=== PATIENT | female | born 1945 | race Caucasian/White ===

== ENCOUNTER → 2017-12-10 09:35 | Outpatient (CLI) | payer MEDICARE, SELFPAY ==
--- NOTE | 2017-12-10 09:39 | RAD_ITS ---
PROCEDURE: Fluoroscopic guided Hip Injection DATE: December 10, 2017. INDICATION: Female, 72 years old. Osteoarthritis of the left hip. PHYSICIAN: Vivek Rivera M.D. MEDICATIONS: 6 mg of betamethasone and 3 cc of lidocaine 1%. 2% Lidocaine administered subcutaneously for local anesthesia. ACCESS SITE: Left hip hip. NEEDLE: 22-gauge spinal needle. FLUOROSCOPY TIME (if supplied): (0:34) minutes/seconds FINDINGS: The risks, benefits, and alternatives to the procedure were explained to the patient. The specific risks of bleeding, infection, and neurovascular injury were detailed and accepted. Witnessed informed consent was obtained. A 22-gauge spinal needle was positioned under radiographic fluoroscopic localization. Approximately 2 cc of Isovue-300 instilled for localization purposes. Medication was then injected. The patient tolerated the procedure well without any immediate complications. The patient was placed supine with head elevated and returned to the floor in stable condition. RAD/Inj/Asp Caleb Jt Should/Hip/Knee IMPRESSION: 1. Successful fluoroscopic guided hip injection. Electronically Signed: Vivek Rivera MD at 11:03 EST Tel [phone], Service support ,
== END ==
PROVIDERS: Family Provider Internal Medicine; PCP Internal Medicine; Visit Provider Specialist
DX: M16.12 Unilateral primary osteoarthritis, left hip (principal)
CPT/HCPCS: 20610; 77002; Q9967; J0702

== ENCOUNTER → 2018-01-01 09:17 | Outpatient (CLI) | payer MEDICARE, SELFPAY ==
--- NOTE | 2018-01-01 09:38 | RAD_ITS ---
PROCEDURE: Fluoroscopic guided Hip Injection DATE: January 01, 2018. INDICATION: Female, 72 years old. Left hip pain. PHYSICIAN: Vivek Rivera M.D. MEDICATIONS: 6 mg of betamethasone and 3 cc of 1% lidocaine. 2% Lidocaine administered subcutaneously for local anesthesia. ACCESS SITE: Left hip. NEEDLE: 22-gauge spinal needle. FLUOROSCOPY TIME (if supplied): (32 seconds) minutes/seconds FINDINGS: The risks, benefits, and alternatives to the procedure were explained to the patient. The specific risks of bleeding, infection, and neurovascular injury were detailed and accepted. Witnessed informed consent was obtained. A 22-gauge spinal needle was positioned under radiographic fluoroscopic localization. Approximately 2 cc of Isovue-300 instilled for localization purposes. Medication was then injected. The patient tolerated the procedure well without any immediate complications. The patient was placed supine with head elevated and returned to the floor in stable condition. RAD/Inj/Asp Caleb Jt Should/Hip/Knee IMPRESSION: 1. Successful fluoroscopic guided hip injection. Electronically Signed: Vivek Rivera MD at 10:23 EST Tel [phone], Service support ,
== END ==
PROVIDERS: Family Provider Internal Medicine; PCP Internal Medicine; Visit Provider Specialist
DX: M16.12 Unilateral primary osteoarthritis, left hip (principal)
CPT/HCPCS: 20610; 77002; Q9967; J0702

== ENCOUNTER 2018-02-03 17:31 | Inpatient (IN) | payer MEDICARE, SELFPAY ==
[2018-02-03] VITALS (10 sets, daily range): BP systolic 111–142; BP diastolic 65–92; PULSE 79–119; RESP 20–29; TEMP 37.3–37.4; O2SAT 93–99; BMI 42.0; BMI 40.6
--- NOTE | 2018-02-03 17:56 | EKG12_ITS ---
Test Reason : SOB Blood Pressure : / mmHG Vent. Rate : 095 BPM Atrial Rate : 105 BPM P-R Int : 000 ms QRS Dur : 128 ms QT Int : 412 ms P-R-T Axes : 000 004 045 degrees QTc Int : 517 ms Atrial fibrillation Right bundle branch block Abnormal ECG Confirmed by OMID COELHO MD ([id number]), acquisitions editor JOCELYN HUYNH ([id number] on 02/06/2018 1:54:12 PM Referred By: LENNY Confirmed By:OMID COELHO MD
--- NOTE | 2018-02-03 17:58 | RAD_ITS ---
STUDY: X-RAY CHEST REASON FOR EXAM: Female, 72 years old. Shortness of breath TECHNIQUE: A single frontal view of the chest was obtained. COMPARISON: June 28, 2017 FINDINGS: The lungs are underaerated. There are coarse markings throughout both lungs, most pronounced in the lung bases. There is no demonstrated pleural abnormality. There is mild enlargement of the cardiac silhouette. The mediastinum and hilar regions are unremarkable. The central vessels are indistinct. There is atherosclerotic calcification of the thoracic aorta. There are diffuse degenerative changes of the visualized spine. There are degenerative changes in both shoulders. There is no demonstrated abnormality of the visualized upper abdomen. RAD/Chest 1 View (Portable) IMPRESSION: There is mild enlargement of the cardiac silhouette with vascular congestion. There is no obvious effusion. There are stable chronic changes in the lungs, most pronounced in the lung bases. Electronically Signed: Gill Boss MD at 18:25 EDT Tel Direct: [phone], Service support ,
[2018-02-03] MEDS: Ipratropium/Albuterol Sulfate 3 ML AMPUL.NEB INHALATION (18:02)
[2018-02-03] MEDS: 0.9% Normal Saline 1,000 ML 15 ML IV (18:23)
[2018-02-03 18:29] LABS: Anion Gap 7 (5-15); BUN 10 mg/dL (7-18); BUN/Creat Ratio 18.2 RATIO (10-20); Calcium,Total 8.5 mg/dL (8.5-10.1); Chloride 102 mmol/L (98-107); Creatinine, Serum 0.55 mg/dL (0.55-1.02); EST Glomerular Filtration Rate 115 mL/min (>60); Est Glom Filt Rate - Afr Amer 139 mL/min (>60); Estimated Creatinine Clearance 43.91 ml/min; Glucose 127 mg/dL (74-106); Potassium 3.8 mmol/L (3.5-5.1); Sodium Level 140 mmol/L (136-145)
[2018-02-03 18:43] LABS: Absolute Neutrophil Count 13.4 X10^3/uL (2.0-7.7); Basophil# 0.03 X10^3/uL; Basophil% 0.2 % (0-1); Eosinophil# 0.01 X10^3/uL; Eosinophils% 0.1 % (0-5); Hematocrit 31.6 % (37-47); Hemoglobin 9.1 g/dl (12.0-15.0); Lymphocyte % 6.4 % (19-41); Mean Corp Hgb Conc 28.8 g/gl (32-36); Mean Corpuscular Hgb 23.6 pg (27.0-32.0); Mean Corpuscular Volume 81.9 fL (81-99); Mean Platelet Vol. 8.9 fl (6.2-12.0); Monocyte# 1.22 X10^3/uL; Monocyte% 7.8 % (0-10); Neutrophil # 13.35 X10^3/uL (2.7-7.7); Neutrophil % 85.3 % (47-70); Platelet Count 351 K/mm3 (150-450); RBC Distribution Width CV 17.9 % (11.6-14.6); Red Blood Count 3.86 M/mm3 (4.2-5.4); White Blood Count 15.6 K/mm3 (4.4-11.0)
[2018-02-03 18:46] LABS: POSITIVE COUNT NO; POSITIVE DIFFERENTIAL NO; POSITIVE MORPHOLOGY NO
[2018-02-03 19:18] LABS: BNP,B-Type NATRIURETIC PEPTIDE 153.4 pg/mL (0-100)
--- NOTE | 2018-02-03 19:59 | US_ITS ---
STUDY: VENOUS DOPPLER ULTRASOUND - LEFT LOWER EXTREMITY REASON FOR EXAM: Female, 72 years old. Left leg pain and swelling TECHNIQUE: Ultrasound evaluation of the deep vein system to include caballero-scale imaging and compression was performed. Caballero-scale imaging and Doppler sonographic evaluation, including duplex spectral analysis and qualitative color flow sonography, was performed. COMPARISON: None. FINDINGS: Common Femoral Vein: Normal compression, spontaneity and augmentation. Normal color Doppler. Common Femoral Vein/Greater Saphenous Junction: Normal compression, spontaneity and augmentation. Normal color Doppler. Deep Femoral Vein: Normal compression, spontaneity and augmentation. Normal color Doppler. Femoral Proximal: Normal compression, spontaneity and augmentation. Normal color Doppler. Femoral Middle: Normal compression, spontaneity and augmentation. Normal color Doppler. Femoral Distal: Normal compression, spontaneity and augmentation. Normal color Doppler. Popliteal Vein: Normal compression, spontaneity and augmentation. Normal color Doppler. Posterior Tibial Vein: Normal compression, spontaneity and augmentation. Normal color Doppler. Peroneal Vein: Normal compression, spontaneity and augmentation. Normal color Doppler. US/Venous Duplex Imag/Limited/Uni IMPRESSION: Normal venous Doppler ultrasound of the lower extremity. Electronically Signed: Ron Mota MD at 20:43 EDT , Service support ,
[2018-02-03] MEDS: MethylPREDNISolone 125 MG/2 ML Vial IV (20:09)
[2018-02-03 20:26] LABS: International Normalized Ratio 2.9; Prothrombin Time (Protime)PT. 30.2 SECONDS (11.7-14.9)
--- NOTE | 2018-02-03 22:10 | ED.DCSUM_ITS ---
- ER Visit Summary Date of Service: 02/03/18 Chief Complaint: Shortness of breath History of Present Illness: The patient is a 72 F with COPD, A. fib, high blood pressure, and high cholesterol. Presents with shortness of breath increasing throughout the day today. She normally uses oxygen at 4-5 L at home. She believes her symptoms are similar prior COPD exacerbation. No chest pain. No cough or sputum. No fevers. She reports some swelling to her left leg. She does take Coumadin for A. fib. Physical Examination: Vital signs unremarkable. Afebrile. 98% on 6 L nasal cannula. No distress. Speaking in full sentences. Heart irregularly irregular. Lungs show poor air movement and rales at the bases. Abdomen soft and nontender. Left calf tender to palpation. 1+ symmetric edema. Pulses strong and equal. Test Results: EKG showed A. fib at a rate of 95. White count 15.6 and hemoglobin 9.1. Glucose 127. INR 2.9. BNP 153 and troponin normal. Chest x- ray showed an enlarged cardiac silhouette but otherwise stable changes. Ultrasound of the left leg was negative. Emergency Department Course and Treatment: Patient has a history of COPD and shortness of breath. Denies chest pain. Denies history of heart failure. Workup was all fairly unremarkable. She does have a white count of 15.6. This is a nonspecific finding. Her chest x-ray does not show an obvious infection. Given her history of COPD, I did give her a dose of Solu-Medrol, DuoNeb, and ceftriaxone. She had no significant change. I have low suspicion for PE. Troponin and EKG were unremarkable. Given her age and comorbidities and symptoms, I called the hospitalist for evaluation. Treatment Plan: As above Disposition: Admit Impression: 1. Dyspnea 2. COPD This note was generated with Bizimplyation software. It may contain incorrect words, spelling, and punctuation that were not noted in review of the chart prior to signing ED Disposition - Plan for ED Patient: Chief Complaint: Shortness of Breath Referrals: Aurora Madera MD [Primary Care Provider] -
--- NOTE | 2018-02-03 22:11 | PCM.HP.STD ---
Problem List (1) half-way current use of anticoagulant Status: Chronic (2) Pulmonary hypertension Status: Acute (3) Hyperlipidemia Status: Chronic (4) Paroxysmal atrial fibrillation Status: Chronic (5) Atrial septal defect Status: Chronic (6) Edema Status: Chronic (7) Dyspnea Status: Chronic (8) BMI 38.0-38.9,adult Status: Chronic (9) Stage 3 severe COPD by GOLD classification Status: Chronic (10) Dyspnea on exertion Status: Acute (11) COPD (chronic obstructive pulmonary disease) Status: Acute (12) HTN (hypertension) Status: Chronic History of Present Illness Date of Admission: 02/03/18 Chief Complaint: shortness of breath The patient is a 72 year old female patient with a known history of COPD presents to the ER in respiratory distress. Onset began upon awakening this morning. She has had breathing treatments every four hours and is on home oxygen at 5 liters via nasal cannula. Despite her home oxygenation her SPO2 was 66%. Her oxygenation has improved but she continues to breath greater than twenty times per minute and appears tired. She states she has been unable to sleep more than 3 hrs at a time. Recently she started sleeping with CPAP. No chest pain presently. WBC count is elevated at 15,000, chest x-ray reveals pulmonary congestion, no effusion and cardiac enlargement. She has received a dose of Rocephin ,Solumedrol and breathing treatments. She will be admitted for COPD exacerbation. 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) Hyperlipidemia (Chronic) Paroxysmal atrial fibrillation (Chronic) Atrial septal defect (Chronic) Edema (Chronic) Dyspnea (Chronic) BMI 38.0-38.9,adult (Chronic) Stage 3 severe COPD by GOLD classification (Chronic) Chest pain, atypical (Chronic) HTN (hypertension) (Chronic) Allergies meloxicam [From Mobic] Adverse Reaction (Verified 02/03/18 17:37) BP WENT UP, STOMACH PAINS tetracycline [Tetracycline] Adverse Reaction (Verified 02/03/18 17:37) GETS BLADDER INFECTION Home Medications: Ambulatory Orders Medication Instructions Recorded [place]-3 Fatty Acids/Fish Oil [Fish 1 ea PO BID 09/13/14 Oil 1,000 mg Softgel] Oxygen, Home [Home Oxygen] 2 - 4 lpm NASAL DAILY 09/13/14 Aspirin E.C. [Ecotrin] 81 mg PO DAILY@0800 11/21/15 budesonide-formoterol HFA 160 2 puff INHALATION BID #1 device 10/24/17 mcg-4.5 mcg/actuation aerosol inhaler geriatric multivit with iron and 1 tab PO QDAY 10/30/17 minerals tablet albuterol sulfate HFA 90 2 puff INHALATION Q6H 11/12/17 mcg/actuation aerosol inhaler albuterol sulfate HFA 90 2 puff INHALATION Q6H 11/12/17 mcg/actuation aerosol inhaler cholecalciferol (vitamin D3) 1,000 1,000 unit PO QDAY cap 11/12/17 unit capsule potassium 99 mg tablet 297 mg PO QDAY 11/25/17 diltiazem CD 120 mg 120 mg PO DAILY #90 cap 01/02/18 capsule,extended release 24 hr furosemide 20 mg tablet 20 mg PO .qod #45 tab 01/02/18 warfarin 5 mg tablet 5 mg PO QDAY #90 tab 01/02/18 dofetilide 125 mcg capsule 125 mcg PO BID #180 cap 01/08/18 Surgical History: - - Knee replacement Psychiatric History: 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 hx Smoking Status: Never smoker - *Family History Maternal History Items: Asthma Sibling History Items: Diabetes, - - Colon Cancer Review of Systems Constitutional: Denies: Chills, Fever, Weight Change HEENT: Denies: Head Aches, Sinus Congestion, Sinus Drainage Cardiovascular: Denies: Chest Pain, Palpitations Respiratory: Reports: Cough, Shortness of breath at rest, Shortness of breath upon exertion. Denies: Sputum production Gastrointestinal: Denies: Abdominal Pain, Nausea, Vomiting Genitourinary: Denies: Dysuria Musculoskeletal: Denies: Joint Pain, Joint Tenderness Skin: Denies: Rash, Wounds Neurological: Denies: Numbness, Tingling, Focal weakness Psychiatric: Reports: Anxiety. Denies: Depression, Homicidal Ideations, Suicidal Ideations Hematologic/ Lymphatic: Denies: Easy Bruising, Easy Bleeding VTE Information - Inpt Only VTE Present on Admission: No VTE Mechan Device Prophylaxis: None VTE Pharm Prophylaxis ordered?: No - Physical Exam General: Alert, Oriented x3, Cooperative HEENT: Atraumatic, Normocephalic Neck: Supple, No JVD, Negative Carotid Bruits Lungs: No rhonchi, No wheeze, No rales, Diminished, Tachypneic Cardiovascular: No murmurs, Irregular Rate Abdomen: Bowel Sounds Present, Soft, Non Tender, Obese Extremities: Capillary Refill Less than 3 Seconds, Edema - 1+ lower ext edema Skin: No rashes Musculoskeletal: No Tenderness to Palpation of Joints or Extremities Neurological: Neuro grossly intact Psych/Mental Status: Normal Affect, Appropriate Vital Signs Temp Pulse Resp BP Pulse Ox 99.2 F H 90 25 H 111/83 H 95 02/03/18 17:32 02/03/18 20:10 02/03/18 20:10 02/03/18 20:10 02/03/18 20:10 Oxygen Flow Rate (L/min) 5 Oxygen Delivery Method Nasal Cannula Weight: 244 lb 11.41 oz Body Mass Index (BMI) 42.0 Laboratory Tests Past 24 Hrs 02/03/18 02/03/18 02/03/18 17:37 17:37 17:37 WBC 15.6 H RBC 3.86 L Hgb 9.1 L Hct 31.6 L MCV 81.9 MCH 23.6 L MCHC 28.8 L RDW 17.9 H RDW Differential 54.0 H Plt Count 351 MPV 8.9 Immature Gran % (Auto) 0.200 Neut % (Auto) 85.3 H Lymph % (Auto) 6.4 L [place] % (Auto) 7.8 Eos % (Auto) 0.1 Baso % (Auto) 0.2 Absolute Neuts (auto) 13.4 H Absolute Lymphs (auto) 1.00 Total Counted Not Reportable PT INR Sodium 140 Potassium 3.8 Chloride 102 Carbon Dioxide 31.0 Anion Gap 7 BUN 10 Creatinine 0.55 Estim Creat Clear Calc 43.91 Est GFR (MDRD) Af Amer 139 Est GFR (MDRD) Non-Af 115 BUN/Creatinine Ratio 18.2 Glucose 127 H Calcium 8.5 Troponin I < 0.02 B-Natriuretic Peptide 153.4 H 02/03/18 17:37 WBC RBC Hgb Hct MCV MCH MCHC RDW RDW Differential Plt Count MPV Immature Gran % (Auto) Neut % (Auto) Lymph % (Auto) [place] % (Auto) Eos % (Auto) Baso % (Auto) Absolute Neuts (auto) Absolute Lymphs (auto) Total Counted PT 30.2 H INR 2.9 Sodium Potassium Chloride Carbon Dioxide Anion Gap BUN Creatinine Estim Creat Clear Calc Est GFR (MDRD) Af Amer Est GFR (MDRD) Non-Af BUN/Creatinine Ratio Glucose Calcium Troponin I B-Natriuretic Peptide Assessment/Plan Chronic Problems (Last Updated 11/25/17 @ 18:09 by Louise Sepulveda) half-way current use of anticoagulant (Chronic) Hyperlipidemia (Chronic) Paroxysmal atrial fibrillation (Chronic) Atrial septal defect (Chronic) Edema (Chronic) Dyspnea (Chronic) BMI 38.0-38.9,adult (Chronic) Stage 3 severe COPD by GOLD classification (Chronic) Dyspnea on exertion (Chronic) Chest pain, atypical (Chronic) COPD (chronic obstructive pulmonary disease) (Chronic) HTN (hypertension) (Chronic) Acute Problems - COPD exacerbation Plan - admit to PCU - solumedrol 40mg IV q 6 - oxygen per protocol, CPAP or BIPAP at HS - duoneb inh q 4hrs prn - continue Rocephin 1 gram iv q 24hrs - cbc,bmp in am - Lasix 20mg IV x 1 - continue routine home medications - she is a full code and does want intubation if necessary Code Visit Inpatient E&M: [id number] Init Hosp L3
[2018-02-04] VITALS (24 sets, daily range): BP systolic 122–156; BP diastolic 73–91; PULSE 60–118; RESP 12–24; TEMP 36.6–37.1; O2SAT 86–99
[2018-02-04] MEDS: 0.9% Normal Saline 1,000 ML 15 ML IV (00:04)
[2018-02-04] MEDS: 0.9% NaCl Peripheral Flush Adult/Peds IV ×5 (00:04→21:31)
[2018-02-04] MEDS: Ipratropium/Albuterol Sulfate 3 ML AMPUL.NEB INHALATION ×6 (02:08→22:33)
[2018-02-04] MEDS: Furosemide 20 MG/2 ML VIAL IV (03:58)
[2018-02-04 05:44] LABS: Absolute Lymphocyte Count 0.76 X10^3/ul (0.83-4.51); Absolute Neutrophil Count 22.4 X10^3/uL (2.0-7.7); Basophil# 0.01 X10^3/uL; Hematocrit 31.8 % (37-47); Hemoglobin 9.2 g/dl (12.0-15.0); Lymphocyte # 0.76 X10^3/ul (4.0); Lymphocyte % 3.2 % (19-41); Mean Corp Hgb Conc 28.9 g/gl (32-36); Mean Corpuscular Hgb 23.7 pg (27.0-32.0); Mean Corpuscular Volume 81.7 fL (81-99); Mean Platelet Vol. 8.6 fl (6.2-12.0); Monocyte# 0.33 X10^3/uL; Monocyte% 1.4 % (0-10); Neutrophil # 22.38 X10^3/uL (2.7-7.7); Neutrophil % 95.2 % (47-70); Platelet Count 324 K/mm3 (150-450); RBC Distribution Width CV 17.6 % (11.6-14.6); RBC Distribution Width SD 52.7 fl (35.1-43.9); Red Blood Count 3.89 M/mm3 (4.2-5.4); White Blood Count 23.5 K/mm3 (4.4-11.0)
[2018-02-04 05:45] LABS: Differential Indicated SCAN CRITERIA MET; POSITIVE COUNT NO; POSITIVE DIFFERENTIAL YES; POSITIVE MORPHOLOGY NO
[2018-02-04 06:03] LABS: ALB/GLOB Ratio 0.8 RATIO (0.9-2.4); AST(SGOT) 17 U/L (15-37); Alanine Aminotransfer ALT/SGPT 23 U/L (13-56); Albumin, Serum 3.1 g/dL (3.2-5.0); Alkaline Phosphatase 81 U/L (45-117); Anion Gap 7 (5-15); BUN 8 mg/dL (7-18); BUN/Creat Ratio 13.7 RATIO (10-20); Calcium,Total 8.5 mg/dL (8.5-10.1); Chloride 98 mmol/L (98-107); Creatinine, Serum 0.58 mg/dL (0.55-1.02); EST Glomerular Filtration Rate 108 mL/min (>60); Est Glom Filt Rate - Afr Amer 130 mL/min (>60); Estimated Creatinine Clearance 43.91 ml/min; Globulin 3.9 g/dL (2.2-4.2); Glucose 200 mg/dL (74-106); Sodium Level 139 mmol/L (136-145)
[2018-02-04 06:47] LABS: Differential Comment SCANNED
[2018-02-04] MEDS: Dofetilide 125 MCG Capsule PO ×2 (09:03→21:30)
[2018-02-04] MEDS: Omega-3 Acid Ethyl Esters 1 GM Capsule PO (09:03)
[2018-02-04] MEDS: dilTIAZem CD 120 MG Capsule PO (09:04)
[2018-02-04] MEDS: Aspirin E.C. 81 MG Tablet PO (09:04)
[2018-02-04] MEDS: Ceftriaxone 1 GM/50 ML BAG IV (09:20)
--- NOTE | 2018-02-04 10:26 | CT_ITS ---
STUDY: CT CHEST WITHOUT CONTRAST REASON FOR EXAM: Female, 72 years old. Wheezing. History of pneumothorax. RADIATION DOSAGE (If Supplied By Facility): CTDIvol = ( 19.61 ) mGy, DLP = ( 671.27 ) mGycm TECHNIQUE: Transaxial imaging was performed without the administration of intravenous contrast material. Multiplanar coronal and sagittal images were reformatted. Individualized dose optimization techniques were used for this CT. COMPARISON: Comparison is made with prior examination dated April 10, 2017. FINDINGS: Stable increased markings at the lung apices suggestive of scarring. Stable focal nodular thickening along the superior aspect of the right major fissure. Increased linear markings with areas of bronchiectasis in the right middle lobe. This is unchanged. There is a new irregular infiltrate measuring 2.1 cm x 1.6 cm in the posterior aspect of the right lower lobe. Follow-up is recommended. Stable mild degree of increased markings at the left base. There is no demonstrated pleural abnormality. There is moderate cardiac enlargement. There are multiple small lymph nodes within the mediastinum, which are normal in size and morphology most compatible with reactive lymph hyperplasia. Normal hilar regions. Normal unenhanced pulmonary arteries. There is atherosclerotic calcification of the aortic arch and descending thoracic aorta. Stable kyphosis. There is no demonstrated abnormality of the visualized upper abdomen. CT/Chest without Contrast IMPRESSION: Stable scarring in both lungs with fibrocalcific density in the right middle lobe. New focal infiltrate in the posterior segment of the right lower lobe. Follow-up is recommended. Electronically Signed: Vivek Rivera MD at 13:04 EDT Tel [phone], Service support ,
--- NOTE | 2018-02-04 10:50 | CON.PCM_ITS ---
Reason for Consult Date of Consultation: 02/04/18 Reason for Consultation: Acute on chronic hypoxic respiratory failure History of Present Illness: The patient is a 72-year-old female, with a history as outlined below, who presented to the emergency department on February 03 with complaints of progressive shortness of breath. She states that her shortness of breath worsened on the day prior to her arrival to the hospital. She denies the presence of a cough, chest tightness or wheezing. She states that she has a lifelong non-smoker without significant secondhand smoke exposure previously. The patient follows with Dr. Chavis on an outpatient basis due to underlying obstructive sleep apnea , severe COPD, baseline bronchiectasis and chronic hypoxic respiratory failure. The patient also has a history of paroxysmal atrial fibrillation, for which she is chronically anticoagulated along with a patent foramen ovale. Pulmonary function testing last completed in October 2017 revealed evidence of an irreversible severe mixed ventilatory defect with significant worsening compared to previous studies. A 6 minute walk test also completed at that time revealed the need for 2 L/min of supplemental oxygen with exertion. The patient did not have a resting supplemental oxygen requirement at that time. Surface echocardiogram from March 2017 revealed normal LV size and function with an ejection fraction of 60%. The patient's polysomnogram completed in 2015 revealed the need for nasal CPAP therapy at a pressure setting of 9 cm of water with humidification. Although the patient initially stated that she was compliant with the use of nocturnal noninvasive positive pressure ventilation, a review of her compliance report indicates the contrary. On presentation to the emergency department, the patient was noted to have a low -grade fever of 99.2?F. She was maintaining appropriate oxygen saturations on 6 L/min via nasal cannula. Initial laboratory evaluation revealed elevated white blood cell count to 15,000. INR was noted to be 2.9. Chemistry profile was largely unrevealing. Troponin was negative. BNP was mildly elevated to 153. Plain film chest x-ray revealed a mild degree of pulmonary vascular congestion. Due to the patient's complaints of left leg pain and swelling, a lower extremity Doppler was obtained. That study was negative for the presence of a DVT. The patient was initially treated with aerosols, antibiotics, Lasix and IV steroids. She was subsequently admitted to the progressive care unit for ongoing management. Past Medical History Past Medical History (Chronic Problems): Chronic Problems (Last Updated 11/25/17 @ 18:09 by Louise Sepulveda) skilled nursing current use of anticoagulant (Chronic) Hyperlipidemia (Chronic) Paroxysmal atrial fibrillation (Chronic) Atrial septal defect (Chronic) Edema (Chronic) Dyspnea (Chronic) BMI 38.0-38.9,adult (Chronic) Stage 3 severe COPD by GOLD classification (Chronic) Chest pain, atypical (Chronic) HTN (hypertension) (Chronic) Allergies meloxicam [From Mobic] Adverse Reaction (Verified 02/03/18 17:37) BP WENT UP, STOMACH PAINS tetracycline [Tetracycline] Adverse Reaction (Verified 02/03/18 17:37) GETS BLADDER INFECTION Home Medications: Ambulatory Orders Medication Instructions Recorded [place]-3 Fatty Acids/Fish Oil [Fish 1 ea PO DAILY 09/13/14 Oil 1,000 mg Softgel] Oxygen, Home [Home Oxygen] 4 - 5 lpm NASAL DAILY 09/13/14 Aspirin E.C. [Ecotrin] 81 mg PO DAILY@0800 11/21/15 budesonide-formoterol HFA 160 2 puff INHALATION BID #1 device 10/24/17 mcg-4.5 mcg/actuation aerosol inhaler albuterol sulfate HFA 90 2 puff INHALATION Q6H PRN 11/12/17 mcg/actuation aerosol inhaler cholecalciferol (vitamin D3) 1,000 1,000 unit PO QDAY cap 11/12/17 unit capsule potassium 99 mg tablet 297 mg PO QODAY 11/25/17 diltiazem CD 120 mg 120 mg PO DAILY #90 cap 01/02/18 capsule,extended release 24 hr furosemide 20 mg tablet 20 mg PO .qod #45 tab 01/02/18 warfarin 5 mg tablet 5 mg PO QDAY #90 tab 01/02/18 dofetilide 125 mcg capsule 125 mcg PO BID #180 cap 01/08/18 Methyl Salicylate/Menthol 2 each TRANSDERM. 02/03/18 [Salonpas Patch] Surgical History: - - Knee replacement Psychiatric History: 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 hx Smoking Status: Never smoker - *Family History Maternal History Items: Asthma Sibling History Items: Diabetes, - - Colon Cancer Review of Systems Constitutional: Denies: Chills, Fever, Weight Change Eyes: Denies: Blurred vision, Double vision HEENT: Denies: Head Aches, Sinus Congestion, Sinus Drainage Cardiovascular: Denies: Chest Pain, Palpitations Respiratory: Reports: Shortness of Breath. Denies: Sputum production, Wheezing Gastrointestinal: Denies: Abdominal Pain, Nausea, Vomiting Genitourinary: Denies: Dysuria Musculoskeletal: Denies: Joint Pain, Joint Tenderness Skin: Denies: Rash, Wounds Neurological: Denies: Numbness, Tingling, Focal weakness Psychiatric: Denies: Anxiety, Depression, Homicidal Ideations, Suicidal Ideations Hematologic/ Lymphatic: Denies: Easy Bruising, Easy Bleeding Objective: The patient's most recent lab work, culture data and imaging studies have all been personally reviewed. Strep and urine Legionella antigens are pending. Sputum culture and respiratory viral panel are also pending. - Physical Exam General: Alert, Cooperative, No apparent distress, - - Currently being maintained on BiPAP therapy. HEENT: Atraumatic, PERRLA, Normocephalic Oral: Dry Mucosa Neck: Supple, No Nodes, Trachea Midline Lungs: No rhonchi, Diminished, Rales, Wheezes Cardiovascular: Normal S1, Normal S2, No murmurs, Irregular Rate, No rub noted, No Gallop Abdomen: Bowel Sounds Present, Soft, Non Tender, Obese Extremities: No clubbing, No cyanosis, Edema - L>R Skin: No breakdown Musculoskeletal: No Muscle Wasting Lymphatic: No Cervical, Supraclavicular, or Inguinal Adenopathy Neurological: Neuro grossly intact Psych/Mental Status: Normal Affect, Appropriate Vital Signs Temp Pulse Resp BP Pulse Ox 97.9 F 100 15 145/76 H 94 02/04/18 09:13 02/04/18 09:13 02/04/18 09:13 02/04/18 09:13 02/04/18 09:13 Oxygen Flow Rate (L/min) 6 Oxygen Delivery Method Nasal Cannula Weight: 236 lb 8.896 oz Body Mass Index (BMI) 40.6 Intake and Output for Last 24 Hours 02/02/18 02/03/18 02/04/18 23:59 23:59 23:59 Intake Total 292 / 292 Output Total 1500 / 1500 Balance -1208 / -1208 Laboratory Tests Past 24 Hrs 02/04/18 02/04/18 05:30 05:30 WBC 23.5 H RBC 3.89 L Hgb 9.2 L Hct 31.8 L MCV 81.7 MCH 23.7 L MCHC 28.9 L RDW 17.6 H RDW Differential 52.7 H Plt Count 324 MPV 8.6 Immature Gran % (Auto) 0.200 Neut % (Auto) 95.2 H Lymph % (Auto) 3.2 L [place] % (Auto) 1.4 Eos % (Auto) 0.0 Baso % (Auto) 0.0 Absolute Neuts (auto) 22.4 H Absolute Lymphs (auto) 0.76 L Total Counted Not Reportable Differential Comment SCANNED Sodium 139 Potassium 4.0 Chloride 98 Carbon Dioxide 34.0 H Anion Gap 7 BUN 8 Creatinine 0.58 Estim Creat Clear Calc 43.91 Est GFR (MDRD) Af Amer 130 Est GFR (MDRD) Non-Af 108 BUN/Creatinine Ratio 13.7 Glucose 200 H Calcium 8.5 Total Bilirubin 0.30 AST 17 ALT 23 Alkaline Phosphatase 81 Total Protein 7.0 Albumin 3.1 L Globulin 3.9 Albumin/Globulin Ratio 0.8 L Clinical Impression(s) from Imaging Studies Chest X-Ray 02/03/18 17:58 IMPRESSION: There is mild enlargement of the cardiac silhouette with vascular congestion. There is no obvious effusion. There are stable chronic changes in the lungs, most pronounced in the lung bases. Electronically Signed: Gill Boss MD at 18:25 EDT Tel Direct: [phone], Service support , Venous Duplex 02/03/18 19:59 IMPRESSION: Normal venous Doppler ultrasound of the lower extremity. Electronically Signed: Ron Mota MD at 20:43 EDT , Service support , Assessment/Plan RECOMMENDATIONS: 1. Although the patient's steroid use is likely the culprit for her rising white blood cell count, would recommend empirically broadening the patient's antibiotics given her reliance on BiPAP at the current time. 2. Continue scheduled aerosol treatments and IV steroids 3. Obtain and send sputum for culture 4. Check full respiratory viral panel 5. Continue BiPAP therapy as tolerated. Wean supplemental oxygen to maintain saturations 88-92% 6. Obtain repeat surface echocardiogram 7. CT chest is pending. IMPRESSIONS: 1. Acute on chronic hypoxemic and hypercarbic respiratory failure Concern for underlying COPD with exacerbation due to presumptive viral versus bacterial infection. Per the patient's last walking oximetry study, she is only supposed to utilize 2 L/min with exertion. However, she is currently utilizing higher levels of supplemental oxygen. A CT chest has been ordered and is currently pending. Recommend continuing antibiotics along with scheduled aerosols and IV steroids. Send sputum for culture and obtain a full respiratory viral panel. Wean the patient from BiPAP as tolerated. Goal to maintain an oxygen saturation of 88-92%. Please obtain repeat surface echocardiogram. 2. Personal history of obstructive sleep apnea, noncompliant with outpatient PAP therapy While the patient does report compliance with her home nocturnal Pap therapy, her outpatient compliance report clearly contradicts this assertion. The patient does appear to have a baseline degree of CO2 retention. She would certainly benefit from ongoing use of bilevel therapy. The importance of noninvasive positive pressure ventilation will need to be emphasized to the patient in hopes that she will begin to utilize her Pap therapy on an outpatient basis. 3. Paroxysmal atrial fibrillation/patent foramen ovale The patient is currently anticoagulated on Coumadin. Would recommend holding at this time. Okay to continue Kinzazem and Tiglennsyn from my perspective. This note was generated with [employer] dictation software. It may contain incorrect words, spelling, and punctuation that were not noted in checking the note before signing. Code Visit Inpatient E&M: 31607 Init Hosp L3
[2018-02-04 11:31] LABS: Lactic Acid 1.5 mmol/L (0.4-2.0)
[2018-02-04 11:36] LABS: Allen Test POS; Base Excess 8 mmol/L (-2 to +2); Bicarbonate 34.2 mmol/L (22-26); Blood Gas Specimen Type ART; O2 Delivery Device Nasal Can; PO2 81 mmHG (75-100); SITE L Radial; SO2 95 % (95-99); Time Given 1115; Total Carbon Dioxide 36 mmol/L; pH 7.34 (7.35-7.45)
[2018-02-04] MEDS: Doxycycline 100 MG CAPSULE PO (11:37)
--- NOTE | 2018-02-04 11:53 | CASEMGMT ---
This RN CM to room at this time to complete CM assessment and pt is sleeping on her bipap at this time. Will attempt again later. SStaten MACK CM
--- NOTE | 2018-02-04 11:59 | ECHOCS_ITS ---
Reason For Study: PULMONARY HYPERTENSION Procedure This was a 2D Doppler, Color Flow transthoracic echocardiogram. Exam performed portable in patient room. Left Ventricle Mild concentric left ventricular hypertrophy. The estimated ejection fraction is 65 %. Stage 2 diastolic dysfunction. No regional wall motion abnormalities noted. Right Ventricle Normal size and thickness. Normal systolic function. Atria Normal left atrium. Normal right atrium. Normal atrial septum. Mitral Valve Mild diffuse mitral valve thickening. Mild (1+) mitral valve insufficiency. Tricuspid Valve Normal tricuspid valve. Mild (1+) tricuspid valve insufficiency. Right ventricular systolic pressure estimated to be 46 mmHg. Mild pulmonary hypertension. Aortic Valve Trisinus/trileaflet aortic valve. Mild diffuse aortic valve thickening. Mild (1+) aortic valve insufficiency. Pulmonic Valve Normal pulmonic valve. Great Vessels Normal aortic root. Normal arch. The inferior vena cava is dilated. Inferior vena cava collapse with sniff. Pericardium/Pleural No pericardial effusion. Medication Diluted definity 2ml given slow IV push to enhance endocardial definition. MMode/2D Measurements & Calculations LVIDd: 4.7 cm IVSd: 1.3 cm Ao root diam: 3.8 cm LVIDs: 3.5 cm LVPWd: 1.5 cm RVDd: 3.3 cm FS: 24.9 % LAV(MOD-bp): 48.2 ml EDV(MOD-sp4): 122.8 ml SV(MOD-sp4): 70.0 ml LAV(MOD-bp) Indexed: 23.0 ml/m2 ESV(MOD-sp4): 52.7 ml LAV(MOD-sp2): 57.6 ml EF(MOD-sp4): 57.1 % LAV(MOD-sp4): 32.6 ml LA A4 area: 12.8 cm2 RA A4 area: 14.9 cm2 Time Measurements MV dec time: 0.26 sec Doppler Measurements & Calculations MV E max manolo: 116.7 cm/sec Lat Peak E' Manolo: 7.7 cm/sec Med Peak E' Manolo: 4.7 cm/sec MV A max manolo: 75.8 cm/sec E/E' lat: 15.2 E/E' med: 24.7 MV E/A: 1.5 Ao V2 max: 179.0 cm/sec AI max manolo: 410.9 cm/sec LV V1 max: 136.7 cm/sec Ao max P.9 mmHg AI max P.5 mmHg LV V1 max P.6 mmHg AI dec slope: 172.8 cm/sec2 AI P1/2t: 696.6 msec PA V2 max: 114.7 cm/sec TR max manolo: 320.3 cm/sec TR max P.0 mmHg Interpretation Summary Mild concentric left ventricular hypertrophy. The estimated ejection fraction is 65 %. Stage 2 diastolic dysfunction. Normal size and thickness. Mild (1+) mitral valve insufficiency. Mild (1+) tricuspid valve insufficiency. Right ventricular systolic pressure estimated to be 46 mmHg. Mild pulmonary hypertension. Mild (1+) aortic valve insufficiency. Compared to echo report dated 04/12/2017, no appreciable changes noted. The study was technically difficult. Contrast injection was performed. Ordering Physician: Percy rWight Referring Physician: TANGELA PEGUERO Performed By: Alexandra Johnson RDCS
--- NOTE | 2018-02-04 12:19 | PN_ITS ---
Subjective: Pt is resting in chair at bedside. She is on bipap but is tiring from it. Without it she has significant conversational dyspnea. She has no fevers or chills. She denies cough at all. She chronically is on 5 lpm o2 for COPD with chronic hypoxic respiratory failure. She states she has been around people who have had colds lately. She denies cough, congestion, and rhinorrhea. She has no CP or palp. She states she uses CPAP at home, however per pulm (follows Partha) she has poor compliance. She has not had any improvement in SOB overnight. She denies leg swelling, she reports CHF and AF history. - Physical Exam General: Alert, Oriented x3, Cooperative HEENT: Atraumatic, PERRLA, EOMI, Normocephalic Neck: Supple, No JVD, Negative Carotid Bruits Lungs: Normal air movement, Diminished - severely, Rales, Wheezes Cardiovascular: Irregular Rate Abdomen: Bowel Sounds Present, Soft, Non Tender Extremities: No edema, Capillary Refill Less than 3 Seconds Skin: No rashes, No breakdown Musculoskeletal: No Tenderness to Palpation of Joints or Extremities Neurological: Cranial nerves II-XII grossly intact Psych/Mental Status: Normal Affect, Appropriate, Alert and oriented to time, place, person, mood and affect Vital Signs Temp Pulse Resp BP Pulse Ox 97.9 F 100 15 145/76 H 94 02/04/18 09:13 02/04/18 09:13 02/04/18 09:13 02/04/18 09:13 02/04/18 09:13 Oxygen Flow Rate (L/min) 6 Oxygen Delivery Method Nasal Cannula Weight: 107.3 kg Body Mass Index (BMI) 40.6 Intake and Output for Last 24 Hours 02/02/18 02/03/18 02/04/18 23:59 23:59 23:59 Intake Total 292 / 292 Output Total 1500 / 1500 Balance -1208 / -1208 Microbiology Past 72 Hours 02/04/18 10:35 Streptococcus pneumoniae Antigen (M - Final Urine, Clean Catch 02/04/18 10:35 Legionella Antigen - Final Urine, Clean Catch Laboratory Tests Past 24 Hrs 02/04/18 02/04/18 02/04/18 05:30 05:30 10:50 WBC 23.5 H RBC 3.89 L Hgb 9.2 L Hct 31.8 L MCV 81.7 MCH 23.7 L MCHC 28.9 L RDW 17.6 H RDW Differential 52.7 H Plt Count 324 MPV 8.6 Immature Gran % (Auto) 0.200 Neut % (Auto) 95.2 H Lymph % (Auto) 3.[address] [place] % (Auto) 1.4 Eos % (Auto) 0.0 Baso % (Auto) 0.0 Absolute Neuts (auto) 22.4 H Absolute Lymphs (auto) 0.76 L Total Counted Not Reportable Differential Comment SCANNED Specimen Type Sample Site pH Bicarbonate Actual POC Total CO2 Base Excess O2 Saturation ABG pCO2 ABG pO2 Ceasar Test O2 Delivery Device Liter Flow Blood Gas Notified Whom Blood Gas Notified Time Sodium 139 Potassium 4.0 Chloride 98 Carbon Dioxide 34.0 H Anion Gap 7 BUN 8 Creatinine 0.58 Estim Creat Clear Calc 43.91 Est GFR (MDRD) Af Amer 130 Est GFR (MDRD) Non-Af 108 BUN/Creatinine Ratio 13.7 Glucose 200 H Lactic Acid 1.5 Calcium 8.5 Total Bilirubin 0.30 AST 17 ALT 23 Alkaline Phosphatase 81 Total Protein 7.0 Albumin 3.1 L Globulin 3.9 Albumin/Globulin Ratio 0.8 L 02/04/18 11:29 WBC RBC Hgb Hct MCV MCH MCHC RDW RDW Differential Plt Count MPV Immature Gran % (Auto) Neut % (Auto) Lymph % (Auto) [place] % (Auto) Eos % (Auto) Baso % (Auto) Absolute Neuts (auto) Absolute Lymphs (auto) Total Counted Differential Comment Specimen Type ART Sample Site L Radial pH 7.34 L Bicarbonate Actual 34.2 H POC Total CO2 36 Base Excess 8 H O2 Saturation 95 ABG pCO2 64.0 H ABG pO2 81 Ceasar Test POS O2 Delivery Device Nasal Can Liter Flow 6.0 Blood Gas Notified Whom [facility] Blood Gas Notified Time 1115 Sodium Potassium Chloride Carbon Dioxide Anion Gap BUN Creatinine Estim Creat Clear Calc Est GFR (MDRD) Af Amer Est GFR (MDRD) Non-Af BUN/Creatinine Ratio Glucose Lactic Acid Calcium Total Bilirubin AST ALT Alkaline Phosphatase Total Protein Albumin Globulin Albumin/Globulin Ratio Medical Necessity - Tobacco Use Smoking Status: Never smoker Assessment/Plan 1. Acute on chronic hypoxic respiratory failure 2/2 multiple underlying pulmonary issues as below - normally on 5 lpm at home. Currently appears SOB sitting upright with significant conversational dyspnea appearing very SOB and with little air movement on exam. ABG reveals mild acidosis. Pulmonary medicine consulted. *There is an area on CT suspicious for a spiculated lesion, wait for final read. Pulm aware. 2. Acute sepsis 2/2 Suspected RLL pna/ acute on chronic bronchitis - CT chest done today shows possible right sided lesion with possible pna on right side, change abx to cover for possible post obstructive, Admitted on rocephin, munira added this AM, changed after discussion with pulmonary medicine to zosyn. Significant leukocytosis, CXR suspicious for RML/RLL pna, afebrile, tachycardic and tachypneic at admission. lactate negative. Blood cultures ordered. Check urine antigens. Check respiratory panel. Continue mucinex. Cant have azithromycin 2/2 tikosyn. 3. Mild acute exacerbation of diastolic CHF - prior echo last year with EF60%. Low dose IV lasix. Vascular congestion and elevated BNP with rales on exam. Monitor I/Os. Troponin negative. ? hx of pulmonary htn, ? hx atrial septal defect. Repeat echo ordered. 4. Acute on chronic COPD exacerbation - increased steroids this AM, continue duonebs, incentive spirometer. 5. PAF - warfarin, tikosyn, diltiazem. INR therapeutic. 6. NEVAEH - has CPAP has home with poor compliance records per pulm 7. HTN - stable 8. Morbid obesity - dietary consult. 9. HLD - lovaza 10. Normocytic anemia - trend. check iron. ? hx iron deficiency anemia, not on oral. DVT ppx: warfarin, follow inr DC planning: pt already has home o2 This patient was seen by Percy Wright PA-C under the supervision of Doctor Coyle.
[2018-02-04 13:16] LABS: Ferritin 13 ng/mL (8-252); Iron 13 ug/dL (50-170); Iron Binding Capacity,Total 426 ug/dL (250-450); PERCENT IRON SATURATION 3.1 % (15.0-55.0)
--- NOTE | 2018-02-04 14:35 | CASEMGMT ---
Face to Face with patient for initial transition planning/care coordination assessment. RN LINDA introduced self and role at [facility], pt voices understanding and consents to assessment at this time. Pt is sitting up in chair in no distress at this time. Pt A/O x4 at this time and answers all questions appropriately at this time. Care providers, pharmacy, and demographics verified. See attached link. Pt voices no further concerns/needs at this time. Advised pt to ask for CM if any further questions/concerns/needs arise, voices understanding. CM to follow for any further discharge planning/needs. PLAN: Home SStaten MACK [facility]
[2018-02-04] MEDS: Piperacil/Tazobactam 3.375 GM/50 ML ML IV ×2 (14:53→21:30)
[2018-02-04] MEDS: MethylPREDNISolone 125 MG/2 ML Vial 60 MG IV ×2 (14:54→21:29)
[2018-02-04] MEDS: guaiFENesin 1,200 MG Tablet 1200 MG PO (21:29)
[2018-02-05] VITALS (19 sets, daily range): BP systolic 145–150; BP diastolic 67–81; PULSE 58–107; RESP 12–26; TEMP 36.7–37; O2SAT 93–99
[2018-02-05] MEDS: Ipratropium/Albuterol Sulfate 3 ML AMPUL.NEB INHALATION ×6 (02:47→23:02)
[2018-02-05 05:13] LABS: Bacteria 0 SEEN /hpf (None Seen); Mucous, Urine 0 SEEN /hpf (<or=2+); Red Blood Cells-Urine 0 SEEN /hpf (0-5)
[2018-02-05 05:25] LABS: Color, Urine Yellow (Yellow); Glucose, Dipstick Normal (Normal); Ketone-Dipstick Negative (Negative); Leukocyte Esterase-Dipstick 100 /ul (Negative); Nitrite-Dipstick Negative (Negative); Occult Blood-Urine 10 /ul (Negative); Protein-Dipstick 15 mg/dl (Negative); Specific Gravity, Urine 1.015 (1.002-1.030); Urine Bilirubin Dipstick Negative (Negative); Urine Clarity Clear (Clear); Urine Urobilinogen Normal (Normal)
[2018-02-05 05:48] LABS: Squamous Epithelial Cells - UA 5-10 SEEN /hpf (5-10); White Blood Cells 0-5 SEEN /hpf (0-5)
[2018-02-05] MEDS: MethylPREDNISolone 125 MG/2 ML Vial 60 MG IV ×3 (05:48→21:13)
[2018-02-05] MEDS: 0.9% NaCl Peripheral Flush Adult/Peds IV ×2 (05:48→14:56)
[2018-02-05] MEDS: Piperacil/Tazobactam 3.375 GM/50 ML ML IV (05:48)
[2018-02-05 05:53] LABS: Prothrombin Time (Protime)PT. 48.8 SECONDS (11.7-14.9)
[2018-02-05 05:55] LABS: Absolute Lymphocyte Count 0.96 X10^3/ul (0.83-4.51); Absolute Neutrophil Count 18.6 X10^3/uL (2.0-7.7); Basophil# 0.01 X10^3/uL; Hematocrit 32.6 % (37-47); Hemoglobin 9.3 g/dl (12.0-15.0); Lymphocyte # 0.96 X10^3/ul (4.0); Lymphocyte % 4.8 % (19-41); Mean Corp Hgb Conc 28.5 g/gl (32-36); Mean Corpuscular Hgb 23.8 pg (27.0-32.0); Mean Corpuscular Volume 83.4 fL (81-99); Mean Platelet Vol. 9.1 fl (6.2-12.0); Monocyte# 0.44 X10^3/uL; Monocyte% 2.2 % (0-10); Neutrophil # 18.58 X10^3/uL (2.7-7.7); Neutrophil % 92.8 % (47-70); Platelet Count 379 K/mm3 (150-450); RBC Distribution Width CV 17.3 % (11.6-14.6); Red Blood Count 3.91 M/mm3 (4.2-5.4)
[2018-02-05 06:02] LABS: International Normalized Ratio 5.3
[2018-02-05 06:04] LABS: POSITIVE COUNT NO; POSITIVE DIFFERENTIAL NO; POSITIVE MORPHOLOGY NO
[2018-02-05 06:14] LABS: Anion Gap 6 (5-15); BUN 14 mg/dL (7-18); Calcium,Total 8.4 mg/dL (8.5-10.1); Chloride 100 mmol/L (98-107); Creatinine, Serum 0.67 mg/dL (0.55-1.02); EST Glomerular Filtration Rate 92 mL/min (>60); Est Glom Filt Rate - Afr Amer 112 mL/min (>60); Estimated Creatinine Clearance 43.91 ml/min; Glucose 156 mg/dL (74-106); Potassium 4.1 mmol/L (3.5-5.1); Sodium Level 143 mmol/L (136-145)
[2018-02-05] MEDS: Aspirin E.C. 81 MG Tablet PO (09:49)
[2018-02-05] MEDS: Furosemide 20 MG Tablet PO (09:49)
[2018-02-05] MEDS: dilTIAZem CD 120 MG Capsule PO (09:49)
[2018-02-05] MEDS: Omega-3 Acid Ethyl Esters 1 GM Capsule PO (09:49)
[2018-02-05] MEDS: Dofetilide 125 MCG Capsule PO ×2 (09:49→21:12)
--- NOTE | 2018-02-05 10:23 | PCM.PROGNOTE ---
Subjective: The patient was seen and examined at the bedside this morning. Events from the last 24 hours have been reviewed. The patient is currently afebrile, hemodynamically stable and maintaining appropriate oxygen saturations on 5 L/min via nasal cannula. The patient is overall net -668 mL's for the admission. She reports to feeling short of breath this morning with ongoing nonproductive cough. Objective: The patient's most recent lab work, culture data and imaging studies have all been personally reviewed. Strep and urine Legionella antigens were both negative. Blood and urine cultures are pending. Respiratory viral panel was positive for rhinovirus. CT chest completed February 04 revealed evidence of a right lower lobe irregular airspace density with focal bronchiectasis in the right middle lobe. Surface echocardiogram revealed evidence of stage II diastolic dysfunction with an ejection fraction of 65%. Right ventricular systolic pressure was estimated to be 46 mmHg. - Physical Exam General: Alert, Cooperative, No apparent distress, - - Resting comfortably in bed currently HEENT: Atraumatic, PERRLA, Normocephalic Oral: No Gingival or Mucosal Lesions/ Ulcerations Neck: Supple, No Nodes, Trachea Midline Lungs: No wheeze, Diminished, Rhonchi, Short of Breath Cardiovascular: Normal S1, Normal S2, No murmurs, Irregular Rate, No rub noted, No Gallop Abdomen: Bowel Sounds Present, Soft, Non Tender, Obese Extremities: No clubbing, No cyanosis, Edema Skin: No breakdown Musculoskeletal: No Muscle Wasting Lymphatic: No Cervical, Supraclavicular, or Inguinal Adenopathy Neurological: Neuro grossly intact Psych/Mental Status: Alert and oriented to time, place, person, mood and affect Vital Signs Temp Pulse Resp BP Pulse Ox 98.2 F 88 17 148/72 H 97 02/05/18 09:10 02/05/18 09:10 02/05/18 09:10 02/05/18 09:10 02/05/18 09:10 Oxygen Flow Rate (L/min) 5 Oxygen Delivery Method Nasal Cannula Weight: 236 lb 8.896 oz Body Mass Index (BMI) 40.6 Intake and Output for Last 24 Hours 02/03/18 02/04/18 02/05/18 23:59 23:59 23:59 Intake Total 1158.1 / 1158.1 73.3 / 73.3 Output Total 1600 / 1600 300 / 300 Balance -441.9 / -441.9 -226.7 / -226.7 Microbiology Past 72 Hours 02/04/18 10:45 Respiratory Panel (PCR) - Final Mucosa - Nasopharyngeal Rhinovirus 02/04/18 10:35 Streptococcus pneumoniae Antigen (M - Final Urine, Clean Catch 02/04/18 10:35 Legionella Antigen - Final Urine, Clean Catch Laboratory Tests Past 24 Hrs 02/04/18 02/04/18 02/04/18 05:30 10:35 10:50 WBC RBC Hgb Hct MCV MCH MCHC RDW RDW Differential Plt Count MPV Immature Gran % (Auto) Neut % (Auto) Lymph % (Auto) [place] % (Auto) Eos % (Auto) Baso % (Auto) Absolute Neuts (auto) Absolute Lymphs (auto) Total Counted PT INR Specimen Type Sample Site pH Bicarbonate Actual POC Total CO2 Base Excess O2 Saturation ABG pCO2 ABG pO2 [place] Test O2 Delivery Device Liter Flow Blood Gas Notified Whom Blood Gas Notified Time Sodium Potassium Chloride Carbon Dioxide Anion Gap BUN Creatinine Estim Creat Clear Calc Est GFR (MDRD) Af Amer Est GFR (MDRD) Non-Af BUN/Creatinine Ratio Glucose Lactic Acid 1.5 Calcium Iron 13 L TIBC 426 Iron Saturation 3.1 L Ferritin 13 Urine Color Yellow Urine Clarity Clear Urine pH 6.0 Ur Specific [place] 1.015 Urine Protein 15 H Urine Glucose (UA) Normal Urine Ketones Negative Urine Occult Blood 10 H Urine Nitrite Negative Urine Bilirubin Negative Urine Urobilinogen Normal Ur Leukocyte Esterase 100 H Urine RBC 0 SEEN Urine WBC 0-5 SEEN Ur Squamous Epith Cells 5-10 SEEN Urine Bacteria 0 SEEN Urine Mucus 0 SEEN 02/04/18 02/05/18 02/05/18 11:29 05:30 05:30 WBC 20.0 H RBC 3.91 L Hgb 9.3 L Hct 32.6 L MCV 83.4 MCH 23.8 L MCHC 28.5 L RDW 17.3 H RDW Differential 52.0 H Plt Count 379 MPV 9.1 Immature Gran % (Auto) 0.200 Neut % (Auto) 92.8 H Lymph % (Auto) 4.8 L [place] % (Auto) 2.2 Eos % (Auto) 0.0 Baso % (Auto) 0.0 Absolute Neuts (auto) 18.6 H Absolute Lymphs (auto) 0.96 Total Counted Not Reportable PT 48.8 H INR 5.3 H* Specimen Type ART Sample Site L Radial pH 7.34 L Bicarbonate Actual 34.2 H POC Total CO2 36 Base Excess 8 H O2 Saturation 95 ABG pCO2 64.0 H ABG pO2 81 Ceasar Test POS O2 Delivery Device Nasal Can Liter Flow 6.0 Blood Gas Notified Whom [facility] Blood Gas Notified Time 1115 Sodium Potassium Chloride Carbon Dioxide Anion Gap BUN Creatinine Estim Creat Clear Calc Est GFR (MDRD) Af Amer Est GFR (MDRD) Non-Af BUN/Creatinine Ratio Glucose Lactic Acid Calcium Iron TIBC Iron Saturation Ferritin Urine Color Urine Clarity Urine pH Ur Specific [place] Urine Protein Urine Glucose (UA) Urine Ketones Urine Occult Blood Urine Nitrite Urine Bilirubin Urine Urobilinogen Ur Leukocyte Esterase Urine RBC Urine WBC Ur Squamous Epith Cells Urine Bacteria Urine Mucus 02/05/18 05:30 WBC RBC Hgb Hct MCV MCH MCHC RDW RDW Differential Plt Count MPV Immature Gran % (Auto) Neut % (Auto) Lymph % (Auto) [place] % (Auto) Eos % (Auto) Baso % (Auto) Absolute Neuts (auto) Absolute Lymphs (auto) Total Counted PT INR Specimen Type Sample Site pH Bicarbonate Actual POC Total CO2 Base Excess O2 Saturation ABG pCO2 ABG pO2 [place] Test O2 Delivery Device Liter Flow Blood Gas Notified Whom Blood Gas Notified Time Sodium 143 Potassium 4.1 Chloride 100 Carbon Dioxide 37.0 H Anion Gap 6 BUN 14 Creatinine 0.67 Estim Creat Clear Calc 43.91 Est GFR (MDRD) Af Amer 112 Est GFR (MDRD) Non-Af 92 BUN/Creatinine Ratio 21.0 H Glucose 156 H Lactic Acid Calcium 8.4 L Iron TIBC Iron Saturation Ferritin Urine Color Urine Clarity Urine pH Ur Specific [place] Urine Protein Urine Glucose (UA) Urine Ketones Urine Occult Blood Urine Nitrite Urine Bilirubin Urine Urobilinogen Ur Leukocyte Esterase Urine RBC Urine WBC Ur Squamous Epith Cells Urine Bacteria Urine Mucus Clinical Impression(s) from Imaging Studies Chest X-Ray 02/03/18 17:58 IMPRESSION: There is mild enlargement of the cardiac silhouette with vascular congestion. There is no obvious effusion. There are stable chronic changes in the lungs, most pronounced in the lung bases. Electronically Signed: Gill Boss MD at 18:25 EDT Tel Direct: [phone], Service support , Venous Duplex 02/03/18 19:59 IMPRESSION: Normal venous Doppler ultrasound of the lower extremity. Electronically Signed: Ron Mota MD at 20:43 EDT , Service support , Chest CT 02/04/18 10:26 IMPRESSION: Stable scarring in both lungs with fibrocalcific density in the right middle lobe. New focal infiltrate in the posterior segment of the right lower lobe. Follow-up is recommended. Electronically Signed: Vivek Rivera MD at 13:04 EDT Tel [phone], Service support , Medical Necessity - Tobacco Use Smoking Status: Never smoker Assessment/Plan RECOMMENDATIONS: 1. Continue antibiotics with plans to complete a 7 day treatment course for community-acquired pneumonia. 2. Continue scheduled aerosol treatments and IV steroids 3. If the patient's cough does become productive, please send for culture. 4. Continue BiPAP therapy as tolerated. Wean supplemental oxygen to maintain saturations 88-92% 5. Recommend holding patient's Coumadin, given supratherapeutic INR 6. Continue attempts at diuresis. 7. The patient will need to have a repeat CT chest in 6-8 weeks to document resolution of the right lower lobe airspace density. 8. Perform walking oximetry study prior to consideration for discharge from the hospital. 9. Encourage incentive spirometer use and mobilize patient as tolerated. IMPRESSIONS: 1. Acute on chronic hypoxemic and hypercarbic respiratory failure Concern for underlying COPD with exacerbation due to rhinovirus infection/community acquired pneumonia. Per the patient's last walking oximetry study, she is only supposed to utilize 2 L/min with exertion. However, she is currently utilizing higher levels of supplemental oxygen in her home environment. CT chest revealed evidence of a right lower lobe airspace density, which may represent community-acquired pneumonia. Therefore, agree with continuing antibiotics for empiric treatment of CAP ?7 days. The patient will require a follow-up chest CT in 6-8 weeks to document resolution of the aforementioned airspace density. Continue scheduled aerosol treatments and IV steroids for now. Wean supplemental oxygen to maintain saturations 88-92%, to prevent paradoxical CO2 retention. Echocardiogram did reveal a mild degree of pulmonary hypertension and diastolic dysfunction. Agree with ongoing attempts at volume optimization with diuretics. Continue BiPAP therapy with naps and nightly. 2. Personal history of obstructive sleep apnea, noncompliant with outpatient PAP therapy While the patient does report compliance with her home nocturnal Pap therapy, her outpatient compliance report clearly contradicts this assertion. The patient does appear to have a baseline degree of CO2 retention. She would certainly benefit from ongoing use of bilevel therapy. The importance of noninvasive positive pressure ventilation will need to be emphasized to the patient in hopes that she will begin to utilize her Pap therapy on an outpatient basis. 3. Paroxysmal atrial fibrillation/patent foramen ovale The patient is currently anticoagulated on Coumadin. Would recommend holding at this time, given supratherapeutic INR. Okay to continue Cardizem and Tikosyn from my perspective. This note was generated with [employer] dictation software. It may contain incorrect words, spelling, and punctuation that were not noted in checking the note before signing. Code Visit Inpatient E&M: 70625 Subs Hosp L3
--- NOTE | 2018-02-05 10:26 | PN_ITS ---
Subjective: The patient was seen and examined at the bedside this morning. Events from the last 24 hours have been reviewed. The patient is currently afebrile, hemodynamically stable and maintaining appropriate oxygen saturations on 5 L/ min via nasal cannula. The patient is overall net -668 mL's for the admission. She reports to feeling short of breath this morning with ongoing nonproductive cough. Objective: The patient's most recent lab work, culture data and imaging studies have all been personally reviewed. Strep and urine Legionella antigens were both negative. Blood and urine cultures are pending. Respiratory viral panel was positive for rhinovirus. CT chest completed February 04 revealed evidence of a right lower lobe irregular airspace density with focal bronchiectasis in the right middle lobe. Surface echocardiogram revealed evidence of stage II diastolic dysfunction with an ejection fraction of 65%. Right ventricular systolic pressure was estimated to be 46 mmHg. - Physical Exam General: Alert, Cooperative, No apparent distress, - - Resting comfortably in bed currently HEENT: Atraumatic, PERRLA, Normocephalic Oral: No Gingival or Mucosal Lesions/ Ulcerations Neck: Supple, No Nodes, Trachea Midline Lungs: No wheeze, Diminished, Rhonchi, Short of Breath Cardiovascular: Normal S1, Normal S2, No murmurs, Irregular Rate, No rub noted, No Gallop Abdomen: Bowel Sounds Present, Soft, Non Tender, Obese Extremities: No clubbing, No cyanosis, Edema Skin: No breakdown Musculoskeletal: No Muscle Wasting Lymphatic: No Cervical, Supraclavicular, or Inguinal Adenopathy Neurological: Neuro grossly intact Psych/Mental Status: Alert and oriented to time, place, person, mood and affect Vital Signs Temp Pulse Resp BP Pulse Ox 98.2 F 88 17 148/72 H 97 02/05/18 09:10 02/05/18 09:10 02/05/18 09:10 02/05/18 09:10 02/05/18 09:10 Oxygen Flow Rate (L/min) 5 Oxygen Delivery Method Nasal Cannula Weight: 236 lb 8.896 oz Body Mass Index (BMI) 40.6 Intake and Output for Last 24 Hours 02/03/18 02/04/18 02/05/18 23:59 23:59 23:59 Intake Total 1158.1 / 1158.1 73.3 / 73.3 Output Total 1600 / 1600 300 / 300 Balance -441.9 / -441.9 -226.7 / -226.7 Microbiology Past 72 Hours 02/04/18 10:45 Respiratory Panel (PCR) - Final Mucosa - Nasopharyngeal Rhinovirus 02/04/18 10:35 Streptococcus pneumoniae Antigen (M - Final Urine, Clean Catch 02/04/18 10:35 Legionella Antigen - Final Urine, Clean Catch Laboratory Tests Past 24 Hrs 02/04/18 02/04/18 02/04/18 05:30 10:35 10:50 WBC RBC Hgb Hct MCV MCH MCHC RDW RDW Differential Plt Count MPV Immature Gran % (Auto) Neut % (Auto) Lymph % (Auto) [place] % (Auto) Eos % (Auto) Baso % (Auto) Absolute Neuts (auto) Absolute Lymphs (auto) Total Counted PT INR Specimen Type Sample Site pH Bicarbonate Actual POC Total CO2 Base Excess O2 Saturation ABG pCO2 ABG pO2 [place] Test O2 Delivery Device Liter Flow Blood Gas Notified Whom Blood Gas Notified Time Sodium Potassium Chloride Carbon Dioxide Anion Gap BUN Creatinine Estim Creat Clear Calc Est GFR (MDRD) Af Amer Est GFR (MDRD) Non-Af BUN/Creatinine Ratio Glucose Lactic Acid 1.5 Calcium Iron 13 L TIBC 426 Iron Saturation 3.1 L Ferritin 13 Urine Color Yellow Urine Clarity Clear Urine pH 6.0 Ur Specific [place] 1.015 Urine Protein 15 H Urine Glucose (UA) Normal Urine Ketones Negative Urine Occult Blood 10 H Urine Nitrite Negative Urine Bilirubin Negative Urine Urobilinogen Normal Ur Leukocyte Esterase 100 H Urine RBC 0 SEEN Urine WBC 0-5 SEEN Ur Squamous Epith Cells 5-10 SEEN Urine Bacteria 0 SEEN Urine Mucus 0 SEEN 02/04/18 02/05/18 02/05/18 11:29 05:30 05:30 WBC 20.0 H RBC 3.91 L Hgb 9.3 L Hct 32.6 L MCV 83.4 MCH 23.8 L MCHC 28.5 L RDW 17.3 H RDW Differential 52.0 H Plt Count 379 MPV 9.1 Immature Gran % (Auto) 0.200 Neut % (Auto) 92.8 H Lymph % (Auto) 4.8 L [place] % (Auto) 2.2 Eos % (Auto) 0.0 Baso % (Auto) 0.0 Absolute Neuts (auto) 18.6 H Absolute Lymphs (auto) 0.96 Total Counted Not Reportable PT 48.8 H INR 5.3 H* Specimen Type ART Sample Site L Radial pH 7.34 L Bicarbonate Actual 34.2 H POC Total CO2 36 Base Excess 8 H O2 Saturation 95 ABG pCO2 64.0 H ABG pO2 81 Ceasar Test POS O2 Delivery Device Nasal Can Liter Flow 6.0 Blood Gas Notified Whom [facility] Blood Gas Notified Time 1115 Sodium Potassium Chloride Carbon Dioxide Anion Gap BUN Creatinine Estim Creat Clear Calc Est GFR (MDRD) Af Amer Est GFR (MDRD) Non-Af BUN/Creatinine Ratio Glucose Lactic Acid Calcium Iron TIBC Iron Saturation Ferritin Urine Color Urine Clarity Urine pH Ur Specific [place] Urine Protein Urine Glucose (UA) Urine Ketones Urine Occult Blood Urine Nitrite Urine Bilirubin Urine Urobilinogen Ur Leukocyte Esterase Urine RBC Urine WBC Ur Squamous Epith Cells Urine Bacteria Urine Mucus 02/05/18 05:30 WBC RBC Hgb Hct MCV MCH MCHC RDW RDW Differential Plt Count MPV Immature Gran % (Auto) Neut % (Auto) Lymph % (Auto) [place] % (Auto) Eos % (Auto) Baso % (Auto) Absolute Neuts (auto) Absolute Lymphs (auto) Total Counted PT INR Specimen Type Sample Site pH Bicarbonate Actual POC Total CO2 Base Excess O2 Saturation ABG pCO2 ABG pO2 [place] Test O2 Delivery Device Liter Flow Blood Gas Notified Whom Blood Gas Notified Time Sodium 143 Potassium 4.1 Chloride 100 Carbon Dioxide 37.0 H Anion Gap 6 BUN 14 Creatinine 0.67 Estim Creat Clear Calc 43.91 Est GFR (MDRD) Af Amer 112 Est GFR (MDRD) Non-Af 92 BUN/Creatinine Ratio 21.0 H Glucose 156 H Lactic Acid Calcium 8.4 L Iron TIBC Iron Saturation Ferritin Urine Color Urine Clarity Urine pH Ur Specific [place] Urine Protein Urine Glucose (UA) Urine Ketones Urine Occult Blood Urine Nitrite Urine Bilirubin Urine Urobilinogen Ur Leukocyte Esterase Urine RBC Urine WBC Ur Squamous Epith Cells Urine Bacteria Urine Mucus Clinical Impression(s) from Imaging Studies Chest X-Ray 02/03/18 17:58 IMPRESSION: There is mild enlargement of the cardiac silhouette with vascular congestion. There is no obvious effusion. There are stable chronic changes in the lungs, most pronounced in the lung bases. Electronically Signed: Gill Boss MD at 18:25 EDT Tel Direct: [phone], Service support , Venous Duplex 02/03/18 19:59 IMPRESSION: Normal venous Doppler ultrasound of the lower extremity. Electronically Signed: Ron Mota MD at 20:43 EDT , Service support , Chest CT 02/04/18 10:26 IMPRESSION: Stable scarring in both lungs with fibrocalcific density in the right middle lobe. New focal infiltrate in the posterior segment of the right lower lobe. Follow-up is recommended. Electronically Signed: Vivek Rivera MD at 13:04 EDT Tel [phone], Service support , Medical Necessity - Tobacco Use Smoking Status: Never smoker Assessment/Plan RECOMMENDATIONS: 1. Continue antibiotics with plans to complete a 7 day treatment course for community-acquired pneumonia. 2. Continue scheduled aerosol treatments and IV steroids 3. If the patient's cough does become productive, please send for culture. 4. Continue BiPAP therapy as tolerated. Wean supplemental oxygen to maintain saturations 88-92% 5. Recommend holding patient's Coumadin, given supratherapeutic INR 6. Continue attempts at diuresis. 7. The patient will need to have a repeat CT chest in 6-8 weeks to document resolution of the right lower lobe airspace density. 8. Perform walking oximetry study prior to consideration for discharge from the hospital. 9. Encourage incentive spirometer use and mobilize patient as tolerated. IMPRESSIONS: 1. Acute on chronic hypoxemic and hypercarbic respiratory failure Concern for underlying COPD with exacerbation due to rhinovirus infection/ community acquired pneumonia. Per the patient's last walking oximetry study, she is only supposed to utilize 2 L/min with exertion. However, she is currently utilizing higher levels of supplemental oxygen in her home environment. CT chest revealed evidence of a right lower lobe airspace density , which may represent community-acquired pneumonia. Therefore, agree with continuing antibiotics for empiric treatment of CAP ?7 days. The patient will require a follow-up chest CT in 6-8 weeks to document resolution of the aforementioned airspace density. Continue scheduled aerosol treatments and IV steroids for now. Wean supplemental oxygen to maintain saturations 88-92%, to prevent paradoxical CO2 retention. Echocardiogram did reveal a mild degree of pulmonary hypertension and diastolic dysfunction. Agree with ongoing attempts at volume optimization with diuretics. Continue BiPAP therapy with naps and nightly. 2. Personal history of obstructive sleep apnea, noncompliant with outpatient PAP therapy While the patient does report compliance with her home nocturnal Pap therapy, her outpatient compliance report clearly contradicts this assertion. The patient does appear to have a baseline degree of CO2 retention. She would certainly benefit from ongoing use of bilevel therapy. The importance of noninvasive positive pressure ventilation will need to be emphasized to the patient in hopes that she will begin to utilize her Pap therapy on an outpatient basis. 3. Paroxysmal atrial fibrillation/patent foramen ovale The patient is currently anticoagulated on Coumadin. Would recommend holding at this time, given supratherapeutic INR. Okay to continue Cardizem and Tikosyn from my perspective. This note was generated with [employer] dictation software. It may contain incorrect words, spelling, and punctuation that were not noted in checking the note before signing. Code Visit Inpatient E&M: 88395 Subs Hosp L3
--- NOTE | 2018-02-05 13:15 | PN_ITS ---
Subjective: Patient sitting upright side of bed was resting on the tray table in a tripod position, appearing short of breath. She is off of the nonrebreather Ventimask , she is currently on nasal cannula and satting well on her home oxygen level of 5 L/min. Despite this she still feels very short of breath and wheezy. She continues to have a nonproductive cough. No fevers or chills. She has significant conversational dyspnea. She denies swelling of her lower extremities at this time. No dizziness or lightheadedness. She does intermittently have right-sided chest pain, this is over the site where she has formerly had a chest tube for pneumothorax several years in the past. - Physical Exam General: Alert, Oriented x3, Cooperative HEENT: Atraumatic, PERRLA, EOMI, Normocephalic Neck: Supple, No JVD, Negative Carotid Bruits Lungs: Diminished - Severely diminished, Rales, Wheezes Cardiovascular: Regular rate, No murmurs Abdomen: Bowel Sounds Present, Soft, Non Tender Extremities: No edema, Capillary Refill Less than 3 Seconds Skin: No rashes, No breakdown Musculoskeletal: No Tenderness to Palpation of Joints or Extremities Neurological: Cranial nerves II-XII grossly intact Psych/Mental Status: Normal Affect, Appropriate, Alert and oriented to time, place, person, mood and affect Vital Signs Temp Pulse Resp BP Pulse Ox 98.2 F 94 17 148/72 H 97 02/05/18 09:10 02/05/18 11:44 02/05/18 09:10 02/05/18 09:10 02/05/18 09:10 Oxygen Flow Rate (L/min) 5 Oxygen Delivery Method Nasal Cannula Weight: 107.3 kg Body Mass Index (BMI) 40.6 Intake and Output for Last 24 Hours 02/03/18 02/04/18 02/05/18 23:59 23:59 23:59 Intake Total 1158.1 / 1158.1 390.4 / 390.4 Output Total 1600 / 1600 600 / 600 Balance -441.9 / -441.9 -209.6 / -209.6 Microbiology Past 72 Hours 02/04/18 10:45 Respiratory Panel (PCR) - Final Mucosa - Nasopharyngeal Rhinovirus 02/04/18 10:35 Streptococcus pneumoniae Antigen (M - Final Urine, Clean Catch 04/10/18 10:35 Legionella Antigen - Final Urine, Clean Catch Laboratory Tests Past 24 Hrs 02/04/18 02/04/18 02/05/18 05:30 10:35 05:30 WBC 20.0 H RBC 3.91 L Hgb 9.3 L Hct 32.6 L MCV 83.4 MCH 23.8 L MCHC 28.5 L RDW 17.3 H RDW Differential 52.0 H Plt Count 379 MPV 9.1 Immature Gran % (Auto) 0.200 Neut % (Auto) 92.8 H Lymph % (Auto) 4.8 L [place] % (Auto) 2.2 Eos % (Auto) 0.0 Baso % (Auto) 0.0 Absolute Neuts (auto) 18.6 H Absolute Lymphs (auto) 0.96 Total Counted Not Reportable PT INR Sodium Potassium Chloride Carbon Dioxide Anion Gap BUN Creatinine Estim Creat Clear Calc Est GFR (MDRD) Af Amer Est GFR (MDRD) Non-Af BUN/Creatinine Ratio Glucose Calcium Iron 13 L TIBC 426 Iron Saturation 3.1 L Ferritin 13 Urine Color Yellow Urine Clarity Clear Urine pH 6.0 Ur Specific [place] 1.015 Urine Protein 15 H Urine Glucose (UA) Normal Urine Ketones Negative Urine Occult Blood 10 H Urine Nitrite Negative Urine Bilirubin Negative Urine Urobilinogen Normal Ur Leukocyte Esterase 100 H Urine RBC 0 SEEN Urine WBC 0-5 SEEN Ur Squamous Epith Cells 5-10 SEEN Urine Bacteria 0 SEEN Urine Mucus 0 SEEN 02/05/18 02/05/18 05:30 05:30 WBC RBC Hgb Hct MCV MCH MCHC RDW RDW Differential Plt Count MPV Immature Gran % (Auto) Neut % (Auto) Lymph % (Auto) [place] % (Auto) Eos % (Auto) Baso % (Auto) Absolute Neuts (auto) Absolute Lymphs (auto) Total Counted PT 48.8 H INR 5.3 H* Sodium 143 Potassium 4.1 Chloride 100 Carbon Dioxide 37.0 H Anion Gap 6 BUN 14 Creatinine 0.67 Estim Creat Clear Calc 43.91 Est GFR (MDRD) Af Amer 112 Est GFR (MDRD) Non-Af 92 BUN/Creatinine Ratio 21.0 H Glucose 156 H Calcium 8.4 L Iron TIBC Iron Saturation Ferritin Urine Color Urine Clarity Urine pH Ur Specific [place] Urine Protein Urine Glucose (UA) Urine Ketones Urine Occult Blood Urine Nitrite Urine Bilirubin Urine Urobilinogen Ur Leukocyte Esterase Urine RBC Urine WBC Ur Squamous Epith Cells Urine Bacteria Urine Mucus Medical Necessity - Tobacco Use Smoking Status: Never smoker Assessment/Plan 1. Acute on chronic hypoxic respiratory failure 2/2 multiple underlying pulmonary issues as below - back on home o2 levels but severely dyspneic. CT showing RLL airspace density, will need follow up CT. -venous duplex LE neg. 2. Acute sepsis 2/2 Suspected RLL pna suspect gram positive with acute on rhinovirus bronchitis - CT & CXR with right sided pna. Continues to have rales and wheezing on exam. Significant leukocytosis, CXR suspicious for RML/RLL pna, afebrile, tachycardic and tachypneic at admission. lactate negative. Blood cultures pending. Urine Ag neg. Continue mucinex. Cant have azithromycin 2/2 tikosyn. -Resp cx with + rhinovirus -Will continue to have high WBC with high dose steroids. -continue abx for total 7 days of therapy, change back to rocephin and doxy now that post obstructive is not a concern. No azithro with tikosyn. 3. Mild acute exacerbation of diastolic CHF - Echo done with EF 65% in stage II diastolic dysfunction, 1+ MVI and TVI, and LOUIS, mild pulmonary hypertension with RVSP of 46 mmHg. Avoid excessive fluids. Continue home lasix dose. 4. Acute on chronic COPD exacerbation - increased steroids this AM, continue duonebs, incentive spirometer. 5. PAF - warfarin, tikosyn, diltiazem. INR is now supratherapeutic likely from the antibiotics. Will hold warfarin and follow INR. 6. NEVAEH - has CPAP has home with poor compliance records per pulm. continue bipap at night. 7. HTN - stable 8. Morbid obesity - dietary consult. 9. HLD - lovaza 10. Normocytic anemia -iron studies are done and revealed iron deficiency, will start p.o. iron. DVT ppx: Warfarin held for supratherapeutic INR. DC planning: pt already has home o2 This patient was seen by Percy Wright PA-C under the supervision of Doctor Leonides.
[2018-02-05] MEDS: Doxycycline 100 MG CAPSULE PO ×2 (14:54→21:12)
[2018-02-05] MEDS: Ceftriaxone 1 GM/50 ML BAG IV (14:55)
[2018-02-05] MEDS: Ferrous Sulfate 325 MG Tablet PO (16:51)
[2018-02-05] MEDS: MELATONIN 10 MG TABLET PO (21:12)
[2018-02-06] VITALS (19 sets, daily range): BP systolic 133–153; BP diastolic 61–89; PULSE 59–111; RESP 12–20; TEMP 36.7–37.1; O2SAT 93–98
[2018-02-06] MEDS: Ipratropium/Albuterol Sulfate 3 ML AMPUL.NEB INHALATION ×5 (02:13→19:41)
[2018-02-06] MEDS: MethylPREDNISolone 125 MG/2 ML Vial 60 MG IV ×2 (06:09→14:26)
[2018-02-06 06:24] LABS: Anion Gap 4 (5-15); BUN 21 mg/dL (7-18); BUN/Creat Ratio 42.4 RATIO (10-20); Calcium,Total 8.5 mg/dL (8.5-10.1); Chloride 98 mmol/L (98-107); EST Glomerular Filtration Rate 130 mL/min (>60); Est Glom Filt Rate - Afr Amer 158 mL/min (>60); Estimated Creatinine Clearance 43.91 ml/min; Glucose 185 mg/dL (74-106); Magnesium 2.3 mg/dL (1.6-2.6); Prothrombin Time (Protime)PT. 48.1 SECONDS (11.7-14.9); Sodium Level 141 mmol/L (136-145)
[2018-02-06 06:28] LABS: Absolute Lymphocyte Count 0.68 X10^3/ul (0.83-4.51); Absolute Neutrophil Count 15.4 X10^3/uL (2.0-7.7); Basophil# 0.01 X10^3/uL; Basophil% 0.1 % (0-1); Hematocrit 31.4 % (37-47); Lymphocyte # 0.68 X10^3/ul (4.0); Lymphocyte % 4.1 % (19-41); Mean Corp Hgb Conc 28.7 g/gl (32-36); Mean Corpuscular Hgb 23.7 pg (27.0-32.0); Mean Corpuscular Volume 82.6 fL (81-99); Mean Platelet Vol. 8.8 fl (6.2-12.0); Monocyte# 0.44 X10^3/uL; Monocyte% 2.7 % (0-10); Neutrophil # 15.39 X10^3/uL (2.7-7.7); Neutrophil % 92.9 % (47-70); Platelet Count 357 K/mm3 (150-450); RBC Distribution Width CV 17.4 % (11.6-14.6); RBC Distribution Width SD 53.2 fl (35.1-43.9); White Blood Count 16.6 K/mm3 (4.4-11.0)
[2018-02-06 06:29] LABS: POSITIVE COUNT NO; POSITIVE DIFFERENTIAL NO; POSITIVE MORPHOLOGY NO
[2018-02-06 06:30] LABS: International Normalized Ratio 5.2
[2018-02-06] MEDS: Famotidine 20 MG Tablet PO (08:51)
[2018-02-06] MEDS: dilTIAZem CD 120 MG Capsule PO (08:51)
[2018-02-06] MEDS: Aspirin E.C. 81 MG Tablet PO (08:52)
[2018-02-06] MEDS: Doxycycline 100 MG CAPSULE PO ×2 (08:52→21:23)
[2018-02-06] MEDS: Omega-3 Acid Ethyl Esters 1 GM Capsule PO (08:52)
[2018-02-06] MEDS: Dofetilide 125 MCG Capsule PO ×2 (08:52→21:23)
--- NOTE | 2018-02-06 09:35 | PCM.PROGNOTE ---
Patient Problems: Active and Suspected Problems (Last Updated 11/25/17 @ 18:09 by Louise Sepulveda) Rhinovirus (Acute) Subjective: The patient was seen and examined. She is sitting up at the bedside in no acute distress. She is maintaining appropriate saturations on 3-4 L of oxygen. She states she feels very weak and is discouraged. She also complains of chest congestion and is able to expectorate some sputum, however feels she is not getting it all out. She is unable to use her Acapella secondary to weakness. States she has a vest she typically uses at home. Objective: Recent lab and culture data reviewed. Respiratory viral panel + for rhinovirus. Strep/legionella urine antigens negative. Blood, sputum, and urine cultures pending. - Physical Exam General: Alert, Oriented x3, Cooperative, No apparent distress, - - tearful HEENT: Atraumatic, Normocephalic Oral: Moist Mucosa Neck: Supple, No Nodes, Trachea Midline Lungs: No wheeze, No rales, Diminished, Rhonchi Cardiovascular: Normal S1, Normal S2, No murmurs, Irregular Rate, No rub noted, No Gallop Abdomen: Bowel Sounds Present, Soft, Non Tender, Non-Distended, Obese Extremities: No clubbing, No cyanosis, Edema - trace LLE Skin: No rashes Lymphatic: - - no adenopathy Neurological: Neuro grossly intact Psych/Mental Status: Depressed, - - cooperative. conversing and making eye contact. Vital Signs Temp Pulse Resp BP Pulse Ox 98.1 F 65 16 147/88 H 93 02/06/18 08:08 02/06/18 08:08 02/06/18 08:08 02/06/18 08:08 02/06/18 08:08 Oxygen Flow Rate (L/min) 4 Oxygen Delivery Method Nasal Cannula Weight: 236 lb 8.896 oz Body Mass Index (BMI) 40.6 Intake and Output for Last 24 Hours 02/04/18 02/05/18 02/06/18 23:59 23:59 23:59 Intake Total 1158.1 / 1158.1 846.7 / 846.7 Output Total 1600 / 1600 900 / 900 200 / 200 Balance -441.9 / -441.9 -53.3 / -53.3 -200 / -200 Microbiology Past 72 Hours 02/05/18 12:20 Gram Stain - Final Sputum, Expectorated/Coughed 02/04/18 10:45 Respiratory Panel (PCR) - Final Mucosa - Nasopharyngeal Rhinovirus 02/04/18 10:35 Streptococcus pneumoniae Antigen (M - Final Urine, Clean Catch 02/04/18 10:35 Legionella Antigen - Final Urine, Clean Catch Laboratory Tests Past 24 Hrs 02/06/18 02/06/18 02/06/18 05:55 05:55 05:55 WBC 16.6 H RBC 3.80 L Hgb 9.0 L Hct 31.4 L MCV 82.6 MCH 23.7 L MCHC 28.7 L RDW 17.4 H RDW Differential 53.2 H Plt Count 357 MPV 8.8 Immature Gran % (Auto) 0.200 Neut % (Auto) 92.9 H Lymph % (Auto) 4.1 L [place] % (Auto) 2.7 Eos % (Auto) 0.0 Baso % (Auto) 0.1 Absolute Neuts (auto) 15.4 H Absolute Lymphs (auto) 0.68 L Total Counted Not Reportable PT 48.1 H INR 5.2 H* Sodium 141 Potassium 4.0 Chloride 98 Carbon Dioxide 39.0 H Anion Gap 4 L BUN 21 H Creatinine 0.50 L Estim Creat Clear Calc 43.91 Est GFR (MDRD) Af Amer 158 Est GFR (MDRD) Non-Af 130 BUN/Creatinine Ratio 42.4 H Glucose 185 H Calcium 8.5 Magnesium 2.3 Medical Necessity - Tobacco Use Smoking Status: Never smoker Assessment/Plan Active and Suspected Problems (Last Updated 11/25/17 @ 18:09 by Louise Sepulveda) Rhinovirus (Acute) RECOMMENDATIONS: 1. Continue antibiotics to complete a 7 day treatment course for community-acquired pneumonia. 2. Continue scheduled aerosol treatments and IV steroids 3. Wean supplemental oxygen to maintain saturations 88-92% 4. Continue BiPAP therapy as tolerated 5. Continue holding Coumadin, given supratherapeutic INR 6. Continue attempts at diuresis 7. The patient will need to have a repeat CT chest in 6-8 weeks to document resolution of the right lower lobe airspace density. 8. Perform walking oximetry study prior to consideration for discharge from the hospital. 9. Encourage incentive spirometer use and mobilize patient as tolerated. 10. Start vest therapy today, patient unable to use Acapella IMPRESSIONS: 1. Acute on chronic hypoxemic and hypercarbic respiratory failure Concern for underlying COPD with exacerbation due to rhinovirus infection/community acquired pneumonia. Per the patient's last walking oximetry study, she is only supposed to utilize 2 L/min with exertion. However, she is currently utilizing higher levels of supplemental oxygen in her home environment. CT chest revealed evidence of a right lower lobe airspace density, which may represent community-acquired pneumonia. Therefore, agree with continuing antibiotics for empiric treatment of CAP ?7 days. The patient will require a follow-up chest CT in 6-8 weeks to document resolution of the aforementioned airspace density. Continue scheduled aerosol treatments and IV steroids for now. Patient still has significant wheezing and congestion. Wean supplemental oxygen to maintain saturations 88-92%, to prevent paradoxical CO2 retention. Echocardiogram did reveal a mild degree of pulmonary hypertension and diastolic dysfunction. Agree with ongoing attempts at volume optimization with diuretics. Continue BiPAP therapy with naps and nightly. 2. Personal history of obstructive sleep apnea, noncompliant with outpatient PAP therapy While the patient does report compliance with her home nocturnal Pap therapy, her outpatient compliance report clearly contradicts this assertion. The patient does appear to have a baseline degree of CO2 retention. She would certainly benefit from ongoing use of bilevel therapy. The importance of noninvasive positive pressure ventilation will need to be emphasized to the patient in hopes that she will begin to utilize her Pap therapy on an outpatient basis. 3. Paroxysmal atrial fibrillation/patent foramen ovale The patient is currently anticoagulated on Coumadin. Would recommend continuing to hold at this time, given supratherapeutic INR. Okay to continue Cardizem and Tikosyn. Daily INR. This note was generated with [email or web address] dictation software. It may contain incorrect words, spelling, and punctuation that were not noted in checking the note before signing.
[2018-02-06] MEDS: Ceftriaxone 1 GM/50 ML BAG IV (09:43)
[2018-02-06] MEDS: 0.9% NaCl Peripheral Flush Adult/Peds IV (14:27)
--- NOTE | 2018-02-06 14:34 | CASEMGMT ---
Addendum entered by Leslie Tirado 02/06/18 15:05: SW spoke with patient and told her, her SNF benefits. She agrees to go somewhere. [facility] would be 1st choice and [facility] would be second choice. AMANUEL told her SW will work on this. Called [facility] and left a voice mail with referral as well as faxed over referral information. Await response. AMANUEL also will fax PT/OT once in the computer. Leslie ADLER Original Note: RN LINDA told SW that therapy was ordered for patient as she is pretty weak. However, she is concerned about money. SW called [employer] and obtained patient's retirement facility benefits. Days 1-20 are covered at 100% and days 21-100 have a $167.50 per day co-pay. SW also looked up in network facilities for patient. SW went to talk with patient, but therapy was working with her. SW will check back with patient. Leslie HERRERA MSW
--- NOTE | 2018-02-06 20:19 | PCM.PROGNOTE ---
Subjective: She is afebrile and vital signs are stable. Systolic blood pressures are elevated but this is likely in part due to high-dose intravenous steroids. Currently 96% saturated on the 3-1/2 L nasal cannula. Respiratory rate is 16. Fluid balance is -995 since admission. Hemoglobin is stable at 9. Platelets are within normal limits. INR is 5.2 today despite holding Coumadin yesterday. BUN is 21 with a creatinine of 0.50 and this is likely secondary to high-dose steroids. Continues to complain of extreme weakness and fatigue. She feels she may need to go to senior care at discharge to get stronger prior to returning home. She does live by herself. States her shortness of breath is improved somewhat. Objective: - Physical Exam General: Alert, Oriented x3, Cooperative HEENT: Atraumatic, PERRLA, EOMI, Normocephalic Neck: Supple, No JVD, Negative Carotid Bruits Lungs: Diminished - Severely diminished, no rales or wheezes today. She is not tachypneic sitting in a chair. Cardiovascular: Regular rate, No murmurs, no gallop Abdomen: Bowel Sounds Present, Soft, Non Tender, obese Extremities: No edema, Capillary Refill Less than 3 Seconds Skin: No rashes, No breakdown Musculoskeletal: No Tenderness to Palpation of Joints or Extremities Neurological: Cranial nerves II-XII grossly intact Psych/Mental Status: Normal Affect, Appropriate, Alert and oriented to time, place, person, mood and affect - Physical Exam Vital Signs Temp Pulse Resp BP Pulse Ox 98.1 F 85 18 153/88 H 96 02/06/18 19:28 02/06/18 19:41 02/06/18 19:41 02/06/18 19:28 02/06/18 19:28 Oxygen Flow Rate (L/min) 3.5 Oxygen Delivery Method Nasal Cannula Weight: 236 lb 8.896 oz Body Mass Index (BMI) 40.6 Intake and Output for Last 24 Hours 02/04/18 02/05/18 02/06/18 23:59 23:59 23:59 Intake Total 1158.1 / 1158.1 846.7 / 846.7 800 / 800 Output Total 1600 / 1600 900 / 900 1300 / 1300 Balance -441.9 / -441.9 -53.3 / -53.3 -500 / -500 Microbiology Past 72 Hours 02/05/18 12:20 Gram Stain - Final Sputum, Expectorated/Coughed Respiratory Culture - Preliminary 02/04/18 10:35 Urine Culture - Preliminary Urine, Catheterized Culture exhibits no growth. 02/04/18 10:50 Blood Culture - Preliminary Blood Culture (Wb) - Anticubital Right No growth in 48 hours. 02/04/18 10:40 Blood Culture - Preliminary Blood Culture (Wb) - Anticubital Left No growth in 48 hours. 02/04/18 10:45 Respiratory Panel (PCR) - Final Mucosa - Nasopharyngeal Rhinovirus 02/04/18 10:35 Streptococcus pneumoniae Antigen (M - Final Urine, Clean Catch 02/04/18 10:35 Legionella Antigen - Final Urine, Clean Catch Laboratory Tests Past 24 Hrs 02/06/18 02/06/18 02/06/18 05:55 05:55 05:55 WBC 16.6 H RBC 3.80 L Hgb 9.0 L Hct 31.4 L MCV 82.6 MCH 23.7 L MCHC 28.7 L RDW 17.4 H RDW Differential 53.2 H Plt Count 357 MPV 8.8 Immature Gran % (Auto) 0.200 Neut % (Auto) 92.9 H Lymph % (Auto) 4.1 L [place] % (Auto) 2.7 Eos % (Auto) 0.0 Baso % (Auto) 0.1 Absolute Neuts (auto) 15.4 H Absolute Lymphs (auto) 0.68 L Total Counted Not Reportable PT 48.1 H INR 5.2 H* Sodium 141 Potassium 4.0 Chloride 98 Carbon Dioxide 39.0 H Anion Gap 4 L BUN 21 H Creatinine 0.50 L Estim Creat Clear Calc 43.91 Est GFR (MDRD) Af Amer 158 Est GFR (MDRD) Non-Af 130 BUN/Creatinine Ratio 42.4 H Glucose 185 H Calcium 8.5 Magnesium 2.3 Medical Necessity - Tobacco Use Smoking Status: Never smoker Assessment/Plan Impressions 1. acute on chronic respiratory failure with hypoxia and hypercarbia 2. NEVAEH - not compliant with noninvasive positive pressure ventilation. May be a candidate for bilevel in the future if she demonstrates that she can be compliant. 3. Moderate pulmonary hypertension-suspect her PA pressure may actually be higher on her right heart cath 4. Rhinovirus infection 5. RLL pneumonia - possibly viral and possibly superimposed bacterial infection and may not be a PNA at all - it may be a tumor. 6. Morbid obesity 7. PFO and PAF on chronic anticoagulation. Follows with Dr. Mccurdy 8. anemia in a pt who is chronically anticoagulated and hypoxic - MCV is low and the RDW is high. The anemia likely affects her SOB. She is iron deficient with a ferritin of only 13. Will need to supplement iron and will check a hemoccult stool. will discuss with her whether or not she has had a colonoscopy or an EGD recently. will start Pepcid 9. insomnia - now that she is on BIPAP at night will try Melatonin....denies anxiety but, she is chronically SOB 10. Supratherapeutic INR - hold Coumadin... may want to discuss Xarelto or Ernestinequis with Dr. Mccurdy and will check with her insurance to see if this would be covered. Continue to hold Coumadin until the INR is less than 3.0. Discontinue Solu-Medrol and transitioned to prednisone in the a.m. Wean oxygen as tolerated to maintain pulse ox greater than 89% associate merchandise planner is proceeding with referral for senior care facility at discharge She did sleep better with melatonin so will continue this Blood sugars are high but the steroids are being tapered and this should improve. Code Visit Inpatient E&M: 08487 Subs Hosp L2
[2018-02-06] MEDS: MELATONIN 10 MG TABLET PO (21:23)
[2018-02-06] MEDS: Albuterol 2.5 MG/3 ML VIAL.NEB. INHALATION (21:43)
[2018-02-07] VITALS (11 sets, daily range): BP systolic 139–149; BP diastolic 81–95; PULSE 68–120; RESP 16–20; TEMP 36.3–36.6; O2SAT 94–97
[2018-02-07] MEDS: Ipratropium/Albuterol Sulfate 3 ML AMPUL.NEB INHALATION ×4 (02:53→15:25)
[2018-02-07] MEDS: Aspirin E.C. 81 MG Tablet PO (08:29)
[2018-02-07] MEDS: predniSONE 20 MG Tablet 40 MG PO (08:29)
--- NOTE | 2018-02-07 09:25 | CASEMGMT ---
SW reviewed PT/OT and they are recommending home with home health. AMANUEL spoke with patient and asked if she felt she would be okay with home health. She asked about cost. SW told her home health is usually covered by insurance at 100%. SW also told her that they would not be there all of the time. Explained a nurse would come out maybe once a week and therapy would be out a couple times a week. She said she is fine with this. AMANUEL told her SW will work on setting this up. AMANUEL called [facility] and left a message with the intake person. AMANUEL also faxed over a referral. Await response. Plan: home with home health as this is what therapy recommends and patient is comfortable with this. Leslie HERRERA COMPUTER PATTERNMAKER
[2018-02-07] MEDS: Omega-3 Acid Ethyl Esters 1 GM Capsule PO (10:14)
[2018-02-07] MEDS: Doxycycline 100 MG CAPSULE PO (10:14)
[2018-02-07] MEDS: dilTIAZem CD 120 MG Capsule PO (10:14)
[2018-02-07] MEDS: Famotidine 20 MG Tablet PO (10:14)
[2018-02-07] MEDS: Dofetilide 125 MCG Capsule PO (10:15)
[2018-02-07] MEDS: Ceftriaxone 1 GM/50 ML BAG IV (10:15)
--- NOTE | 2018-02-07 10:54 | PCM.PROGNOTE ---
Subjective: The patient was seen and examined. She is lying in bed in no acute distress. States she reports awful. When asked us if she has improved at all, she replies a little bit. States she is just so weak and fatigued. Wondering if she should opt to go to a [facility] for rehab rather than go home with home health. Had some nausea earlier this morning that resolved on its own. Objective: No labs today. Culture data reviewed. Respiratory viral panel + for rhinovirus. Strep/legionella urine antigens negative. Blood, sputum, and urine cultures all negative. Cumulative fluid balance -995. - Physical Exam General: Alert, Oriented x3, Cooperative, No apparent distress, Well developed, Well nourished, - - Obese HEENT: Atraumatic, Normocephalic Oral: Moist Mucosa Neck: Supple, No Nodes, Trachea Midline Lungs: - - Diminished with global wheezing, somewhat improved from yesterday Cardiovascular: Normal S1, Normal S2, No murmurs, Irregular Rate Abdomen: Bowel Sounds Present, Soft, Non Tender, Non-Distended, Obese Extremities: No clubbing, No cyanosis, No edema Skin: No rashes, No breakdown Neurological: Neuro grossly intact Psych/Mental Status: Flat Affect, - - Alert and oriented, cooperative Vital Signs Temp Pulse Resp BP Pulse Ox 97.7 F L 108 H 16 139/88 H 96 02/07/18 10:11 02/07/18 10:11 02/07/18 10:11 02/07/18 10:11 02/07/18 10:11 Oxygen Flow Rate (L/min) 3.5 Oxygen Delivery Method Nasal Cannula Weight: 236 lb 8.896 oz Body Mass Index (BMI) 40.6 Intake and Output for Last 24 Hours 02/05/18 02/06/18 02/07/18 23:59 23:59 23:59 Intake Total 846.7 / 846.7 800 / 800 581 / 581 Output Total 900 / 900 1300 / 1300 Balance -53.3 / -53.3 -500 / -500 581 / 581 Microbiology Past 72 Hours 02/05/18 12:20 Gram Stain - Final Sputum, Expectorated/Coughed Respiratory Culture - Final 02/04/18 10:35 Urine Culture - Final Urine, Catheterized Culture exhibits no growth. 02/04/18 10:50 Blood Culture - Preliminary Blood Culture (Wb) - Anticubital Right No growth in 48 hours. 02/04/18 10:40 Blood Culture - Preliminary Blood Culture (Wb) - Anticubital Left No growth in 48 hours. 02/04/18 10:45 Respiratory Panel (PCR) - Final Mucosa - Nasopharyngeal Rhinovirus 02/04/18 10:35 Streptococcus pneumoniae Antigen (M - Final Urine, Clean Catch 02/04/18 10:35 Legionella Antigen - Final Urine, Clean Catch Medical Necessity - Tobacco Use Smoking Status: Never smoker Assessment/Plan RECOMMENDATIONS: 1. Continue antibiotics to complete a 7 day treatment course for community-acquired pneumonia. 2. Continue scheduled aerosol treatments and IV steroids 3. Wean supplemental oxygen to maintain saturations 88-92% 4. Continue BiPAP therapy as tolerated. Continue vest therapy 5. Continue holding Coumadin, given supratherapeutic INR 6. Continue attempts at diuresis 7. The patient will need to have a repeat CT chest in 6-8 weeks to document resolution of the right lower lobe airspace density. 8. Perform walking oximetry study prior to consideration for discharge from the hospital. 9. Encourage incentive spirometer use and mobilize patient as tolerated. IMPRESSIONS: 1. Acute on chronic hypoxemic and hypercarbic respiratory failure Concern for underlying COPD with exacerbation due to rhinovirus infection/community acquired pneumonia. Per the patient's last walking oximetry study, she is only supposed to utilize 2 L/min with exertion. However, she is currently utilizing higher levels of supplemental oxygen in her home environment. CT chest revealed evidence of a right lower lobe airspace density, which may represent community-acquired pneumonia. Therefore, agree with continuing antibiotics for empiric treatment of CAP ?7 days. The patient will require a follow-up chest CT in 6-8 weeks to document resolution of the aforementioned airspace density. Continue scheduled aerosol treatments and IV steroids for now. Patient still has significant wheezing and congestion. Wean supplemental oxygen to maintain saturations 88-92%, to prevent paradoxical CO2 retention. Echocardiogram did reveal a mild degree of pulmonary hypertension and diastolic dysfunction. Agree with ongoing attempts at volume optimization with diuretics. Continue BiPAP therapy with naps and nightly. 2. Personal history of obstructive sleep apnea, noncompliant with outpatient PAP therapy While the patient does report compliance with her home nocturnal Pap therapy, her outpatient compliance report clearly contradicts this assertion. The patient does appear to have a baseline degree of CO2 retention. She would certainly benefit from ongoing use of bilevel therapy. The importance of noninvasive positive pressure ventilation will need to be emphasized to the patient in hopes that she will begin to utilize her Pap therapy on an outpatient basis. 3. Paroxysmal atrial fibrillation/patent foramen ovale The patient is currently anticoagulated on Coumadin. Would recommend continuing to hold at this time, given supratherapeutic INR. Okay to continue Cardizem and Tikosyn. Daily INR. This note was generated with [employer] dictation software. It may contain incorrect words, spelling, and punctuation that were not noted in checking the note before signing.
--- NOTE | 2018-02-07 10:57 | PN_ITS ---
Subjective: The patient was seen and examined. She is lying in bed in no acute distress. States she reports awful. When asked us if she has improved at all, she replies a little bit. States she is just so weak and fatigued. Wondering if she should opt to go to a fpc for rehab rather than go home with home health. Had some nausea earlier this morning that resolved on its own. Objective: No labs today. Culture data reviewed. Respiratory viral panel + for rhinovirus. Strep/legionella urine antigens negative. Blood, sputum, and urine cultures all negative. Cumulative fluid balance -995. - Physical Exam General: Alert, Oriented x3, Cooperative, No apparent distress, Well developed, Well nourished, - - Obese HEENT: Atraumatic, Normocephalic Oral: Moist Mucosa Neck: Supple, No Nodes, Trachea Midline Lungs: - - Diminished with global wheezing, somewhat improved from yesterday Cardiovascular: Normal S1, Normal S2, No murmurs, Irregular Rate Abdomen: Bowel Sounds Present, Soft, Non Tender, Non-Distended, Obese Extremities: No clubbing, No cyanosis, No edema Skin: No rashes, No breakdown Neurological: Neuro grossly intact Psych/Mental Status: Flat Affect, - - Alert and oriented, cooperative Vital Signs Temp Pulse Resp BP Pulse Ox 97.7 F L 108 H 16 139/88 H 96 02/07/18 10:11 02/07/18 10:11 02/07/18 10:11 02/07/18 10:11 02/07/18 10:11 Oxygen Flow Rate (L/min) 3.5 Oxygen Delivery Method Nasal Cannula Weight: 236 lb 8.896 oz Body Mass Index (BMI) 40.6 Intake and Output for Last 24 Hours 02/05/18 02/06/18 02/07/18 23:59 23:59 23:59 Intake Total 846.7 / 846.7 800 / 800 581 / 581 Output Total 900 / 900 1300 / 1300 Balance -53.3 / -53.3 -500 / -500 581 / 581 Microbiology Past 72 Hours 02/05/18 12:20 Gram Stain - Final Sputum, Expectorated/Coughed Respiratory Culture - Final 02/04/18 10:35 Urine Culture - Final Urine, Catheterized Culture exhibits no growth. 02/04/18 10:50 Blood Culture - Preliminary Blood Culture (Wb) - Anticubital Right No growth in 48 hours. 02/04/18 10:40 Blood Culture - Preliminary Blood Culture (Wb) - Anticubital Left No growth in 48 hours. 02/04/18 10:45 Respiratory Panel (PCR) - Final Mucosa - Nasopharyngeal Rhinovirus 02/04/18 10:35 Streptococcus pneumoniae Antigen (M - Final Urine, Clean Catch 02/04/18 10:35 Legionella Antigen - Final Urine, Clean Catch Medical Necessity - Tobacco Use Smoking Status: Never smoker Assessment/Plan RECOMMENDATIONS: 1. Continue antibiotics to complete a 7 day treatment course for community- acquired pneumonia. 2. Continue scheduled aerosol treatments and IV steroids 3. Wean supplemental oxygen to maintain saturations 88-92% 4. Continue BiPAP therapy as tolerated. Continue vest therapy 5. Continue holding Coumadin, given supratherapeutic INR 6. Continue attempts at diuresis 7. The patient will need to have a repeat CT chest in 6-8 weeks to document resolution of the right lower lobe airspace density. 8. Perform walking oximetry study prior to consideration for discharge from the hospital. 9. Encourage incentive spirometer use and mobilize patient as tolerated. IMPRESSIONS: 1. Acute on chronic hypoxemic and hypercarbic respiratory failure Concern for underlying COPD with exacerbation due to rhinovirus infection/ community acquired pneumonia. Per the patient's last walking oximetry study, she is only supposed to utilize 2 L/min with exertion. However, she is currently utilizing higher levels of supplemental oxygen in her home environment. CT chest revealed evidence of a right lower lobe airspace density , which may represent community-acquired pneumonia. Therefore, agree with continuing antibiotics for empiric treatment of CAP ?7 days. The patient will require a follow-up chest CT in 6-8 weeks to document resolution of the aforementioned airspace density. Continue scheduled aerosol treatments and IV steroids for now. Patient still has significant wheezing and congestion. Wean supplemental oxygen to maintain saturations 88-92%, to prevent paradoxical CO2 retention. Echocardiogram did reveal a mild degree of pulmonary hypertension and diastolic dysfunction. Agree with ongoing attempts at volume optimization with diuretics. Continue BiPAP therapy with naps and nightly. 2. Personal history of obstructive sleep apnea, noncompliant with outpatient PAP therapy While the patient does report compliance with her home nocturnal Pap therapy, her outpatient compliance report clearly contradicts this assertion. The patient does appear to have a baseline degree of CO2 retention. She would certainly benefit from ongoing use of bilevel therapy. The importance of noninvasive positive pressure ventilation will need to be emphasized to the patient in hopes that she will begin to utilize her Pap therapy on an outpatient basis. 3. Paroxysmal atrial fibrillation/patent foramen ovale The patient is currently anticoagulated on Coumadin. Would recommend continuing to hold at this time, given supratherapeutic INR. Okay to continue Cardizem and Tikosyn. Daily INR. This note was generated with [employer] dictation software. It may contain incorrect words, spelling, and punctuation that were not noted in checking the note before signing.
--- NOTE | 2018-02-07 11:11 | CASEMGMT ---
AMANUEL received call from Madeleine at [facility] and they would be able to take patient. AMANUEL then spoke with Nurse Practitioner and she said patient is concerned about going home. AMANUEL spoke with patient again and she has agreed she needs to go to [facility]. Spoke with PT/OT and they feel it would be beneficial for patient to go to SNF if she has to do everything on her own at home. AMANUEL called [facility] and let them know. AMANUEL then faxed PT/OT evaluations and she will start the process to obtain insurance approval. AMANUEL called [facility] and let Madeleine know that patient is now [facility] a jail. AMANUEL also notified Steph at [facility]. Plan: [facility] pending insurance approval. Leslie HERRERA MSW
--- NOTE | 2018-02-07 15:27 | CASEMGMT ---
Addendum entered by Leslie Tirado 02/07/18 15:43: SW spoke with patient and let her know ambulette is not covered by insurance. She said she will have her daughter take her. She has her oxygen here with her. Original Note: Received insurance approval for patient to go to [facility]. SW completed convalescent on HENS. Green sheet placed on chart with instructions. Plan: [facility] under skilled level of care on a convalescent stay. Staff to arrange transport. Leslie HERRERA MSW
--- NOTE | 2018-02-07 17:01 | PCM.TXEXTCAR ---
- Diet 02/03/18 22:21 Diet: 1800 calorie low fat diet Food consistency:: Regular Liquid Consistency:: Regular/Thin - Routine Orders/Code Status Enema Type: Fleetz Enema Frequency: Daily PRN Suppository Type: Dulcolax 10mg Suppository Frequency: Daily PRN O2 Liters per Minute: 2-3 LPM O2 Frequency: Continuous Keep PO Greater than or Equal to (%): 88 - keep O2 sat between 89-92 and no higher than 92%. She is a CO2 retainer Routine Lab Work: - - PT/INR daily until the INR is less than 3.0 and then restart the the Warfarin and recheck PT/INR in 48H. - Therapies Weight Bearing: Full weight bearing Physical Therapy: Eval and Treat Occupational Therapy: Eval and Treat - Problem/Diagnosis (1) Acute on chronic respiratory failure with hypoxia and hypercapnia Status: Acute Current Visit: Yes (2) NEVAEH (obstructive sleep apnea) Status: Chronic Current Visit: Yes (3) Noncompliance with CPAP treatment Status: Chronic Current Visit: Yes (4) Rhinovirus infection Status: Acute Current Visit: Yes (5) Community acquired pneumonia Status: Acute Current Visit: Yes (6) Morbid obesity Status: Chronic Current Visit: Yes (7) Iron deficiency anemia Status: Chronic Current Visit: Yes (8) Insomnia Status: Chronic Current Visit: Yes (9) Supratherapeutic INR Status: Acute Current Visit: Yes (10) Paroxysmal atrial fibrillation Status: Chronic Current Visit: No (11) Patent foramen ovale Status: Chronic Current Visit: Yes (12) Left ventricular hypertrophy Status: Chronic Current Visit: Yes (13) Diastolic dysfunction Status: Chronic Comment: Stage II Current Visit: Yes (14) Pulmonary hypertension Status: Chronic Current Visit: No - Allergies/Procedures Done in Hospital Allergies/Adverse Reactions: Allergies meloxicam [From Mobic] Adverse Reaction (Verified 02/03/18 17:37) BP WENT UP, STOMACH PAINS tetracycline [Tetracycline] Adverse Reaction (Verified 02/03/18 17:37) GETS BLADDER INFECTION Procedures: 2-D Echocardiogram - 65% ejection fraction with mild concentric left ventricular hypertrophy, stage II diastolic dysfunction, moderate pulmonary hypertension with a right ventricular systolic pressure estimated at 46. - Type of Care/Length of Stay Estimated LOS: Convalescent Care Less Than 30 days Type of Care Needed: Skilled Rehab Potential: Fair Prognosis: Fair - Additional Orders/Day of Discharge H&P will serve as current which was dated: 02/03/18 Day of Discharge: 02/07/18 - Dietary and Speech Recommendations Dietitian Recommendations/Changes: Suggest liberalize diet to Low Sodium r/t poor po intake at meals. Will provide Ensure Enlive TID with meals for additional nutrition if consumed. - Follow Up Care Primary Care Physician: Aurora Madera MD [Primary Care Provider] - Please follow up with your Primary Care Physician in: following DC from TCU Please Follow Up With: Jt Alcantara DO When: 6 weeks Please Follow Up With: Arpit Mccurdy MD When: as previously scheduled
--- NOTE | 2018-02-07 17:15 | PCM.DC.SUM ---
Discharge Date and Diagnosis Date of Admission: 02/03/18 Date of Discharge: 02/07/18 - Primary Discharge Diagnosis Active and Suspected Problems (Last Updated 02/06/18 @ 11:16 by Jenny Jane NP-C) Acute on chronic respiratory failure with hypoxia and hypercapnia (Acute) Rhinovirus infection (Acute) Community acquired pneumonia (Acute) Supratherapeutic INR (Acute) - Secondary Discharge Diagnosis Chronic Problems (Last Updated 02/06/18 @ 11:16 by ANGE McdanielC) NEVAEH (obstructive sleep apnea) (Chronic) Noncompliance with CPAP treatment (Chronic) Iron deficiency anemia (Chronic) Insomnia (Chronic) Left ventricular hypertrophy (Chronic) Diastolic dysfunction (Chronic) 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 There is no obvious effusion. There are stable chronic changes in the lungs, most pronounced in the lung bases. Electronically Signed: Gill Boss MD at 18:25 EDT Tel Direct: [phone], Service support , Venous Duplex 02/03/18 19:59 IMPRESSION: Normal venous Doppler ultrasound of the lower extremity. Electronically Signed: Ron Mota MD at 20:43 EDT , Service support , Chest CT 02/04/18 10:26 IMPRESSION: Stable scarring in both lungs with fibrocalcific density in the right middle lobe. New focal infiltrate in the posterior segment of the right lower lobe. Follow-up is recommended. Electronically Signed: Vivek Rivera MD at 13:04 EDT Tel [phone], Service support , Laboratory Tests 02/03/18 02/03/18 02/03/18 17:37 17:37 17:37 WBC 15.6 H RBC 3.86 L Hgb 9.1 L Hct 31.6 L MCV 81.9 MCH 23.6 L MCHC 28.8 L RDW 17.9 H RDW Differential 54.0 H Plt Count 351 MPV 8.9 Immature Gran % (Auto) 0.200 Neut % (Auto) 85.3 H Lymph % (Auto) 6.4 L Blaine % (Auto) 7.8 Eos % (Auto) 0.1 Baso % (Auto) 0.2 Absolute Neuts (auto) 13.4 H Absolute Lymphs (auto) 1.00 Total Counted Not Reportable Differential Comment PT INR Specimen Type Sample Site pH Bicarbonate Actual POC Total CO2 Base Excess O2 Saturation ABG pCO2 ABG pO2 Ceasar Test O2 Delivery Device Liter Flow Blood Gas Notified Whom Blood Gas Notified Time Sodium 140 Potassium 3.8 Chloride 102 Carbon Dioxide 31.0 Anion Gap 7 BUN 10 Creatinine 0.55 Estim Creat Clear Calc 43.91 Est GFR (MDRD) Af Amer 139 Est GFR (MDRD) Non-Af 115 BUN/Creatinine Ratio 18.2 Glucose 127 H Lactic Acid Calcium 8.5 Magnesium Iron TIBC Iron Saturation Ferritin Total Bilirubin AST ALT Alkaline Phosphatase Troponin I < 0.02 B-Natriuretic Peptide 153.4 H Total Protein Albumin Globulin Albumin/Globulin Ratio Urine Color Urine Clarity Urine pH Ur Specific [place] Urine Protein Urine Glucose (UA) Urine Ketones Urine Occult Blood Urine Nitrite Urine Bilirubin Urine Urobilinogen Ur Leukocyte Esterase Urine RBC Urine WBC Ur Squamous Epith Cells Urine Bacteria Urine Mucus 02/03/18 02/04/18 02/04/18 17:37 05:30 05:30 WBC 23.5 H RBC 3.89 L Hgb 9.2 L Hct 31.8 L MCV 81.7 MCH 23.7 L MCHC 28.9 L RDW 17.6 H RDW Differential 52.7 H Plt Count 324 MPV 8.6 Immature Gran % (Auto) 0.200 Neut % (Auto) 95.2 H Lymph % (Auto) 3.2 L Blaine % (Auto) 1.4 Eos % (Auto) 0.0 Baso % (Auto) 0.0 Absolute Neuts (auto) 22.4 H Absolute Lymphs (auto) 0.76 L Total Counted Not Reportable Differential Comment SCANNED PT 30.2 H INR 2.9 Specimen Type Sample Site pH Bicarbonate Actual POC Total CO2 Base Excess O2 Saturation ABG pCO2 ABG pO2 Ceasar Test O2 Delivery Device Liter Flow Blood Gas Notified Whom Blood Gas Notified Time Sodium 139 Potassium 4.0 Chloride 98 Carbon Dioxide 34.0 H Anion Gap 7 BUN 8 Creatinine 0.58 Estim Creat Clear Calc 43.91 Est GFR (MDRD) Af Amer 130 Est GFR (MDRD) Non-Af 108 BUN/Creatinine Ratio 13.7 Glucose 200 H Lactic Acid Calcium 8.5 Magnesium Iron TIBC Iron Saturation Ferritin Total Bilirubin 0.30 AST 17 ALT 23 Alkaline Phosphatase 81 Troponin I B-Natriuretic Peptide Total Protein 7.0 Albumin 3.1 L Globulin 3.9 Albumin/Globulin Ratio 0.8 L Urine Color Urine Clarity Urine pH Ur Specific [place] Urine Protein Urine Glucose (UA) Urine Ketones Urine Occult Blood Urine Nitrite Urine Bilirubin Urine Urobilinogen Ur Leukocyte Esterase Urine RBC Urine WBC Ur Squamous Epith Cells Urine Bacteria Urine Mucus 02/04/18 02/04/18 02/04/18 05:30 10:35 10:50 WBC RBC Hgb Hct MCV MCH MCHC RDW RDW Differential Plt Count MPV Immature Gran % (Auto) Neut % (Auto) Lymph % (Auto) Blaine % (Auto) Eos % (Auto) Baso % (Auto) Absolute Neuts (auto) Absolute Lymphs (auto) Total Counted Differential Comment PT INR Specimen Type Sample Site pH Bicarbonate Actual POC Total CO2 Base Excess O2 Saturation ABG pCO2 ABG pO2 Ceasar Test O2 Delivery Device Liter Flow Blood Gas Notified Whom Blood Gas Notified Time Sodium Potassium Chloride Carbon Dioxide Anion Gap BUN Creatinine Estim Creat Clear Calc Est GFR (MDRD) Af Amer Est GFR (MDRD) Non-Af BUN/Creatinine Ratio Glucose Lactic Acid 1.5 Calcium Magnesium Iron 13 L TIBC 426 Iron Saturation 3.1 L Ferritin 13 Total Bilirubin AST ALT Alkaline Phosphatase Troponin I B-Natriuretic Peptide Total Protein Albumin Globulin Albumin/Globulin Ratio Urine Color Yellow Urine Clarity Clear Urine pH 6.0 Ur Specific [place] 1.015 Urine Protein 15 H Urine Glucose (UA) Normal Urine Ketones Negative Urine Occult Blood 10 H Urine Nitrite Negative Urine Bilirubin Negative Urine Urobilinogen Normal Ur Leukocyte Esterase 100 H Urine RBC 0 SEEN Urine WBC 0-5 SEEN Ur Squamous Epith Cells 5-10 SEEN Urine Bacteria 0 SEEN Urine Mucus 0 SEEN 02/04/18 02/05/18 02/05/18 11:29 05:30 05:30 WBC 20.0 H RBC 3.91 L Hgb 9.3 L Hct 32.6 L MCV 83.4 MCH 23.8 L MCHC 28.5 L RDW 17.3 H RDW Differential 52.0 H Plt Count 379 MPV 9.1 Immature Gran % (Auto) 0.200 Neut % (Auto) 92.8 H Lymph % (Auto) 4.8 L Blaine % (Auto) 2.2 Eos % (Auto) 0.0 Baso % (Auto) 0.0 Absolute Neuts (auto) 18.6 H Absolute Lymphs (auto) 0.96 Total Counted Not Reportable Differential Comment PT 48.8 H INR 5.3 H* Specimen Type ART Sample Site L Radial pH 7.34 L Bicarbonate Actual 34.2 H POC Total CO2 36 Base Excess 8 H O2 Saturation 95 ABG pCO2 64.0 H ABG pO2 81 Ceasar Test POS O2 Delivery Device Nasal Can Liter Flow 6.0 Blood Gas Notified Whom [facility] Blood Gas Notified Time 1115 Sodium Potassium Chloride Carbon Dioxide Anion Gap BUN Creatinine Estim Creat Clear Calc Est GFR (MDRD) Af Amer Est GFR (MDRD) Non-Af BUN/Creatinine Ratio Glucose Lactic Acid Calcium Magnesium Iron TIBC Iron Saturation Ferritin Total Bilirubin AST ALT Alkaline Phosphatase Troponin I B-Natriuretic Peptide Total Protein Albumin Globulin Albumin/Globulin Ratio Urine Color Urine Clarity Urine pH Ur Specific [place] Urine Protein Urine Glucose (UA) Urine Ketones Urine Occult Blood Urine Nitrite Urine Bilirubin Urine Urobilinogen Ur Leukocyte Esterase Urine RBC Urine WBC Ur Squamous Epith Cells Urine Bacteria Urine Mucus 02/05/18 02/06/18 02/06/18 05:30 05:55 05:55 WBC 16.6 H RBC 3.80 L Hgb 9.0 L Hct 31.4 L MCV 82.6 MCH 23.7 L MCHC 28.7 L RDW 17.4 H RDW Differential 53.2 H Plt Count 357 MPV 8.8 Immature Gran % (Auto) 0.200 Neut % (Auto) 92.9 H Lymph % (Auto) 4.1 L Blaine % (Auto) 2.7 Eos % (Auto) 0.0 Baso % (Auto) 0.1 Absolute Neuts (auto) 15.4 H Absolute Lymphs (auto) 0.68 L Total Counted Not Reportable Differential Comment PT 48.1 H INR 5.2 H* Specimen Type Sample Site pH Bicarbonate Actual POC Total CO2 Base Excess O2 Saturation ABG pCO2 ABG pO2 Ceasar Test O2 Delivery Device Liter Flow Blood Gas Notified Whom Blood Gas Notified Time Sodium 143 Potassium 4.1 Chloride 100 Carbon Dioxide 37.0 H Anion Gap 6 BUN 14 Creatinine 0.67 Estim Creat Clear Calc 43.91 Est GFR (MDRD) Af Amer 112 Est GFR (MDRD) Non-Af 92 BUN/Creatinine Ratio 21.0 H Glucose 156 H Lactic Acid Calcium 8.4 L Magnesium Iron TIBC Iron Saturation Ferritin Total Bilirubin AST ALT Alkaline Phosphatase Troponin I B-Natriuretic Peptide Total Protein Albumin Globulin Albumin/Globulin Ratio Urine Color Urine Clarity Urine pH Ur Specific [place] Urine Protein Urine Glucose (UA) Urine Ketones Urine Occult Blood Urine Nitrite Urine Bilirubin Urine Urobilinogen Ur Leukocyte Esterase Urine RBC Urine WBC Ur Squamous Epith Cells Urine Bacteria Urine Mucus 02/06/18 05:55 WBC RBC Hgb Hct MCV MCH MCHC RDW RDW Differential Plt Count MPV Immature Gran % (Auto) Neut % (Auto) Lymph % (Auto) Blaine % (Auto) Eos % (Auto) Baso % (Auto) Absolute Neuts (auto) Absolute Lymphs (auto) Total Counted Differential Comment PT INR Specimen Type Sample Site pH Bicarbonate Actual POC Total CO2 Base Excess O2 Saturation ABG pCO2 ABG pO2 Ceasar Test O2 Delivery Device Liter Flow Blood Gas Notified Whom Blood Gas Notified Time Sodium 141 Potassium 4.0 Chloride 98 Carbon Dioxide 39.0 H Anion Gap 4 L BUN 21 H Creatinine 0.50 L Estim Creat Clear Calc 43.91 Est GFR (MDRD) Af Amer 158 Est GFR (MDRD) Non-Af 130 BUN/Creatinine Ratio 42.4 H Glucose 185 H Lactic Acid Calcium 8.5 Magnesium 2.3 Iron TIBC Iron Saturation Ferritin Total Bilirubin AST ALT Alkaline Phosphatase Troponin I B-Natriuretic Peptide Total Protein Albumin Globulin Albumin/Globulin Ratio Urine Color Urine Clarity Urine pH Ur Specific [place] Urine Protein Urine Glucose (UA) Urine Ketones Urine Occult Blood Urine Nitrite Urine Bilirubin Urine Urobilinogen Ur Leukocyte Esterase Urine RBC Urine WBC Ur Squamous Epith Cells Urine Bacteria Urine Mucus Microbiology 02/05/18 12:20 Sputum, Expectorated/Coughed Gram Stain - Final 02/05/18 12:20 Sputum, Expectorated/Coughed Respiratory Culture - Final 02/04/18 10:35 Urine, Catheterized Urine Culture - Final Culture exhibits no growth. 02/04/18 10:50 Blood Culture (Wb) - Anticubital Right Blood Culture - Preliminary No growth in 48 hours. 02/04/18 10:40 Blood Culture (Wb) - Anticubital Left Blood Culture - Preliminary No growth in 48 hours. 02/04/18 10:45 Mucosa - Nasopharyngeal Respiratory Panel (PCR) - Final Rhinovirus 02/04/18 10:35 Urine, Clean Catch Streptococcus pneumoniae Antigen (M - Final 02/04/18 10:35 Urine, Clean Catch Legionella Antigen - Final Dr. Jt Alcantara-consulting services manager/pulmonary medicine Operations: None Procedures: 2-D Echocardiogram Summary of Care Provided: The patient is a 72 year old F with a past medical history of pulmonary hypertension, hyperlipidemia, paroxysmal atrial fibrillation, atrial septal defect, morbid obesity, respiratory failure with hypoxemia, COPD, NEVAEH, noncompliance with CPAP and hypertension who presented to the emergency room at [facility] on 02/03/2018 with complaints of shortness of breath and a decreased pulse ox at 66% at home. Chest x-ray in the emergency room showed an enlarged heart with increased pulmonary vascular congestion and no infiltrates or pleural effusions. She was afebrile with a temp of 99.2. Pulse ox was 95% on 5 L nasal cannula and this is what she usually wears at home. Cell count was 15.6 with 85% neutrophils. She was admitted to a monitored bed on PCU with a diagnosis of acute on chronic hypoxemic and hypercarbic respiratory failure and started on Solu-Medrol 40 mg IV every 6 hours, Rocephin [id number] aerosols. Was given 1 dose of Lasix 20 mg. Consultation was obtained with Dr. Jt Alcantara from pulmonary medicine. A CT scan of the chest was ordered and showed stable scarring in both lungs with fibrocalcific density in the right middle lobe. There was a new focal infiltrate in the posterior segment of the right lower lobe. A respiratory panel was positive for rhinovirus. Sputum culture had normal respiratory danita. Dr. Alcantara recommended CPAP for all naps and at night. He felt the right lower lobe infiltrate was suspicious in that it was very well circumscribed. She is a lifelong non-smoker. He agreed with continued antibiotics and a CT scan of the chest will be repeated in 6-8 weeks and she will follow-up in the pulmonary office. She improved gradually but still felt very weak and since she lives by herself she agreed to a stay in a SNF prior to returning home. At the time of discharge her pulse ox was 94-95% on a 2-1/2 L nasal cannula. She Routinely wears her oxygen at 5 L at home however, results of an ambulatory pulse oximetry done as an outpatient showed she should be on 2 L. The pulse ox should be maintained between 88-92% and no higher since she is a known CO2 retainer. She was discharged to a senior living facility on a 10 day taper of prednisone, cefdinir 300 mg twice daily for 2 additional days and doxycycline 100 mg twice daily for 2 additional days. She will follow-up with Dr. Aurora Madera following discharge from SNF. She will follow-up with Dr. Mccurdy as previously scheduled. She was counselled about the importance of compliance with CPAP to prevent the pulmonary pressures from increasing. She is going to follow up with Dr. Jt Alcantara in the office in 6 weeks and will have her CT scan repeated to ensure that the infiltrate in the RLL has resolved. This note was generated with [employer]ated[employer] dictation software. It may contain incorrect words, spelling, and punctuation that were not noted in checking the note before signing. Home Medications: Medications to take at Discharge [place]-3 Fatty Acids/Fish Oil [Fish Oil 1,000 mg Softgel] 1 ea PO DAILY 09/13/14 Aspirin E.C. [Ecotrin] 81 mg PO DAILY@0800 11/21/15 budesonide-formoterol HFA 160 mcg-4.5 mcg/actuation aerosol inhaler 2 puff INHALATION BID #1 device 10/24/17 albuterol sulfate HFA 90 mcg/actuation aerosol inhaler 2 puff INHALATION Q6H PRN 11/12/17 cholecalciferol (vitamin D3) 1,000 unit capsule 1,000 unit PO QDAY cap 11/12/17 potassium 99 mg tablet 297 mg PO QODAY 11/25/17 diltiazem CD 120 mg capsule,extended release 24 hr 120 mg PO DAILY #90 cap 01/02/18 dofetilide 125 mcg capsule 125 mcg PO BID #180 cap 01/08/18 Methyl Salicylate/Menthol [Salonpas Patch] 2 each TRANSDERM. 02/03/18 Albuterol Aerosols [Ventolin Aerosols] 2.5 mg INHALATION Q2H PRN PRN vial.neb. 02/07/18 Cefdinir 300 mg PO BID #4 cap 02/07/18 Doxycycline 100 mg PO BID #4 cap 02/07/18 Ferrous Sulfate 325 mg PO BIDCM tablet 02/07/18 Furosemide [Lasix] 20 mg PO DAILY #45 tab 02/07/18 Guaifenesin [Mucinex] 1,200 mg PO BID tablet 02/07/18 Ipratropium/Albuterol Sulfate [Duoneb] 3 ml INHALATION 4X/DAY ampul.neb 02/07/18 Magnesium Hydroxide [Milk Of Magnesia] 30 ml PO DAILY PRN udc 02/07/18 Melatonin 10 mg PO QHS tablet 02/07/18 Prednisone 10 mg PO UD #30 tab 02/07/18 Following Prescrptions Were Given to Patient: Prednisone 10 mg PO UD #30 tab Cefdinir 300 mg PO BID #4 cap Doxycycline 100 mg PO BID #4 cap Primary Care Physician: Aurora Madera MD [Primary Care Provider] - Please follow up with your Primary Care Physician in: following DC from TCU Please Follow Up With: Jt Alcantara DO When: 6 weeks Please Follow Up With: Arpit Mccurdy MD When: as previously scheduled Disposition: [facility] facility Minutes spent on discharge:: 40 Patient Condition:: Stable Medical Necessity - Tobacco Use Smoking Status: Never smoker Meaningful Use Info Meaningful Use Diagnoses (Choose all that apply): None applicable Code Visit Inpatient E&M: 19738 Disch Hosp
--- NOTE | 2018-02-07 17:20 | DS.PCM_ITS ---
Discharge Date and Diagnosis Date of Admission: 02/03/18 Date of Discharge: 02/07/18 - Primary Discharge Diagnosis Active and Suspected Problems (Last Updated 02/06/18 @ 11:16 by Jenny Jane NP-C) Acute on chronic respiratory failure with hypoxia and hypercapnia (Acute) Rhinovirus infection (Acute) Community acquired pneumonia (Acute) Supratherapeutic INR (Acute) - Secondary Discharge Diagnosis Chronic Problems (Last Updated 02/06/18 @ 11:16 by ANGE McdanielC) NEVAEH (obstructive sleep apnea) (Chronic) Noncompliance with CPAP treatment (Chronic) Iron deficiency anemia (Chronic) Insomnia (Chronic) Left ventricular hypertrophy (Chronic) Diastolic dysfunction (Chronic) 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 There is no obvious effusion. There are stable chronic changes in the lungs, most pronounced in the lung bases. Electronically Signed: Gill Boss MD at 18:25 EDT Tel Direct: [phone], Service support , Venous Duplex 02/03/18 19:59 IMPRESSION: Normal venous Doppler ultrasound of the lower extremity. Electronically Signed: Ron Mota MD at 20:43 EDT , Service support , Chest CT 02/04/18 10:26 IMPRESSION: Stable scarring in both lungs with fibrocalcific density in the right middle lobe. New focal infiltrate in the posterior segment of the right lower lobe. Follow-up is recommended. Electronically Signed: Vivek Rivera MD at 13:04 EDT Tel [phone], Service support , Laboratory Tests 02/03/18 02/03/18 02/03/18 17:37 17:37 17:37 WBC 15.6 H RBC 3.86 L Hgb 9.1 L Hct 31.6 L MCV 81.9 MCH 23.6 L MCHC 28.8 L RDW 17.9 H RDW Differential 54.0 H Plt Count 351 MPV 8.9 Immature Gran % (Auto) 0.200 Neut % (Auto) 85.3 H Lymph % (Auto) 6.4 L Martin % (Auto) 7.8 Eos % (Auto) 0.1 Baso % (Auto) 0.2 Absolute Neuts (auto) 13.4 H Absolute Lymphs (auto) 1.00 Total Counted Not Reportable Differential Comment PT INR Specimen Type Sample Site pH Bicarbonate Actual POC Total CO2 Base Excess O2 Saturation ABG pCO2 ABG pO2 Ceasar Test O2 Delivery Device Liter Flow Blood Gas Notified Whom Blood Gas Notified Time Sodium 140 Potassium 3.8 Chloride 102 Carbon Dioxide 31.0 Anion Gap 7 BUN 10 Creatinine 0.55 Estim Creat Clear Calc 43.91 Est GFR (MDRD) Af Amer 139 Est GFR (MDRD) Non-Af 115 BUN/Creatinine Ratio 18.2 Glucose 127 H Lactic Acid Calcium 8.5 Magnesium Iron TIBC Iron Saturation Ferritin Total Bilirubin AST ALT Alkaline Phosphatase Troponin I < 0.02 B-Natriuretic Peptide 153.4 H Total Protein Albumin Globulin Albumin/Globulin Ratio Urine Color Urine Clarity Urine pH Ur Specific Linton Urine Protein Urine Glucose (UA) Urine Ketones Urine Occult Blood Urine Nitrite Urine Bilirubin Urine Urobilinogen Ur Leukocyte Esterase Urine RBC Urine WBC Ur Squamous Epith Cells Urine Bacteria Urine Mucus 02/03/18 02/04/18 02/04/18 17:37 05:30 05:30 WBC 23.5 H RBC 3.89 L Hgb 9.2 L Hct 31.8 L MCV 81.7 MCH 23.7 L MCHC 28.9 L RDW 17.6 H RDW Differential 52.7 H Plt Count 324 MPV 8.6 Immature Gran % (Auto) 0.200 Neut % (Auto) 95.2 H Lymph % (Auto) 3.2 L Martin % (Auto) 1.4 Eos % (Auto) 0.0 Baso % (Auto) 0.0 Absolute Neuts (auto) 22.4 H Absolute Lymphs (auto) 0.76 L Total Counted Not Reportable Differential Comment SCANNED PT 30.2 H INR 2.9 Specimen Type Sample Site pH Bicarbonate Actual POC Total CO2 Base Excess O2 Saturation ABG pCO2 ABG pO2 Ceasar Test O2 Delivery Device Liter Flow Blood Gas Notified Whom Blood Gas Notified Time Sodium 139 Potassium 4.0 Chloride 98 Carbon Dioxide 34.0 H Anion Gap 7 BUN 8 Creatinine 0.58 Estim Creat Clear Calc 43.91 Est GFR (MDRD) Af Amer 130 Est GFR (MDRD) Non-Af 108 BUN/Creatinine Ratio 13.7 Glucose 200 H Lactic Acid Calcium 8.5 Magnesium Iron TIBC Iron Saturation Ferritin Total Bilirubin 0.30 AST 17 ALT 23 Alkaline Phosphatase 81 Troponin I B-Natriuretic Peptide Total Protein 7.0 Albumin 3.1 L Globulin 3.9 Albumin/Globulin Ratio 0.8 L Urine Color Urine Clarity Urine pH Ur Specific [place] Urine Protein Urine Glucose (UA) Urine Ketones Urine Occult Blood Urine Nitrite Urine Bilirubin Urine Urobilinogen Ur Leukocyte Esterase Urine RBC Urine WBC Ur Squamous Epith Cells Urine Bacteria Urine Mucus 02/04/18 02/04/18 02/04/18 05:30 10:35 10:50 WBC RBC Hgb Hct MCV MCH MCHC RDW RDW Differential Plt Count MPV Immature Gran % (Auto) Neut % (Auto) Lymph % (Auto) Martin % (Auto) Eos % (Auto) Baso % (Auto) Absolute Neuts (auto) Absolute Lymphs (auto) Total Counted Differential Comment PT INR Specimen Type Sample Site pH Bicarbonate Actual POC Total CO2 Base Excess O2 Saturation ABG pCO2 ABG pO2 Ceasar Test O2 Delivery Device Liter Flow Blood Gas Notified Whom Blood Gas Notified Time Sodium Potassium Chloride Carbon Dioxide Anion Gap BUN Creatinine Estim Creat Clear Calc Est GFR (MDRD) Af Amer Est GFR (MDRD) Non-Af BUN/Creatinine Ratio Glucose Lactic Acid 1.5 Calcium Magnesium Iron 13 L TIBC 426 Iron Saturation 3.1 L Ferritin 13 Total Bilirubin AST ALT Alkaline Phosphatase Troponin I B-Natriuretic Peptide Total Protein Albumin Globulin Albumin/Globulin Ratio Urine Color Yellow Urine Clarity Clear Urine pH 6.0 Ur Specific L[place] 1.015 Urine Protein 15 H Urine Glucose (UA) Normal Urine Ketones Negative Urine Occult Blood 10 H Urine Nitrite Negative Urine Bilirubin Negative Urine Urobilinogen Normal Ur Leukocyte Esterase 100 H Urine RBC 0 SEEN Urine WBC 0-5 SEEN Ur Squamous Epith Cells 5-10 SEEN Urine Bacteria 0 SEEN Urine Mucus 0 SEEN 02/04/18 02/05/18 02/05/18 11:29 05:30 05:30 WBC 20.0 H RBC 3.91 L Hgb 9.3 L Hct 32.6 L MCV 83.4 MCH 23.8 L MCHC 28.5 L RDW 17.3 H RDW Differential 52.0 H Plt Count 379 MPV 9.1 Immature Gran % (Auto) 0.200 Neut % (Auto) 92.8 H Lymph % (Auto) 4.8 L Martin % (Auto) 2.2 Eos % (Auto) 0.0 Baso % (Auto) 0.0 Absolute Neuts (auto) 18.6 H Absolute Lymphs (auto) 0.96 Total Counted Not Reportable Differential Comment PT 48.8 H INR 5.3 H* Specimen Type ART Sample Site L Radial pH 7.34 L Bicarbonate Actual 34.2 H POC Total CO2 36 Base Excess 8 H O2 Saturation 95 ABG pCO2 64.0 H ABG pO2 81 Ceasar Test POS O2 Delivery Device Nasal Can Liter Flow 6.0 Blood Gas Notified Whom [facility] Blood Gas Notified Time 1115 Sodium Potassium Chloride Carbon Dioxide Anion Gap BUN Creatinine Estim Creat Clear Calc Est GFR (MDRD) Af Amer Est GFR (MDRD) Non-Af BUN/Creatinine Ratio Glucose Lactic Acid Calcium Magnesium Iron TIBC Iron Saturation Ferritin Total Bilirubin AST ALT Alkaline Phosphatase Troponin I B-Natriuretic Peptide Total Protein Albumin Globulin Albumin/Globulin Ratio Urine Color Urine Clarity Urine pH Ur Specific [place] Urine Protein Urine Glucose (UA) Urine Ketones Urine Occult Blood Urine Nitrite Urine Bilirubin Urine Urobilinogen Ur Leukocyte Esterase Urine RBC Urine WBC Ur Squamous Epith Cells Urine Bacteria Urine Mucus 02/05/18 02/06/18 02/06/18 05:30 05:55 05:55 WBC 16.6 H RBC 3.80 L Hgb 9.0 L Hct 31.4 L MCV 82.6 MCH 23.7 L MCHC 28.7 L RDW 17.4 H RDW Differential 53.2 H Plt Count 357 MPV 8.8 Immature Gran % (Auto) 0.200 Neut % (Auto) 92.9 H Lymph % (Auto) 4.1 L Martin % (Auto) 2.7 Eos % (Auto) 0.0 Baso % (Auto) 0.1 Absolute Neuts (auto) 15.4 H Absolute Lymphs (auto) 0.68 L Total Counted Not Reportable Differential Comment PT 48.1 H INR 5.2 H* Specimen Type Sample Site pH Bicarbonate Actual POC Total CO2 Base Excess O2 Saturation ABG pCO2 ABG pO2 Ceasar Test O2 Delivery Device Liter Flow Blood Gas Notified Whom Blood Gas Notified Time Sodium 143 Potassium 4.1 Chloride 100 Carbon Dioxide 37.0 H Anion Gap 6 BUN 14 Creatinine 0.67 Estim Creat Clear Calc 43.91 Est GFR (MDRD) Af Amer 112 Est GFR (MDRD) Non-Af 92 BUN/Creatinine Ratio 21.0 H Glucose 156 H Lactic Acid Calcium 8.4 L Magnesium Iron TIBC Iron Saturation Ferritin Total Bilirubin AST ALT Alkaline Phosphatase Troponin I B-Natriuretic Peptide Total Protein Albumin Globulin Albumin/Globulin Ratio Urine Color Urine Clarity Urine pH Ur Specific [place] Urine Protein Urine Glucose (UA) Urine Ketones Urine Occult Blood Urine Nitrite Urine Bilirubin Urine Urobilinogen Ur Leukocyte Esterase Urine RBC Urine WBC Ur Squamous Epith Cells Urine Bacteria Urine Mucus 02/06/18 05:55 WBC RBC Hgb Hct MCV MCH MCHC RDW RDW Differential Plt Count MPV Immature Gran % (Auto) Neut % (Auto) Lymph % (Auto) Martin % (Auto) Eos % (Auto) Baso % (Auto) Absolute Neuts (auto) Absolute Lymphs (auto) Total Counted Differential Comment PT INR Specimen Type Sample Site pH Bicarbonate Actual POC Total CO2 Base Excess O2 Saturation ABG pCO2 ABG pO2 Ceasar Test O2 Delivery Device Liter Flow Blood Gas Notified Whom Blood Gas Notified Time Sodium 141 Potassium 4.0 Chloride 98 Carbon Dioxide 39.0 H Anion Gap 4 L BUN 21 H Creatinine 0.50 L Estim Creat Clear Calc 43.91 Est GFR (MDRD) Af Amer 158 Est GFR (MDRD) Non-Af 130 BUN/Creatinine Ratio 42.4 H Glucose 185 H Lactic Acid Calcium 8.5 Magnesium 2.3 Iron TIBC Iron Saturation Ferritin Total Bilirubin AST ALT Alkaline Phosphatase Troponin I B-Natriuretic Peptide Total Protein Albumin Globulin Albumin/Globulin Ratio Urine Color Urine Clarity Urine pH Ur Specific [place] Urine Protein Urine Glucose (UA) Urine Ketones Urine Occult Blood Urine Nitrite Urine Bilirubin Urine Urobilinogen Ur Leukocyte Esterase Urine RBC Urine WBC Ur Squamous Epith Cells Urine Bacteria Urine Mucus Microbiology 02/05/18 12:20 Sputum, Expectorated/Coughed Gram Stain - Final 02/05/18 12:20 Sputum, Expectorated/Coughed Respiratory Culture - Final 02/04/18 10:35 Urine, Catheterized Urine Culture - Final Culture exhibits no growth. 02/04/18 10:50 Blood Culture (Wb) - Anticubital Right Blood Culture - Preliminary No growth in 48 hours. 02/04/18 10:40 Blood Culture (Wb) - Anticubital Left Blood Culture - Preliminary No growth in 48 hours. 02/04/18 10:45 Mucosa - Nasopharyngeal Respiratory Panel (PCR) - Final Rhinovirus 02/04/18 10:35 Urine, Clean Catch Streptococcus pneumoniae Antigen (M - Final 02/04/18 10:35 Urine, Clean Catch Legionella Antigen - Final Dr. Jt Alcantara-hotel services supervisor/pulmonary medicine Operations: None Procedures: 2-D Echocardiogram Summary of Care Provided: The patient is a 72 year old F with a past medical history of pulmonary hypertension, hyperlipidemia, paroxysmal atrial fibrillation, atrial septal defect, morbid obesity, respiratory failure with hypoxemia, COPD, NEVAEH, noncompliance with CPAP and hypertension who presented to the emergency room at [facility] on 02/03/2018 with complaints of shortness of breath and a decreased pulse ox at 66% at home. Chest x-ray in the emergency room showed an enlarged heart with increased pulmonary vascular congestion and no infiltrates or pleural effusions. She was afebrile with a temp of 99.2. Pulse ox was 95% on 5 L nasal cannula and this is what she usually wears at home. Cell count was 15.6 with 85% neutrophils. She was admitted to a monitored bed on PCU with a diagnosis of acute on chronic hypoxemic and hypercarbic respiratory failure and started on Solu-Medrol 40 mg IV every 6 hours, Rocephin [id number] aerosols. Was given 1 dose of Lasix 20 mg. Consultation was obtained with Dr. Jt Alcantara from pulmonary medicine. A CT scan of the chest was ordered and showed stable scarring in both lungs with fibrocalcific density in the right middle lobe. There was a new focal infiltrate in the posterior segment of the right lower lobe. A respiratory panel was positive for rhinovirus. Sputum culture had normal respiratory danita. Dr. Alcantara recommended CPAP for all naps and at night. He felt the right lower lobe infiltrate was suspicious in that it was very well circumscribed. She is a lifelong non-smoker. He agreed with continued antibiotics and a CT scan of the chest will be repeated in 6-8 weeks and she will follow-up in the pulmonary office. She improved gradually but still felt very weak and since she lives by herself she agreed to a stay in a SNF prior to returning home. At the time of discharge her pulse ox was 94-95% on a 2-1/2 L nasal cannula. She Routinely wears her oxygen at 5 L at home however, results of an ambulatory pulse oximetry done as an outpatient showed she should be on 2 L. The pulse ox should be maintained between 88-92% and no higher since she is a known CO2 retainer. She was discharged to a detention facility on a 10 day taper of prednisone, cefdinir 300 mg twice daily for 2 additional days and doxycycline 100 mg twice daily for 2 additional days. She will follow-up with Dr. Aurora Madera following discharge from SNF. She will follow-up with Dr. Mccurdy as previously scheduled. She was counselled about the importance of compliance with CPAP to prevent the pulmonary pressures from increasing. She is going to follow up with Dr. Jt Alcantara in the office in 6 weeks and will have her CT scan repeated to ensure that the infiltrate in the RLL has resolved. This note was generated with [employer] dictation software. It may contain incorrect words, spelling, and punctuation that were not noted in checking the note before signing. Home Medications: Medications to take at Discharge [place]-3 Fatty Acids/Fish Oil [Fish Oil 1,000 mg Softgel] 1 ea PO DAILY 09/13/14 Aspirin E.C. [Ecotrin] 81 mg PO DAILY@0800 11/21/15 budesonide-formoterol HFA 160 mcg-4.5 mcg/actuation aerosol inhaler 2 puff INHALATION BID #1 device 10/24/17 albuterol sulfate HFA 90 mcg/actuation aerosol inhaler 2 puff INHALATION Q6H PRN 11/12/17 cholecalciferol (vitamin D3) 1,000 unit capsule 1,000 unit PO QDAY cap potassium 99 mg tablet 297 mg PO QODAY 11/25/17 diltiazem CD 120 mg capsule,extended release 24 hr 120 mg PO DAILY #90 cap 01/02 dofetilide 125 mcg capsule 125 mcg PO BID #180 cap 01/08/18 Methyl Salicylate/Menthol [Salonpas Patch] 2 each TRANSDERM. 02/03/18 Albuterol Aerosols [Ventolin Aerosols] 2.5 mg INHALATION Q2H PRN PRN vial.neb. 02/07/18 Cefdinir 300 mg PO BID #4 cap 02/07/18 Doxycycline 100 mg PO BID #4 cap 02/07/18 Ferrous Sulfate 325 mg PO BIDCM tablet 02/07/18 Furosemide [Lasix] 20 mg PO DAILY #45 tab 02/07/18 Guaifenesin [Mucinex] 1,200 mg PO BID tablet 02/07/18 Ipratropium/Albuterol Sulfate [Duoneb] 3 ml INHALATION 4X/DAY ampul.neb Magnesium Hydroxide [Milk Of Magnesia] 30 ml PO DAILY PRN udc 02/07/18 Melatonin 10 mg PO QHS tablet 02/07/18 Prednisone 10 mg PO UD #30 tab 02/07/18 Following Prescrptions Were Given to Patient: Prednisone 10 mg PO UD #30 tab Cefdinir 300 mg PO BID #4 cap Doxycycline 100 mg PO BID #4 cap Primary Care Physician: Aurora Madera MD [Primary Care Provider] - Please follow up with your Primary Care Physician in: following DC from TCU Please Follow Up With: Jt Alcantara DO When: 6 weeks Please Follow Up With: Arpit Mccurdy MD When: as previously scheduled Disposition: [facility] facility Minutes spent on discharge:: 40 Patient Condition:: Stable Medical Necessity - Tobacco Use Smoking Status: Never smoker Meaningful Use Info Meaningful Use Diagnoses (Choose all that apply): None applicable Code Visit Inpatient E&M: 38692 Disch Hosp
--- NOTE | 2018-02-07 17:38 | NURSING ---
Called report to [facility]
--- NOTE | 2018-02-07 18:13 | NURSING ---
all patient care, medication administration, & charting by Lawrence Roger, Student Nurse, done under the supervision of this RN.
== END 2018-02-07 18:21 | disposition skilled nursing facility (03) | DRG 190 ==
LOC: ED 18:23 → PCU 22:34
PROVIDERS: Family Medicine; Physician Assistant; Admitting Provider Family Medicine; Emergency Provider Emergency Medicine; Family Provider Internal Medicine; PCP Internal Medicine; Visit Provider Internal Medicine
DX: J44.1 Chronic obstructive pulmonary disease with (acute) exacerbation (principal); J96.21 Acute and chronic respiratory failure with hypoxia; J18.9 Pneumonia, unspecified organism; J96.22 Acute and chronic respiratory failure with hypercapnia; I50.33 Acute on chronic diastolic (congestive) heart failure; Z68.41 Body mass index [BMI] 40.0-44.9, adult; Q21.1 Atrial septal defect; B97.89 Other viral agents as the cause of diseases classified elsewhere; I48.0 Paroxysmal atrial fibrillation; G47.33 Obstructive sleep apnea (adult) (pediatric); J20.6 Acute bronchitis due to rhinovirus; I11.0 Hypertensive heart disease with heart failure; E66.01 Morbid (severe) obesity due to excess calories; E78.5 Hyperlipidemia, unspecified; I27.20 Pulmonary hypertension, unspecified; E61.1 Iron deficiency; R79.1 Abnormal coagulation profile; Z79.01 Long term (current) use of anticoagulants; Z99.81 Dependence on supplemental oxygen; Z91.19 Patient's noncompliance with other medical treatment and regimen; D50.9 Iron deficiency anemia, unspecified
CPT/HCPCS: 36415; 36600; 71045; 71250; 80048; 80053; 81001; 82728; 82803; 83540; 83550; 83605; 83735; 83880; 84484; 85025; 85610; 87040; 87070; 87086; 87205; 87449; 87633; 93005; 93306; 93971; 94002; 94003; 94640; 94667; 94668; 97110; 97162; 97165; 97802; 99284; J1756; J7030; Q9957; A4216; C8929; J1940

== ENCOUNTER → 2018-11-06 12:20 | Outpatient (CLI) | payer MEDICARE, SELFPAY ==
[2018-11-06 13:08] VITALS: PULSE 102; PULSE 71; PULSE 77; PULSE 87; PULSE 94; PULSE 96; PULSE 97; O2SAT 88; O2SAT 89; O2SAT 90; O2SAT 95; O2SAT 97; O2SAT 98
--- NOTE | 2018-11-06 13:17 | CPS ---
Pt arrived on 2L pulse dose. Pt stated she titrates between 2L-4L. Pt started test on room air and placed on 2L at minute 4. Pt states she is wanting to switch DME companies and [facility] has the name of the new DME that the test needs to be faxed to.
--- NOTE | 2018-11-06 14:05 | PCM.PSN.6M ---
PSN 6 Minute Walk Test - 6 Minute Walk Test 6 Minute Walk Test: 6 Minute Walk Test PSN:6-Minute Walk Test Start: 11/06/18 13:07 Freq: Status: Active Protocol: [id number].6MINW Document 11/06/18 13:08 SMB (Rec: 11/06/18 13:28 SMB [id number]) 6 Minute Walk Test Date Performed 11/06/18 Time Performed 12:34 Height 5 ft 5 in Weight: 103.873 kg Weight in Pounds 229.[address]: Elaina Trevino Assistive device used: None Pre-test Oxygen Delivery Method Room Air Pulse Ox (%) 98 Pulse Rate (60-100 beats/min) 87 Dyspnea Deepak Scale (0-10) 0.5 Exertion Deepak Scale (6-20) 11 Number of Rests Taken 1 1st minute Oxygen Delivery Method Room Air Pulse Rate (60-100 beats/min) 94 Dyspnea Deepak Scale (0-10) 132 2nd minute Oxygen Delivery Method Room Air Pulse Ox (%) 90 Pulse Rate (60-100 beats/min) 96 Number of Rests Taken 1 3rd minute Oxygen Delivery Method Room Air Pulse Ox (%) 89 Pulse Rate (60-100 beats/min) 97 4th minute Oxygen Flow Rate (L/min) (L/min) 2 Oxygen Delivery Method Nasal Cannula Pulse Ox (%) 88 Pulse Rate (60-100 beats/min) 102 H 5th minute Oxygen Flow Rate (L/min) (L/min) 2 Oxygen Delivery Method Nasal Cannula Pulse Ox (%) 97 Pulse Rate (60-100 beats/min) 77 Number of Rests Taken 1 6th minute Oxygen Flow Rate (L/min) (L/min) 2 Oxygen Delivery Method Nasal Cannula Pulse Ox (%) 95 Pulse Rate (60-100 beats/min) 96 Post-test Oxygen Flow Rate (L/min) (L/min) 2 Oxygen Delivery Method Nasal Cannula Pulse Ox (%) 98 Pulse Rate (60-100 beats/min) 71 Dyspnea Deepak Scale (0-10) 4 Exertion Deepak Scale (6-20) 14 Full Laps Walked 11 Partial Lap, Number of Tiles Walked 13 Total Distance Walked (ft) 662 11/06/18 13:17 Cardiopulmonary Services by Nicolasa Shay Pt arrived on 2L pulse dose. Pt stated she titrates between 2L-4L. Pt started test on room air and placed on 2L at minute 4. Pt states she is wanting to switch DME companies and [facility] has the name of the new DME that the test needs to be faxed to. Initialized on 11/06/18 13:17 - END OF NOTE - Interpretation Interpretation: Patient was noted to be 98% on room air. However, upon the fourth minute of ambulation, patient desaturated to 88%. Patient placed on 2 L nasal cannula and improved to 97%. In total, patient was able to ambulate 662 feet over the course of 6 minutes with 3 breaks. These findings are consistent with a respiratory limitation exercise tolerance. - Recommendations Recommendations: The patient requires no supplemental oxygen at rest, but should be using 2 L nasal cannula with any exertion.
== END ==
PROVIDERS: Family Provider Internal Medicine; PCP Internal Medicine; Referring Provider Nurse Practitioner Acute Care; Visit Provider Nurse Practitioner Acute Care
DX: J44.9 Chronic obstructive pulmonary disease, unspecified (principal)
CPT/HCPCS: 94618

== ENCOUNTER 2019-01-19 12:26 | Inpatient (IN) | payer MEDICARE, SELFPAY ==
[2018-11-19 13:55] VITALS: BMI 38.9
[2019-01-19] VITALS (28 sets, daily range): BP systolic 111–187; BP diastolic 50–106; PULSE 71–116; RESP 12–30; TEMP 36.6–38.4; O2SAT 85–984; BMI 39.8; BMI 36.9
--- NOTE | 2019-01-19 12:40 | EKG12_ITS ---
Test Reason : SOB Blood Pressure : / mmHG Vent. Rate : 101 BPM Atrial Rate : 105 BPM P-R Int : 000 ms QRS Dur : 132 ms QT Int : 374 ms P-R-T Axes : 000 -21 029 degrees QTc Int : 484 ms Atrial fibrillation with rapid ventricular response Right bundle branch block Abnormal ECG Confirmed by IMELDA RHODES, LINDA ([id number]), story editor PREETHI SABA ([id number]) on 01/21/2019 1:53:02 PM Referred By: Johnathon Wynn Confirmed By:LINDA SEGURA MD
--- NOTE | 2019-01-19 12:41 | RAD_ITS ---
STUDY: X-RAY CHEST REASON FOR EXAM: Female, 73 years old. Cough and shortness of breath. TECHNIQUE: Single AP portable view of the chest. COMPARISON: Comparison is made with prior study February 03, 2018. FINDINGS: Since prior study, there has been progressive infiltration and/or consolidation in the right lower lobe. Surgical sutures are seen at that site. This is superimposed on chronic increased interstitial markings worse in the right hemithorax. There is no demonstrated pleural abnormality. Normal size heart. Normal mediastinum and judy. Normal visualized pulmonary arteries. There is atherosclerotic tortuosity of the aortic arch and descending thoracic aorta. There are diffuse degenerative changes of the visualized thoracic spine. Normal visualized ribs, clavicles, and shoulders. There is no demonstrated abnormality of the visualized soft tissue structures of the upper abdomen. RAD/Chest 1 View (Portable) IMPRESSION: Progressive infiltration and coalescence in the right lower lobe. Surgical sutures are seen at that site. Electronically Signed: Vivek Rivera, at 13:43 EDT , Service support ,
[2019-01-19] MEDS: Ipratropium/Albuterol Sulfate 3 ML AMPUL.NEB INHALATION (13:20)
--- NOTE | 2019-01-19 13:57 | ED.VIS.GEN ---
History of Present Illness Chief Complaint: Shortness of Breath Informant: Patient, Family Onset: Today Context: - - upon waking up this AM Timing: Continuous Quality: sob Location: chest Current Severity: Severe Maximum Severity: Severe Worsened by: lying flat. exertion. Relieved by: rest while sitting Associated Symptoms: chest tightness. no cough/fever. Narrative: Patient woke up a lot more short of breath than usual today. No recent cough or fever. No swelling in her legs. History of congestive heart failure, she was admitted for this last year but does not remember what the problem was. History is limited because the patient is very short of breath and the daughter does not know all of the details about her past medical history. Patient denies drinking excessive amounts of fluid or salt intake lately. No recent medication changes. She states she is not on a water pill anymore because it gives her bladder infections. Capacity - Capacity Assessment Tool Can the patient make a choice & communicate that choice?: Yes Can the patient understand benefits, risks and alternatives?: Yes Can the patient make a logical, rational choice?: Yes Is the choice the patient makes consistent w/ their values?: Yes Is there an impending, emergent risk to the patient?: Yes - Respiratory failure - Past Medical History (1) Essential hypertension Status: Chronic (2) Paroxysmal atrial flutter Status: Chronic (3) Atrial septal defect Status: Chronic (4) Hyperlipidemia Status: Chronic (5) Insomnia Status: Chronic (6) Iron deficiency anemia Status: Chronic (7) Left ventricular hypertrophy Status: Chronic (8) NEVAEH (obstructive sleep apnea) Status: Chronic (9) Paroxysmal atrial fibrillation Status: Chronic (10) Pulmonary hypertension Status: Chronic (11) Stage 3 severe COPD by GOLD classification Status: Chronic Past Medical History - Allergies and Home Meds Allergies/Adverse Reactions: Allergies meloxicam [From Mobic] Adverse Reaction (Verified 01/19/19 12:27) BP WENT UP, STOMACH PAINS tetracycline [Tetracycline] Adverse Reaction (Verified 01/19/19 12:27) GETS BLADDER INFECTION Surgical History: - - Knee replacement Lives: With Family Smoking Status: Never smoker Drugs: None - Family History Maternal Family History: Family History (Last Reviewed 11/19/18 @ 14:23 by ANGE ReddyC) Brother CAD (coronary artery disease) Diabetes Sister CAD (coronary artery disease) Diabetes Colon cancer Brother CAD (coronary artery disease) Sister CAD (coronary artery disease) Hx of CABG Family History: Reports: Asthma Sibling Family History: Family History (Last Reviewed 11/19/18 @ 14:23 by RONIT Reddy) Brother CAD (coronary artery disease) Diabetes Sister CAD (coronary artery disease) Diabetes Colon cancer Brother CAD (coronary artery disease) Sister CAD (coronary artery disease) Hx of CABG Family History: Reports: Diabetes, - - Colon Cancer Review of Systems ROS: Unable to Obtain - limited. on Bipap. General: Reports: Malaise. Denies: Chills, Fever Cardiovascular: Reports: Chest pain. Denies: Palpitations Respiratory: Reports: Dyspnea, Dyspnea on exertion, Orthopnea. Denies: Cough Gastrointestinal: Denies: Abdominal pain, Nausea, Vomiting, Diarrhea Musculoskeletal: Denies: Swelling, Extremity Pain Physical Exam Vital Signs/Narrative: Vital Signs Temp Pulse Resp BP Pulse Ox 01/19/19 13:27 99.5 F H 96 24 H 99 01/19/19 13:20 107 H 30 H 94 01/19/19 13:16 102 H 28 H 94 01/19/19 13:15 94 01/19/19 12:28 99.8 F H 71 24 H 187/100 H 85 Inital Vital Signs reviewed: Yes General: Well nourished, Well developed, Obese, Acute Distress - respiratory Head: Normocephalic, Atraumatic Eyes: Perrl, EOMI ENT: Moist mucous membranes, No rhinorrhea Neck: Supple, Nontender, No JVD Cardiovascular: Regular rate, Regular rhythm, No murmurs Respiratory: Chest nontender, Rales - low-pitched coarse BS throughout; worse at bases, Wheezing - +resp distress Abdomen: Soft, Nontender, Nondistended, Normal bowel sounds Extremities: Nontender, No edema. Negative for: Calf Tenderness Skin: Normal color, No rash Neurological: Alert, Oriented x3, Cranial nerves II-XII grossly intact, Normal Strength, Normal Sensation Psychological: Normal affect, Normal Mood Diagnostic/Tx/Re-eval Chest X-Ray - ED: 1 View, Read by ED Physician - pneumonia vs. chf (initially) Impressions Chest X-Ray 01/19/19 12:41 IMPRESSION: Progressive infiltration and coalescence in the right lower lobe. Surgical sutures are seen at that site. Electronically Signed: Vivek Rivera, at 13:43 EDT , Service support , 01/19/19 12:41 Chest 1 View (Portable) [RAD] Stat Laboratory Results 01/19/19 01/19/19 01/19/19 13:45 13:45 13:45 WBC 12.9 H RBC 4.70 Hgb 13.8 Hct 43.9 MCV 93.4 MCH 29.4 MCHC 31.4 L RDW 13.4 RDW Differential 46.2 H Plt Count 211 MPV 9.8 Immature Gran % (Auto) 0.200 Neut % (Auto) 87.6 H Lymph % (Auto) 5.7 L [place] % (Auto) 5.8 Eos % (Auto) 0.5 Baso % (Auto) 0.2 Absolute Neuts (auto) 11.3 H Absolute Lymphs (auto) 0.74 L Total Counted Not Reportable PT INR Specimen Type Sample Site pH Bicarbonate Actual POC Total CO2 Base Excess O2 Saturation O2 % ABG pCO2 ABG pO2 Ceasar Test Respiration Rate O2 Delivery Device EPAP IPAP Blood Gas Notified Whom Blood Gas Notified Time Sodium 136 Potassium 4.8 Chloride 103 Carbon Dioxide 28.0 Anion Gap 5 BUN 9 Creatinine 0.62 Estim Creat Clear Calc 43.27 Est GFR (MDRD) Af Amer 120 Est GFR (MDRD) Non-Af 99 BUN/Creatinine Ratio 14.4 Glucose 122 H Lactic Acid Calcium 8.5 Troponin I < 0.015 B-Natriuretic Peptide 113.0 H 01/19/19 01/19/19 01/19/19 14:06 14:10 14:10 WBC RBC Hgb Hct MCV MCH MCHC RDW RDW Differential Plt Count MPV Immature Gran % (Auto) Neut % (Auto) Lymph % (Auto) [place] % (Auto) Eos % (Auto) Baso % (Auto) Absolute Neuts (auto) Absolute Lymphs (auto) Total Counted PT 20.1 H INR 1.7 Specimen Type ART Sample Site R Radial pH 7.37 Bicarbonate Actual 28.8 H POC Total CO2 30 Base Excess 3 H O2 Saturation 96 O2 % 35 ABG pCO2 50.1 H ABG pO2 88 Ceasar Test POS Respiration Rate 24 O2 Delivery Device Bi / C PAP EPAP 7 IPAP 14 Blood Gas Notified Whom ED MD Blood Gas Notified Time 1355 Sodium Potassium Chloride Carbon Dioxide Anion Gap BUN Creatinine Estim Creat Clear Calc Est GFR (MDRD) Af Amer Est GFR (MDRD) Non-Af BUN/Creatinine Ratio Glucose Lactic Acid 1.0 Calcium Troponin I B-Natriuretic Peptide - Rhythm Strip Rhythm Strip: A-fib Rate: 101 Ectopy: None - EKG Initial EKG Interpretation: No Acute Injury Pattern, Atrial Fibrillation, RBBB Prior: Unchanged - Medical Decision Making Patient was placed on BiPAP immediately after evaluation, she states that this was helping her breathing. Initial chest x-ray appeared to show either pneumonia versus congestive heart failure prior to the radiologist interpretation, so she was given a dose of Lasix since she is on no diuretic and has a history of congestive heart failure, with orthopnea. However, ancillary testing returned showing that this is much more likely to be infectious than congestive heart failure especially with a low BNP and the fact that she developed a true fever. Influenza is negative. She was started on Rocephin and Zithromax, she has had no hospitalization within the past 90 days. She continued to gradually feel worse while on BiPAP. She did not look any different and was still conversive however, smiling as she was discussing the fact that she was starting to feel a little tired. When asked if she would want to be intubated/sedated if she became worse, she states that yes she would. Her initial ABG showed a neutral pH without acute hypercapnia. We gave her some nebulizer treatments and changed settings on her BiPAP, this helped a little, and her ABG is repeated. It is very reassuring, 7.40/49/98 with a bicarb of 31. On reexamination, she is breathing relatively well on BiPAP. I think it is reasonable to continue to watch her in the ICU and continue treatment. Discussed with Dr. Alcantara, with ICU, who agrees that that management is reasonable. Discussed with hospitalist. - Critical Care Time Critical care time (excluding procedures): 30-74 minutes, Including time spent:, Discussing w/Patient &/or Family/Workplace Relations Adviser, Discussing w/Consultants, Arranging Admission or Transfer, Performing Direct Patient Care at Bedside ED Disposition - Plan for ED Patient: Disposition: Acute Care [facility] Diagnosis: Sepsis, CAP (community acquired pneumonia), Acute respiratory failure with hypoxemia, COPD exacerbation
[2019-01-19 14:11] LABS: Allen Test POS; Base Excess 3 mmol/L (-2 to +2); Bicarbonate 28.8 mmol/L (22-26); Blood Gas Specimen Type ART; EPAP 7; FI02 35; IPAP 14; PO2 88 mmHG (75-100); RR 24; SITE R Radial; SO2 96 % (95-99); Time Given 1355; Total Carbon Dioxide 30 mmol/L; pCO2 50.1 mmHg (35-45); pH 7.37 (7.35-7.45)
[2019-01-19] MEDS: Furosemide 20 MG/2 ML VIAL IV (14:20)
[2019-01-19 14:23] LABS: Anion Gap 5 (5-15); BUN 9 mg/dL (7-18); BUN/Creat Ratio 14.4 RATIO (10-20); Calcium,Total 8.5 mg/dL (8.5-10.1); Chloride 103 mmol/L (98-107); Creatinine, Serum 0.62 mg/dL (0.55-1.02); EST Glomerular Filtration Rate 99 mL/min (>60); Est Glom Filt Rate - Afr Amer 120 mL/min (>60); Estimated Creatinine Clearance 43.27 ml/min; Glucose 122 mg/dL (74-106); Potassium 4.8 mmol/L (3.5-5.1); Sodium Level 136 mmol/L (136-145)
[2019-01-19 14:25] LABS: Absolute Lymphocyte Count 0.74 X10^3/ul (0.83-4.51); Absolute Neutrophil Count 11.3 X10^3/uL (2.0-7.7); Basophil# 0.02 X10^3/uL; Basophil% 0.2 % (0-1); Eosinophil# 0.07 X10^3/uL; Eosinophils% 0.5 % (0-5); Hematocrit 43.9 % (37-47); Hemoglobin 13.8 g/dl (12.0-15.0); Lymphocyte # 0.74 X10^3/ul (4.0); Lymphocyte % 5.7 % (19-41); Mean Corp Hgb Conc 31.4 g/gl (32-36); Mean Corpuscular Hgb 29.4 pg (27.0-32.0); Mean Corpuscular Volume 93.4 fL (81-99); Mean Platelet Vol. 9.8 fl (6.2-12.0); Monocyte# 0.75 X10^3/uL; Monocyte% 5.8 % (0-10); Neutrophil # 11.28 X10^3/uL (2.7-7.7); Neutrophil % 87.6 % (47-70); Platelet Count 211 K/mm3 (150-450); RBC Distribution Width CV 13.4 % (11.6-14.6); RBC Distribution Width SD 46.2 fl (35.1-43.9); White Blood Count 12.9 K/mm3 (4.4-11.0)
[2019-01-19] MEDS: Albuterol 2.5 MG/3 ML VIAL.NEB. INHALATION ×3 (14:26→16:01)
[2019-01-19 14:28] LABS: POSITIVE COUNT NO; POSITIVE DIFFERENTIAL NO; POSITIVE MORPHOLOGY NO
[2019-01-19 14:42] LABS: International Normalized Ratio 1.7; Prothrombin Time (Protime)PT. 20.1 SECONDS (11.7-14.9)
[2019-01-19] MEDS: Acetaminophen 500 MG Tablet 1000 MG PO (15:23)
[2019-01-19] MEDS: Ceftriaxone 1 GM/50 ML BAG IV (15:54)
--- NOTE | 2019-01-19 16:08 | CPS ---
FiO2 increased to 40%.
[2019-01-19 17:00] LABS: Allen Test POS; Base Excess 6 mmol/L (-2 to +2); Bicarbonate 30.7 mmol/L (22-26); Blood Gas Specimen Type ART; EPAP 8; FI02 40; IPAP 16; PO2 98 mmHG (75-100); RR 22; SITE R Radial; SO2 97 % (95-99); Time Given 1645; Total Carbon Dioxide 32 mmol/L; pCO2 49.2 mmHg (35-45)
--- NOTE | 2019-01-19 17:24 | CASEMGMT ---
RN CM Assessment Introduced role of RN CM to patient and daughter Unique at bedside. Patient on Bipap and only able to get limited info from her, however agrees to CM speaking with dtr. ?Dtr did not know some of the patient's healthcare information.?Care providers, pharmacy, and demographics verified. Presentation: SOB, h/o CHF Re-Admit: No Barriers/Issues: None PCP: [facility] Specialists: Cardio- Dr Mccurdy, Pulm- Dr Chavis Preferred Pharmacy: [facility] Insurance: [email or web address] Rx Benefit:?Yes ?LNOK: Dtr Unique Retana LW/HPOA: Yes to both, HPOA- Dtr Unique Retana. Adv Directive on file at [facility]. Living Arrangements:? Lives alone in a 2nd story apartment, uses elevator. ADL?s: Independent with ambulation and ADL's. Transportation: Patient drives, Daughter Unique to transport on DC. DME: [employer], Home O2 continuous @ 3L- [facility], CPAP, [place] HHC: Yes in past- could not understand with what Agency SNF: Past- January Last Year at [facility] Goal: Home DC PLAN: Home, no anticipated needs at this time. CHERIE Macias
[2019-01-19] MEDS: MethylPREDNISolone 125 MG/2 ML Vial IV (17:34)
--- NOTE | 2019-01-19 18:31 | PCM.HP.STD ---
Problem List (1) Sepsis Status: Acute (2) CAP (community acquired pneumonia) Status: Acute Qualifiers: Laterality: right (3) Acute respiratory failure with hypoxemia Status: Acute (4) Paroxysmal atrial flutter Status: Chronic (5) Essential hypertension Status: Chronic (6) NEVAEH (obstructive sleep apnea) Status: Chronic (7) Iron deficiency anemia Status: Chronic (8) Left ventricular hypertrophy Status: Chronic (9) Stage 3 severe COPD by GOLD classification Status: Chronic (10) Pulmonary hypertension Status: Chronic (11) Hyperlipidemia Status: Chronic (12) Atrial septal defect Status: Chronic (13) COPD (chronic obstructive pulmonary disease) Status: Chronic History of Present Illness Date of Admission: 01/19/19 Chief Complaint: SOB The patient is a 73 year old F with pmhjx of COPD, pulmonary htn, NEVAEH, PAfib, HTN, ASD, iron def. anemia, HLD, on 3lpm O2 at home chronically, follows [facility] as an outpatient, who presents to the ER with increasing SOB. She states that she woke up feeling unwell and was ok yesterday. She has a fever here, with leukocytosis. She went to see her doctor and was found to be hypoxic in the 80s. She was sent to the ER. CXR demonstrated RLL pna. She was hypoxic and placed on bipap. She has a productive cough with pleurisy, pain with deep breath and coughing in the BL bases. She is mildly SOB with bipap on laying in bed. She has a fever with Tmax of 101.2. Initially she was tachycardic but this has improved. She remains somewhat tachypneic. No increased LE edema. In the ER she received rocephin, azithromycin, 20 mg IV lasix, and 125 mg IV solumedrol [] Past Medical History Past Medical History (Chronic Problems): Chronic Problems (Last Reviewed 11/19/18 @ 14:23 by Elaina Trevino NP-C) COPD exacerbation (Chronic) COPD (chronic obstructive pulmonary disease) (Chronic) Paroxysmal atrial flutter (Chronic) Essential hypertension (Chronic) NEVAEH (obstructive sleep apnea) (Chronic) Noncompliance with CPAP treatment (Chronic) Morbid obesity (Chronic) Iron deficiency anemia (Chronic) Insomnia (Chronic) Patent foramen ovale (Chronic) Left ventricular hypertrophy (Chronic) Diastolic dysfunction (Chronic) Stage II Stage 3 severe COPD by GOLD classification (Chronic) Pulmonary hypertension (Chronic) 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) Morbid obesity with BMI of 40.0-44.9, adult (Chronic) Paroxysmal atrial fibrillation (Chronic) Hyperlipidemia (Chronic) Atrial septal defect (Chronic) Edema (Chronic) Dyspnea (Chronic) Chest pain, atypical (Chronic) Medical History: Medical History (Last Reviewed 11/19/18 @ 14:23 by Elaina Trevino NP-C) NEVAEH (obstructive sleep apnea) (Chronic) G47.33 Noncompliance with CPAP treatment (Chronic) Z91.14 Morbid obesity (Chronic) E66.01 Iron deficiency anemia (Chronic) D50.9 Insomnia (Chronic) G47.00 Supratherapeutic INR (Acute) R79.1 Patent foramen ovale (Chronic) Q21.1 Left ventricular hypertrophy (Chronic) I51.7 Diastolic dysfunction (Chronic) I51.9 Stage II Stage 3 severe COPD by GOLD classification (Chronic) J44.9 Pulmonary hypertension (Chronic) I27.20 nursing home current use of anticoagulant (Chronic) Z79.01 Morbid obesity with BMI of 40.0-44.9, adult (Chronic) E66.01, Z68.41 Paroxysmal atrial fibrillation (Chronic) I48.0 Hyperlipidemia (Chronic) E78.5 Atrial septal defect (Chronic) Q21.1 Edema (Chronic) R60.9 Dyspnea (Chronic) R06.00 Dyspnea on exertion (Acute) R06.09 Chest pain, atypical (Chronic) R07.89 Bronchiectasis J47.9 COPD exacerbation J44.1 Iron deficiency anemia D50.9 Left knee pain M25.562 Long-term use of high-risk medication Z79.899 NEVAEH (obstructive sleep apnea) G47.33 RLS (restless legs syndrome) G25.81 Tibial plateau fracture S82.143A History of GI bleed Z87.19 Afib (Inactive) I48.91 Bronchiectasis (Inactive) J47.9 COPD exacerbation (Inactive) J44.1 Community acquired pneumonia (Inactive) J18.9 Iron deficiency anemia (Inactive) D50.9 Left knee pain (Inactive) M25.562 NEVAEH (obstructive sleep apnea) (Inactive) G47.33 Restless legs syndrome (Inactive) G25.81 Rhinovirus (Inactive) B34.8 Rhinovirus infection (Inactive) B34.8 Tibial plateau fracture (Inactive) S82.143A Allergies meloxicam [From Mobic] Adverse Reaction (Verified 01/19/19 12:27) BP WENT UP, STOMACH PAINS tetracycline [Tetracycline] Adverse Reaction (Verified 01/19/19 12:27) GETS BLADDER INFECTION Home Medications: Ambulatory Orders Medication Instructions Recorded Aspirin E.C. [Ecotrin] 81 mg PO DAILY@0800 11/21/15 albuterol sulfate HFA 90 2 puff INHALATION Q6H PRN 11/12/17 mcg/actuation aerosol inhaler Budesonide/Formoterol 160/4.5 2 puff INHALATION BID 01/19/19 [Symbicort 160/4.5 Mcg Inhaler (SP)] Cholecalciferol (VIT D3) [Vitamin 1,000 unit PO DAILY 01/19/19 D] Diltiazem CD [Cardizem CD] 120 mg PO DAILY 01/19/19 Dofetilide [Tikosyn] 125 mcg PO BID 01/19/19 Furosemide [Lasix] 20 mg PO DAILY PRN 01/19/19 Ipratropium/Albuterol Sulfate 3 ml IH 4X/DAY 01/19/19 [Iprat-Albut 0.5-3(2.5) mg/3 ml] [place]-3S/Dha/Epa/Fish Oil [Fish 1 cap PO DAILY 01/19/19 Oil 1,200 mg Softgel] Warfarin Sodium [Coumadin] 5 mg PO SUMOTUWESA 01/19/19 Warfarin [Coumadin (PBKC)] 2.5 mg PO THFR 01/19/19 Surgical History: Surgical History (Last Reviewed 11/19/18 @ 14:23 by Elaina Trevino [place] [employer]-[place]) H/O varicose vein stripping Z98.890 History of knee replacement Z96.659 H/O varicose vein stripping (Inactive) Z98.890 History of knee replacement (Inactive) Z96.659 Surgical History: - - Knee replacement Lives: With Family Smoking Status: Never smoker Drugs: None - *Family History Maternal Family History: Family History (Last Reviewed 11/19/18 @ 14:23 by Elaina Trevino NP-C) Brother CAD (coronary artery disease) Diabetes Sister CAD (coronary artery disease) Diabetes Colon cancer Brother CAD (coronary artery disease) Sister CAD (coronary artery disease) Hx of CABG History Items: Asthma Sibling Family History: Family History (Last Reviewed 11/19/18 @ 14:23 by Elaina Trevino NP-C) Brother CAD (coronary artery disease) Diabetes Sister CAD (coronary artery disease) Diabetes Colon cancer Brother CAD (coronary artery disease) Sister CAD (coronary artery disease) Hx of CABG History Items: Diabetes, - - Colon Cancer Review of Systems Constitutional: Reports: Malaise, Fatigue. Denies: Chills, Fever, Weight Change HEENT: Denies: Head Aches, Sinus Congestion, Sinus Drainage Cardiovascular: Denies: Chest Pain, Palpitations Respiratory: Reports: Cough, Pleuritic Pain, Shortness of Breath, Shortness of breath at rest, Shortness of breath upon exertion, Sputum production Gastrointestinal: Denies: Abdominal Pain, Nausea, Vomiting Genitourinary: Denies: Dysuria Musculoskeletal: Denies: Joint Pain, Joint Tenderness Skin: Denies: Rash, Wounds Neurological: Denies: Numbness, Tingling, Focal weakness Psychiatric: Denies: Anxiety, Depression, Homicidal Ideations, Suicidal Ideations Hematologic/ Lymphatic: Denies: Easy Bruising, Easy Bleeding VTE Information - Inpt Only VTE Present on Admission: No VTE Mechan Device Prophylaxis: None VTE Pharm Prophylaxis ordered?: Yes Patient Problems: Active and Suspected Problems (Last Reviewed 11/19/18 @ 14:23 by Elaina Trevino [place] [employer]-C) Sepsis (Acute) CAP (community acquired pneumonia) (Acute) Acute respiratory failure with hypoxemia (Acute) - Physical Exam General: Alert, Oriented x3, Cooperative HEENT: Atraumatic, PERRLA, EOMI, Normocephalic Neck: Supple, No JVD, Negative Carotid Bruits Lungs: Diminished, Rales - RLL Cardiovascular: No murmurs, Irregular Rate Abdomen: Bowel Sounds Present, Soft, Non Tender Extremities: No edema, Capillary Refill Less than 3 Seconds Skin: No rashes, No breakdown Musculoskeletal: No Tenderness to Palpation of Joints or Extremities Neurological: Cranial nerves II-XII grossly intact Psych/Mental Status: Normal Affect, Appropriate Vital Signs Temp Pulse Resp BP Pulse Ox 99.4 F H 84 23 H 111/62 93 01/19/19 17:37 01/19/19 17:37 01/19/19 17:37 01/19/19 17:37 01/19/19 17:37 Oxygen Flow Rate (L/min) 4 Oxygen Delivery Method Bi-pap Weight: 232 lb Body Mass Index (BMI) 39.8 Microbiology Past 72 Hours 01/19/19 16:01 Influenza Types A,B Direct FA (JJ) - Final Mucosa - Nasopharyngeal Laboratory Tests Past 24 Hrs 01/19/19 01/19/19 01/19/19 13:45 13:45 13:45 WBC 12.9 H RBC 4.70 Hgb 13.8 Hct 43.9 MCV 93.4 MCH 29.4 MCHC 31.4 L RDW 13.4 RDW Differential 46.2 H Plt Count 211 MPV 9.8 Immature Gran % (Auto) 0.200 Neut % (Auto) 87.6 H Lymph % (Auto) 5.7 L [place] % (Auto) 5.8 Eos % (Auto) 0.5 Baso % (Auto) 0.2 Absolute Neuts (auto) 11.3 H Absolute Lymphs (auto) 0.74 L Total Counted Not Reportable PT INR Specimen Type Sample Site pH Bicarbonate Actual POC Total CO2 Base Excess O2 Saturation O2 % ABG pCO2 ABG pO2 Ceasar Test Respiration Rate O2 Delivery Device EPAP IPAP Blood Gas Notified Whom Blood Gas Notified Time Sodium 136 Potassium 4.8 Chloride 103 Carbon Dioxide 28.0 Anion Gap 5 BUN 9 Creatinine 0.62 Estim Creat Clear Calc 43.27 Est GFR (MDRD) Af Amer 120 Est GFR (MDRD) Non-Af 99 BUN/Creatinine Ratio 14.4 Glucose 122 H Lactic Acid Calcium 8.5 Troponin I < 0.015 B-Natriuretic Peptide 113.0 H 01/19/19 01/19/19 01/19/19 14:06 14:10 14:10 WBC RBC Hgb Hct MCV MCH MCHC RDW RDW Differential Plt Count MPV Immature Gran % (Auto) Neut % (Auto) Lymph % (Auto) [place] % (Auto) Eos % (Auto) Baso % (Auto) Absolute Neuts (auto) Absolute Lymphs (auto) Total Counted PT 20.1 H INR 1.7 Specimen Type ART Sample Site R Radial pH 7.37 Bicarbonate Actual 28.8 H POC Total CO2 30 Base Excess 3 H O2 Saturation 96 O2 % 35 ABG pCO2 50.1 H ABG pO2 88 Ceasar Test POS Respiration Rate 24 O2 Delivery Device Bi / C PAP EPAP 7 IPAP 14 Blood Gas Notified Whom ED MD Blood Gas Notified Time 1355 Sodium Potassium Chloride Carbon Dioxide Anion Gap BUN Creatinine Estim Creat Clear Calc Est GFR (MDRD) Af Amer Est GFR (MDRD) Non-Af BUN/Creatinine Ratio Glucose Lactic Acid 1.0 Calcium Troponin I B-Natriuretic Peptide 01/19/19 16:53 WBC RBC Hgb Hct MCV MCH MCHC RDW RDW Differential Plt Count MPV Immature Gran % (Auto) Neut % (Auto) Lymph % (Auto) [place] % (Auto) Eos % (Auto) Baso % (Auto) Absolute Neuts (auto) Absolute Lymphs (auto) Total Counted PT INR Specimen Type ART Sample Site R Radial pH 7.40 Bicarbonate Actual 30.7 H POC Total CO2 32 Base Excess 6 H O2 Saturation 97 O2 % 40 ABG pCO2 49.2 H ABG pO2 98 Ceasar Test POS Respiration Rate 22 O2 Delivery Device Bi / C PAP EPAP 8 IPAP 16 Blood Gas Notified Whom ED MD Blood Gas Notified Time 1645 Sodium Potassium Chloride Carbon Dioxide Anion Gap BUN Creatinine Estim Creat Clear Calc Est GFR (MDRD) Af Amer Est GFR (MDRD) Non-Af BUN/Creatinine Ratio Glucose Lactic Acid Calcium Troponin I B-Natriuretic Peptide Assessment/Plan All Active Problems (Last Reviewed 11/19/18 @ 14:23 by Elaina Trevino, [place] [employer]-C) Sepsis (Acute) CAP (community acquired pneumonia) (Acute) Acute respiratory failure with hypoxemia (Acute) Supratherapeutic INR (Acute) Dyspnea on exertion (Acute) 1. Acute on chronic hypoxic respiratory failure 2/2 community acquired pneumonia with evidence of acute sepsis - Continue bipap. + fever, tachycardia, tachypnea, WBC elevation at presentation. Negative Lactate. Hypoxic in to 80's on home o2 (3lpm). She will go to the ICU overnight. Dr. Alcantara will be consulted. Continue Azithro/Rocephin, pulmicort, duonebs, mucinex, IS/PEP therapy. Check blood/sputum cultures, urinary antigens, resp panel. pH ok on ABG. pCO2 elevated at 50.1. BNP 113.0. 2.PAfib - continue warfarin, at this point rate is 80's-90's. Continue cardizem, tikosyn 3. Pulmonary HTN - continue lasix. received 1 dose IV 20 mg in ER. 4. COPD - I do not suspect this is an acute exacerbation at this time. Continue PRN aerosols, duonebs, pulmicort. 5. Hx ASD 6. NEVAEH - uses bipap at home DVT ppx: warfarin, subtherapeutic, extra dose warfarin tonight, trend INR DC planning: PTOT This patient was seen by Percy Wright PA-C under the supervision of Dr. Wynn.
--- NOTE | 2019-01-19 18:56 | CPS ---
Pt transported from ER to ICU on BIPAP. Pt tolerated well.
[2019-01-19] MEDS: Dofetilide 125 MCG Capsule PO (20:38)
[2019-01-19] MEDS: Famotidine 20 MG Tablet PO (20:38)
[2019-01-20] VITALS (26 sets, daily range): BP systolic 102–121; BP diastolic 52–76; PULSE 63–93; RESP 12–22; TEMP 36.1–37.1; O2SAT 92–98
[2019-01-20] MEDS: Ipratropium/Albuterol Sulfate 3 ML AMPUL.NEB INHALATION ×4 (00:01→20:57)
[2019-01-20] MEDS: 0.9% NaCl Peripheral Flush Adult/Peds IV ×3 (04:22→18:01)
[2019-01-20 04:43] LABS: Absolute Lymphocyte Count 0.76 X10^3/ul (0.83-4.51); Absolute Neutrophil Count 20.2 X10^3/uL (2.0-7.7); Basophil# 0.01 X10^3/uL; Lymphocyte # 0.76 X10^3/ul (4.0); Lymphocyte % 3.6 % (19-41); Mean Corpuscular Hgb 29.2 pg (27.0-32.0); Mean Corpuscular Volume 94.4 fL (81-99); Mean Platelet Vol. 9.8 fl (6.2-12.0); Monocyte% 1.4 % (0-10); Neutrophil # 20.17 X10^3/uL (2.7-7.7); Neutrophil % 94.8 % (47-70); Platelet Count 223 K/mm3 (150-450); RBC Distribution Width CV 13.3 % (11.6-14.6); RBC Distribution Width SD 44.4 fl (35.1-43.9); Red Blood Count 4.45 M/mm3 (4.2-5.4); White Blood Count 21.3 K/mm3 (4.4-11.0)
[2019-01-20 04:44] LABS: Differential Indicated SCAN CRITERIA MET; POSITIVE COUNT NO; POSITIVE DIFFERENTIAL YES; POSITIVE MORPHOLOGY NO
[2019-01-20 04:45] LABS: Prothrombin Time (Protime)PT. 22.4 SECONDS (11.7-14.9)
[2019-01-20 04:57] LABS: Anion Gap 7 (5-15); BUN 11 mg/dL (7-18); Calcium,Total 8.4 mg/dL (8.5-10.1); Chloride 101 mmol/L (98-107); Creatinine, Serum 0.58 mg/dL (0.55-1.02); EST Glomerular Filtration Rate 109 mL/min (>60); Est Glom Filt Rate - Afr Amer 131 mL/min (>60); Estimated Creatinine Clearance 45.09 ml/min; Glucose 196 mg/dL (74-106); Potassium 3.8 mmol/L (3.5-5.1); Sodium Level 141 mmol/L (136-145)
--- NOTE | 2019-01-20 06:08 | PCM.CON.CC ---
Reason for Consult Date of Consultation: 01/20/19 Reason for Consultation: Respiratory failure History of Present Illness: The patient is a 73-year-old female, with a history as outlined below, who presented to the emergency department on January 19 with complaints of shortness of breath and chest tightness. The patient has known stage III COPD/asthma overlap syndrome and currently is followed in the pulmonary medicine clinic by Dr. Gregorio Chavis. She also has known obstructive sleep apnea and has been compliant with the use of nocturnal PAP therapy. In addition to the aforementioned, the patient has a baseline 2 L/min supplemental oxygen requirement at all times. On presentation to the emergency department, the patient was noted to be hypertensive with a blood pressure of 187/100. She was tachypneic and saturating 85% on 3 L/min. Laboratory evaluation revealed a mildly elevated white blood cell count to 13,000. Chemistry profile was largely unrevealing. Lactate was within normal limits. Troponin was negative. Plain film chest x-ray revealed evidence of a right lower lobe infiltrate. Due to the patient's tenuous respiratory status, she was initiated on BiPAP therapy. She subsequently received both azithromycin and ceftriaxone. She was then admitted to the medical intensive care unit for ongoing management. Overnight, in addition to the above, the patient did receive IV Lasix and IV Solu-Medrol. She was maintained on BiPAP overnight with a pressure support of 16/8. She was placed back on nasal cannula supplemental oxygen this morning and is currently maintaining appropriate saturations on 2 L/min. Past Medical History Past Medical History (Chronic Problems): Chronic Problems (Last Reviewed 11/19/18 @ 14:23 by Elaina Trevino NP-C) COPD exacerbation (Chronic) COPD (chronic obstructive pulmonary disease) (Chronic) Paroxysmal atrial flutter (Chronic) Essential hypertension (Chronic) NEVAEH (obstructive sleep apnea) (Chronic) Noncompliance with CPAP treatment (Chronic) Morbid obesity (Chronic) Iron deficiency anemia (Chronic) Insomnia (Chronic) Patent foramen ovale (Chronic) Left ventricular hypertrophy (Chronic) Diastolic dysfunction (Chronic) Stage II Stage 3 severe COPD by GOLD classification (Chronic) Pulmonary hypertension (Chronic) halfway current use of anticoagulant (Chronic) Morbid obesity with BMI of 40.0-44.9, adult (Chronic) Paroxysmal atrial fibrillation (Chronic) Hyperlipidemia (Chronic) Atrial septal defect (Chronic) Edema (Chronic) Dyspnea (Chronic) Chest pain, atypical (Chronic) Medical History: Medical History (Last Reviewed 11/19/18 @ 14:23 by RONIT Reddy) NEVAEH (obstructive sleep apnea) (Chronic) G47.33 Noncompliance with CPAP treatment (Chronic) Z91.14 Morbid obesity (Chronic) E66.01 Iron deficiency anemia (Chronic) D50.9 Insomnia (Chronic) G47.00 Supratherapeutic INR (Acute) R79.1 Patent foramen ovale (Chronic) Q21.1 Left ventricular hypertrophy (Chronic) I51.7 Diastolic dysfunction (Chronic) I51.9 Stage II Stage 3 severe COPD by GOLD classification (Chronic) J44.9 Pulmonary hypertension (Chronic) I27.20 [employer] current use of anticoagulant (Chronic) Z79.01 Morbid obesity with BMI of 40.0-44.9, adult (Chronic) E66.01, Z68.41 Paroxysmal atrial fibrillation (Chronic) I48.0 Hyperlipidemia (Chronic) E78.5 Atrial septal defect (Chronic) Q21.1 Edema (Chronic) R60.9 Dyspnea (Chronic) R06.00 Dyspnea on exertion (Acute) R06.09 Chest pain, atypical (Chronic) R07.89 Bronchiectasis J47.9 COPD exacerbation J44.1 Iron deficiency anemia D50.9 Left knee pain M25.562 Long-term use of high-risk medication Z79.899 NEVAEH (obstructive sleep apnea) G47.33 RLS (restless legs syndrome) G25.81 Tibial plateau fracture S82.143A History of GI bleed Z87.19 Afib (Inactive) I48.91 Bronchiectasis (Inactive) J47.9 COPD exacerbation (Inactive) J44.1 Community acquired pneumonia (Inactive) J18.9 Iron deficiency anemia (Inactive) D50.9 Left knee pain (Inactive) M25.562 NEVAEH (obstructive sleep apnea) (Inactive) G47.33 Restless legs syndrome (Inactive) G25.81 Rhinovirus (Inactive) B34.8 Rhinovirus infection (Inactive) B34.8 Tibial plateau fracture (Inactive) S82.143A Allergies meloxicam [From Mobic] Adverse Reaction (Verified 01/19/19 12:27) BP WENT UP, STOMACH PAINS tetracycline [Tetracycline] Adverse Reaction (Verified 01/19/19 12:27) GETS BLADDER INFECTION Home Medications: Ambulatory Orders Medication Instructions Recorded Aspirin E.C. [Ecotrin] 81 mg PO DAILY@0800 11/21/15 albuterol sulfate HFA 90 2 puff INHALATION Q6H PRN 11/12/17 mcg/actuation aerosol inhaler Budesonide/Formoterol 160/4.5 2 puff INHALATION BID 01/19/19 [Symbicort 160/4.5 Mcg Inhaler (SP)] Cholecalciferol (VIT D3) [Vitamin 1,000 unit PO DAILY 01/19/19 D] Diltiazem CD [Cardizem CD] 120 mg PO DAILY 01/19/19 Dofetilide [Tikosyn] 125 mcg PO BID 01/19/19 Furosemide [Lasix] 20 mg PO DAILY PRN 01/19/19 Ipratropium/Albuterol Sulfate 3 ml IH 4X/DAY 01/19/19 [Iprat-Albut 0.5-3(2.5) mg/3 ml] Georgiana-3S/Dha/Epa/Fish Oil [Fish 1 cap PO DAILY 01/19/19 Oil 1,200 mg Softgel] Warfarin Sodium [Coumadin] 5 mg PO SUMOTUWESA 01/19/19 Warfarin [Coumadin ([facility])] 2.5 mg PO THFR 01/19/19 Surgical History: Surgical History (Last Reviewed 11/19/18 @ 14:23 by RONIT Reddy) H/O varicose vein stripping Z98.890 History of knee replacement Z96.659 H/O varicose vein stripping (Inactive) Z98.890 History of knee replacement (Inactive) Z96.659 Surgical History: - - Knee replacement Lives: With Family Smoking Status: Never smoker Drugs: None - *Family History Maternal Family History: Family History (Last Reviewed 11/19/18 @ 14:23 by RONIT Reddy) Brother CAD (coronary artery disease) Diabetes Sister CAD (coronary artery disease) Diabetes Colon cancer Brother CAD (coronary artery disease) Sister CAD (coronary artery disease) Hx of CABG History Items: Asthma Sibling Family History: Family History (Last Reviewed 11/19/18 @ 14:23 by RONIT Reddy) Brother CAD (coronary artery disease) Diabetes Sister CAD (coronary artery disease) Diabetes Colon cancer Brother CAD (coronary artery disease) Sister CAD (coronary artery disease) Hx of CABG History Items: Diabetes, - - Colon Cancer Review of Systems Constitutional: Denies: Chills, Fever Eyes: Denies: Blurred vision, Double vision HEENT: Denies: Head Aches, Sinus Congestion, Sinus Drainage Cardiovascular: Reports: Chest Tightness. Denies: Chest Pain, Palpitations Respiratory: Reports: Shortness of Breath. Denies: Cough Gastrointestinal: Denies: Abdominal Pain, Nausea, Vomiting Genitourinary: Denies: Dysuria Musculoskeletal: Denies: Joint Pain, Joint Tenderness Skin: Denies: Rash, Wounds Neurological: Denies: Numbness, Tingling, Focal weakness Psychiatric: Denies: Anxiety, Depression, Homicidal Ideations, Suicidal Ideations Hematologic/ Lymphatic: Denies: Easy Bruising, Easy Bleeding Patient Problems: Active and Suspected Problems (Last Reviewed 11/19/18 @ 14:23 by Elaina Trevino NP-[place]ila) Sepsis (Acute) CAP (community acquired pneumonia) (Acute) Acute respiratory failure with hypoxemia (Acute) Objective: The patient's most recent lab work, culture data and imaging studies have all been personally reviewed. Surface echocardiogram dated January 2018 revealed evidence of stage II diastolic dysfunction with mild concentric LVH. Right ventricular systolic pressure was estimated to be 46 mmHg. Respiratory viral panel is pending. Blood and sputum culture are pending. Strep and urine Legionella antigens were both negative. - Physical Exam General: Alert, Oriented x3, Cooperative, No apparent distress, - - Sitting in bedside recliner. HEENT: Atraumatic, PERRLA, Normocephalic Oral: Moist Mucosa, No Gingival or Mucosal Lesions/ Ulcerations Neck: Supple, No Nodes, Trachea Midline Lungs: - - Lung albrecht are somewhat diminished without evidence of wheezes, rales or rhonchi. Cardiovascular: Regular rate, Regular Rhythm, Normal S1, Normal S2, No murmurs Abdomen: Bowel Sounds Present, Soft, Non Tender, Obese Extremities: No clubbing, No cyanosis, No edema Skin: No breakdown Musculoskeletal: No Tenderness to Palpation of Joints or Extremities, No Muscle Wasting Lymphatic: No Cervical, Supraclavicular, or Inguinal Adenopathy Neurological: Cranial nerves II-XII grossly intact, Neuro grossly intact Psych/Mental Status: Alert and oriented to time, place, person, mood and affect Vital Signs Temp Pulse Resp BP Pulse Ox 36.1 C L 65 16 116/73 95 01/20/19 04:00 01/20/19 06:00 01/20/19 06:00 01/20/19 06:00 01/20/19 06:00 Oxygen Flow Rate (L/min) 2 Oxygen Delivery Method Bi-pap Weight: 217 lb 6.012 oz Body Mass Index (BMI) 36.9 Intake and Output for Last 24 Hours 01/18/19 01/19/19 01/20/19 23:59 23:59 23:59 Intake Total 120 / 120 120 / 120 Output Total 825 / 825 0 / 0 Balance -705 / -705 120 / 120 Microbiology Past 72 Hours 01/19/19 20:30 Streptococcus pneumoniae Antigen (M - Final Urine, Clean Catch 01/19/19 20:30 Legionella Antigen - Final Urine, Clean Catch 01/19/19 16:01 Influenza Types A,B Direct FA (JJ) - Final Mucosa - Nasopharyngeal Laboratory Tests Past 24 Hrs 01/19/19 01/19/19 01/19/19 13:45 13:45 13:45 WBC 12.9 H RBC 4.70 Hgb 13.8 Hct 43.9 MCV 93.4 MCH 29.4 MCHC 31.4 L RDW 13.4 RDW Differential 46.2 H Plt Count 211 MPV 9.8 Immature Gran % (Auto) 0.200 Neut % (Auto) 87.6 H Lymph % (Auto) 5.7 L Rich % (Auto) 5.8 Eos % (Auto) 0.5 Baso % (Auto) 0.2 Absolute Neuts (auto) 11.3 H Absolute Lymphs (auto) 0.74 L Total Counted Not Reportable PT INR Specimen Type Sample Site pH Bicarbonate Actual POC Total CO2 Base Excess O2 Saturation O2 % ABG pCO2 ABG pO2 Ceasar Test Respiration Rate O2 Delivery Device EPAP IPAP Blood Gas Notified Whom Blood Gas Notified Time Sodium 136 Potassium 4.8 Chloride 103 Carbon Dioxide 28.0 Anion Gap 5 BUN 9 Creatinine 0.62 Estim Creat Clear Calc 43.27 Est GFR (MDRD) Af Amer 120 Est GFR (MDRD) Non-Af 99 BUN/Creatinine Ratio 14.4 Glucose 122 H Lactic Acid Calcium 8.5 Troponin I < 0.015 B-Natriuretic Peptide 113.0 H 0301/19/19 01/19/19 14:06 14:10 14:10 WBC RBC Hgb Hct MCV MCH MCHC RDW RDW Differential Plt Count MPV Immature Gran % (Auto) Neut % (Auto) Lymph % (Auto) Rich % (Auto) Eos % (Auto) Baso % (Auto) Absolute Neuts (auto) Absolute Lymphs (auto) Total Counted PT 20.1 H INR 1.7 Specimen Type ART Sample Site R Radial pH 7.37 Bicarbonate Actual 28.8 H POC Total CO2 30 Base Excess 3 H O2 Saturation 96 O2 % 35 ABG pCO2 50.1 H ABG pO2 88 Ceasar Test POS Respiration Rate 24 O2 Delivery Device Bi / C PAP EPAP 7 IPAP 14 Blood Gas Notified Whom ED MD Blood Gas Notified Time 1355 Sodium Potassium Chloride Carbon Dioxide Anion Gap BUN Creatinine Estim Creat Clear Calc Est GFR (MDRD) Af Amer Est GFR (MDRD) Non-Af BUN/Creatinine Ratio Glucose Lactic Acid 1.0 Calcium Troponin I B-Natriuretic Peptide 01/19/19 01/20/19 01/20/19 16:53 04:20 04:20 WBC 21.3 H RBC 4.45 Hgb 13.0 Hct 42.0 MCV 94.4 MCH 29.2 MCHC 31.0 L RDW 13.3 RDW Differential 44.4 H Plt Count 223 MPV 9.8 Immature Gran % (Auto) 0.200 Neut % (Auto) 94.8 H Lymph % (Auto) 3.6 L Rich % (Auto) 1.4 Eos % (Auto) 0.0 Baso % (Auto) 0.0 Absolute Neuts (auto) 20.2 H Absolute Lymphs (auto) 0.76 L Total Counted Not Reportable PT 22.4 H INR 2.0 Specimen Type ART Sample Site R Radial pH 7.40 Bicarbonate Actual 30.7 H POC Total CO2 32 Base Excess 6 H O2 Saturation 97 O2 % 40 ABG pCO2 49.2 H ABG pO2 98 Ceasar Test POS Respiration Rate 22 O2 Delivery Device Bi / C PAP EPAP 8 IPAP 16 Blood Gas Notified Whom ED MD Blood Gas Notified Time 1645 Sodium Potassium Chloride Carbon Dioxide Anion Gap BUN Creatinine Estim Creat Clear Calc Est GFR (MDRD) Af Amer Est GFR (MDRD) Non-Af BUN/Creatinine Ratio Glucose Lactic Acid Calcium Troponin I B-Natriuretic Peptide 01/20/19 04:20 WBC RBC Hgb Hct MCV MCH MCHC RDW RDW Differential Plt Count MPV Immature Gran % (Auto) Neut % (Auto) Lymph % (Auto) Rich % (Auto) Eos % (Auto) Baso % (Auto) Absolute Neuts (auto) Absolute Lymphs (auto) Total Counted PT INR Specimen Type Sample Site pH Bicarbonate Actual POC Total CO2 Base Excess O2 Saturation O2 % ABG pCO2 ABG pO2 Ceasar Test Respiration Rate O2 Delivery Device EPAP IPAP Blood Gas Notified Whom Blood Gas Notified Time Sodium 141 Potassium 3.8 Chloride 101 Carbon Dioxide 33.0 H Anion Gap 7 BUN 11 Creatinine 0.58 Estim Creat Clear Calc 45.09 Est GFR (MDRD) Af Amer 131 Est GFR (MDRD) Non-Af 109 BUN/Creatinine Ratio 19.0 Glucose 196 H Lactic Acid Calcium 8.4 L Troponin I B-Natriuretic Peptide Clinical Impression(s) from Imaging Studies Chest X-Ray 01/19/19 12:41 IMPRESSION: Progressive infiltration and coalescence in the right lower lobe. Surgical sutures are seen at that site. Electronically Signed: Vivek Rivera, at 13:43 EDT , Service support , Assessment/Plan Active and Suspected Problems (Last Reviewed 11/19/18 @ 14:23 by Elaina Trevino NP-C) Sepsis (Acute) CAP (community acquired pneumonia) (Acute) Acute respiratory failure with hypoxemia (Acute) RECOMMENDATIONS: 1. Continue empiric antibiotics, pending infectious workup. 2. Continue bronchodilators along with scheduled budesonide. 3. Wean supplemental oxygen as tolerated. Encourage incentive spirometer use. 4. Continue Lasix. 5. Continue nocturnal Pap therapy per home regimen. IMPRESSIONS: 1. Acute on chronic combined respiratory failure Likely multifactorial in etiology with a component of community-acquired pneumonia and decompensated heart failure contributing. The patient has responded quickly to the use of antibiotics, diuretics and noninvasive positive pressure ventilation. She will be maintained on empiric antimicrobials, pending infectious workup. We will continue to wean supplemental oxygen as tolerated. Diuretics will also be continued, along with bronchodilators and scheduled budesonide. 2. Chronic heart failure with preserved ejection fraction/pulmonary hypertension Continue current diuretic therapy as ordered. 3. Obstructive sleep apnea Continue nocturnal CPAP therapy with a pressure support of 9 cm of water, per home regimen. 4. Paroxysmal atrial fibrillation/patent foramen ovale Continue outpatient cardiac regimen along with systemic anticoagulation with Coumadin. Check daily INR level. This note was generated with [employer] dictation software. It may contain incorrect words, spelling, and punctuation that were not noted in checking the note before signing. DISPOSITION: The patient is medically stable for transfer out of the intensive care unit. Code Visit Inpatient E&M: 09459 Init Hosp L3
--- NOTE | 2019-01-20 06:12 | CON.PCM_ITS ---
Reason for Consult Date of Consultation: 01/20/19 Reason for Consultation: Respiratory failure History of Present Illness: The patient is a 73-year-old female, with a history as outlined below, who presented to the emergency department on January 19 with complaints of shortness of breath and chest tightness. The patient has known stage III COPD/asthma overlap syndrome and currently is followed in the pulmonary medicine clinic by Dr. Gregorio Chavis. She also has known obstructive sleep apnea and has been compliant with the use of nocturnal PAP therapy. In addition to the aforementioned, the patient has a baseline 2 L/min supplemental oxygen requirement at all times. On presentation to the emergency department, the patient was noted to be hypertensive with a blood pressure of 187/100. She was tachypneic and saturating 85% on 3 L/min. Laboratory evaluation revealed a mildly elevated w tana blood cell count to 13,000. Chemistry profile was largely unrevealing. Lactate was within normal limits. Troponin was negative. Plain film chest x- ray revealed evidence of a right lower lobe infiltrate. Due to the patient's tenuous respiratory status, she was initiated on BiPAP therapy. She subsequently received both azithromycin and ceftriaxone. She was then admitted to the medical intensive care unit for ongoing management. Overnight, in addition to the above, the patient did receive IV Lasix and IV Solu-Medrol. She was maintained on BiPAP overnight with a pressure support of 1 6/8. She was placed back on nasal cannula supplemental oxygen this morning and is currently maintaining appropriate saturations on 2 L/min. Past Medical History Past Medical History (Chronic Problems): Chronic Problems (Last Reviewed 11/19/18 @ 14:23 by Elaina Trevino NP-C) COPD exacerbation (Chronic) COPD (chronic obstructive pulmonary disease) (Chronic) Paroxysmal atrial flutter (Chronic) Essential hypertension (Chronic) NEVAEH (obstructive sleep apnea) (Chronic) Noncompliance with CPAP treatment (Chronic) Morbid obesity (Chronic) Iron deficiency anemia (Chronic) Insomnia (Chronic) Patent foramen ovale (Chronic) Left ventricular hypertrophy (Chronic) Diastolic dysfunction (Chronic) Stage II Stage 3 severe COPD by GOLD classification (Chronic) Pulmonary hypertension (Chronic) [facility] current use of anticoagulant (Chronic) Morbid obesity with BMI of 40.0-44.9, adult (Chronic) Paroxysmal atrial fibrillation (Chronic) Hyperlipidemia (Chronic) Atrial septal defect (Chronic) Edema (Chronic) Dyspnea (Chronic) Chest pain, atypical (Chronic) Medical History: Medical History (Last Reviewed 11/19/18 @ 14:23 by Elaina Trevino NP-[place]) NEVAEH (obstructive sleep apnea) (Chronic) G47.33 Noncompliance with CPAP treatment (Chronic) Z91.14 Morbid obesity (Chronic) E66.01 Iron deficiency anemia (Chronic) D50.9 Insomnia (Chronic) G47.00 Supratherapeutic INR (Acute) R79.1 Patent foramen ovale (Chronic) Q21.1 Left ventricular hypertrophy (Chronic) I51.7 Diastolic dysfunction (Chronic) I51.9 Stage II Stage 3 severe COPD by GOLD classification (Chronic) J44.9 Pulmonary hypertension (Chronic) I27.20 [employer] current use of anticoagulant (Chronic) Z79.01 Morbid obesity with BMI of 40.0-44.9, adult (Chronic) E66.01, Z68.41 Paroxysmal atrial fibrillation (Chronic) I48.0 Hyperlipidemia (Chronic) E78.5 Atrial septal defect (Chronic) Q21.1 Edema (Chronic) R60.9 Dyspnea (Chronic) R06.00 Dyspnea on exertion (Acute) R06.09 Chest pain, atypical (Chronic) R07.89 Bronchiectasis J47.9 COPD exacerbation J44.1 Iron deficiency anemia D50.9 Left knee pain M25.562 Long-term use of high-risk medication Z79.899 NEVAEH (obstructive sleep apnea) G47.33 RLS (restless legs syndrome) G25.81 Tibial plateau fracture S82.143A History of GI bleed Z87.19 Afib (Inactive) I48.91 Bronchiectasis (Inactive) J47.9 COPD exacerbation (Inactive) J44.1 Community acquired pneumonia (Inactive) J18.9 Iron deficiency anemia (Inactive) D50.9 Left knee pain (Inactive) M25.562 NEVAEH (obstructive sleep apnea) (Inactive) G47.33 Restless legs syndrome (Inactive) G25.81 Rhinovirus (Inactive) B34.8 Rhinovirus infection (Inactive) B34.8 Tibial plateau fracture (Inactive) S82.143A Allergies meloxicam [From Mobic] Adverse Reaction (Verified 01/19/19 12:27) BP WENT UP, STOMACH PAINS tetracycline [Tetracycline] Adverse Reaction (Verified 01/19/19 12:27) GETS BLADDER INFECTION Home Medications: Ambulatory Orders Medication Instructions Recorded Aspirin E.C. [Ecotrin] 81 mg PO DAILY@0800 11/21/15 albuterol sulfate HFA 90 2 puff INHALATION Q6H PRN 11/12/17 mcg/actuation aerosol inhaler Budesonide/Formoterol 160/4.5 2 puff INHALATION BID 01/19/19 [Symbicort 160/4.5 Mcg Inhaler (SP)] Cholecalciferol (VIT D3) [Vitamin 1,000 unit PO DAILY 01/19/19 D] Diltiazem CD [Cardizem CD] 120 mg PO DAILY 01/19/19 Dofetilide [Tikosyn] 125 mcg PO BID 01/19/19 Furosemide [Lasix] 20 mg PO DAILY PRN 01/19/19 Ipratropium/Albuterol Sulfate 3 ml IH 4X/DAY 01/19/19 [Iprat-Albut 0.5-3(2.5) mg/3 ml] [place]-3S/Dha/Epa/Fish Oil [Fish 1 cap PO DAILY 01/19/19 Oil 1,200 mg Softgel] Warfarin Sodium [Coumadin] 5 mg PO SUMOTUWESA 01/19/19 Warfarin [Coumadin ([facility])] 2.5 mg PO THFR 01/19/19 Surgical History: Surgical History (Last Reviewed 11/19/18 @ 14:23 by RONIT Reddy) H/O varicose vein stripping Z98.890 History of knee replacement Z96.659 H/O varicose vein stripping (Inactive) Z98.890 History of knee replacement (Inactive) Z96.659 Surgical History: - - Knee replacement Lives: With Family Smoking Status: Never smoker Drugs: None - *Family History Maternal Family History: Family History (Last Reviewed 11/19/18 @ 14:23 by RONIT Reddy) Brother CAD (coronary artery disease) Diabetes Sister CAD (coronary artery disease) Diabetes Colon cancer Brother CAD (coronary artery disease) Sister CAD (coronary artery disease) Hx of CABG History Items: Asthma Sibling Family History: Family History (Last Reviewed 11/19/18 @ 14:23 by RONIT Reddy) Brother CAD (coronary artery disease) Diabetes Sister CAD (coronary artery disease) Diabetes Colon cancer Brother CAD (coronary artery disease) Sister CAD (coronary artery disease) Hx of CABG History Items: Diabetes, - - Colon Cancer Review of Systems Constitutional: Denies: Chills, Fever Eyes: Denies: Blurred vision, Double vision HEENT: Denies: Head Aches, Sinus Congestion, Sinus Drainage Cardiovascular: Reports: Chest Tightness. Denies: Chest Pain, Palpitations Respiratory: Reports: Shortness of Breath. Denies: Cough Gastrointestinal: Denies: Abdominal Pain, Nausea, Vomiting Genitourinary: Denies: Dysuria Musculoskeletal: Denies: Joint Pain, Joint Tenderness Skin: Denies: Rash, Wounds Neurological: Denies: Numbness, Tingling, Focal weakness Psychiatric: Denies: Anxiety, Depression, Homicidal Ideations, Suicidal Ideations Hematologic/ Lymphatic: Denies: Easy Bruising, Easy Bleeding Patient Problems: Active and Suspected Problems (Last Reviewed 11/19/18 @ 14:23 by Elaina Trevino NP-C) Sepsis (Acute) CAP (community acquired pneumonia) (Acute) Acute respiratory failure with hypoxemia (Acute) Objective: The patient's most recent lab work, culture data and imaging studies have all been personally reviewed. Surface echocardiogram dated January 2018 revealed evidence of stage II diastolic dysfunction with mild concentric LVH. Right ventricular systolic pressure was estimated to be 46 mmHg. Respiratory viral panel is pending. Blood and sputum culture are pending. Strep and urine Legionella antigens were both negative. - Physical Exam General: Alert, Oriented x3, Cooperative, No apparent distress, - - Sitting in bedside recliner. HEENT: Atraumatic, PERRLA, Normocephalic Oral: Moist Mucosa, No Gingival or Mucosal Lesions/ Ulcerations Neck: Supple, No Nodes, Trachea Midline Lungs: - - Lung albrecht are somewhat diminished without evidence of wheezes, rales or rhonchi. Cardiovascular: Regular rate, Regular Rhythm, Normal S1, Normal S2, No murmurs Abdomen: Bowel Sounds Present, Soft, Non Tender, Obese Extremities: No clubbing, No cyanosis, No edema Skin: No breakdown Musculoskeletal: No Tenderness to Palpation of Joints or Extremities, No Muscle Wasting Lymphatic: No Cervical, Supraclavicular, or Inguinal Adenopathy Neurological: Cranial nerves II-XII grossly intact, Neuro grossly intact Psych/Mental Status: Alert and oriented to time, place, person, mood and affect Vital Signs Temp Pulse Resp BP Pulse Ox 36.1 C L 65 16 116/73 95 01/20/19 04:00 01/20/19 06:00 01/20/19 06:00 01/20/19 06:00 01/20/19 06:00 Oxygen Flow Rate (L/min) 2 Oxygen Delivery Method Bi-pap Weight: 217 lb 6.012 oz Body Mass Index (BMI) 36.9 Intake and Output for Last 24 Hours 01/18/19 01/19/19 01/20/19 23:59 23:59 23:59 Intake Total 120 / 120 120 / 120 Output Total 825 / 825 0 / 0 Balance -705 / -705 120 / 120 Microbiology Past 72 Hours 01/19/19 20:30 Streptococcus pneumoniae Antigen (M - Final Urine, Clean Catch 01/19/19 20:30 Legionella Antigen - Final Urine, Clean Catch 01/19/19 16:01 Influenza Types A,B Direct FA (JJ) - Final Mucosa - Nasopharyngeal Laboratory Tests Past 24 Hrs 01/19/19 01/19/19 01/19/19 13:45 13:45 13:45 WBC 12.9 H RBC 4.70 Hgb 13.8 Hct 43.9 MCV 93.4 MCH 29.4 MCHC 31.4 L RDW 13.4 RDW Differential 46.2 H Plt Count 211 MPV 9.8 Immature Gran % (Auto) 0.200 Neut % (Auto) 87.6 H Lymph % (Auto) 5.7 L [place] % (Auto) 5.8 Eos % (Auto) 0.5 Baso % (Auto) 0.2 Absolute Neuts (auto) 11.3 H Absolute Lymphs (auto) 0.74 L Total Counted Not Reportable PT INR Specimen Type Sample Site pH Bicarbonate Actual POC Total CO2 Base Excess O2 Saturation O2 % ABG pCO2 ABG pO2 Ceasar Test Respiration Rate O2 Delivery Device EPAP IPAP Blood Gas Notified Whom Blood Gas Notified Time Sodium 136 Potassium 4.8 Chloride 103 Carbon Dioxide 28.0 Anion Gap 5 BUN 9 Creatinine 0.62 Estim Creat Clear Calc 43.27 Est GFR (MDRD) Af Amer 120 Est GFR (MDRD) Non-Af 99 BUN/Creatinine Ratio 14.4 Glucose 122 H Lactic Acid Calcium 8.5 Troponin I < 0.015 B-Natriuretic Peptide 113.0 H 01/19/19 01/19/19 01/19/19 14:06 14:10 14:10 WBC RBC Hgb Hct MCV MCH MCHC RDW RDW Differential Plt Count MPV Immature Gran % (Auto) Neut % (Auto) Lymph % (Auto) [place] % (Auto) Eos % (Auto) Baso % (Auto) Absolute Neuts (auto) Absolute Lymphs (auto) Total Counted PT 20.1 H INR 1.7 Specimen Type ART Sample Site R Radial pH 7.37 Bicarbonate Actual 28.8 H POC Total CO2 30 Base Excess 3 H O2 Saturation 96 O2 % 35 ABG pCO2 50.1 H ABG pO2 88 Ceasar Test POS Respiration Rate 24 O2 Delivery Device Bi / C PAP EPAP 7 IPAP 14 Blood Gas Notified Whom ED MD Blood Gas Notified Time 1355 Sodium Potassium Chloride Carbon Dioxide Anion Gap BUN Creatinine Estim Creat Clear Calc Est GFR (MDRD) Af Amer Est GFR (MDRD) Non-Af BUN/Creatinine Ratio Glucose Lactic Acid 1.0 Calcium Troponin I B-Natriuretic Peptide 01/19/19 01/20/19 01/20/19 16:53 04:20 04:20 WBC 21.3 H RBC 4.45 Hgb 13.0 Hct 42.0 MCV 94.4 MCH 29.2 MCHC 31.0 L RDW 13.3 RDW Differential 44.4 H Plt Count 223 MPV 9.8 Immature Gran % (Auto) 0.200 Neut % (Auto) 94.8 H Lymph % (Auto) 3.6 L [place] % (Auto) 1.4 Eos % (Auto) 0.0 Baso % (Auto) 0.0 Absolute Neuts (auto) 20.2 H Absolute Lymphs (auto) 0.76 L Total Counted Not Reportable PT 22.4 H INR 2.0 Specimen Type ART Sample Site R Radial pH 7.40 Bicarbonate Actual 30.7 H POC Total CO2 32 Base Excess 6 H O2 Saturation 97 O2 % 40 ABG pCO2 49.2 H ABG pO2 98 Ceasar Test POS Respiration Rate 22 O2 Delivery Device Bi / C PAP EPAP 8 IPAP 16 Blood Gas Notified Whom ED MD Blood Gas Notified Time 1645 Sodium Potassium Chloride Carbon Dioxide Anion Gap BUN Creatinine Estim Creat Clear Calc Est GFR (MDRD) Af Amer Est GFR (MDRD) Non-Af BUN/Creatinine Ratio Glucose Lactic Acid Calcium Troponin I B-Natriuretic Peptide 01/20/19 04:20 WBC RBC Hgb Hct MCV MCH MCHC RDW RDW Differential Plt Count MPV Immature Gran % (Auto) Neut % (Auto) Lymph % (Auto) [place] % (Auto) Eos % (Auto) Baso % (Auto) Absolute Neuts (auto) Absolute Lymphs (auto) Total Counted PT INR Specimen Type Sample Site pH Bicarbonate Actual POC Total CO2 Base Excess O2 Saturation O2 % ABG pCO2 ABG pO2 Ceasar Test Respiration Rate O2 Delivery Device EPAP IPAP Blood Gas Notified Whom Blood Gas Notified Time Sodium 141 Potassium 3.8 Chloride 101 Carbon Dioxide 33.0 H Anion Gap 7 BUN 11 Creatinine 0.58 Estim Creat Clear Calc 45.09 Est GFR (MDRD) Af Amer 131 Est GFR (MDRD) Non-Af 109 BUN/Creatinine Ratio 19.0 Glucose 196 H Lactic Acid Calcium 8.4 L Troponin I B-Natriuretic Peptide Clinical Impression(s) from Imaging Studies Chest X-Ray 01/19/19 12:41 IMPRESSION: Progressive infiltration and coalescence in the right lower lobe. Surgical sutures are seen at that site. Electronically Signed: Vivek Rivera, at 13:43 EDT , Service support , Assessment/Plan Active and Suspected Problems (Last Reviewed 11/19/18 @ 14:23 by Elaina Trevino NP-C) Sepsis (Acute) CAP (community acquired pneumonia) (Acute) Acute respiratory failure with hypoxemia (Acute) RECOMMENDATIONS: 1. Continue empiric antibiotics, pending infectious workup. 2. Continue bronchodilators along with scheduled budesonide. 3. Wean supplemental oxygen as tolerated. Encourage incentive spirometer use. 4. Continue Lasix. 5. Continue nocturnal Pap therapy per home regimen. IMPRESSIONS: 1. Acute on chronic combined respiratory failure Likely multifactorial in etiology with a component of community-acquired pneumonia and decompensated heart failure contributing. The patient has responded quickly to the use of antibiotics, diuretics and noninvasive positive pressure ventilation. She will be maintained on empiric antimicrobials, pending infectious workup. We will continue to wean supplemental oxygen as tolerated. Diuretics will also be continued, along with bronchodilators and scheduled budesonide. 2. Chronic heart failure with preserved ejection fraction/pulmonary hypertension Continue current diuretic therapy as ordered. 3. Obstructive sleep apnea Continue nocturnal CPAP therapy with a pressure support of 9 cm of water, per home regimen. 4. Paroxysmal atrial fibrillation/patent foramen ovale Continue outpatient cardiac regimen along with systemic anticoagulation with Coumadin. Check daily INR level. This note was generated with [employer] software. It may contain incorrect words, spelling, and punctuation that were not noted in checking the note before signing. DISPOSITION: The patient is medically stable for transfer out of the intensive care unit. Code Visit Inpatient E&M: 00841 Init Hosp L3
[2019-01-20] MEDS: Acetaminophen 325 MG Tablet 650 MG PO (06:21)
[2019-01-20] MEDS: Budesonide Respules 0.5 MG/2 ML AMPUL.NEB. INHALATION ×2 (06:36→20:58)
--- NOTE | 2019-01-20 06:50 | PCM.PROGNOTE ---
Patient Problems: Active and Suspected Problems (Last Reviewed 11/19/18 @ 14:23 by RONIT Reddy) Sepsis (Acute) CAP (community acquired pneumonia) (Acute) Acute respiratory failure with hypoxemia (Acute) Subjective: Rocephin and azithromycin day #2 The patient was seen independently and in conjunction with Percy LAYTON The patient is a 73-year-old female with a past medical history of stage III COPD/asthma, paroxysmal atrial fibrillation/flutter, hypertension, obstructive sleep apnea (compliant with CPAP), morbid obesity, iron deficiency anemia, patent foramen ovale, mild left ventricular hypertrophy, stage II diastolic dysfunction with preserved ejection fraction of 65%, pulmonary hypertension (PA 46), chronic anticoagulation with warfarin, chronic respiratory failure with hypoxemia on 2 L of nasal O2, and hyperlipidemia who presented to the emergency department at [facility] on 01/19/2019 complaining of progressive shortness of breath over the preceding week and chest tightness. Vital signs of presentation to the emergency room were temperature 99.8, pulse rate 71-102, blood pressure 187/100, respiratory rate 24 and she was 85% saturated on a 3 L nasal cannula. CBC showed an elevated white blood cell count at 12.9 with 88% neutrophils. Hemoglobin and platelets were within normal limits. INR was subtherapeutic at 1.7. BMP was unremarkable and the BNP was 113. Troponin was less than 0.015. An ABG on BiPAP with 14/7 settings showed pH of 7.37, PCO2 of 50 and a PO2 of 88. FiO2 was 40%. Chest x-ray showed infiltration in the right lower lobe. She was given Rocephin and Azithromycin in the ED for CAP and admitted to the ICU. Dr. Alcantara was consulted. Overnight she was treated with Lasix and Solumedrol in addition to aerosolized bronchodilators and mucolytics. All events of the past 24 hours of been reviewed. T-max 101.2. Temp today is 96.9. Heart rate and blood pressure are within normal limits. She was maintained on BiPAP overnight. Currently maintaining a saturation of 96% on a 2-3 L nasal cannula. White blood cell count today is 21,300 with 95% neutrophils but the patient has received high-dose intravenous steroids. Hemoglobin is 13 and platelets are 223,000. INR is therapeutic at 2.0. BMP reflects an increasing CO2 at 33. Fasting blood sugar is 196. Influenza swab and Legionella and streptococcal antigens in the urine were negative. Respiratory panel is pending as well as a Gram stain and respiratory culture. Blood cultures are pending. Objective: PHYSICAL EXAM: GENERAL: alert, oriented X 3, Cooperative, NAD, sitting in the chair ORAL: moist mucosa, no mucosal lesions NECK: No JVD, supple, trachea midline LUNGS: diminished throughout, jeff in the right base, rare wheeze, no rales, not tachypneic, no conversational dyspnea, no accessory muscle use HEART: RRR, Normal S1 and S2, no rub, no gallop, no murmur ABDOMEN: soft, NT, ND, BS present, no guarding with palpation EXTREMITIES: no edema, no cyanosis, no calf tenderness, superficial varicosities in both lower extremities some hyperpigmentation SKIN: No rashes, no breakdown NEUROLOGIC: no focal neurologic deficits PSYCH: appropriate, normal affect, pleasant - Physical Exam Vital Signs Temp Pulse Resp BP Pulse Ox 96.9 F L 65 16 116/73 95 01/20/19 04:00 01/20/19 06:00 01/20/19 06:00 01/20/19 06:00 01/20/19 06:00 Oxygen Flow Rate (L/min) 2 Oxygen Delivery Method Bi-pap Weight: 217 lb 6.012 oz Body Mass Index (BMI) 36.9 Intake and Output for Last 24 Hours 01/18/19 01/19/19 01/20/19 23:59 23:59 23:59 Intake Total 120 / 120 120 / 120 Output Total 825 / 825 0 / 0 Balance -705 / -705 120 / 120 Microbiology Past 72 Hours 01/19/19 20:30 Streptococcus pneumoniae Antigen (M - Final Urine, Clean Catch 01/19/19 20:30 Legionella Antigen - Final Urine, Clean Catch 01/19/19 16:01 Influenza Types A,B Direct FA (JJ) - Final Mucosa - Nasopharyngeal Laboratory Tests Past 24 Hrs 01/19/19 01/19/19 01/19/19 13:45 13:45 13:45 WBC 12.9 H RBC 4.70 Hgb 13.8 Hct 43.9 MCV 93.4 MCH 29.4 MCHC 31.4 L RDW 13.4 RDW Differential 46.2 H Plt Count 211 MPV 9.8 Immature Gran % (Auto) 0.200 Neut % (Auto) 87.6 H Lymph % (Auto) 5.7 L [place] % (Auto) 5.8 Eos % (Auto) 0.5 Baso % (Auto) 0.2 Absolute Neuts (auto) 11.3 H Absolute Lymphs (auto) 0.74 L Total Counted Not Reportable PT INR Specimen Type Sample Site pH Bicarbonate Actual POC Total CO2 Base Excess O2 Saturation O2 % ABG pCO2 ABG pO2 Ceasar Test Respiration Rate O2 Delivery Device EPAP IPAP Blood Gas Notified Whom Blood Gas Notified Time Sodium 136 Potassium 4.8 Chloride 103 Carbon Dioxide 28.0 Anion Gap 5 BUN 9 Creatinine 0.62 Estim Creat Clear Calc 43.27 Est GFR (MDRD) Af Amer 120 Est GFR (MDRD) Non-Af 99 BUN/Creatinine Ratio 14.4 Glucose 122 H Lactic Acid Calcium 8.5 Troponin I < 0.015 B-Natriuretic Peptide 113.0 H 01/19/19 01/19/19 01/19/19 14:06 14:10 14:10 WBC RBC Hgb Hct MCV MCH MCHC RDW RDW Differential Plt Count MPV Immature Gran % (Auto) Neut % (Auto) Lymph % (Auto) [place] % (Auto) Eos % (Auto) Baso % (Auto) Absolute Neuts (auto) Absolute Lymphs (auto) Total Counted PT 20.1 H INR 1.7 Specimen Type ART Sample Site R Radial pH 7.37 Bicarbonate Actual 28.8 H POC Total CO2 30 Base Excess 3 H O2 Saturation 96 O2 % 35 ABG pCO2 50.1 H ABG pO2 88 Ceasar Test POS Respiration Rate 24 O2 Delivery Device Bi / C PAP EPAP 7 IPAP 14 Blood Gas Notified Whom ED Blood Gas Notified Time 1355 Sodium Potassium Chloride Carbon Dioxide Anion Gap BUN Creatinine Estim Creat Clear Calc Est GFR (MDRD) Af Amer Est GFR (MDRD) Non-Af BUN/Creatinine Ratio Glucose Lactic Acid 1.0 Calcium Troponin I B-Natriuretic Peptide 01/19/19 01/20/19 01/20/19 16:53 04:20 04:20 WBC 21.3 H RBC 4.45 Hgb 13.0 Hct 42.0 MCV 94.4 MCH 29.2 MCHC 31.0 L RDW 13.3 RDW Differential 44.4 H Plt Count 223 MPV 9.8 Immature Gran % (Auto) 0.200 Neut % (Auto) 94.8 H Lymph % (Auto) 3.6 L [place] % (Auto) 1.4 Eos % (Auto) 0.0 Baso % (Auto) 0.0 Absolute Neuts (auto) 20.2 H Absolute Lymphs (auto) 0.76 L Total Counted Not Reportable PT 22.4 H INR 2.0 Specimen Type ART Sample Site R Radial pH 7.40 Bicarbonate Actual 30.7 H POC Total CO2 32 Base Excess 6 H O2 Saturation 97 O2 % 40 ABG pCO2 49.2 H ABG pO2 98 [place] Test POS Respiration Rate 22 O2 Delivery Device Bi / C PAP EPAP 8 IPAP 16 Blood Gas Notified Whom ED Blood Gas Notified Time 1645 Sodium Potassium Chloride Carbon Dioxide Anion Gap BUN Creatinine Estim Creat Clear Calc Est GFR (MDRD) Af Amer Est GFR (MDRD) Non-Af BUN/Creatinine Ratio Glucose Lactic Acid Calcium Troponin I B-Natriuretic Peptide 01/20/19 04:20 WBC RBC Hgb Hct MCV MCH MCHC RDW RDW Differential Plt Count MPV Immature Gran % (Auto) Neut % (Auto) Lymph % (Auto) [place] % (Auto) Eos % (Auto) Baso % (Auto) Absolute Neuts (auto) Absolute Lymphs (auto) Total Counted PT INR Specimen Type Sample Site pH Bicarbonate Actual POC Total CO2 Base Excess O2 Saturation O2 % ABG pCO2 ABG pO2 Ceasar Test Respiration Rate O2 Delivery Device EPAP IPAP Blood Gas Notified Whom Blood Gas Notified Time Sodium 141 Potassium 3.8 Chloride 101 Carbon Dioxide 33.0 H Anion Gap 7 BUN 11 Creatinine 0.58 Estim Creat Clear Calc 45.09 Est GFR (MDRD) Af Amer 131 Est GFR (MDRD) Non-Af 109 BUN/Creatinine Ratio 19.0 Glucose 196 H Lactic Acid Calcium 8.4 L Troponin I B-Natriuretic Peptide Medical Necessity - Tobacco Use Smoking Status: Never smoker Assessment/Plan All Active Problems (Last Reviewed 11/19/18 @ 14:23 by Elaina Trevino NP-C) Sepsis (Acute) CAP (community acquired pneumonia) (Acute) Acute respiratory failure with hypoxemia (Acute) Supratherapeutic INR (Acute) Dyspnea on exertion (Acute) Impressions 1. Acute on chronic respiratory failure with hypoxia and hypercapnia 2. Acute on chronic diastolic congestive heart failure-possibly related to paroxysmal atrial fibrillation 3. Acute exacerbation of stage III severe COPD/asthma 4. Paroxysmal atrial fibrillation/flutter -has been cardioverted several times and had an ablation but went on to develop PAF again. Currently on Tikosyn at a decreased dose due to intolerance secondary to insomnia and decreased appetite with weight loss. 5. Obstructive sleep apnea-compliant with PAP 6. Mild left ventricular hypertrophy 7. Stage II diastolic dysfunction 8. Pulmonary hypertension with a PA systolic estimated at 46 9. Chronic anticoagulation with warfarin-subtherapeutic at admission with INR of 1.7 10. Hyperglycemia with no history of diabetes mellitus-possibly secondary to steroids 11. severe sepsis due to Right lower lobe pneumonia with acute on chronic respiratory failure requiring BIPAP - sputum is thick, [place]/brown in color Discussed continuing Tikosyn with Dr. Mccurdy and he stated he recommended discontinuing the drug to the pt but she felt she had less PAFon Tikosyn than off. Patient seemed to improve after intravenous Lasix was given last night and I suspect the acute exacerbation of COPD is related to acute diastolic congestive heart failure secondary to paroxysmal atrial fibrillation. She does not monitor her salt intake at home although she says she does not add much salt to her food. She has not been monitoring her weights at home. Has not been taking lasix at home.....it is ordered PRN for leg swelling. We will continue with scheduled daily Lasix Transfer to PCU today. Discontinue Tikosyn Recheck lab in the a.m. Await the results of sputum culture and blood cultures Continue ceftriaxone and azithromycin Code Visit Inpatient E&M: 70870 [facility] Hosp L3
[2019-01-20 07:32] LABS: AST(SGOT) 32 U/L (15-37); Alanine Aminotransfer ALT/SGPT 32 U/L (13-56); Albumin, Serum 3.3 g/dL (3.2-5.0); Alkaline Phosphatase 69 U/L (45-117); Bilirubin, Direct 0.18 mg/dL (0.00-0.30); Globulin 3.8 g/dL (2.2-4.2); Magnesium 2.3 mg/dL (1.6-2.6); Phosphorus 3.3 mg/dL (2.5-4.9); Protein, Total 7.1 g/dL (6.4-8.2)
[2019-01-20] MEDS: Dofetilide 125 MCG Capsule PO ×2 (10:11→21:14)
[2019-01-20] MEDS: Famotidine 20 MG Tablet PO ×2 (10:11→21:14)
[2019-01-20] MEDS: Aspirin E.C. 81 MG Tablet PO (10:11)
[2019-01-20] MEDS: dilTIAZem CD 120 MG Capsule PO (10:12)
[2019-01-20] MEDS: Ceftriaxone 1 GM/50 ML BAG IV (10:20)
[2019-01-20 12:15] LABS: Bedside Glucose 177 mg/dL (70-110)
[2019-01-20] MEDS: Insulin Lispro 100 UNIT/ML INSULN.PEN SC ×2 (12:17→16:33)
--- NOTE | 2019-01-20 13:11 | PN_ITS ---
Patient Problems: Active and Suspected Problems (Last Reviewed 11/19/18 @ 14:23 by Elaina Trevino NP-Keila) Sepsis (Acute) CAP (community acquired pneumonia) (Acute) Acute respiratory failure with hypoxemia (Acute) Subjective: Pt did well overnight, tolerates bipap, which she does use at home. No fever or chills. Productive cough is ongoing. She is somewhat wheezy this AM. No LE edema. No palpitations LH or dizziness. - Physical Exam General: Alert, Oriented x3, Cooperative HEENT: Atraumatic, PERRLA, EOMI, Normocephalic Neck: Supple, No JVD, Negative Carotid Bruits Lungs: Diminished, Wheezes Cardiovascular: Regular rate, No murmurs Abdomen: Bowel Sounds Present, Soft, Non Tender Extremities: No edema, Capillary Refill Less than 3 Seconds Skin: No rashes, No breakdown Musculoskeletal: No Tenderness to Palpation of Joints or Extremities Neurological: Cranial nerves II-XII grossly intact Psych/Mental Status: Normal Affect, Appropriate Vital Signs Temp Pulse Resp BP Pulse Ox 97.8 F 72 16 121/66 H 98 01/20/19 10:00 01/20/19 10:00 01/20/19 10:00 01/20/19 10:00 01/20/19 10:00 Oxygen Flow Rate (L/min) 2 Oxygen Delivery Method Nasal Cannula Weight: 217 lb 6.012 oz Body Mass Index (BMI) 36.9 Intake and Output for Last 24 Hours 01/18/19 01/19/19 01/20/19 23:59 23:59 23:59 Intake Total 120 / 120 360 / 360 Output Total 825 / 825 0 / 0 Balance -705 / -705 360 / 360 Microbiology Past 72 Hours 01/19/19 22:00 Gram Stain - Final Sputum, Expectorated/Coughed 01/19/19 16:01 Respiratory Panel (PCR) - Final Mucosa - Nasopharyngeal 01/19/19 20:30 Streptococcus pneumoniae Antigen (M - Final Urine, Clean Catch 01/19/19 20:30 Legionella Antigen - Final Urine, Clean Catch 01/19/19 16:01 Influenza Types A,B Direct FA (JJ) - Final Mucosa - Nasopharyngeal Laboratory Tests Past 24 Hrs 01/19/19 01/19/19 01/19/19 13:45 13:45 13:45 WBC 12.9 H RBC 4.70 Hgb 13.8 Hct 43.9 MCV 93.4 MCH 29.4 MCHC 31.4 L RDW 13.4 RDW Differential 46.2 H Plt Count 211 MPV 9.8 Immature Gran % (Auto) 0.200 Neut % (Auto) 87.6 H Lymph % (Auto) 5.7 L [place] % (Auto) 5.8 Eos % (Auto) 0.5 Baso % (Auto) 0.2 Absolute Neuts (auto) 11.3 H Absolute Lymphs (auto) 0.74 L Total Counted Not Reportable PT INR Specimen Type Sample Site pH Bicarbonate Actual POC Total CO2 Base Excess O2 Saturation O2 % ABG pCO2 ABG pO2 Ceasar Test Respiration Rate O2 Delivery Device EPAP IPAP Blood Gas Notified Whom Blood Gas Notified Time Sodium 136 Potassium 4.8 Chloride 103 Carbon Dioxide 28.0 Anion Gap 5 BUN 9 Creatinine 0.62 Estim Creat Clear Calc 43.27 Est GFR (MDRD) Af Amer 120 Est GFR (MDRD) Non-Af 99 BUN/Creatinine Ratio 14.4 Glucose 122 H Lactic Acid Calcium 8.5 Phosphorus Magnesium Total Bilirubin Direct Bilirubin AST ALT Alkaline Phosphatase Troponin I < 0.015 B-Natriuretic Peptide 113.0 H Total Protein Albumin Globulin 01/19/19 01/19/19 01/19/19 14:06 14:10 14:10 WBC RBC Hgb Hct MCV MCH MCHC RDW RDW Differential Plt Count MPV Immature Gran % (Auto) Neut % (Auto) Lymph % (Auto) [place] % (Auto) Eos % (Auto) Baso % (Auto) Absolute Neuts (auto) Absolute Lymphs (auto) Total Counted PT 20.1 H INR 1.7 Specimen Type ART Sample Site R Radial pH 7.37 Bicarbonate Actual 28.8 H POC Total CO2 30 Base Excess 3 H O2 Saturation 96 O2 % 35 ABG pCO2 50.1 H ABG pO2 88 Ceasar Test POS Respiration Rate 24 O2 Delivery Device Bi / C PAP EPAP 7 IPAP 14 Blood Gas Notified Whom ED MD Blood Gas Notified Time 1355 Sodium Potassium Chloride Carbon Dioxide Anion Gap BUN Creatinine Estim Creat Clear Calc Est GFR (MDRD) Af Amer Est GFR (MDRD) Non-Af BUN/Creatinine Ratio Glucose Lactic Acid 1.0 Calcium Phosphorus Magnesium Total Bilirubin Direct Bilirubin AST ALT Alkaline Phosphatase Troponin I B-Natriuretic Peptide Total Protein Albumin Globulin 01/19/19 01/20/19 01/20/19 16:53 04:20 04:20 WBC 21.3 H RBC 4.45 Hgb 13.0 Hct 42.0 MCV 94.4 MCH 29.2 MCHC 31.0 L RDW 13.3 RDW Differential 44.4 H Plt Count 223 MPV 9.8 Immature Gran % (Auto) 0.200 Neut % (Auto) 94.8 H Lymph % (Auto) 3.6 L [place] % (Auto) 1.4 Eos % (Auto) 0.0 Baso % (Auto) 0.0 Absolute Neuts (auto) 20.2 H Absolute Lymphs (auto) 0.76 L Total Counted Not Reportable PT 22.4 H INR 2.0 Specimen Type ART Sample Site R Radial pH 7.40 Bicarbonate Actual 30.7 H POC Total CO2 32 Base Excess 6 H O2 Saturation 97 O2 % 40 ABG pCO2 49.2 H ABG pO2 98 Ceasar Test POS Respiration Rate 22 O2 Delivery Device Bi / C PAP EPAP 8 IPAP 16 Blood Gas Notified Whom ED MD Blood Gas Notified Time 1645 Sodium Potassium Chloride Carbon Dioxide Anion Gap BUN Creatinine Estim Creat Clear Calc Est GFR (MDRD) Af Amer Est GFR (MDRD) Non-Af BUN/Creatinine Ratio Glucose Lactic Acid Calcium Phosphorus Magnesium Total Bilirubin Direct Bilirubin AST ALT Alkaline Phosphatase Troponin I B-Natriuretic Peptide Total Protein Albumin Globulin 01/20/19 01/20/19 04:20 04:20 WBC RBC Hgb Hct MCV MCH MCHC RDW RDW Differential Plt Count MPV Immature Gran % (Auto) Neut % (Auto) Lymph % (Auto) [place] % (Auto) Eos % (Auto) Baso % (Auto) Absolute Neuts (auto) Absolute Lymphs (auto) Total Counted PT INR Specimen Type Sample Site pH Bicarbonate Actual POC Total CO2 Base Excess O2 Saturation O2 % ABG pCO2 ABG pO2 Ceasar Test Respiration Rate O2 Delivery Device EPAP IPAP Blood Gas Notified Whom Blood Gas Notified Time Sodium 141 Potassium 3.8 Chloride 101 Carbon Dioxide 33.0 H Anion Gap 7 BUN 11 Creatinine 0.58 Estim Creat Clear Calc 45.09 Est GFR (MDRD) Af Amer 131 Est GFR (MDRD) Non-Af 109 BUN/Creatinine Ratio 19.0 Glucose 196 H Lactic Acid Calcium 8.4 L Phosphorus 3.3 Magnesium 2.3 Total Bilirubin 0.50 Direct Bilirubin 0.18 AST 32 ALT 32 Alkaline Phosphatase 69 Troponin I B-Natriuretic Peptide Total Protein 7.1 Albumin 3.3 Globulin 3.8 POC Glucose 01/20/19 12:11 POC Glucose 177 H Medical Necessity - Tobacco Use Smoking Status: Never smoker Assessment/Plan All Active Problems (Last Reviewed 11/19/18 @ 14:23 by Elaina Trevino NP-Keila) Sepsis (Acute) CAP (community acquired pneumonia) (Acute) Acute respiratory failure with hypoxemia (Acute) Supratherapeutic INR (Acute) Dyspnea on exertion (Acute) 1. Acute on chronic hypoxic respiratory failure 2/2 community acquired pneumonia with evidence of acute sepsis - bipap qhs. Tx to PCU today. RLL infiltrate. Continue Rocephin (azithro stopped), aerosols, IS, PEP. sputum gram stain with 1+ GPR and 1+ WBCs. Resp panel negative. Blood pending. urine antigens pending. 2.PAfib - continue warfarin, at this point rate is 80's-90's. Continue cardizem, tikosyn. Cardiology consulted given she is in afib on tikosyn. 3. Pulmonary HTN - continue IV lasix. 4. COPD - I do not suspect this is an acute exacerbation at this time. Continue PRN aerosols, duonebs, pulmicort. 5. Hx ASD 6. NEVAEH - uses bipap at home DVT ppx: warfarin DC planning: PTOT This patient was seen by Percy Wright PA-C under the supervision of Dr. Coyle
[2019-01-20] MEDS: 0.9% NaCl IVPB Med Flush (250 mL) 15 ML IV (14:00)
--- NOTE | 2019-01-20 14:16 | CHAPLAIN ---
Type of Pastoral Visit _x__ Initial Visit ___ Follow-up Visit ___ On-call Visit ___ General Patient Visit ___ Spiritual Assessment ___ Family Conference ___ Bereavement ___ Rapid Response ___ Code Blue ___ Other (describe below) Pastoral Care Referral From _x__ Patient ___ Family ___ Nurse ___ Physician ___ Marina [employer] And Service Supervisor ___ Archeologist Classical ___ Other (describe below) Sacrament/Intervention _x__ Active listening ___ Anointing ___ Tenriism ___ Bereavement ___ Communion _x__ Elsa exploration ___ _x__ Life review _x__ Prayer ___ Reconciliation ___ Sacrament of Sick _x__ Supportive presence ___ Wedding ___ Other (describe below) Pastoral Comments some family issues were discussed
[2019-01-20 16:40] LABS: Bedside Glucose 169 mg/dL (70-110)
[2019-01-20] MEDS: Furosemide 20 MG/2 ML VIAL IV (18:00)
--- NOTE | 2019-01-20 18:52 | NURSING ---
report called to SASH REPAIRER, Zaida
--- NOTE | 2019-01-20 19:00 | NURSING ---
to [id number], ASSEM[employer] in attendance
[2019-01-20 21:21] LABS: Bedside Glucose 145 mg/dL (70-110)
[2019-01-21] VITALS (15 sets, daily range): BP systolic 108–136; BP diastolic 52–77; PULSE 66–108; RESP 16–18; TEMP 36.4–36.8; O2SAT 95–98
[2019-01-21] MEDS: Ipratropium/Albuterol Sulfate 3 ML AMPUL.NEB INHALATION ×4 (01:10→19:48)
--- NOTE | 2019-01-21 04:30 | NURSING ---
This nurse took over care of patient at this time.
[2019-01-21] MEDS: Acetaminophen 325 MG Tablet 650 MG PO (05:20)
[2019-01-21 06:24] LABS: Absolute Lymphocyte Count 1.54 X10^3/ul (0.83-4.51); Absolute Neutrophil Count 13.4 X10^3/uL (2.0-7.7); Basophil# 0.01 X10^3/uL; Basophil% 0.1 % (0-1); Hematocrit 40.9 % (37-47); Hemoglobin 12.3 g/dl (12.0-15.0); Lymphocyte # 1.54 X10^3/ul (4.0); Lymphocyte % 9.6 % (19-41); Mean Corp Hgb Conc 30.1 g/gl (32-36); Mean Corpuscular Hgb 28.6 pg (27.0-32.0); Mean Corpuscular Volume 95.1 fL (81-99); Monocyte# 1.05 X10^3/uL; Monocyte% 6.5 % (0-10); Neutrophil # 13.43 X10^3/uL (2.7-7.7); Neutrophil % 83.5 % (47-70); Platelet Count 241 K/mm3 (150-450); RBC Distribution Width CV 13.3 % (11.6-14.6); RBC Distribution Width SD 44.2 fl (35.1-43.9); White Blood Count 16.1 K/mm3 (4.4-11.0)
[2019-01-21 06:30] LABS: POSITIVE COUNT NO; POSITIVE DIFFERENTIAL NO; POSITIVE MORPHOLOGY NO
[2019-01-21 06:32] LABS: International Normalized Ratio 2.9; Prothrombin Time (Protime)PT. 30.8 SECONDS (11.7-14.9)
[2019-01-21 06:38] LABS: BUN 21 mg/dL (7-18); Creatinine, Serum 0.63 mg/dL (0.55-1.02); Estimated Creatinine Clearance 45.09 ml/min; Glucose 132 mg/dL (74-106)
[2019-01-21 06:39] LABS: Anion Gap 3 (5-15); BUN/Creat Ratio 33.1 RATIO (10-20); Calcium,Total 8.7 mg/dL (8.5-10.1); Chloride 102 mmol/L (98-107); EST Glomerular Filtration Rate 98 mL/min (>60); Est Glom Filt Rate - Afr Amer 118 mL/min (>60); Potassium 4.2 mmol/L (3.5-5.1); Sodium Level 141 mmol/L (136-145)
[2019-01-21] MEDS: Budesonide Respules 0.5 MG/2 ML AMPUL.NEB. INHALATION ×2 (06:59→19:48)
[2019-01-21 07:31] LABS: Bedside Glucose 121 mg/dL (70-110)
--- NOTE | 2019-01-21 09:13 | RAD_ITS ---
STUDY: X-RAY CHEST REASON FOR EXAM: Female, 73 years old. Shortness of breath, dyspnea TECHNIQUE: PA and lateral chest COMPARISON: 01/19/2018 FINDINGS: Hyperlucent and hyperinflated lungs consistent with underlying COPD/emphysema. Surgical changes in the right lower lung. Lungs acutely clear. No effusion or pneumothorax. Stable mild cardiomegaly and aortomegaly. Unremarkable judy and pleural margins. No acute osseous or upper abdominal process. There is mild kyphosis across the thoracal lumbar junction secondary to a chronic wedge compression fracture at T12. RAD/Chest PA and Lateral IMPRESSION: COPD/emphysema without acute superimposed cardiopulmonary process. There is no defined acute infiltrate the lungs. Stable cardiomegaly. Electronically Signed: Zuhair Overton MD at 14:34 EDT Tel , Service support ,
[2019-01-21] MEDS: Dofetilide 125 MCG Capsule PO ×2 (09:41→22:02)
[2019-01-21] MEDS: Famotidine 20 MG Tablet PO ×2 (09:41→21:58)
[2019-01-21] MEDS: dilTIAZem CD 120 MG Capsule PO (09:41)
[2019-01-21] MEDS: Aspirin E.C. 81 MG Tablet PO (09:41)
[2019-01-21] MEDS: Ceftriaxone 1 GM/50 ML BAG IV (09:41)
--- NOTE | 2019-01-21 10:26 | PCM.PROGNOTE ---
Patient Problems: Active and Suspected Problems (Last Reviewed 11/19/18 @ 14:23 by RONIT Reddy) Sepsis (Acute) CAP (community acquired pneumonia) (Acute) Acute respiratory failure with hypoxemia (Acute) Subjective: The patient was seen and examined at the bedside this morning. Events from the last 24 hours have been reviewed. The patient is currently afebrile, hemodynamically stable and maintaining appropriate oxygen saturations on 2 L/min via nasal cannula. The patient is currently sitting in her bedside recliner. While she does report interval improvement in her breathing quality, she does not feel that she is completely back to baseline. Objective: The patient's most recent lab work, culture data and imaging studies have all been personally reviewed. Expectorated sputum culture appears to be normal respiratory danita. Strep and urine Legionella antigens were both negative. Respiratory viral panel was negative. - Physical Exam General: Alert, Cooperative, No apparent distress HEENT: Atraumatic, PERRLA, Normocephalic Oral: Moist Mucosa, No Gingival or Mucosal Lesions/ Ulcerations Neck: Supple, No Nodes, Trachea Midline Lungs: No rhonchi, No wheeze, No rales, Diminished Cardiovascular: Regular rate, Regular Rhythm, Normal S1, Normal S2, No murmurs Abdomen: Bowel Sounds Present, Soft, Non Tender, Obese Extremities: No clubbing, No cyanosis, No edema Skin: - - No significant change from previous Musculoskeletal: No Tenderness to Palpation of Joints or Extremities, No Muscle Wasting Lymphatic: No Cervical, Supraclavicular, or Inguinal Adenopathy Neurological: Cranial nerves II-XII grossly intact, Neuro grossly intact Psych/Mental Status: Normal Affect, Appropriate Vital Signs Temp Pulse Resp BP Pulse Ox 36.6 C 73 16 111/57 L 96 01/21/19 09:37 01/21/19 09:37 01/21/19 09:37 01/21/19 09:37 01/21/19 09:37 Oxygen Flow Rate (L/min) 2 Oxygen Delivery Method Nasal Cannula Weight: 220 lb 7.396 oz Body Mass Index (BMI) 36.9 Intake and Output for Last 24 Hours 01/19/19 01/20/19 01/21/19 23:59 23:59 23:59 Intake Total 120 / 120 831 / 831 470 / 470 Output Total 825 / 825 550 / 550 Balance -705 / -705 281 / 281 470 / 470 Microbiology Past 72 Hours 01/19/19 22:00 Gram Stain - Final Sputum, Expectorated/Coughed Respiratory Culture - Preliminary Appears to be normal respiratory danita. Further studies to follow. 01/19/19 16:01 Respiratory Panel (PCR) - Final Mucosa - Nasopharyngeal 01/19/19 20:30 Streptococcus pneumoniae Antigen (M - Final Urine, Clean Catch 01/19/19 20:30 Legionella Antigen - Final Urine, Clean Catch 01/19/19 16:01 Influenza Types A,B Direct FA (JJ) - Final Mucosa - Nasopharyngeal Laboratory Tests Past 24 Hrs 01/21/19 01/21/19 01/21/19 05:56 05:56 05:56 WBC 16.1 H RBC 4.30 Hgb 12.3 Hct 40.9 MCV 95.1 MCH 28.6 MCHC 30.1 L RDW 13.3 RDW Differential 44.2 H Plt Count 241 MPV 10.0 Immature Gran % (Auto) 0.300 Neut % (Auto) 83.5 H Lymph % (Auto) 9.6 L [place] % (Auto) 6.5 Eos % (Auto) 0.0 Baso % (Auto) 0.1 Absolute Neuts (auto) 13.4 H Absolute Lymphs (auto) 1.54 Total Counted Not Reportable PT 30.8 H INR 2.9 Sodium 141 Potassium 4.2 Chloride 102 Carbon Dioxide 36.0 H Anion Gap 3 L BUN 21 H Creatinine 0.63 Estim Creat Clear Calc 45.09 Est GFR (MDRD) Af Amer 118 Est GFR (MDRD) Non-Af 98 BUN/Creatinine Ratio 33.1 H Glucose 132 H Calcium 8.7 POC Glucose 01/21/19 01/20/19 01/20/19 06:53 21:12 16:29 POC Glucose 121 H 145 H 169 H 01/20/19 12:11 POC Glucose 177 H Clinical Impression(s) from Imaging Studies Chest X-Ray 01/19/19 12:41 IMPRESSION: Progressive infiltration and coalescence in the right lower lobe. Surgical sutures are seen at that site. Electronically Signed: Vivek Rivera, at 13:43 EDT , Service support , Medical Necessity - Tobacco Use Smoking Status: Never smoker Assessment/Plan All Active Problems (Last Reviewed 11/19/18 @ 14:23 by Elaina Trevino NP-C) Sepsis (Acute) CAP (community acquired pneumonia) (Acute) Acute respiratory failure with hypoxemia (Acute) Supratherapeutic INR (Acute) Dyspnea on exertion (Acute) RECOMMENDATIONS: 1. Continue bronchodilators and Pulmicort twice daily. 2. Continue empiric antibiotics with plans to complete a 7-day treatment course 3. Continue to wean supplemental oxygen as tolerated. Encourage incentive spirometer use and mobilize patient as tolerated. 4. Continue nocturnal Pap therapy. 5. Continue gentle diuresis IMPRESSIONS: 1. Acute on chronic combined respiratory failure Likely multifactorial in etiology with a component of community-acquired pneumonia and decompensated heart failure contributing. The patient has responded favorably to the use of antibiotics, diuretics and PAP therapy. She will be maintained on empiric antimicrobials, with plans to complete a 7-day treatment course. We will continue to wean supplemental oxygen as tolerated. Continue diuretic therapy, along with bronchodilators and scheduled budesonide. 2. Chronic heart failure with preserved ejection fraction/pulmonary hypertension Continue current diuretic therapy as ordered. 3. Obstructive sleep apnea Continue nocturnal CPAP therapy with a pressure support of 9 cm of water, per home regimen. 4. Paroxysmal atrial fibrillation/patent foramen ovale Continue outpatient cardiac regimen along with systemic anticoagulation with Coumadin. Check daily INR level. This note was generated with Infotopation software. It may contain incorrect words, spelling, and punctuation that were not noted in checking the note before signing. Code Visit Inpatient E&M: 47634 [facility] L2
[2019-01-21 12:25] LABS: Bedside Glucose 81 mg/dL (70-110)
--- NOTE | 2019-01-21 15:17 | PCM.PROGNOTE ---
Patient Problems: Active and Suspected Problems (Last Reviewed 11/19/18 @ 14:23 by Elaina Trevino NP-Keila) Sepsis (Acute) CAP (community acquired pneumonia) (Acute) Acute respiratory failure with hypoxemia (Acute) Subjective: Patient improving. Less short of breath. Still somewhat short of breath lying in bed. No fever or chill. Productive cough. She is currently below her baseline oxygen level at home-3. She feels strongly that her breathing is poor because her heart rate is uncontrolled. - Physical Exam General: Alert, Oriented x3, Cooperative HEENT: Atraumatic, PERRLA, EOMI, Normocephalic Neck: Supple, No JVD, Negative Carotid Bruits Lungs: Diminished, Rales - Right greater than left base Cardiovascular: Regular rate, No murmurs Abdomen: Bowel Sounds Present, Soft, Non Tender Extremities: No edema, Capillary Refill Less than 3 Seconds Skin: No rashes, No breakdown Musculoskeletal: No Tenderness to Palpation of Joints or Extremities Neurological: Cranial nerves II-XII grossly intact Psych/Mental Status: Normal Affect, Appropriate, Alert and oriented to time, place, person, mood and affect Vital Signs Temp Pulse Resp BP Pulse Ox 97.8 F 75 16 111/57 L 96 01/21/19 09:37 01/21/19 13:21 01/21/19 13:21 01/21/19 09:37 01/21/19 09:37 Oxygen Flow Rate (L/min) 2 Oxygen Delivery Method Nasal Cannula Weight: 220 lb 7.396 oz Body Mass Index (BMI) 36.9 Intake and Output for Last 24 Hours 01/19/19 01/20/19 01/21/19 23:59 23:59 23:59 Intake Total 120 / 120 831 / 831 470 / 470 Output Total 825 / 825 550 / 550 Balance -705 / -705 281 / 281 470 / 470 Microbiology Past 72 Hours 01/19/19 22:00 Gram Stain - Final Sputum, Expectorated/Coughed Respiratory Culture - Preliminary Appears to be normal respiratory danita. Further studies to follow. 01/19/19 16:01 Respiratory Panel (PCR) - Final Mucosa - Nasopharyngeal 01/19/19 20:30 Streptococcus pneumoniae Antigen (M - Final Urine, Clean Catch 01/19/19 20:30 Legionella Antigen - Final Urine, Clean Catch 03/25/19 16:01 Influenza Types A,B Direct FA (JJ) - Final Mucosa - Nasopharyngeal Laboratory Tests Past 24 Hrs 01/21/19 01/21/19 01/21/19 05:56 05:56 05:56 WBC 16.1 H RBC 4.30 Hgb 12.3 Hct 40.9 MCV 95.1 MCH 28.6 MCHC 30.1 L RDW 13.3 RDW Differential 44.2 H Plt Count 241 MPV 10.0 Immature Gran % (Auto) 0.300 Neut % (Auto) 83.5 H Lymph % (Auto) 9.6 L [place] % (Auto) 6.5 Eos % (Auto) 0.0 Baso % (Auto) 0.1 Absolute Neuts (auto) 13.4 H Absolute Lymphs (auto) 1.54 Total Counted Not Reportable PT 30.8 H INR 2.9 Sodium 141 Potassium 4.2 Chloride 102 Carbon Dioxide 36.0 H Anion Gap 3 L BUN 21 H Creatinine 0.63 Estim Creat Clear Calc 45.09 Est GFR (MDRD) Af Amer 118 Est GFR (MDRD) Non-Af 98 BUN/Creatinine Ratio 33.1 H Glucose 132 H Calcium 8.7 POC Glucose 01/21/19 01/21/19 01/20/19 12:20 06:53 21:12 POC Glucose 81 121 H 145 H 01/20/19 16:29 POC Glucose 169 H Medical Necessity - Tobacco Use Smoking Status: Never smoker Assessment/Plan All Active Problems (Last Reviewed 11/19/18 @ 14:23 by Elaina Trevino, PAMELA-C) Sepsis (Acute) CAP (community acquired pneumonia) (Acute) Acute respiratory failure with hypoxemia (Acute) Supratherapeutic INR (Acute) Dyspnea on exertion (Acute) 1. Acute on chronic hypoxic respiratory failure 2/2 community acquired pneumonia with evidence of acute sepsis - bipap qhs. Today's chest x-ray shows improvement in right lower lobe infiltrate. Continue Rocephin, aerosols, I asked, pep therapy. Sputum with normal respiratory danita. WBCs improved. Respiratory panel is negative. Plan for 7 days total of antibiotics. 2.PAfib - continue warfarin, at this point rate is 80's-90's. Continue cardizem, will likely discontinue Tikosyn per cardiology. 3. Pulmonary HTN - continue IV lasix. 4. COPD - I do not suspect this is an acute exacerbation at this time. Continue PRN aerosols, duonebs, pulmicort. 5. Hx ASD 6. NEVAEH - uses bipap at home, continue qhs DVT ppx: warfarin DC planning: PTOT This patient was seen by Percy Wright PA-C under the supervision of Dr. Coyle
[2019-01-21] MEDS: Furosemide 20 MG/2 ML VIAL IV (17:04)
[2019-01-21 17:21] LABS: Bedside Glucose 115 mg/dL (70-110)
[2019-01-21 22:56] LABS: Bedside Glucose 101 mg/dL (70-110)
[2019-01-22] VITALS (10 sets, daily range): BP systolic 104–134; BP diastolic 57–71; PULSE 56–85; RESP 14–18; TEMP 36.9–37.1; O2SAT 95–98
[2019-01-22] MEDS: Ipratropium/Albuterol Sulfate 3 ML AMPUL.NEB INHALATION ×3 (00:57→13:50)
[2019-01-22] MEDS: Acetaminophen 325 MG Tablet 650 MG PO (06:22)
[2019-01-22 06:25] LABS: International Normalized Ratio 2.8; Prothrombin Time (Protime)PT. 29.8 SECONDS (11.7-14.9)
[2019-01-22 06:28] LABS: Absolute Lymphocyte Count 2.12 X10^3/ul (0.83-4.51); Absolute Neutrophil Count 7.7 X10^3/uL (2.0-7.7); Basophil# 0.03 X10^3/uL; Basophil% 0.3 % (0-1); Eosinophil# 0.09 X10^3/uL; Eosinophils% 0.8 % (0-5); Hematocrit 41.2 % (37-47); Hemoglobin 12.4 g/dl (12.0-15.0); Lymphocyte # 2.12 X10^3/ul (4.0); Lymphocyte % 19.6 % (19-41); Mean Corp Hgb Conc 30.1 g/gl (32-36); Mean Corpuscular Hgb 28.8 pg (27.0-32.0); Mean Corpuscular Volume 95.6 fL (81-99); Mean Platelet Vol. 9.7 fl (6.2-12.0); Monocyte# 0.79 X10^3/uL; Monocyte% 7.3 % (0-10); Neutrophil # 7.74 X10^3/uL (2.7-7.7); Neutrophil % 71.7 % (47-70); Platelet Count 268 K/mm3 (150-450); RBC Distribution Width CV 13.3 % (11.6-14.6); Red Blood Count 4.31 M/mm3 (4.2-5.4); White Blood Count 10.8 K/mm3 (4.4-11.0)
[2019-01-22 06:37] LABS: Anion Gap 4 (5-15); BUN 20 mg/dL (7-18); BUN/Creat Ratio 30.5 RATIO (10-20); Calcium,Total 8.4 mg/dL (8.5-10.1); Chloride 100 mmol/L (98-107); Creatinine, Serum 0.66 mg/dL (0.55-1.02); EST Glomerular Filtration Rate 94 mL/min (>60); Est Glom Filt Rate - Afr Amer 114 mL/min (>60); Estimated Creatinine Clearance 45.09 ml/min; Glucose 107 mg/dL (74-106); Potassium 3.9 mmol/L (3.5-5.1); Sodium Level 139 mmol/L (136-145)
[2019-01-22 06:42] LABS: POSITIVE COUNT NO; POSITIVE DIFFERENTIAL NO; POSITIVE MORPHOLOGY NO
[2019-01-22 06:55] LABS: Bedside Glucose 103 mg/dL (70-110)
[2019-01-22] MEDS: Budesonide Respules 0.5 MG/2 ML AMPUL.NEB. INHALATION (07:00)
--- NOTE | 2019-01-22 07:13 | PCM.PROGNOTE ---
Subjective: The patient was seen and examined at the bedside this morning. Events from the last 24 hours have been reviewed. The patient is currently afebrile, hemodynamically stable and maintaining appropriate oxygen saturations on 2 L/min via nasal cannula. Objective: The patient's most recent lab work, culture data and imaging studies have all been personally reviewed. Expectorated sputum culture appears to be normal respiratory danita. Strep and urine Legionella antigens were both negative. Respiratory viral panel was negative. - Physical Exam General: Alert, Cooperative, No apparent distress HEENT: Atraumatic, PERRLA, Normocephalic Oral: Moist Mucosa, No Gingival or Mucosal Lesions/ Ulcerations Neck: Supple, No Nodes, Trachea Midline Lungs: No rhonchi, No wheeze, No rales, Diminished Cardiovascular: Regular rate, Regular Rhythm, Normal S1, Normal S2, No murmurs Abdomen: Bowel Sounds Present, Soft, Non Tender, Obese Extremities: No clubbing, No cyanosis, No edema Skin: No breakdown Musculoskeletal: No Tenderness to Palpation of Joints or Extremities, No Muscle Wasting Lymphatic: No Cervical, Supraclavicular, or Inguinal Adenopathy Neurological: Cranial nerves II-XII grossly intact, Neuro grossly intact Psych/Mental Status: Alert and oriented to time, place, person, mood and affect Vital Signs Temp Pulse Resp BP Pulse Ox 37.1 C 63 18 123/57 H 97 01/22/19 03:45 01/22/19 07:02 01/22/19 07:02 01/22/19 03:45 01/22/19 03:45 Oxygen Flow Rate (L/min) 2 Oxygen Delivery Method Nasal Cannula Weight: 220 lb 3.869 oz Body Mass Index (BMI) 36.9 Intake and Output for Last 24 Hours 01/20/19 01/21/19 01/22/19 23:59 23:59 23:59 Intake Total 831 / 831 470 / 470 360 / 360 Output Total 550 / 550 400 / 400 Balance 281 / 281 470 / 470 -40 / -40 Microbiology Past 72 Hours 01/19/19 22:00 Gram Stain - Final Sputum, Expectorated/Coughed Respiratory Culture - Preliminary Appears to be normal respiratory danita. Further studies to follow. 01/19/19 16:01 Respiratory Panel (PCR) - Final Mucosa - Nasopharyngeal 01/19/19 20:30 Streptococcus pneumoniae Antigen (M - Final Urine, Clean Catch 01/19/19 20:30 Legionella Antigen - Final Urine, Clean Catch 01/19/19 16:01 Influenza Types A,B Direct FA (JJ) - Final Mucosa - Nasopharyngeal Laboratory Tests Past 24 Hrs 01/22/19 01/22/19 01/22/19 05:55 05:55 05:55 WBC 10.8 RBC 4.31 Hgb 12.4 Hct 41.2 MCV 95.6 MCH 28.8 MCHC 30.1 L RDW 13.3 RDW Differential 45.0 H Plt Count 268 MPV 9.7 Immature Gran % (Auto) 0.300 Neut % (Auto) 71.7 H Lymph % (Auto) 19.6 [place] % (Auto) 7.3 Eos % (Auto) 0.8 Baso % (Auto) 0.3 Absolute Neuts (auto) 7.7 Absolute Lymphs (auto) 2.12 Total Counted Not Reportable PT 29.8 H INR 2.8 Sodium 139 Potassium 3.9 Chloride 100 Carbon Dioxide 35.0 H Anion Gap 4 L BUN 20 H Creatinine 0.66 Estim Creat Clear Calc 45.09 Est GFR (MDRD) Af Amer 114 Est GFR (MDRD) Non-Af 94 BUN/Creatinine Ratio 30.5 H Glucose 107 H Calcium 8.4 L POC Glucose 01/22/19 01/21/19 01/21/19 06:46 21:57 17:01 POC Glucose 103 101 115 H 01/21/19 01/21/19 12:20 06:53 POC Glucose 81 121 H Clinical Impression(s) from Imaging Studies Chest X-Ray 01/19/19 12:41 IMPRESSION: Progressive infiltration and coalescence in the right lower lobe. Surgical sutures are seen at that site. Electronically Signed: Vivek Rivera, at 13:43 EDT , Service support , Chest X-Ray 01/21/19 09:13 IMPRESSION: COPD/emphysema without acute superimposed cardiopulmonary process. There is no defined acute infiltrate the lungs. Stable cardiomegaly. Electronically Signed: Zuhair Overton MD at 14:34 EDT Tel , Service support , Medical Necessity - Tobacco Use Smoking Status: Never smoker Assessment/Plan All Active Problems (Last Updated 01/22/19 @ 17:05 by Emely Coyle DO) Subtherapeutic international normalized ratio (INR) (Acute) Severe sepsis (Acute) CAP (community acquired pneumonia) (Acute) COPD exacerbation (Acute) Supratherapeutic INR (Resolved) RECOMMENDATIONS: 1. Continue bronchodilators and Pulmicort twice daily. 2. Continue empiric antibiotics with plans to complete a 7-day treatment course 3. Continue to wean supplemental oxygen as tolerated. Encourage incentive spirometer use and mobilize patient as tolerated. 4. Continue nocturnal Pap therapy. 5. Continue gentle diuresis IMPRESSIONS: 1. Acute on chronic combined respiratory failure Likely multifactorial in etiology with a component of community-acquired pneumonia and decompensated heart failure contributing. The patient has responded favorably to the use of antibiotics, diuretics and PAP therapy. She will be maintained on empiric antimicrobials, with plans to complete a 7-day treatment course. We will continue to wean supplemental oxygen as tolerated. Continue diuretic therapy, along with bronchodilators and scheduled budesonide. 2. Chronic heart failure with preserved ejection fraction/pulmonary hypertension Continue current diuretic therapy as ordered. 3. Obstructive sleep apnea Continue nocturnal CPAP therapy with a pressure support of 9 cm of water, per home regimen. 4. Paroxysmal atrial fibrillation/patent foramen ovale Continue outpatient cardiac regimen along with systemic anticoagulation with Coumadin. Check daily INR level. This note was generated with [employer] dictation software. It may contain incorrect words, spelling, and punctuation that were not noted in checking the note before signing. Code Visit Inpatient E&M: 57746 Subs Hosp L2
[2019-01-22] MEDS: Aspirin E.C. 81 MG Tablet PO (09:04)
[2019-01-22] MEDS: dilTIAZem CD 120 MG Capsule PO (09:04)
[2019-01-22] MEDS: Furosemide 20 MG/2 ML VIAL IV (09:05)
[2019-01-22] MEDS: Famotidine 20 MG Tablet PO (09:05)
[2019-01-22] MEDS: Ceftriaxone 1 GM/50 ML BAG IV (09:05)
--- NOTE | 2019-01-22 11:30 | CASEMGMT ---
Per therapy recommendation from 01/21/19, no further therapy is needed at this time. SStaten RN CM
[2019-01-22 11:35] LABS: Bedside Glucose 93 mg/dL (70-110)
[2019-01-22 16:35] LABS: Bedside Glucose 125 mg/dL (70-110)
--- NOTE | 2019-01-22 17:00 | PCM.DC ---
- Discharge Diagnoses Current Active Problems: Current Active and Chronic Problems (Last Reviewed 11/19/18 @ 14:23 by RONIT Reddy) Sepsis (Acute) CAP (community acquired pneumonia) (Acute) Acute respiratory failure with hypoxemia (Acute) COPD exacerbation (Chronic) COPD (chronic obstructive pulmonary disease) (Chronic) You will use the following diet at home:: Other - Resume previous diet, low-salt, low-fat Your food should be the consistency of: Regular Your liquids should be the consistency of: Regular/Thin Discharge Activity: - - Avoid exposure to any strong smells such as bleach, cleaning products, strong colognes or perfumes, paint fumes and smoke of any kind. Avoid sudden exposure to cold air because this can cause bronchospasm. You may want to cover your mouth when you go outside in the winter. Avoid exposure to anyone who is sick with a cough or sore throat. Call your doctor if you observe: Fever of 101 or Higher, Shortness of breath, Dizziness, Fainting spells, Swelling in the ankles, Chest pain, Calf discomfort, - - Call your PCP if severe diarrhea ( > 5 stools a day), painful sores in the mouth, painful swallowing, rash or itching. Taking a probiotic such as Lactobacillus or Kefir can help with loose stools while taking antibiotics. Additional Instructions: 1. use the Duoneb aerosols every 4 hours while awake. 2. use the Flovent inhaler, this is a steroid inhaler, 1 puff twice a day EVERY DAY - this is going to take the place of the Symbicort. 3. The Albuterol (Ventolin) inhaler is a RESCUE INHALER.......you always take it with you when out and use it only if you have breakthrough wheezing or shortness of breath Pending Tests on Discharge: none Allergies/Adverse Reactions: Allergies meloxicam [From Mobic] Adverse Reaction (Verified 01/19/19 12:27) BP WENT UP, STOMACH PAINS tetracycline [Tetracycline] Adverse Reaction (Verified 01/19/19 12:27) GETS BLADDER INFECTION Medications to take at Discharge Aspirin E.C. [Ecotrin] 81 mg PO DAILY@0800 11/21/15 albuterol sulfate HFA 90 mcg/actuation aerosol inhaler 2 puff INHALATION Q6H PRN 01/16/18 Cholecalciferol (VIT D3) [Vitamin D3] 1,000 unit PO DAILY 01/19/19 Diltiazem CD [Cardizem CD] 120 mg PO DAILY 01/19/19 Furosemide [Lasix] 20 mg PO DAILY PRN 01/19/19 Ipratropium/Albuterol Sulfate [Iprat-Albut 0.5-3(2.5) mg/3 ml] 3 ml IH 4X/DAY 01/19/19 [place]-3S/Dha/Epa/Fish Oil [Fish Oil 1,200 mg Softgel] 1 cap PO DAILY 01/19/19 Warfarin Sodium [Coumadin] 5 mg PO SUMOTUWESA 01/19/19 Warfarin [Coumadin] 2.5 mg PO THFR 01/19/19 Amoxicillin 500 mg PO TID #15 tablet 01/22/19 Fluticasone 220 Mcg [Flovent (SP)] 1 puff INHALATION BID #1 inhaler 01/22/19 Furosemide [Lasix] 20 mg PO DAILY #30 tablet 01/22/19 The following prescriptions were given: Furosemide [Lasix] 20 mg PO DAILY #30 tablet Fluticasone 220 Mcg [Flovent (SP)] 1 puff INHALATION BID #1 inhaler Amoxicillin 500 mg PO TID #15 tablet Primary Care Physician: Aurora Madera MD [Primary Care Provider] - Please follow up with your Primary Care Physician in: 1 week Test Results: Test results from this visit will be discussed in further detail at your follow-up appointment, if applicable. Please Follow Up With: Arpit Mccurdy MD When: As previously scheduled Please Follow Up With: Gregorio Chavis MD When: 2 weeks Proposed Discharge Date: 01/22/19
--- NOTE | 2019-01-22 17:05 | DCINST_ITS ---
- Discharge Diagnoses Current Active Problems: Current Active and Chronic Problems (Last Reviewed 11/19/18 @ 14:23 by RONIT Reddy) Sepsis (Acute) CAP (community acquired pneumonia) (Acute) Acute respiratory failure with hypoxemia (Acute) COPD exacerbation (Chronic) COPD (chronic obstructive pulmonary disease) (Chronic) You will use the following diet at home:: Other - Resume previous diet, low- salt, low-fat Your food should be the consistency of: Regular Your liquids should be the consistency of: Regular/Thin Discharge Activity: - - Avoid exposure to any strong smells such as bleach, cleaning products, strong colognes or perfumes, paint fumes and smoke of any kind. Avoid sudden exposure to cold air because this can cause bronchospasm. You may want to cover your mouth when you go outside in the winter. Avoid exposure to anyone who is sick with a cough or sore throat. Call your doctor if you observe: Fever of 101 or Higher, Shortness of breath, Dizziness, Fainting spells, Swelling in the ankles, Chest pain, Calf discomfort, - - Call your PCP if severe diarrhea ( > 5 stools a day), painful sores in the mouth, painful swallowing, rash or itching. Taking a probiotic such as Lactobacillus or Kefir can help with loose stools while taking antibiotics. Additional Instructions: 1. use the Duoneb aerosols every 4 hours while awake. 2. use the Flovent inhaler, this is a steroid inhaler, 1 puff twice a day EVERY DAY - this is going to take the place of the Symbicort. 3. The Albuterol (Ventolin) inhaler is a RESCUE INHALER.......you always take it with you when out and use it only if you have breakthrough wheezing or shortness of breath Pending Tests on Discharge: none Allergies/Adverse Reactions: Allergies meloxicam [From Mobic] Adverse Reaction (Verified 01/19/19 12:27) BP WENT UP, STOMACH PAINS tetracycline [Tetracycline] Adverse Reaction (Verified 01/19/19 12:27) GETS BLADDER INFECTION Medications to take at Discharge Aspirin E.C. [Ecotrin] 81 mg PO DAILY@0800 11/21/15 albuterol sulfate HFA 90 mcg/actuation aerosol inhaler 2 puff INHALATION Q6H PRN 01/16/18 Cholecalciferol (VIT D3) [Vitamin D3] 1,000 unit PO DAILY 01/19/19 Diltiazem CD [Cardizem CD] 120 mg PO DAILY 01/19/19 Furosemide [Lasix] 20 mg PO DAILY PRN 01/19/19 Ipratropium/Albuterol Sulfate [Iprat-Albut 0.5-3(2.5) mg/3 ml] 3 ml IH 4X/DAY 01/19/19 [place]-3S/Dha/Epa/Fish Oil [Fish Oil 1,200 mg Softgel] 1 cap PO DAILY 01/19/19 Warfarin Sodium [Coumadin] 5 mg PO SUMOTUWESA 01/19/19 Warfarin [Coumadin] 2.5 mg PO THFR 01/19/19 Amoxicillin 500 mg PO TID #15 tablet 01/22/19 Fluticasone 220 Mcg [Flovent (SP)] 1 puff INHALATION BID #1 inhaler 01/22/19 Furosemide [Lasix] 20 mg PO DAILY #30 tablet 01/22/19 The following prescriptions were given: Furosemide [Lasix] 20 mg PO DAILY #30 tablet Fluticasone 220 Mcg [Flovent (SP)] 1 puff INHALATION BID #1 inhaler Amoxicillin 500 mg PO TID #15 tablet Primary Care Physician: Aurora Madera MD [Primary Care Provider] - Please follow up with your Primary Care Physician in: 1 week Test Results: Test results from this visit will be discussed in further detail at your follow- up appointment, if applicable. Please Follow Up With: Arpit Mccurdy MD When: As previously scheduled Please Follow Up With: Gregorio Chavis MD When: 2 weeks Proposed Discharge Date: 01/22/19
--- NOTE | 2019-01-22 17:24 | DS.PCM_ITS ---
Discharge Date and Diagnosis - Problem List Patient Problems: Active and Suspected Problems (Last Reviewed 11/19/18 @ 14:23 by Elaina Trevino NP-C) Subtherapeutic international normalized ratio (INR) (Acute) Severe sepsis (Acute) CAP (community acquired pneumonia) (Acute) COPD exacerbation (Acute) Date of Admission: 01/19/19 Date of Discharge: 01/22/19 - Primary Discharge Diagnosis Active and Suspected Problems (Last Reviewed 11/19/18 @ 14:23 by Elaina Trevino NP-C) Severe sepsis (Acute) CAP (community acquired pneumonia) (Acute) Acute on chronic respiratory failure with hypoxemia and hypercarbia COPD exacerbation (Acute) Subtherapeutic international normalized ratio (INR) (Acute) - Secondary Discharge Diagnosis Chronic Problems (Last Reviewed 11/19/18 @ 14:23 by Elaina Tervino NP-C) Grade II diastolic dysfunction (Chronic) Chronic atrial fibrillation (Chronic) Acute on chronic diastolic (congestive) heart failure (Chronic) Acute on chronic respiratory failure with hypoxia and hypercapnia (Chronic) Essential hypertension (Chronic) NEVAEH (obstructive sleep apnea) (Chronic) Noncompliance with CPAP treatment (Chronic) Morbid obesity (Chronic) Iron deficiency anemia (Chronic) Insomnia (Chronic) Patent foramen ovale (Chronic) Left ventricular hypertrophy (Chronic)-mild Stage 3 severe COPD by GOLD classification (Chronic) Pulmonary hypertension (Chronic) PA systolic is estimated at 46 Hyperlipidemia (Chronic) Atrial septal defect (Chronic) Chest pain, atypical (Chronic) Hospital Course and Treatment Imaging Results: Clinical Impression(s) from Imaging Studies Chest X-Ray 01/19/19 12:41 IMPRESSION: Progressive infiltration and coalescence in the right lower lobe. Surgical sutures are seen at that site. Electronically Signed: Vivek Rivera, at 13:43 EDT , Service support , Chest X-Ray 01/21/19 09:13 IMPRESSION: COPD/emphysema without acute superimposed cardiopulmonary process. There is no defined acute infiltrate the lungs. Stable cardiomegaly. Electronically Signed: Zuhair Overton MD at 14:34 EDT Tel , Service support , Microbiology 01/19/19 22:00 Sputum, Expectorated/Coughed Gram Stain - Final 01/19/19 22:00 Sputum, Expectorated/Coughed Respiratory Culture - Preliminary Appears to be normal respiratory danita. Further studies to follow. 01/19/19 16:01 Mucosa - Nasopharyngeal Respiratory Panel (PCR) - Final 01/19/19 20:30 Urine, Clean Catch Streptococcus pneumoniae Antigen (M - Final 01/19/19 20:30 Urine, Clean Catch Legionella Antigen - Final 01/19/19 16:01 Mucosa - Nasopharyngeal Influenza Types A,B Direct FA (JJ) - Final Laboratory Results - last 24 hr 01/21/19 01/21/19 01/22/19 17:01 21:57 05:55 WBC 10.8 RBC 4.31 Hgb 12.4 Hct 41.2 MCV 95.6 MCH 28.8 MCHC 30.1 L RDW 13.3 RDW Differential 45.0 H Plt Count 268 MPV 9.7 Immature Gran % (Auto) 0.300 Neut % (Auto) 71.7 H Lymph % (Auto) 19.6 [place] % (Auto) 7.3 Eos % (Auto) 0.8 Baso % (Auto) 0.3 Absolute Neuts (auto) 7.7 Absolute Lymphs (auto) 2.12 Total Counted Not Reportable PT INR Sodium Potassium Chloride Carbon Dioxide Anion Gap BUN Creatinine Estim Creat Clear Calc Est GFR (MDRD) Af Amer Est GFR (MDRD) Non-Af BUN/Creatinine Ratio Glucose Calcium POC Glucose 115 H 101 01/22/19 01/22/19 01/22/19 05:55 05:55 06:46 WBC RBC Hgb Hct MCV MCH MCHC RDW RDW Differential Plt Count MPV Immature Gran % (Auto) Neut % (Auto) Lymph % (Auto) [place] % (Auto) Eos % (Auto) Baso % (Auto) Absolute Neuts (auto) Absolute Lymphs (auto) Total Counted PT 29.8 H INR 2.8 Sodium 139 Potassium 3.9 Chloride 100 Carbon Dioxide 35.0 H Anion Gap 4 L BUN 20 H Creatinine 0.66 Estim Creat Clear Calc 45.09 Est GFR (MDRD) Af Amer 114 Est GFR (MDRD) Non-Af 94 BUN/Creatinine Ratio 30.5 H Glucose 107 H Calcium 8.4 L POC Glucose 103 01/22/19 01/22/19 11:31 16:20 WBC RBC Hgb Hct MCV MCH MCHC RDW RDW Differential Plt Count MPV Immature Gran % (Auto) Neut % (Auto) Lymph % (Auto) [place] % (Auto) Eos % (Auto) Baso % (Auto) Absolute Neuts (auto) Absolute Lymphs (auto) Total Counted PT INR Sodium Potassium Chloride Carbon Dioxide Anion Gap BUN Creatinine Estim Creat Clear Calc Est GFR (MDRD) Af Amer Est GFR (MDRD) Non-Af BUN/Creatinine Ratio Glucose Calcium POC Glucose [address] Jt Alcnatara-pulmonary medicine Operations: None Procedures: None Summary of Care Provided: The patient is a 73-year-old female with a past medical history of stage III COPD/asthma, paroxysmal atrial fibrillation/flutter, hypertension, obstructive sleep apnea (compliant with CPAP), morbid obesity, iron deficiency anemia, patent foramen ovale, mild left ventricular hypertrophy, stage II diastolic dysfunction with preserved ejection fraction of 65%, pulmonary hypertension (PA 46), chronic anticoagulation with warfarin, chronic respiratory failure with hypoxemia on 2 L of nasal O2, and hyperlipidemia who presented to the emergency department at [facility] on 01/19/2019 complaining of progressive shortness of breath over the preceding week and chest tightness. Vital signs at presentation to the emergency room were temperature 99.8, pulse rate 71-102, blood pressure 187/100, respiratory rate 24 and she was 85% saturated on a 3 L nasal cannula. She normally wears 3-4 LPM of nasal O2 at home. CBC showed an elevated white blood cell count at 12.9 with 88% neutrophils. Hemoglobin and platelets were within normal limits. INR was subtherapeutic at 1.7. BMP was unremarkable and the BNP was 113. Troponin was less than 0.015. An ABG on BiPAP with 14/7 settings showed pH of 7.37, PCO2 of 50 and a PO2 of 88. FiO2 was 40%. Chest x-ray showed infiltration in the right lower lobe. She was given Rocephin and Azithromycin in the ED for CAP and admitted to the ICU. She was maintained on [id number] aerosol treatments and every 2 are as needed albuterol aerosols for breakthrough wheezing. She was given Mucinex and an incentive spirometer. He was started on budesonide twice daily with her aerosol treatments. Dr. Alcantara was consulted. She continued to have wheezing and SOB and was diagnosed with acute on chronic diastolic CHF and was given Lasix which helped considerably. She was started on a daily dose of Lasix. She was transferred out of the ICU on 01/20/2019. She was in atrial fibrillation with controlled ventricular response at the time of transfer and remained in atrial fibrillation for the duration of her hospital stay. I discussed discontinuation of Tikosyn with Dr. Mccurdy. Patient has intolerable side effects of insomnia, decreased appetite and weight loss with Tikosyn and it is not maintaining sinus rhythm so it was discontinued. Legionella and streptococcal antigens in the urine were negative. Respiratory panel was negative. The sputum culture had normal respiratory danita. The Gram stain showed 1+ white blood cells. On 01/22/2019 she was afebrile. Vital signs were stable and she was 95% saturated on a 2 L nasal cannula. She ambulated in the hallway with no acute decompensation. White blood cell count was 10.8 with an unremarkable differential. Hemoglobin and platelets were within normal limits. Serum bicarb was 35 and the BUN was 20 with a creatinine of 0.66. She was discharged home with medications previously listed. She cannot afford her Symbicort inhaler and so she was prescribed Flovent and will take 1 puff every 12 hours every day. She will follow-up with Dr. Madera in [address] Chavis in 2 weeks. She also has an upcoming appointment with Dr. Mccurdy. She will take 20 mg of Lasix orally every day. She should have a BMP done in 1 week at the time she sees Dr. Madera. GENERAL: alert, oriented X 3, Cooperative, NAD, sitting in the chair ORAL: moist mucosa, no mucosal lesions NECK: No JVD, supple, trachea midline LUNGS: diminished throughout, no wheezes, no rales, no rhonchi, no accessory muscle use, no conversational dyspnea, not tachypneic, even with ambulation HEART: RRR, Normal S1 and S2, no rub, no gallop, no murmur ABDOMEN: soft, NT, ND, BS present, no guarding with palpation EXTREMITIES: no edema, no cyanosis, no calf tenderness, superficial varicosities in both lower extremities some hyperpigmentation SKIN: No rashes, no breakdown NEUROLOGIC: no focal neurologic deficits PSYCH: appropriate, normal affect, pleasant This note was generated with [employer] dictation software. It may contain incorrect words, spelling, and punctuation that were not noted in checking the note before signing. Patient Problems: Active and Suspected Problems (Last Reviewed 11/19/18 @ 14:23 by Elaina Trevino NP-[place]) Subtherapeutic international normalized ratio (INR) (Acute) Severe sepsis (Acute) CAP (community acquired pneumonia) (Acute) COPD exacerbation (Acute) - Physical Exam Vital Signs Temp Pulse Resp BP Pulse Ox 98.6 F 56 L 14 104/65 95 01/22/19 15:10 01/22/19 15:10 01/22/19 15:10 01/22/19 15:10 01/22/19 15:10 Oxygen Flow Rate (L/min) 3 Oxygen Delivery Method Nasal Cannula Weight: 220 lb 3.869 oz Body Mass Index (BMI) 36.9 Intake and Output for Last 24 Hours 01/20/19 01/21/19 01/22/19 23:59 23:59 23:59 Intake Total 831 / 831 470 / 470 760 / 760 Output Total 550 / 550 1400 / 1400 Balance 281 / 281 470 / 470 -640 / -640 Microbiology Past 72 Hours 01/19/19 22:00 Gram Stain - Final Sputum, Expectorated/Coughed Respiratory Culture - Preliminary Appears to be normal respiratory danita. Further studies to follow. 01/19/19 16:01 Respiratory Panel (PCR) - Final Mucosa - Nasopharyngeal 01/19/19 20:30 Streptococcus pneumoniae Antigen (M - Final Urine, Clean Catch 01/19/19 20:30 Legionella Antigen - Final Urine, Clean Catch 01/19/19 16:01 Influenza Types A,B Direct FA (JJ) - Final Mucosa - Nasopharyngeal Laboratory Tests Past 24 Hrs 01/22/19 01/22/19 01/22/19 05:55 05:55 05:55 WBC 10.8 RBC 4.31 Hgb 12.4 Hct 41.2 MCV 95.6 MCH 28.8 MCHC 30.1 L RDW 13.3 RDW Differential 45.0 H Plt Count 268 MPV 9.7 Immature Gran % (Auto) 0.300 Neut % (Auto) 71.7 H Lymph % (Auto) 19.6 [place] % (Auto) 7.3 Eos % (Auto) 0.8 Baso % (Auto) 0.3 Absolute Neuts (auto) 7.7 Absolute Lymphs (auto) 2.12 Total Counted Not Reportable PT 29.8 H INR 2.8 Sodium 139 Potassium 3.9 Chloride 100 Carbon Dioxide 35.0 H Anion Gap 4 L BUN 20 H Creatinine 0.66 Estim Creat Clear Calc 45.09 Est GFR (MDRD) Af Amer 114 Est GFR (MDRD) Non-Af 94 BUN/Creatinine Ratio 30.5 H Glucose 107 H Calcium 8.4 L POC Glucose 01/22/19 01/22/19 01/22/19 16:20 11:31 06:46 POC Glucose 125 H 93 103 01/21/19 01/21/19 21:57 17:01 POC Glucose 101 115 H Discharge Activity: - - Avoid exposure to any strong smells such as bleach, cleaning products, strong colognes or perfumes, paint fumes and smoke of any kind. Avoid sudden exposure to cold air because this can cause bronchospasm. You may want to cover your mouth when you go outside in the winter. Avoid exposure to anyone who is sick with a cough or sore throat. Call your doctor if you observe: Fever of 101 or Higher, Shortness of breath, Dizziness, Fainting spells, Swelling in the ankles, Chest pain, Calf discomfort, - - Call your PCP if severe diarrhea ( > 5 stools a day), painful sores in the mouth, painful swallowing, rash or itching. Taking a probiotic such as Lactobacillus or Kefir can help with loose stools while taking antibiotics. Home Medications: Medications to take at Discharge Aspirin E.C. [Ecotrin] 81 mg PO DAILY@0800 11/21/15 albuterol sulfate HFA 90 mcg/actuation aerosol inhaler 2 puff INHALATION Q6H PRN 11/12/17 Cholecalciferol (VIT D3) [Vitamin D3] 1,000 unit PO DAILY 01/19/19 Diltiazem CD [Cardizem CD] 120 mg PO DAILY 01/19/19 Furosemide [Lasix] 20 mg PO DAILY PRN 01/19/19 Ipratropium/Albuterol Sulfate [Iprat-Albut 0.5-3(2.5) mg/3 ml] 3 ml IH 4X/DAY 01/19/19 [place]-3S/Dha/Epa/Fish Oil [Fish Oil 1,200 mg Softgel] 1 cap PO DAILY 01/19/19 Warfarin Sodium [Coumadin] 5 mg PO SUMOTUWESA 01/19/19 Warfarin [Coumadin] 2.5 mg PO THFR 01/19/19 Amoxicillin 500 mg PO TID #15 tablet 01/22/19 Fluticasone 220 Mcg [Flovent (SP)] 1 puff INHALATION BID #1 inhaler 01/22/19 Furosemide [Lasix] 20 mg PO DAILY #30 tablet 01/22/19 Following Prescrptions Were Given to Patient: Furosemide [Lasix] 20 mg PO DAILY #30 tablet Fluticasone 220 Mcg [Flovent (SP)] 1 puff INHALATION BID #1 inhaler Amoxicillin 500 mg PO TID #15 tablet Primary Care Physician: Aurora Madera MD [Primary Care Provider] - Please follow up with your Primary Care Physician in: 1 week Please Follow Up With: Arpit Mccurdy MD When: As previously scheduled Please Follow Up With: Gregorio Chavis MD When: 2 weeks Minutes spent on discharge:: 35 Patient Condition:: Good Medical Necessity - Tobacco Use Smoking Status: Never smoker Tobacco Use: Non-smoker Meaningful Use Info Meaningful Use Diagnoses (Choose all that apply): CHF - CHF MARYANN/ARB ordered at discharge?: No Reason MARYANN/ARB not ordered?: Hypotension Documented LVEF (%): 65 Code Visit Inpatient E&M: 22075 Disch Hosp
--- NOTE | 2019-01-23 14:12 | CASEMGMT ---
MACK MCKEON Discharge F/U Phone Call LACE: 11 Strata: 3 Discharge date: 01/22/19 Call date: 01/23/19 Call time: [id number] Duration: 2 minutes Admission dx: Acute on hypoxic respiratory failure, pna Pt states 'I don't feel too good' since discharge and states 'I am just worn out.' Pt is speaking in full sentences and answers all questions appropriately at this time. Pt states has not contacted PCP because 'I am waiting for the antibx to keep kicking in.' Pt states no questions regarding discharge instructions/medications at this time. Pt states plans to keep f/u appt's. Pt states no suggestions for [facility] at this time. This RN LINDA advised pt to call PCP or return to ED for any worsening of sx's, pt voices understanding. Pt voices no further questions/concerns/needs at this time. SStaten MACK MCKEON
== END 2019-01-22 18:55 | disposition home or self-care (01) | DRG 871 ==
LOC: ED 16:45 → ICU 17:27 → PCU 01-21 07:23
PROVIDERS: Physician Assistant; Admitting Provider Internal Medicine; Emergency Provider Emergency Medicine; Family Provider Internal Medicine; PCP Internal Medicine; Referring Provider Internal Medicine; Visit Provider Internal Medicine
DX: A41.9 Sepsis, unspecified organism (principal); J18.9 Pneumonia, unspecified organism; J96.21 Acute and chronic respiratory failure with hypoxia; J96.22 Acute and chronic respiratory failure with hypercapnia; I50.33 Acute on chronic diastolic (congestive) heart failure; J44.1 Chronic obstructive pulmonary disease with (acute) exacerbation; J44.0 Chronic obstructive pulmonary disease with (acute) lower respiratory infection; Q21.1 Atrial septal defect; I11.0 Hypertensive heart disease with heart failure; R65.20 Severe sepsis without septic shock; I27.20 Pulmonary hypertension, unspecified; G47.33 Obstructive sleep apnea (adult) (pediatric); Z99.81 Dependence on supplemental oxygen; I48.2 Chronic atrial fibrillation; E66.01 Morbid (severe) obesity due to excess calories; Z68.36 Body mass index [BMI] 36.0-36.9, adult; Z79.01 Long term (current) use of anticoagulants; E78.5 Hyperlipidemia, unspecified
CPT/HCPCS: 36415; 36600; 71045; 71046; 80048; 80076; 82803; 82962; 83605; 83735; 83880; 84100; 84484; 85025; 85610; 87040; 87070; 87205; 87449; 87633; 87804; 93005; 94002; 94003; 94640; 94668; 94760; 97162; 97166; 97530; 97802; 99251; 99284; J7050; A4216; G0463; J1940

== ENCOUNTER → 2019-02-27 14:29 | Outpatient (CLI) | payer MEDICARE, SELFPAY ==
[2019-02-27 13:49] VITALS: BMI 36.8
[2019-02-27 15:33] LABS: International Normalized Ratio 2.5
== END ==
PROVIDERS: Family Provider Internal Medicine; PCP Internal Medicine; Referring Provider Internal Medicine Cardiovascular Disease; Visit Provider Internal Medicine Cardiovascular Disease
DX: R79.1 Abnormal coagulation profile (principal)
CPT/HCPCS: 36415; 85610

== ENCOUNTER 2019-04-26 08:13 | Inpatient (IN) | payer MEDICARE, SELFPAY ==
[2019-03-19 12:45] VITALS: BMI 36.8
[2019-04-26] VITALS (16 sets, daily range): BP systolic 130–149; BP diastolic 63–91; PULSE 56–91; RESP 16–22; TEMP 36.2–37.2; O2SAT 93–97; BMI 36.8; BMI 36.5
--- NOTE | 2019-04-26 08:20 | EKG12_ITS ---
Test Reason : SOB Blood Pressure : / mmHG Vent. Rate : 081 BPM Atrial Rate : 084 BPM P-R Int : 000 ms QRS Dur : 132 ms QT Int : 428 ms P-R-T Axes : 000 -09 013 degrees QTc Int : 497 ms Atrial fibrillation Right bundle branch block Septal infarct , age undetermined Abnormal ECG Confirmed by MELITON RHODES, OMID ([id number]), editor producer CLAUDIA DOYLE ([id number]) on 04/27/2019 1:00:45 PM Referred By: ALEXANDRO Confirmed By:OMID COELHO MD
--- NOTE | 2019-04-26 08:20 | RAD_ITS ---
STUDY: X-RAY CHEST REASON FOR EXAM: Female, 73 years old. Cough. Chills. Shortness of breath. TECHNIQUE: PA and lateral views of the chest were obtained. COMPARISON: January 21, 2019. FINDINGS: There is a 3 cm consolidation in the mid to upper lung. Airspace disease and effusions are noted at the right lung base. Left lung is clear. There is no demonstrated pleural abnormality. Normal size heart. Normal mediastinum and judy. Normal visualized pulmonary arteries. Normal visualized aortic arch and descending thoracic aorta. Normal visualized thoracic spine. Normal visualized ribs, clavicles, and shoulders. There is no demonstrated abnormality of the visualized soft tissue structures of the upper abdomen. RAD/Chest PA and Lateral IMPRESSION: Nodular consolidation in the right mid to upper lung. Airspace disease and effusion at the right lung base. CT chest may be helpful for further evaluation Electronically Signed: Tyler Guerrier, at 9:14 EDT Tel , Service support ,
--- NOTE | 2019-04-26 08:21 | ED.DCSUM_ITS ---
- ER Visit Summary Date of Service: 04/26/19 Chief Complaint: Shortness of breath, cough, fever History of Present Illness: The patient is a 73 F with history of atrial fibrillation and COPD who is on 2-1/2 L of oxygen chronically presents to the emergency department with increased cough and shortness of breath. Patient states her symptoms began on Saturday. She states that she felt like she had chills. She is had worsening dyspnea and a scantly productive cough. She denies any chest pain or leg swelling. She states she feels like she cannot catch her breath. She denies headache, urinary symptoms, diarrhea, or any other recent infectious symptoms. Patient was hospitalized about 3 months ago for COPD exacerbation. She states this feels similar. Physical Examination: Vital signs reviewed General: Well-nourished, well-developed Head: Normocephalic, atraumatic Eyes: Pupils equal and reactive, extraocular muscles intact Neck, supple, no lymphadenopathy Heart: Regular rate and rhythm Respiratory: No distress, diminished air movement with wheezing Abdomen: Soft, nontender, nondistended, no peritoneal signs Back: Nontender Extremities: Nontender, no edema, no cords Skin: Normal color no rash Neuro: Alert and oriented, no focal or lateralizing deficits Test Results: [] Emergency Department Course and Treatment: Patient presents with increasing shortness of breath, cough, and fever. She has diminished air movement right greater than left. Screening labs were obtained. She does have a leukocytosis. Her INR was therapeutic. EKG demonstrates atrial fibrillation she has a history of. There is no evidence of acute ischemic change. Chest x-ray does show 2 areas of infiltrate in her right lung. Her lactic was normal. Given the patient's significant history of underlying lung disease, chronic oxygen requirement, and infection and multiple lung lobes I do feel that she is going to require admission. The patient was discussed with hospitalist will be admitted. Treatment Plan: [] Disposition: Admission Impression: 1. Community acquired pneumonia 2. Dyspnea This note was generated with [employer] software. It may contain incorrect words, spelling, and punctuation that were not noted in review of the chart prior to signing ED Disposition - Plan for ED Patient:
[2019-04-26] MEDS: Albuterol 2.5 MG/3 ML VIAL.NEB. INHALATION ×3 (08:32→08:33)
[2019-04-26] MEDS: Ipratropium/Albuterol Sulfate 3 ML AMPUL.NEB INHALATION ×3 (08:32→19:14)
[2019-04-26] MEDS: MethylPREDNISolone 125 MG/2 ML Vial IV (08:44)
[2019-04-26 08:47] LABS: Absolute Lymphocyte Count 1.08 X10^3/ul (0.83-4.51); Absolute Neutrophil Count 13.5 X10^3/uL (2.0-7.7); Basophil# 0.01 X10^3/uL; Basophil% 0.1 % (0-1); Eosinophil# 0.02 X10^3/uL; Eosinophils% 0.1 % (0-5); Hematocrit 37.7 % (37-47); Hemoglobin 11.9 g/dl (12.0-15.0); Lymphocyte # 1.08 X10^3/ul (4.0); Lymphocyte % 6.8 % (19-41); Mean Corp Hgb Conc 31.6 g/gl (32-36); Mean Corpuscular Hgb 28.6 pg (27.0-32.0); Mean Corpuscular Volume 90.6 fL (81-99); Mean Platelet Vol. 9.6 fl (6.2-12.0); Monocyte# 1.31 X10^3/uL; Monocyte% 8.2 % (0-10); Neutrophil # 13.49 X10^3/uL (2.7-7.7); Neutrophil % 84.6 % (47-70); Platelet Count 246 K/mm3 (150-450); RBC Distribution Width CV 13.9 % (11.6-14.6); RBC Distribution Width SD 45.9 fl (35.1-43.9); Red Blood Count 4.16 M/mm3 (4.2-5.4); White Blood Count 15.9 K/mm3 (4.4-11.0)
[2019-04-26 08:49] LABS: POSITIVE COUNT NO; POSITIVE DIFFERENTIAL NO; POSITIVE MORPHOLOGY NO
[2019-04-26 08:54] LABS: International Normalized Ratio 2.8; Prothrombin Time (Protime)PT. 29.5 SECONDS (11.7-14.9)
[2019-04-26 08:59] LABS: Anion Gap 6 (5-15); BUN 10 mg/dL (7-18); BUN/Creat Ratio 20.6 RATIO (10-20); Calcium,Total 8.6 mg/dL (8.5-10.1); Chloride 102 mmol/L (98-107); Creatinine, Serum 0.48 mg/dL (0.55-1.02); EST Glomerular Filtration Rate 133 mL/min (>60); Est Glom Filt Rate - Afr Amer 161 mL/min (>60); Estimated Creatinine Clearance 45.09 ml/min; Glucose 150 mg/dL (74-106); Sodium Level 139 mmol/L (136-145)
[2019-04-26 09:10] LABS: Lactic Acid 0.9 mmol/L (0.4-2.0)
[2019-04-26 09:16] LABS: BNP,B-Type NATRIURETIC PEPTIDE 191.8 pg/mL (0-100)
[2019-04-26] MEDS: Ceftriaxone 1 GM/50 ML BAG IV (10:12)
--- NOTE | 2019-04-26 10:58 | PCM.HP.STD ---
Problem List (1) Candidiasis of mouth Status: Acute (2) COPD exacerbation Status: Acute (3) Grade II diastolic dysfunction Status: Chronic (4) Chronic atrial fibrillation Status: Chronic (5) Stage 3 severe COPD by GOLD classification Status: Chronic (6) Pulmonary hypertension Status: Chronic (7) Hyperlipidemia Status: Chronic Qualifiers: Hyperlipidemia type: unspecified Qualified Code(s): E78.5 - Hyperlipidemia, unspecified History of Present Illness Date of Admission: 04/26/19 Chief Complaint: SOB x 3 days The patient is a 73 year old F with past medical history of stage III COPD, with chronic hypoxic respiratory failure on 2 L of oxygen at home, history of hypertension, paroxysmal atrial fibrillation, pulmonary hypertension who comes in with complaints of shortness of breath ongoing for about 3 days. Patient was recently discharged from the hospital in December 2018 with community-acquired pneumonia/COPD exacerbation. According to the patient she has never felt right since her discharge. She had followed up with pulmonology and cardiology since her discharge. She complains of worsening pain shortness of breath associated with some dry cough. She states it feels like she has a mucous plug. She denies any fevers or chills or nausea or vomiting. Vitals in the ED showed temperature of 98.7F, heart rate 80, blood pressure 145/71, respiratory rate was 60 SPO2 was 93% on 2 L of oxygen. WBC count of 15.9, hemoglobin 11.9, platelets 246, INR 2.8, BMP was unremarkable, Lactic acid was 0.9, BNPep 191.8. Admitting chest x-ray showed nodular consolidation in the right mid to upper lung. Past Medical History Past Medical History (Chronic Problems): Chronic Problems (Last Reviewed 03/19/19 @ 13:02 by Elaina Trevino NP-C) Grade II diastolic dysfunction (Chronic) Chronic atrial fibrillation (Chronic) Acute on chronic diastolic (congestive) heart failure (Chronic) Acute on chronic respiratory failure with hypoxia and hypercapnia (Chronic) Essential hypertension (Chronic) NEVAEH (obstructive sleep apnea) (Chronic) Noncompliance with CPAP treatment (Chronic) Morbid obesity (Chronic) Iron deficiency anemia (Chronic) Insomnia (Chronic) Patent foramen ovale (Chronic) Left ventricular hypertrophy (Chronic) Stage 3 severe COPD by GOLD classification (Chronic) Pulmonary hypertension (Chronic) Hyperlipidemia (Chronic) Atrial septal defect (Chronic) Chest pain, atypical (Chronic) Medical History: Medical History (Last Reviewed 03/19/19 @ 13:02 by Elaina Trevino NP-C) Chronic atrial fibrillation (Chronic) I48.2 NEVAEH (obstructive sleep apnea) (Chronic) G47.33 Noncompliance with CPAP treatment (Chronic) Z91.14 Morbid obesity (Chronic) E66.01 Iron deficiency anemia (Chronic) D50.9 Insomnia (Chronic) G47.00 Patent foramen ovale (Chronic) Q21.1 Left ventricular hypertrophy (Chronic) I51.7 Stage 3 severe COPD by GOLD classification (Chronic) J44.9 Pulmonary hypertension (Chronic) I27.20 Hyperlipidemia (Chronic) E78.5 Atrial septal defect (Chronic) Q21.1 Chest pain, atypical (Chronic) R07.89 Bronchiectasis J47.9 COPD exacerbation J44.1 Iron deficiency anemia D50.9 Left knee pain M25.562 Long-term use of high-risk medication Z79.899 NEVAEH (obstructive sleep apnea) G47.33 RLS (restless legs syndrome) G25.81 Tibial plateau fracture S82.143A History of GI bleed Z87.19 Supratherapeutic INR (Resolved) R79.1 Afib (Inactive) I48.91 Bronchiectasis (Inactive) J47.9 COPD exacerbation (Inactive) J44.1 Community acquired pneumonia (Inactive) J18.9 Iron deficiency anemia (Inactive) D50.9 Left knee pain (Inactive) M25.562 NEVAEH (obstructive sleep apnea) (Inactive) G47.33 Restless legs syndrome (Inactive) G25.81 Rhinovirus (Inactive) B34.8 Rhinovirus infection (Inactive) B34.8 Tibial plateau fracture (Inactive) S82.143A Allergies meloxicam [From Mobic] Adverse Reaction (Verified 04/26/19 08:15) BP WENT UP, STOMACH PAINS tetracycline [Tetracycline] Adverse Reaction (Verified 04/26/19 08:15) GETS BLADDER INFECTION Home Medications: Ambulatory Orders Medication Instructions Recorded Aspirin E.C. [Ecotrin] 81 mg PO DAILY@0800 11/21/15 albuterol sulfate HFA 90 2 puff INHALATION Q6H PRN 11/12/17 mcg/actuation aerosol inhaler Cholecalciferol (VIT D3) [Vitamin 1,000 unit PO DAILY 01/19/19 D3] Furosemide [Lasix] 20 mg PO DAILY PRN 01/19/19 Ipratropium/Albuterol Sulfate 3 ml IH 4X/DAY 01/19/19 [Iprat-Albut 0.5-3(2.5) mg/3 ml] [place]-3S/Dha/Epa/Fish Oil [Fish 1 cap PO DAILY 01/19/19 Oil 1,200 mg Softgel] Warfarin Sodium [Coumadin] 5 mg PO SUMOTUWESA 01/19/19 Warfarin [Coumadin] 2.5 mg PO THFR 01/19/19 formoterol fumarate 20 mcg/2 mL 2 ml INHALATION Q12H #120 ml 02/02/19 solution for nebulization budesonide-formoterol HFA 160 2 puff INHALATION Q12H #10.2 g 02/06/19 mcg-4.5 mcg/actuation aerosol inhaler diltiazem CD 120 mg 120 mg PO Q12H #180 cap 02/27/19 capsule,extended release 24 hr Lactobacillus Acidophilus 460 mg PO DAILY 04/26/19 [Florajen] Surgical History: Surgical History (Last Reviewed 03/19/19 @ 13:02 by RONIT Reddy) H/O varicose vein stripping Z98.890 History of knee replacement Z96.659 H/O varicose vein stripping (Inactive) Z98.890 History of knee replacement (Inactive) Z96.659 Surgical History: - - Knee replacement, varicose vein stripping Psychiatric History: 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 hx 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 Lives: Alone Smoking Status: Never smoker Alcohol: None Drugs: None - *Family History Maternal Family History: Family History (Last Reviewed 03/19/19 @ 13:02 by RONIT Reddy) Brother CAD (coronary artery disease) Diabetes Sister CAD (coronary artery disease) Diabetes Colon cancer Brother CAD (coronary artery disease) Sister CAD (coronary artery disease) Hx of CABG History Items: Asthma Sibling Family History: Family History (Last Reviewed 03/19/19 @ 13:02 by RONIT Reddy) Brother CAD (coronary artery disease) Diabetes Sister CAD (coronary artery disease) Diabetes Colon cancer Brother CAD (coronary artery disease) Sister CAD (coronary artery disease) Hx of CABG History Items: Diabetes, Heart Disease, - - Colon Cancer Review of Systems Constitutional: Denies: Anorexia, Chills, Fever, Weakness, Weight Change, Fatigue Eyes: Denies: Blurred vision, Cataracts, Conjunctivae Inflammation, Pain, Redness, Vision Change HEENT: Denies: Difficulty Hearing, Difficulty Swallowing, Head Aches, Hearing Changes, Sinus Congestion, Sinus Drainage, Sore Throat Cardiovascular: Denies: Chest Pain, Claudication, Orthopnea, Palpitations, Paroxysmal Noc. Dyspnea Respiratory: Reports: Cough, Shortness of breath at rest, Shortness of breath upon exertion, Sputum production Gastrointestinal: Denies: Abdominal Pain, Constipation, Hematemesis, Hematochezia, Nausea, Vomiting Genitourinary: Denies: Dysuria Musculoskeletal: Denies: Joint Pain, Joint stiffness, Joint swelling, Joint Tenderness Skin: Denies: Rash, Wounds Neurological: Denies: Difficulty swallowing, Focal weakness, Numbness, Tingling Psychiatric: Denies: Anxiety, Depression, Homicidal Ideations, Suicidal Ideations Hematologic/ Lymphatic: Denies: Easy Bruising, Easy Bleeding VTE Information - Inpt Only VTE Present on Admission: No VTE Pharm Prophylaxis ordered?: Yes - Physical Exam General: Alert, Oriented x3, Cooperative, No apparent distress HEENT: Atraumatic, PERRLA, EOMI, Normocephalic Oral: Moist Mucosa Neck: Supple Lungs: Clear to auscultation, Normal air movement Cardiovascular: Regular rate, Regular Rhythm, Normal S1, Normal S2, No murmurs Abdomen: Bowel Sounds Present, Soft, Non Tender, Non-Distended, No Hepato-splenomegaly Extremities: No edema Skin: No rashes Musculoskeletal: No Tenderness to Palpation of Joints or Extremities Lymphatic: No Cervical, Supraclavicular, or Inguinal Adenopathy Neurological: Cranial nerves II-XII grossly intact, Neuro grossly intact Psych/Mental Status: Normal Affect, Appropriate Vital Signs Temp Pulse Resp BP Pulse Ox 97.4 F L 80 20 H 149/74 H 95 04/26/19 10:13 04/26/19 10:13 04/26/19 10:13 04/26/19 10:13 04/26/19 10:13 Oxygen Flow Rate (L/min) 2 Oxygen Delivery Method Nasal Cannula Weight: 100.4 kg Body Mass Index (BMI) 36.8 Laboratory Tests Past 24 Hrs 04/26/19 04/26/19 04/26/19 08:35 08:35 08:35 WBC 15.9 H RBC 4.16 L Hgb 11.9 L Hct 37.7 MCV 90.6 MCH 28.6 MCHC 31.6 L RDW 13.9 RDW Differential 45.9 H Plt Count 246 MPV 9.6 Immature Gran % (Auto) 0.200 Neut % (Auto) 84.6 H Lymph % (Auto) 6.8 L [place] % (Auto) 8.2 Eos % (Auto) 0.1 Baso % (Auto) 0.1 Absolute Neuts (auto) 13.5 H Absolute Lymphs (auto) 1.08 Total Counted Not Reportable PT INR Sodium 139 Potassium 4.0 Chloride 102 Carbon Dioxide 31.0 Anion Gap 6 BUN 10 Creatinine 0.48 L Estim Creat Clear Calc 45.09 Est GFR (MDRD) Af Amer 161 Est GFR (MDRD) Non-Af 133 BUN/Creatinine Ratio 20.6 H Glucose 150 H Lactic Acid 0.9 Calcium 8.6 B-Natriuretic Peptide 04/26/19 04/26/19 08:35 08:35 WBC RBC Hgb Hct MCV MCH MCHC RDW RDW Differential Plt Count MPV Immature Gran % (Auto) Neut % (Auto) Lymph % (Auto) [place] % (Auto) Eos % (Auto) Baso % (Auto) Absolute Neuts (auto) Absolute Lymphs (auto) Total Counted PT 29.5 H INR 2.8 Sodium Potassium Chloride Carbon Dioxide Anion Gap BUN Creatinine Estim Creat Clear Calc Est GFR (MDRD) Af Amer Est GFR (MDRD) Non-Af BUN/Creatinine Ratio Glucose Lactic Acid Calcium B-Natriuretic Peptide 191.8 H Assessment/Plan All Active Problems (Last Reviewed 03/19/19 @ 13:02 by Elaina Trevino, PLANT ANATOMIST-C) Candidiasis of mouth (Acute) Subtherapeutic international normalized ratio (INR) (Acute) Severe sepsis (Acute) CAP (community acquired pneumonia) (Acute) COPD exacerbation (Acute) Supratherapeutic INR (Resolved) 73 year old F with past medical history of stage III COPD, with chronic hypoxic respiratory failure on 3 L of oxygen at home, history of hypertension, paroxysmal atrial fibrillation, pulmonary hypertension who comes in with complaints of shortness of breath ongoing for about 3 days. 1. Acute COPD exacerbation, patient is on her home 2 L of oxygen, patient has been having progressive worsening shortness of breath Plan: Admit to [facility], breathing treatments, continuing oxygen, incentive spirometer, chest physiotherapy, IV Levaquin 500mg daily, IV steroids Pulmonology consult 2. Probable CAP, doubt that the infiltrates represent new findings, patient has had unresolved states from her previous admission. We will get CT scan of the chest, continue breathing treatments, started on antibiotics. 3. Chronic diastolic heart failure, not in acute exacerbation, admitting BNP was 191.8 4. Paroxysmal atrial fibrillation, rate controlled, on Coumadin, INR therapeutic, continue on Coumadin, trend INR 5. DVT prophylaxis?on Coumadin -INR therapeutic 6. Code status - DNR-CCA Time spent discussing Code status: 17 mins I was seeking to clarify the patient's CODE STATUS. She tells me that she has advanced directives but cannot remember what is on it. It has been a while. I recommended we check the system. No CODE STATUS noted in [employer]. Discussed the various types of CODE STATUS to her, explained full code, DNR CCA and DNR CC. She tells me that she would like to be a DNR CCA. She does not want any resuscitation or artificial support ort treatment in her prolonging her life. Code Visit Inpatient E&M: 10433 Init Hosp L3
--- NOTE | 2019-04-26 11:50 | CT_ITS ---
STUDY: CT CHEST WITHOUT CONTRAST REASON FOR EXAM: Female, 73 years old. Community acquired pneumonia, cough and shortness of breath RADIATION DOSAGE (If Supplied By Facility): CTDIvol = ( 20.15 ) mGy, DLP = ( 730.04 ) mGycm TECHNIQUE: Transaxial imaging was performed without the administration of intravenous contrast material. Multiplanar coronal and sagittal images were reformatted. Individualized dose optimization techniques were used for this CT. COMPARISON: CT from 02/04/2018 FINDINGS: Localized consolidation in the superior segment of the right lower lobe on image 36 is new since the prior CT. Amorphous area of groundglass opacity with reticular nodular densities in the right apex more conspicuous since the prior study (image 30) with additional localized consolidation involving the medial bilateral lower lobes. Subtle areas of groundglass opacity in the right mid lower lobe on image 64 are also felt to be new since the prior study. No cavitating process. There is no demonstrated pleural abnormality. There is moderate cardiac enlargement. There is slight pericardial fluid is similar since the prior study. Normal mediastinum. Normal hilar regions. Normal unenhanced pulmonary arteries. There is atherosclerotic calcification of the aortic arch with tortuosity and elongation of the aortic arch and descending thoracic aorta. There are multi-level degenerative changes of the thoracic spine. Compression fracture of L1 is stable. There is diffuse osteopenia. There is no demonstrated abnormality of the visualized upper abdomen. CT/Chest without Contrast IMPRESSION: 1. Multilobar (right lower lobe dominant) consolidation compatible with history of pneumonia. No cavitating process. Follow-up is recommended. 2. Cardiomegaly. 3. Osteopenia and degenerative changes of the thoracic spine. Stable L1 compression fracture. Electronically Signed: Karan Leone MD at 16:56 EDT , Service support ,
[2019-04-26] MEDS: NYSTATIN 500,000 UNIT/5 ML UDC 500000 UNIT PO ×3 (14:10→22:04)
[2019-04-26] MEDS: Heparin Injection (Vial) 5,000 UNIT/ML VIAL 5000 UNIT SC (14:10)
[2019-04-26] MEDS: Budesonide Respules 0.5 MG/2 ML AMPUL.NEB. INHALATION (19:14)
[2019-04-26] MEDS: dilTIAZem CD 120 MG Capsule PO (22:04)
--- NOTE | 2019-04-26 23:33 | NURSING ---
Pt refusing to wear cpap this evening.
[2019-04-27] VITALS (14 sets, daily range): BP systolic 109–147; BP diastolic 58–91; PULSE 62–105; RESP 18–20; TEMP 36.3–36.8; O2SAT 95–99
--- NOTE | 2019-04-27 01:16 | CPS ---
PT FOUND OFF CPAP
[2019-04-27] MEDS: Albuterol 2.5 MG/3 ML VIAL.NEB. INHALATION (02:23)
[2019-04-27 06:05] LABS: Absolute Lymphocyte Count 0.72 X10^3/ul (0.83-4.51); Absolute Neutrophil Count 9.8 X10^3/uL (2.0-7.7); Hematocrit 39.1 % (37-47); Hemoglobin 12.1 g/dl (12.0-15.0); Lymphocyte # 0.72 X10^3/ul (4.0); Lymphocyte % 6.6 % (19-41); Mean Corp Hgb Conc 30.9 g/gl (32-36); Mean Corpuscular Hgb 28.3 pg (27.0-32.0); Mean Corpuscular Volume 91.6 fL (81-99); Mean Platelet Vol. 9.9 fl (6.2-12.0); Monocyte# 0.38 X10^3/uL; Monocyte% 3.5 % (0-10); Neutrophil # 9.81 X10^3/uL (2.7-7.7); Neutrophil % 89.6 % (47-70); Platelet Count 275 K/mm3 (150-450); RBC Distribution Width CV 13.7 % (11.6-14.6); RBC Distribution Width SD 45.1 fl (35.1-43.9); Red Blood Count 4.27 M/mm3 (4.2-5.4); White Blood Count 10.9 K/mm3 (4.4-11.0)
[2019-04-27 06:07] LABS: International Normalized Ratio 3.2; Prothrombin Time (Protime)PT. 33.3 SECONDS (11.7-14.9)
[2019-04-27 06:23] LABS: Anion Gap 3 (5-15); BUN 14 mg/dL (7-18); BUN/Creat Ratio 23.7 RATIO (10-20); Calcium,Total 8.9 mg/dL (8.5-10.1); Chloride 104 mmol/L (98-107); Creatinine, Serum 0.59 mg/dL (0.55-1.02); EST Glomerular Filtration Rate 106 mL/min (>60); Est Glom Filt Rate - Afr Amer 128 mL/min (>60); Estimated Creatinine Clearance 45.09 ml/min; Glucose 164 mg/dL (74-106); Sodium Level 141 mmol/L (136-145)
[2019-04-27 06:24] LABS: POSITIVE COUNT NO; POSITIVE DIFFERENTIAL NO; POSITIVE MORPHOLOGY NO
--- NOTE | 2019-04-27 06:34 | CON.PCM_ITS ---
Reason for Consult Date of Consultation: 04/27/19 Reason for Consultation: COPD/CAP History of Present Illness: The patient is a 73-year-old female, with a history as outlined below, who presented to the emergency department on April 26 with complaints of shortness of breath, cough and subjective fever. The patient is followed chronically on an outpatient basis in the pulmonary medicine clinic by Dr. Chavis. The patient was last seen in the pulmonary medicine clinic on March 19. She has a known history of stage III severe COPD, pulmonary hypertension, obstructive sleep apnea and morbid obesity. She is currently prescribed Symbicort 2 puffs twice daily. 6-minute walk test completed in October 2018 revealed the need for 2 L/min of supplemental oxygen with exertion. In addition to the aforementioned, the patient also has underlying heart failure with preserved ejection fraction. During the patient's last titration polysomnogram in 2015, it was recommended that she be placed on nocturnal CPAP therapy with a pressure support of 9 cm of water. The patient was last admitted to the hospital in December 2018 with severe sepsis and COPD exacerbation secondary to community-acquired pneumonia. The patient's infectious work-up was negative at that time. On presentation to the emergency department, the patient was noted to be afebrile and hemodynamically stable. She was maintaining appropriate oxygen saturations on her baseline 2 L/min requirement. Laboratory evaluation revealed an elevated white blood cell count to 16,000. INR was noted to be 2.8. Chemistry profile was largely unremarkable. Lactate was within normal limits. BNP was mildly elevated to 192. A CT chest was completed on April 26 and revealed multifocal areas of airspace disease bilaterally. The patient subsequently received aerosol treatments and antibiotics. She was then admitted to the medical surgical floor for further management. Past Medical History Past Medical History (Chronic Problems): Chronic Problems (Last Reviewed 03/19/19 @ 13:02 by Elaina Trevino NP-Keila) Grade II diastolic dysfunction (Chronic) Chronic atrial fibrillation (Chronic) Acute on chronic diastolic (congestive) heart failure (Chronic) Acute on chronic respiratory failure with hypoxia and hypercapnia (Chronic) Essential hypertension (Chronic) NEVAEH (obstructive sleep apnea) (Chronic) Noncompliance with CPAP treatment (Chronic) Morbid obesity (Chronic) Iron deficiency anemia (Chronic) Insomnia (Chronic) Patent foramen ovale (Chronic) Left ventricular hypertrophy (Chronic) Stage 3 severe COPD by GOLD classification (Chronic) Pulmonary hypertension (Chronic) Hyperlipidemia (Chronic) Atrial septal defect (Chronic) Chest pain, atypical (Chronic) Medical History: Medical History (Last Reviewed 03/19/19 @ 13:02 by Elaina Trevino NP-C) Chronic atrial fibrillation (Chronic) I48.2 NEVAEH (obstructive sleep apnea) (Chronic) G47.33 Noncompliance with CPAP treatment (Chronic) Z91.14 Morbid obesity (Chronic) E66.01 Iron deficiency anemia (Chronic) D50.9 Insomnia (Chronic) G47.00 Patent foramen ovale (Chronic) Q21.1 Left ventricular hypertrophy (Chronic) I51.7 Stage 3 severe COPD by GOLD classification (Chronic) J44.9 Pulmonary hypertension (Chronic) I27.20 Hyperlipidemia (Chronic) E78.5 Atrial septal defect (Chronic) Q21.1 Chest pain, atypical (Chronic) R07.89 Bronchiectasis J47.9 COPD exacerbation J44.1 Iron deficiency anemia D50.9 Left knee pain M25.562 Long-term use of high-risk medication Z79.899 NEVAEH (obstructive sleep apnea) G47.33 RLS (restless legs syndrome) G25.81 Tibial plateau fracture S82.143A History of GI bleed Z87.19 Supratherapeutic INR (Resolved) R79.1 Afib (Inactive) I48.91 Bronchiectasis (Inactive) J47.9 COPD exacerbation (Inactive) J44.1 Community acquired pneumonia (Inactive) J18.9 Iron deficiency anemia (Inactive) D50.9 Left knee pain (Inactive) M25.562 NEVAEH (obstructive sleep apnea) (Inactive) G47.33 Restless legs syndrome (Inactive) G25.81 Rhinovirus (Inactive) B34.8 Rhinovirus infection (Inactive) B34.8 Tibial plateau fracture (Inactive) S82.143A Allergies meloxicam [From Mobic] Adverse Reaction (Verified 04/26/19 08:15) BP WENT UP, STOMACH PAINS tetracycline [Tetracycline] Adverse Reaction (Verified 04/26/19 08:15) GETS BLADDER INFECTION Home Medications: Ambulatory Orders Medication Instructions Recorded Aspirin E.C. [Ecotrin] 81 mg PO DAILY@0800 11/21/15 albuterol sulfate HFA 90 2 puff INHALATION Q6H PRN 11/12/17 mcg/actuation aerosol inhaler Cholecalciferol (VIT D3) [Vitamin 1,000 unit PO DAILY 01/19/19 D3] Furosemide [Lasix] 20 mg PO DAILY PRN 01/19/19 Ipratropium/Albuterol Sulfate 3 ml IH 4X/DAY 01/19/19 [Iprat-Albut 0.5-3(2.5) mg/3 ml] Marathon-3S/Dha/Epa/Fish Oil [Fish 1 cap PO DAILY 01/19/19 Oil 1,200 mg Softgel] Warfarin Sodium [Coumadin] 5 mg PO SUMOTUWESA 01/19/19 Warfarin [Coumadin] 2.5 mg PO THFR 01/19/19 formoterol fumarate 20 mcg/2 mL 2 ml INHALATION Q12H #120 ml 02/02/19 solution for nebulization budesonide-formoterol HFA 160 2 puff INHALATION Q12H #10.2 g 02/06/19 mcg-4.5 mcg/actuation aerosol inhaler diltiazem CD 120 mg 120 mg PO Q12H #180 cap 02/27/19 capsule,extended release 24 hr Lactobacillus Acidophilus 460 mg PO DAILY 04/26/19 [Florajen] Surgical History: Surgical History (Last Reviewed 03/19/19 @ 13:02 by RONIT Reddy) H/O varicose vein stripping Z98.890 History of knee replacement Z96.659 H/O varicose vein stripping (Inactive) Z98.890 History of knee replacement (Inactive) Z96.659 Surgical History: - - Knee replacement, varicose vein stripping Psychiatric History: 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 hx 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 Lives: Alone Smoking Status: Never smoker Alcohol: None Drugs: None - *Family History Maternal Family History: Family History (Last Reviewed 03/19/19 @ 13:02 by RONIT Reddy) Brother CAD (coronary artery disease) Diabetes Sister CAD (coronary artery disease) Diabetes Colon cancer Brother CAD (coronary artery disease) Sister CAD (coronary artery disease) Hx of CABG History Items: Asthma Sibling Family History: Family History (Last Reviewed 03/19/19 @ 13:02 by RONIT Reddy) Brother CAD (coronary artery disease) Diabetes Sister CAD (coronary artery disease) Diabetes Colon cancer Brother CAD (coronary artery disease) Sister CAD (coronary artery disease) Hx of CABG History Items: Diabetes, Heart Disease, - - Colon Cancer Review of Systems Constitutional: Reports: Chills. Denies: Fever, Weight Change Eyes: Denies: Blurred vision, Double vision HEENT: Denies: Head Aches, Sinus Congestion, Sinus Drainage Cardiovascular: Denies: Chest Pain, Palpitations Respiratory: Reports: Cough, Shortness of Breath. Denies: Sputum production Gastrointestinal: Denies: Abdominal Pain, Nausea, Vomiting Genitourinary: Denies: Dysuria Musculoskeletal: Denies: Joint Pain, Joint Tenderness Skin: Denies: Rash, Wounds Neurological: Denies: Numbness, Tingling, Focal weakness Psychiatric: Denies: Anxiety, Depression, Homicidal Ideations, Suicidal Ideations Hematologic/ Lymphatic: Denies: Easy Bruising, Easy Bleeding Objective: The patient's most recent lab work, culture data and imaging studies have all been personally reviewed. Blood cultures are currently pending. - Physical Exam General: Alert, Cooperative, No apparent distress HEENT: Atraumatic, PERRLA, Normocephalic Oral: No Gingival or Mucosal Lesions/ Ulcerations Neck: Supple, No Nodes, Trachea Midline Lungs: No rhonchi, No wheeze, No rales, Diminished Cardiovascular: Regular rate, Regular Rhythm, Normal S1, Normal S2, No murmurs Abdomen: Bowel Sounds Present, Soft, Non Tender, Obese Extremities: No clubbing, No cyanosis, No edema Skin: No breakdown Musculoskeletal: No Muscle Wasting Lymphatic: No Cervical, Supraclavicular, or Inguinal Adenopathy Neurological: Cranial nerves II-XII grossly intact, Neuro grossly intact Psych/Mental Status: Alert and oriented to time, place, person, mood and affect Vital Signs Temp Pulse Resp BP Pulse Ox 97.3 F L 72 18 124/81 H 97 04/27/19 02:45 04/27/19 02:45 04/27/19 02:45 04/27/19 02:45 04/27/19 02:45 Oxygen Flow Rate (L/min) 3 Oxygen Delivery Method Nasal Cannula Weight: 218 lb 7.649 oz Body Mass Index (BMI) 36.5 Intake and Output for Last 24 Hours 04/25/19 04/26/19 04/27/19 23:59 23:59 23:59 Intake Total 300 / 300 Balance 300 / 300 Laboratory Tests Past 24 Hrs 04/26/19 04/26/19 04/26/19 08:35 08:35 08:35 WBC 15.9 H RBC 4.16 L Hgb 11.9 L Hct 37.7 MCV 90.6 MCH 28.6 MCHC 31.6 L RDW 13.9 RDW Differential 45.9 H Plt Count 246 MPV 9.6 Immature Gran % (Auto) 0.200 Neut % (Auto) 84.6 H Lymph % (Auto) 6.8 L Reeves % (Auto) 8.2 Eos % (Auto) 0.1 Baso % (Auto) 0.1 Absolute Neuts (auto) 13.5 H Absolute Lymphs (auto) 1.08 Total Counted Not Reportable PT INR Sodium 139 Potassium 4.0 Chloride 102 Carbon Dioxide 31.0 Anion Gap 6 BUN 10 Creatinine 0.48 L Estim Creat Clear Calc 45.09 Est GFR (MDRD) Af Amer 161 Est GFR (MDRD) Non-Af 133 BUN/Creatinine Ratio 20.6 H Glucose 150 H Lactic Acid 0.9 Calcium 8.6 B-Natriuretic Peptide 04/26/19 04/26/19 04/27/19 08:35 08:35 05:34 WBC 10.9 RBC 4.27 Hgb 12.1 Hct 39.1 MCV 91.6 MCH 28.3 MCHC 30.9 L RDW 13.7 RDW Differential 45.1 H Plt Count 275 MPV 9.9 Immature Gran % (Auto) 0.300 Neut % (Auto) 89.6 H Lymph % (Auto) 6.6 L Reeves % (Auto) 3.5 Eos % (Auto) 0.0 Baso % (Auto) 0.0 Absolute Neuts (auto) 9.8 H Absolute Lymphs (auto) 0.72 L Total Counted Not Reportable PT 29.5 H INR 2.8 Sodium Potassium Chloride Carbon Dioxide Anion Gap BUN Creatinine Estim Creat Clear Calc Est GFR (MDRD) Af Amer Est GFR (MDRD) Non-Af BUN/Creatinine Ratio Glucose Lactic Acid Calcium B-Natriuretic Peptide 191.8 H 04/27/19 04/27/19 05:34 05:34 WBC RBC Hgb Hct MCV MCH MCHC RDW RDW Differential Plt Count MPV Immature Gran % (Auto) Neut % (Auto) Lymph % (Auto) Reeves % (Auto) Eos % (Auto) Baso % (Auto) Absolute Neuts (auto) Absolute Lymphs (auto) Total Counted PT 33.3 H INR 3.2 Sodium 141 Potassium 4.0 Chloride 104 Carbon Dioxide 34.0 H Anion Gap 3 L BUN 14 Creatinine 0.59 Estim Creat Clear Calc 45.09 Est GFR (MDRD) Af Amer 128 Est GFR (MDRD) Non-Af 106 BUN/Creatinine Ratio 23.7 H Glucose 164 H Lactic Acid Calcium 8.9 B-Natriuretic Peptide Clinical Impression(s) from Imaging Studies Chest X-Ray 04/26/19 08:20 IMPRESSION: Nodular consolidation in the right mid to upper lung. Airspace disease and effusion at the right lung base. CT chest may be helpful for further evaluation Electronically Signed: Tyler Guerrier, at 9:14 EDT Tel , Service support , Chest CT 04/26/19 11:50 IMPRESSION: 1. Multilobar (right lower lobe dominant) consolidation compatible with history of pneumonia. No cavitating process. Follow-up is recommended. 2. Cardiomegaly. 3. Osteopenia and degenerative changes of the thoracic spine. Stable L1 compression fracture. Electronically Signed: Karan Leone MD at 16:56 EDT , Service support , Assessment/Plan All Active Problems (Last Reviewed 03/19/19 @ 13:02 by Elaina Trevino, SHREDDING SPECIALIST-C) Candidiasis of mouth (Acute) Subtherapeutic international normalized ratio (INR) (Acute) Severe sepsis (Acute) CAP (community acquired pneumonia) (Acute) COPD exacerbation (Acute) Supratherapeutic INR (Resolved) RECOMMENDATIONS: 1. Continue antibiotics and scheduled bronchodilators. 2. Continue inhaled corticosteroid. 3. Wean patient to room air while at rest and continue 2 L/min with exertion. 4. Continue nocturnal CPAP therapy with a pressure support of 9 cm of water, per outpatient regimen. 5. Encourage incentive spirometer use and mobilize patient as tolerated. IMPRESSIONS: 1. COPD exacerbation secondary to community-acquired pneumonia At the current time, the patient is maintaining appropriate oxygen saturations. Recommend weaning to room air while at rest and continuing 2 L/min with exertion, per home regimen. Continue scheduled bronchodilators and inhaled corticosteroid. Agree with continuing empiric antimicrobials as ordered. The patient does report subjective improvement in her breathing quality and did have improvement in her leukocytosis noted. If the patient does begin to develop a productive cough, please send sputum for culture. Continue bronchopulmonary hygiene and mobilize patient as tolerated. 2. Heart failure with preserved ejection fraction/pulmonary hypertension Continue current medical management with scheduled diuretic therapy per home regimen. 3. Obstructive sleep apnea Continue nocturnal CPAP with a pressure support of 9 cm of water, per home regimen. 4. Atrial fibrillation/hypertension/hyperlipidemia/morbid obesity Complicates care, management, recovery and prognosis. Okay to continue home medications as indicated. This note was generated with [employer] dictation software. It may contain incorrect words, spelling, and punctuation that were not noted in checking the note before signing. Code Visit Inpatient E&M: 86432 Init Hosp L3
[2019-04-27] MEDS: Ipratropium/Albuterol Sulfate 3 ML AMPUL.NEB INHALATION ×3 (06:59→19:06)
[2019-04-27] MEDS: Budesonide Respules 0.5 MG/2 ML AMPUL.NEB. INHALATION (06:59)
--- NOTE | 2019-04-27 07:42 | PCM.PROGNOTE ---
Subjective: Rocephin and Azithromycin Day #2 The patient is a 73-year-old female with a past medical history of stage III COPD by gold classification, chronic hypoxic respiratory failure on 2 L of oxygen at home, NEVAEH, morbid obesity, hypertension, paroxysmal atrial fibrillation, chronic anticoagulation with warfarin and pulmonary hypertension who presented to the emergency room at [facility] on 04/26/2019 complaining of shortness of breath which had been escalating over the previous 3 days. She also complained of a dry cough but denied fevers, chills, nausea, vomiting. White blood cell count in the emergency department was 15.9 with 85% neutrophils. INR was therapeutic at 2.8. Lactic acid was 0.9. PA and lateral chest x-ray showed nodular consolidation in the right mid to upper lung with airspace disease and effusion at the right base. A noncontrasted CT of the chest showed multilobar consolidation compatible with pneumonia. There was a stable L1 compression fracture. She was given azithromycin and Rocephin in the emergency department and was admitted to the hospital and started on [id number] aerosolized bronchodilators and budesonide. Pulmonary consult was ordered with Dr. Jt Alcantara. Afebrile since admission. She is maintaining appropriate oxygen saturation on a 3 L nasal cannula with a respiratory rate of 18. Blood pressure and heart rate are stable. All lab and imaging was reviewed. INR is 3.2 today. White blood cell count is 10.9 with persistent left shift. Hemoglobin and platelets are normal. Serum bicarb is increased to 34 today, up from 31 yesterday. Creatinine is stable and 0.59 today. - Physical Exam General: Alert, Oriented x3, Cooperative HEENT: Atraumatic Oral: Moist Mucosa Neck: Supple Lungs: No rales, Diminished, Rhonchi, Wheezes - Rare, - - No conversational dyspnea, not tachypneic, no accessory muscle use Cardiovascular: Regular rate, Regular Rhythm, Normal S1, Normal S2, No Gallop Abdomen: Bowel Sounds Present, Soft, Non Tender, Non-Distended, Obese Extremities: No clubbing, No cyanosis, No edema Neurological: Cranial nerves II-XII grossly intact, Neuro grossly intact Vital Signs Temp Pulse Resp BP Pulse Ox 97.3 F L 66 18 124/81 H 95 04/27/19 02:45 04/27/19 06:59 04/27/19 06:59 04/27/19 02:45 04/27/19 06:59 Oxygen Flow Rate (L/min) 3 Oxygen Delivery Method Nasal Cannula Weight: 218 lb 7.649 oz Body Mass Index (BMI) 36.5 Intake and Output for Last 24 Hours 04/25/19 04/26/19 04/27/19 23:59 23:59 23:59 Intake Total 300 / 300 Balance 300 / 300 Laboratory Tests Past 24 Hrs 04/26/19 04/26/19 04/26/19 08:35 08:35 08:35 WBC 15.9 H RBC 4.16 L Hgb 11.9 L Hct 37.7 MCV 90.6 MCH 28.6 MCHC 31.6 L RDW 13.9 RDW Differential 45.9 H Plt Count 246 MPV 9.6 Immature Gran % (Auto) 0.200 Neut % (Auto) 84.6 H Lymph % (Auto) 6.8 L Faulkner % (Auto) 8.2 Eos % (Auto) 0.1 Baso % (Auto) 0.1 Absolute Neuts (auto) 13.5 H Absolute Lymphs (auto) 1.08 Total Counted Not Reportable PT INR Sodium 139 Potassium 4.0 Chloride 102 Carbon Dioxide 31.0 Anion Gap 6 BUN 10 Creatinine 0.48 L Estim Creat Clear Calc 45.09 Est GFR (MDRD) Af Amer 161 Est GFR (MDRD) Non-Af 133 BUN/Creatinine Ratio 20.6 H Glucose 150 H Lactic Acid 0.9 Calcium 8.6 B-Natriuretic Peptide 04/26/19 04/26/19 04/27/19 08:35 08:35 05:34 WBC 10.9 RBC 4.27 Hgb 12.1 Hct 39.1 MCV 91.6 MCH 28.3 MCHC 30.9 L RDW 13.7 RDW Differential 45.1 H Plt Count 275 MPV 9.9 Immature Gran % (Auto) 0.300 Neut % (Auto) 89.6 H Lymph % (Auto) 6.6 L Faulkner % (Auto) 3.5 Eos % (Auto) 0.0 Baso % (Auto) 0.0 Absolute Neuts (auto) 9.8 H Absolute Lymphs (auto) 0.72 L Total Counted Not Reportable PT 29.5 H INR 2.8 Sodium Potassium Chloride Carbon Dioxide Anion Gap BUN Creatinine Estim Creat Clear Calc Est GFR (MDRD) Af Amer Est GFR (MDRD) Non-Af BUN/Creatinine Ratio Glucose Lactic Acid Calcium B-Natriuretic Peptide 191.8 H 04/27/19 04/27/19 05:34 05:34 WBC RBC Hgb Hct MCV MCH MCHC RDW RDW Differential Plt Count MPV Immature Gran % (Auto) Neut % (Auto) Lymph % (Auto) Faulkner % (Auto) Eos % (Auto) Baso % (Auto) Absolute Neuts (auto) Absolute Lymphs (auto) Total Counted PT 33.3 H INR 3.2 Sodium 141 Potassium 4.0 Chloride 104 Carbon Dioxide 34.0 H Anion Gap 3 L BUN 14 Creatinine 0.59 Estim Creat Clear Calc 45.09 Est GFR (MDRD) Af Amer 128 Est GFR (MDRD) Non-Af 106 BUN/Creatinine Ratio 23.7 H Glucose 164 H Lactic Acid Calcium 8.9 B-Natriuretic Peptide Medical Necessity - Tobacco Use Smoking Status: Never smoker Assessment/Plan All Active Problems (Last Reviewed 03/19/19 @ 13:02 by Elaina Trevino, CLINICAL TRIAL HEAD-C) Candidiasis of mouth (Acute) Subtherapeutic international normalized ratio (INR) (Acute) Severe sepsis (Acute) CAP (community acquired pneumonia) (Acute) COPD exacerbation (Acute) Supratherapeutic INR (Resolved) Impressions 1. Acute exacerbation COPD secondary to community-acquired pneumonia 2. History of diastolic congestive heart failure with preserved ejection fraction 3. Pulmonary hypertension 4. Obstructive sleep apnea on CPAP 5. Paroxysmal atrial fibrillation 6. Hypertension 7. Hyperlipidemia 8. Morbid obesity 9. Stage II diastolic dysfunction 10. Chronic anticoagulation with warfarin 11. Chronic respiratory failure with hypoxia-on 2 L/min nasal O2 chronic Start azithromycin and Rocephin, initially started in the emergency department on 04/26/2019 Hold warfarin today and recheck PT/INR a.m. Liver panel, magnesium, phosphorus, respiratory panel, Legionella and streptococcal antigens in the urine now Continue budesonide and aerosolized bronchodilators Discussed with Dr. Alcantara Wean oxygen Code Visit Inpatient E&M: 71383 Subs Hosp L2
[2019-04-27 08:23] LABS: AST(SGOT) 10 U/L (15-37); Alanine Aminotransfer ALT/SGPT 18 U/L (13-56); Albumin, Serum 2.8 g/dL (3.2-5.0); Alkaline Phosphatase 70 U/L (45-117); Magnesium 2.3 mg/dL (1.6-2.6); Phosphorus 3.4 mg/dL (2.5-4.9); Protein, Total 6.8 g/dL (6.4-8.2)
[2019-04-27 08:34] LABS: Erythrocyte Sedimentation Rate 49 mm/hr (0-30)
[2019-04-27 08:55] LABS: Hemoglobin A1c 6.5 % (4.2-6.3)
--- NOTE | 2019-04-27 10:20 | CASEMGMT ---
MACK MCKEON Face to Face with patient for initial transition planning/care coordination assessment. RN CM introduced self and role at [facility]. Patient lying in bed, alert and oriented. Patient willing to participate in assessment and is able to answer all questions appropriately. Care providers, pharmacy, and demographics verified. Patient wishes to discharge home, denies need for home health at this time. Patient states he has no further needs or concerns at this time. CM to follow for discharge planning needs that may arise. PCP: Santy Specialists: Partha, pulmonology; Kaz, cardiology Preferred Pharmacy: [facility] Insurance: [employer] PPO Prescription Benefit: yes Living Will/HPOA: yes, daughter Unique Retana LNOK: daughter Living Arrangements: Patient lives alone in an apartment in independent custodial. Patient states she is independent at home. Elevator to reach apartment Transportation: self/daughter DME/HHC: patient states she has cane, walker, cpap, nebulizer, portable and stationary concentrator on 3lpm of oxygen through [facility]. No previous SNF or HHC. Disposition Plan: Patient to discharge home with family support and follow-up plans in place. Nicolasa SCOTT, RN, CM
[2019-04-27] MEDS: dilTIAZem CD 120 MG Capsule PO ×2 (10:56→21:23)
[2019-04-27] MEDS: NYSTATIN 500,000 UNIT/5 ML UDC 500000 UNIT PO ×3 (10:56→21:23)
[2019-04-27] MEDS: Aspirin E.C. 81 MG Tablet PO (10:56)
[2019-04-27] MEDS: Ceftriaxone 1 GM/50 ML BAG IV (10:59)
[2019-04-27] MEDS: 0.9% NaCl Peripheral Flush Adult/Peds IV (11:02)
[2019-04-28] VITALS (19 sets, daily range): BP systolic 104–119; BP diastolic 65–74; PULSE 61–90; RESP 17–22; TEMP 36.2–36.6; O2SAT 3–100
[2019-04-28] MEDS: Albuterol 2.5 MG/3 ML VIAL.NEB. INHALATION (03:11)
[2019-04-28 06:32] LABS: International Normalized Ratio 3.1; Prothrombin Time (Protime)PT. 32.1 SECONDS (11.7-14.9)
--- NOTE | 2019-04-28 06:45 | PCM.PN.PUL ---
Subjective: The patient was seen and examined at the bedside this morning. Events from the last 24 hours have been reviewed. The patient is currently afebrile, hemodynamically stable and maintaining appropriate oxygen saturations on 3 L/min via nasal cannula. The patient was taken off of nasal cannula supplemental oxygen while I was at the bedside this morning and was able to maintain appropriate oxygen saturations while at rest. She does report improvement in her overall breathing quality since being started on antibiotics. She has been unable to expectorate any sputum to be sent for culture. Objective: The patient's most recent lab work, culture data and imaging studies have all been personally reviewed. Strep and urine Legionella antigens were both negative. Respiratory viral panel was negative. Blood cultures are currently pending. A CT chest was completed on April 26 and revealed multifocal areas of airspace disease bilaterally. - Physical Exam General: Alert, Oriented x3, Cooperative, No apparent distress, - - Currently sitting in bedside recliner. HEENT: Atraumatic, PERRLA, Normocephalic Oral: No Gingival or Mucosal Lesions/ Ulcerations Neck: Supple, No Nodes, Trachea Midline Lungs: Diminished, - - Inspiratory squeak noted. No wheezes, rales or rhonchi. Cardiovascular: Regular rate, Regular Rhythm, Normal S1, Normal S2, No murmurs Abdomen: Bowel Sounds Present, Soft, Non Tender, Obese Extremities: No clubbing, No cyanosis, No edema Skin: No breakdown Musculoskeletal: No Muscle Wasting Lymphatic: No Cervical, Supraclavicular, or Inguinal Adenopathy Neurological: Cranial nerves II-XII grossly intact, Neuro grossly intact Psych/Mental Status: Alert and oriented to time, place, person, mood and affect Vital Signs Temp Pulse Resp BP Pulse Ox 97.7 F L 61 22 H 119/73 100 04/28/19 02:00 04/28/19 04:12 04/28/19 03:11 04/28/19 02:00 04/28/19 02:00 Oxygen Flow Rate (L/min) 3 Oxygen Delivery Method Nasal Cannula Weight: 218 lb 7.649 oz Body Mass Index (BMI) 36.5 Intake and Output for Last 24 Hours 04/26/19 04/27/19 04/28/19 23:59 23:59 23:59 Intake Total 1409 / 1409 100 / 100 Balance 1409 / 1409 100 / 100 Microbiology Past 72 Hours 07/01/19 13:25 Streptococcus pneumoniae Antigen (M - Final Urine, Clean Catch 04/27/19 13:25 Legionella Antigen - Final Urine, Clean Catch 04/27/19 10:54 Respiratory Panel (PCR) - Final Mucosa - Nose Laboratory Tests Past 24 Hrs 04/27/19 04/27/19 04/27/19 05:34 05:34 05:34 ESR 49 H PT INR Hemoglobin A1c 6.5 H Phosphorus 3.4 Magnesium 2.3 Total Bilirubin 0.30 Direct Bilirubin 0.10 AST 10 L ALT 18 Alkaline Phosphatase 70 C-React Prot Ext Range 185.00 H Total Protein 6.8 Albumin 2.8 L Globulin 4.0 04/28/19 06:05 ESR PT 32.1 H INR 3.1 Hemoglobin A1c Phosphorus Magnesium Total Bilirubin Direct Bilirubin AST ALT Alkaline Phosphatase C-React Prot Ext Range Total Protein Albumin Globulin Clinical Impression(s) from Imaging Studies Chest X-Ray 04/26/19 08:20 IMPRESSION: Nodular consolidation in the right mid to upper lung. Airspace disease and effusion at the right lung base. CT chest may be helpful for further evaluation Electronically Signed: Tyler Guerrier, at 9:14 EDT Tel , Service support , Chest CT 04/26/19 11:50 IMPRESSION: 1. Multilobar (right lower lobe dominant) consolidation compatible with history of pneumonia. No cavitating process. Follow-up is recommended. 2. Cardiomegaly. 3. Osteopenia and degenerative changes of the thoracic spine. Stable L1 compression fracture. Electronically Signed: Karan Leone MD at 16:56 EDT , Service support , Medical Necessity - Tobacco Use Smoking Status: Never smoker Assessment/Plan All Active Problems (Last Reviewed 03/19/19 @ 13:02 by Elaina Trevino, OIL LEASE OPERATOR-C) Candidiasis of mouth (Acute) Subtherapeutic international normalized ratio (INR) (Acute) Severe sepsis (Acute) CAP (community acquired pneumonia) (Acute) COPD exacerbation (Acute) Supratherapeutic INR (Resolved) RECOMMENDATIONS: 1. Continue antibiotics and scheduled bronchodilators. The patient can likely be transitioned to a p.o. antibiotic regimen to complete a 7-day treatment course. 2. Continue inhaled corticosteroids. 3. Continue patient on 2 L/min of supplemental oxygen only with exertion. 4. Continue nocturnal CPAP therapy with a pressure support of 9 cm of water, per outpatient regimen. 5. Encourage incentive spirometer use and mobilize patient as tolerated. IMPRESSIONS: 1. COPD exacerbation secondary to community-acquired pneumonia At the current time, the patient is maintaining appropriate oxygen saturations. Recommend weaning to room air while at rest and continuing 2 L/min with exertion, per home regimen. Continue scheduled bronchodilators and inhaled corticosteroid. Continue antimicrobials as ordered. The patient can likely be transitioned to p.o. antibiotic course beginning tomorrow with plans to complete a total of 7 days of treatment. Continue bronchopulmonary hygiene and mobilize patient as tolerated. Perform walking oximetry study prior to consideration for discharge from the hospital. The patient should follow-up in the pulmonary medicine clinic within 2 weeks of discharge. 2. Heart failure with preserved ejection fraction/pulmonary hypertension Continue current medical management with scheduled diuretic therapy per home regimen. 3. Obstructive sleep apnea Continue nocturnal CPAP with a pressure support of 9 cm of water, per home regimen. 4. Atrial fibrillation/hypertension/hyperlipidemia/morbid obesity Complicates care, management, recovery and prognosis. Okay to continue home medications as indicated. This note was generated with [employer] software. It may contain incorrect words, spelling, and punctuation that were not noted in checking the note before signing. Code Visit Inpatient E&M: 68194 Subs Hosp L2
[2019-04-28] MEDS: Ipratropium/Albuterol Sulfate 3 ML AMPUL.NEB INHALATION ×4 (06:53→19:14)
--- NOTE | 2019-04-28 07:16 | PN_ITS ---
Subjective: Day #3 antibiotics-Rocephin and azithromycin Afebrile since admission Vital signs are stable. She is 100% saturated on a 3 L nasal cannula at rest. All lab was personally reviewed. Warfarin was held on 119 and the INR today is 3.1. Hemoglobin A1c is 6.5 and the patient does not carry a diagnosis of diabetes mellitus type 2. Legionella and streptococcal antigens in the urine were negative. Respiratory panel was negative. Blood cultures are pending. Patient was not able to give a sputum. she states she is getting better but is not at baseline yet. cough is non-productive denies CP dropped down to 87% on RA at rest. Objective: General: Alert, oriented ?3, cooperative, pleasant and appropriate Neck: Supple, trachea midline, no enlarged cervical nodes, no enlarged supraclavicular nodes Lungs: diminished, symmetric chest expansion, not tachypneic at rest, no conversational dyspnea, no accessory muscle use at rest, occasional high pitched squeak Heart: Regular rate and rhythm, normal S1, normal S2, no murmur, no gallop, no rub Abdomen: Soft, NT, ND, bowel sounds present Extremities: No clubbing, no peripheral edema, no cyanosis - Physical Exam Vital Signs Temp Pulse Resp BP Pulse Ox 97.7 F L 61 22 H 119/73 100 04/28/19 02:00 04/28/19 04:12 04/28/19 03:11 04/28/19 02:00 04/28/19 02:00 Oxygen Flow Rate (L/min) 3 Oxygen Delivery Method Nasal Cannula Weight: 218 lb 7.649 oz Body Mass Index (BMI) 36.5 Intake and Output for Last 24 Hours 04/26/19 04/27/19 04/28/19 23:59 23:59 23:59 Intake Total 1409 / 1409 100 / 100 Balance 1409 / 1409 100 / 100 Microbiology Past 72 Hours 04/27/19 13:25 Streptococcus pneumoniae Antigen (M - Final Urine, Clean Catch 04/27/19 13:25 Legionella Antigen - Final Urine, Clean Catch 04/27/19 10:54 Respiratory Panel (PCR) - Final Mucosa - Nose Laboratory Tests Past 24 Hrs 04/27/19 04/27/19 04/27/19 05:34 05:34 05:34 ESR 49 H PT INR Hemoglobin A1c 6.5 H Phosphorus 3.4 Magnesium 2.3 Total Bilirubin 0.30 Direct Bilirubin 0.10 AST 10 L ALT 18 Alkaline Phosphatase 70 C-React Prot Ext Range 185.00 H Total Protein 6.8 Albumin 2.8 L Globulin 4.0 04/28/19 06:05 ESR PT 32.1 H INR 3.1 Hemoglobin A1c Phosphorus Magnesium Total Bilirubin Direct Bilirubin AST ALT Alkaline Phosphatase C-React Prot Ext Range Total Protein Albumin Globulin Medical Necessity - Tobacco Use Smoking Status: Never smoker Assessment/Plan All Active Problems (Last Reviewed 03/19/19 @ 13:02 by Elaina Trevino, COLLEGE SCOUTING COORDINATOR-C) Candidiasis of mouth (Acute) Subtherapeutic international normalized ratio (INR) (Acute) Severe sepsis (Acute) CAP (community acquired pneumonia) (Acute) COPD exacerbation (Acute) Supratherapeutic INR (Resolved) Impressions 1. Acute exacerbation COPD secondary to community-acquired pneumonia 2. History of diastolic congestive heart failure with preserved ejection fraction 3. Pulmonary hypertension 4. Obstructive sleep apnea on CPAP 5. Paroxysmal atrial fibrillation 6. Hypertension 7. Hyperlipidemia 8. Morbid obesity 9. Stage II diastolic dysfunction 10. Chronic anticoagulation with warfarin 11. Chronic respiratory failure with hypoxia-on 2 L/min nasal O2 chronic 12. DM II - new dx 13. Thrush Continue azithromycin and Rocephin Wean oxygen check a pulse ox with ambulation on 2 LPM which is her baseline Change the diet to a cardiac 1600-calorie diet Give only 1 mg of warfarin today and recheck PT/INR in the a.m. Code Visit Inpatient E&M: 75576 Subs Hosp L2
[2019-04-28] MEDS: Aspirin E.C. 81 MG Tablet PO (10:16)
[2019-04-28] MEDS: dilTIAZem CD 120 MG Capsule PO ×2 (10:16→21:25)
[2019-04-28] MEDS: 0.9% NaCl Peripheral Flush Adult/Peds IV (10:17)
[2019-04-28] MEDS: Ceftriaxone 1 GM/50 ML BAG IV (10:17)
--- NOTE | 2019-04-28 10:58 | NURSING ---
POX 96% AT REST ON RA, AMBULATING ON 2L, POX STAYED BETWEEN 90-92%, HR BETWEEN 90-115, RESPS 22 FOR APPROX 25 FT. THEN POX DROPPED TO 88% AND HR INCREASED TO 150S, O2 INCREASED TO 3L, POX STAYED AT 90% AND HR RETURNED TO UPPER 90S.
[2019-04-28] MEDS: NYSTATIN 500,000 UNIT/5 ML UDC 500000 UNIT PO ×3 (13:36→21:25)
--- NOTE | 2019-04-28 16:21 | NURSING ---
DR PHAN AWARE OF 6 BEAT RUN VTACH
--- NOTE | 2019-04-28 17:29 | NURSING ---
REPORT CALLED TO MACRINA Knox RN. PT TRANSFERRING TO [facility].
--- NOTE | 2019-04-28 18:16 | EKG12_ITS ---
Test Reason : CP Blood Pressure : / mmHG Vent. Rate : 073 BPM Atrial Rate : 084 BPM P-R Int : 000 ms QRS Dur : 092 ms QT Int : 436 ms P-R-T Axes : 000 002 017 degrees QTc Int : 480 ms Atrial fibrillation with premature ventricular or aberrantly conducted complexes Abnormal ECG Confirmed by IMELDA RHODES, LINDA ([id number]), multimedia editor PREETHI SABA ([id number]) on 05/04/2019 1:53:41 PM Referred By: SYLVESTER Confirmed By:LINDA SEGURA MD
[2019-04-28] MEDS: Budesonide Respules 0.5 MG/2 ML AMPUL.NEB. INHALATION (19:15)
[2019-04-29] VITALS (9 sets, daily range): BP systolic 117–124; BP diastolic 61–66; PULSE 46–85; RESP 18–24; TEMP 36.3–36.8; O2SAT 96–97
[2019-04-29] MEDS: Albuterol 2.5 MG/3 ML VIAL.NEB. INHALATION (04:20)
[2019-04-29 05:12] LABS: International Normalized Ratio 2.2
[2019-04-29] MEDS: Budesonide Respules 0.5 MG/2 ML AMPUL.NEB. INHALATION (06:50)
[2019-04-29] MEDS: Ipratropium/Albuterol Sulfate 3 ML AMPUL.NEB INHALATION ×2 (06:50→11:04)
--- NOTE | 2019-04-29 07:14 | PCM.PN.PUL ---
Subjective: The patient was seen and examined at the bedside this morning. Events from the last 24 hours have been reviewed. The patient is currently afebrile, hemodynamically stable and maintaining appropriate oxygen saturations on 3 L/min via nasal cannula. INR is stable this morning at 2.2. The patient has been noncompliant with the use of nocturnal CPAP therapy. Yesterday, the patient was noted to be maintaining appropriate oxygen saturations on room air, while at rest. She did require 2 L/min of supplemental oxygen with ambulation, which is her baseline outpatient requirement. The patient's exertional shortness of breath complaints continue to be out of proportion to any objective findings. She has been unable to expectorate any form of sputum. Objective: The patient's most recent lab work, culture data and imaging studies have all been personally reviewed. Strep and urine Legionella antigens were both negative. Respiratory viral panel was negative. Blood cultures are currently pending. A CT chest was completed on April 26 and revealed multifocal areas of airspace disease bilaterally. - Physical Exam General: Alert, Cooperative, No apparent distress, - - Sitting in bedside recliner. HEENT: Atraumatic, PERRLA, Normocephalic Oral: No Gingival or Mucosal Lesions/ Ulcerations Neck: Supple, No Nodes, Trachea Midline Lungs: No rhonchi, No wheeze, No rales, Diminished Cardiovascular: Regular rate, Regular Rhythm, Normal S1, Normal S2, No murmurs Abdomen: Bowel Sounds Present, Soft, Non Tender, Obese Extremities: No clubbing, No cyanosis, No edema Skin: No breakdown Musculoskeletal: No Tenderness to Palpation of Joints or Extremities, No Muscle Wasting Lymphatic: No Cervical, Supraclavicular, or Inguinal Adenopathy Neurological: Cranial nerves II-XII grossly intact, Neuro grossly intact Psych/Mental Status: Alert and oriented to time, place, person, mood and affect Vital Signs Temp Pulse Resp BP Pulse Ox 98.3 F 75 18 120/66 97 04/29/19 03:20 04/29/19 04:23 04/29/19 04:23 04/29/19 03:20 04/29/19 03:20 Oxygen Flow Rate (L/min) [ 2 AMBULATION with Oxygen] Oxygen Flow Rate (L/min) 3 Oxygen Delivery Method Nasal Cannula Weight: 218 lb 14.704 oz Body Mass Index (BMI) 36.5 Intake and Output for Last 24 Hours 04/27/19 04/28/19 04/29/19 23:59 23:59 23:59 Intake Total 1409 / 1409 515 / 515 360 / 360 Balance 1409 / 1409 515 / 515 360 / 360 Microbiology Past 72 Hours 04/26/19 08:47 Blood Culture - Preliminary Blood Culture (Wb) #2 - No Site/Description Given No growth in 48 hours. 04/26/19 08:35 Blood Culture - Preliminary Blood Culture (Wb) - Left Forearm No growth in 48 hours. 04/27/19 13:25 Streptococcus pneumoniae Antigen (M - Final Urine, Clean Catch 04/27/19 13:25 Legionella Antigen - Final Urine, Clean Catch 04/27/19 10:54 Respiratory Panel (PCR) - Final Mucosa - Nose Laboratory Tests Past 24 Hrs 04/29/19 04:44 PT 24.0 H INR 2.2 Clinical Impression(s) from Imaging Studies Chest X-Ray 04/26/19 08:20 IMPRESSION: Nodular consolidation in the right mid to upper lung. Airspace disease and effusion at the right lung base. CT chest may be helpful for further evaluation Electronically Signed: Tyler Guerrier, at 9:14 EDT Tel , Service support , Chest CT 04/26/19 11:50 IMPRESSION: 1. Multilobar (right lower lobe dominant) consolidation compatible with history of pneumonia. No cavitating process. Follow-up is recommended. 2. Cardiomegaly. 3. Osteopenia and degenerative changes of the thoracic spine. Stable L1 compression fracture. Electronically Signed: Karan Leone MD at 16:56 EDT , Service support , Medical Necessity - Tobacco Use Smoking Status: Never smoker Assessment/Plan All Active Problems (Last Reviewed 03/19/19 @ 13:02 by Elaina Trevino, PAMELA-C) Diabetes mellitus type 2 in obese (Acute) Candidiasis of mouth (Acute) Subtherapeutic international normalized ratio (INR) (Acute) Severe sepsis (Ruled-out) Acute on chronic respiratory failure with hypoxia and hypercapnia (Ruled-out) CAP (community acquired pneumonia) (Acute) COPD exacerbation (Acute) Acute on chronic diastolic (congestive) heart failure (Resolved) Supratherapeutic INR (Resolved) RECOMMENDATIONS: 1. Continue antibiotics and scheduled bronchodilators. The patient can likely be transitioned to a p.o. antibiotic regimen to complete a 7-day treatment course. 2. Continue inhaled corticosteroids. 3. Continue patient on 2 L/min of supplemental oxygen only with exertion. 4. Continue nocturnal CPAP therapy with a pressure support of 9 cm of water, per outpatient regimen. 5. Encourage incentive spirometer use and mobilize patient as tolerated. 6. Recommend outpatient pulmonary follow-up with repeat chest imaging in 6 to 8 weeks. IMPRESSIONS: 1. COPD exacerbation secondary to community-acquired pneumonia At the current time, the patient is maintaining appropriate oxygen saturations. Recommend weaning to room air while at rest and continuing 2 L/min with exertion, per home regimen. Continue scheduled bronchodilators and inhaled corticosteroid. Continue antimicrobials as ordered. The patient can likely be transitioned to p.o. antibiotic course today with plans to complete a total of 7 days of treatment. Continue bronchopulmonary hygiene and mobilize patient as tolerated. Perform walking oximetry study prior to consideration for discharge from the hospital. The patient should follow-up in the pulmonary medicine clinic within 2 weeks of discharge. 2. Heart failure with preserved ejection fraction/pulmonary hypertension Continue current medical management with scheduled diuretic therapy per home regimen. 3. Obstructive sleep apnea Continue nocturnal CPAP with a pressure support of 9 cm of water, per home regimen. 4. Atrial fibrillation/hypertension/hyperlipidemia/morbid obesity Complicates care, management, recovery and prognosis. Okay to continue home medications as indicated. This note was generated with [employer] dictation software. It may contain incorrect words, spelling, and punctuation that were not noted in checking the note before signing. Code Visit Inpatient E&M: 27140 Subs Hosp L2
[2019-04-29] MEDS: NYSTATIN 500,000 UNIT/5 ML UDC 500000 UNIT PO ×2 (08:46→13:48)
[2019-04-29] MEDS: Aspirin E.C. 81 MG Tablet PO (08:46)
[2019-04-29] MEDS: dilTIAZem CD 120 MG Capsule PO (08:52)
--- NOTE | 2019-04-29 08:54 | NURSING ---
Patient wristband would not scan, tried a second wrist band would not scan. Verified meds and patient with Evgeny, charger operator.
[2019-04-29] MEDS: Ceftriaxone 1 GM/50 ML BAG IV (09:57)
--- NOTE | 2019-04-29 11:22 | CASEMGMT ---
LW/POA are not on file. SW spoke w/pt, let her know the forms are not on file and asked her to bring them in as able. Pt states understanding. NITESH Vides
--- NOTE | 2019-04-29 13:25 | CASEMGMT ---
MACK MCKEON NOTE: Per Dr Coyle, she feels pt would benefit from therapy. To room to talk with pt about HHC vs OP therapy. Pt states she is not homebound and made aware insurance requirement is being homebound. Pt agreeable to OP therapy and states would go to [facility]. She states if she is given the script for the therapy that she will follow up @ the hospital herself. She states she is able to drive to the appts. Dr Coyle made aware and script for OP PT and OT eval and treat obtained and given to pt. Pt voices appreciation. Jeane SERVINN MACK CM
--- NOTE | 2019-04-29 13:51 | DCINST_ITS ---
You will use the following diet at home:: Calorie/Carbohydrate Controlled (specify 1200, 1400, etc), Cardiac Your food should be the consistency of: Regular Your liquids should be the consistency of: Regular/Thin Discharge Activity: - - Avoid exposure to any strong smells such as bleach, cleaning products, strong colognes or perfumes, paint fumes and smoke of any kind. Avoid sudden exposure to cold air because this can cause bronchospasm. You may want to cover your mouth when you go outside in the winter. Avoid exposure to anyone who is sick with a cough or sore throat. Call your doctor if you observe: Fever of 101 or Higher, Shortness of breath, Dizziness, Fainting spells, Swelling in the ankles, Chest pain, - - Call your PCP if severe diarrhea ( > 5 stools a day), painful sores in the mouth, painful swallowing, rash or itching. Taking a probiotic such as Lactobacillus or Kefir can help with loose stools while taking antibiotics. Additional Instructions: We are not sure that you had pneumonia at admission. The changes on the CT scan could be due to chronic lung disease and scarring and not to pneumonia. You will need to have follow up imaging in 4-6 weeks to see if the changes have resolved. I think you would really benefit from some physical Therapy. I think that part of the shortness of walking is due to deconditioning or being out of shape. You should try and start walking everyday.......work up to 15 minutes twice a day. I talked with the party planner and she stated the insurance would not cover home PT since you are not home bound. The insurance companies are really cracking down on this. Your INR was too high at admission and we held the warfarin for 2 days. the INR today is therapeutic at 2.2 and you can resume your regular dose of Warfarin. you should have a bleeding time repeated in 1 week. Pending Tests on Discharge: none Allergies/Adverse Reactions: Allergies meloxicam [From Mobic] Adverse Reaction (Verified 04/26/19 08:15) BP WENT UP, STOMACH PAINS tetracycline [Tetracycline] Adverse Reaction (Verified 04/26/19 08:15) GETS BLADDER INFECTION Medications to take at Discharge Aspirin E.C. [Ecotrin] 81 mg PO DAILY@0800 11/21/15 albuterol sulfate HFA 90 mcg/actuation aerosol inhaler 2 puff INHALATION Q6H PRN 11/12/17 Cholecalciferol (VIT D3) [Vitamin D3] 1,000 unit PO DAILY 01/19/19 Furosemide [Lasix] 20 mg PO DAILY PRN 01/19/19 Ipratropium/Albuterol Sulfate [Iprat-Albut 0.5-3(2.5) mg/3 ml] 3 ml IH 4X/DAY 01/19/19 [place]-3S/Dha/Epa/Fish Oil [Fish Oil 1,200 mg Softgel] 1 cap PO DAILY 01/19/19 Warfarin Sodium [Coumadin] 5 mg PO SUMOTUWESA 01/19/19 Warfarin [Coumadin] 2.5 mg PO THFR 01/19/19 formoterol fumarate 20 mcg/2 mL solution for nebulization 2 ml INHALATION Q12H #120 ml 02/02/19 budesonide-formoterol HFA 160 mcg-4.5 mcg/actuation aerosol inhaler 2 puff INHALATION Q12H #10.2 g 02/06/19 diltiazem CD 120 mg capsule,extended release 24 hr 120 mg PO Q12H #180 cap 01/13 Lactobacillus Acidophilus [Florajen] 460 mg PO DAILY 04/26/19 Cefdinir [Omnicef [equiv]] 300 mg PO Q12H #6 cap 04/29/19 Nystatin 500,000 unit PO 4X/DAY #140 ml 04/29/19 The following prescriptions were given: Nystatin 500,000 unit PO 4X/DAY #140 ml Transmission Status: Pending to [facility] Cefdinir [Omnicef [equiv]] 300 mg PO Q12H #6 cap Transmission Status: Pending to [facility] Primary Care Physician: Aurora Madera MD [Primary Care Provider] - Please follow up with your Primary Care Physician in: 5-7 days Test Results: Test results from this visit will be discussed in further detail at your follow- up appointment, if applicable. Please Follow Up With: Gregorio Chavis MD When: 2 weeks Proposed Discharge Date: 04/29/19
--- NOTE | 2019-04-29 14:04 | PCM.DC.SUM ---
Discharge Date and Diagnosis - Problem List Patient Problems: Active and Suspected Problems (Last Reviewed 03/19/19 @ 13:02 by RONIT Reddy) Diabetes mellitus type 2 in obese (Acute) Date of Admission: 04/26/19 Date of Discharge: 04/29/19 - Primary Discharge Diagnosis Active and Suspected Problems (Last Reviewed 03/19/19 @ 13:02 by RONIT Reddy) Acute exacerbation of COPD Community-acquired pneumonia Diabetes mellitus type 2 in obese (Acute) - new diagnosis Thrush Supratherapeutic INR - Secondary Discharge Diagnosis Chronic Problems (Last Reviewed 03/19/19 @ 13:02 by RONIT Reddy) Chronic anticoagulation (Chronic) with warfarin Grade II diastolic dysfunction (Chronic) Chronic atrial fibrillation (Chronic) Essential hypertension (Chronic) NEVAEH (obstructive sleep apnea) (Chronic) Noncompliance with CPAP treatment (Chronic) Morbid obesity (Chronic) Iron deficiency anemia (Chronic) Insomnia (Chronic) Patent foramen ovale (Chronic) Left ventricular hypertrophy (Chronic) Stage 3 severe COPD by GOLD classification (Chronic) Pulmonary hypertension (Chronic) Hyperlipidemia (Chronic) Atrial septal defect (Chronic) Chest pain, atypical (Chronic) Chronic deconditioning/generalized weakness Hospital Course and Treatment Imaging Results: Clinical Impression(s) from Imaging Studies Chest X-Ray 04/26/19 08:20 IMPRESSION: Nodular consolidation in the right mid to upper lung. Airspace disease and effusion at the right lung base. CT chest may be helpful for further evaluation Electronically Signed: Tyler Guerrier, at 9:14 EDT Tel , Service support , Chest CT 04/26/19 11:50 IMPRESSION: 1. Multilobar (right lower lobe dominant) consolidation compatible with history of pneumonia. No cavitating process. Follow-up is recommended. 2. Cardiomegaly. 3. Osteopenia and degenerative changes of the thoracic spine. Stable L1 compression fracture. Electronically Signed: Karan Leone MD at 16:56 EDT , Service support , Laboratory Results - last 24 hr 04/29/19 04:44 PT 24.0 H INR 2.2 Microbiology 04/26/19 08:47 Blood Culture (Wb) #2 - No Site/Description Given Blood Culture - Preliminary No growth in 48 hours. 04/26/19 08:35 Blood Culture (Wb) - Left Forearm Blood Culture - Preliminary No growth in 48 hours. 04/27/19 13:25 Urine, Clean Catch Streptococcus pneumoniae Antigen (M - Final 04/27/19 13:25 Urine, Clean Catch Legionella Antigen - Final 04/27/19 10:54 Mucosa - Nose Respiratory Panel (PCR) - Final Dr. Jt Alcantara-pulmonary medicine Operations: None Procedures: None Summary of Care Provided: The patient is a 73-year-old female with a past medical history of stage III COPD by gold classification, chronic hypoxic respiratory failure on 2 L of oxygen at home, NEVAEH, morbid obesity, hypertension, paroxysmal atrial fibrillation, chronic anticoagulation with warfarin and pulmonary hypertension who presented to the emergency room at [facility] on 04/26/2019 complaining of shortness of breath which had been escalating over the previous 3 days. She also complained of a dry cough but denied fevers, chills, nausea, vomiting. White blood cell count in the emergency department was 15.9 with 85% neutrophils. INR was therapeutic at 2.8. Lactic acid was 0.9. An ESR was increased at 49 and the CRP was increased at 185. PA and lateral chest x-ray showed nodular consolidation in the right mid to upper lung with airspace disease and effusion at the right base. A noncontrasted CT of the chest showed multilobar consolidation compatible with pneumonia. There was a stable L1 compression fracture. She was given azithromycin and Rocephin in the emergency department and was admitted to the hospital and started on [id number] aerosolized bronchodilators and budesonide. Rocephin and Azithromycin were continued. Pulmonary consult was ordered with Dr. Jt Alcantara. Dr. Alcantara questioned whether the changes on the CT are due to PNA or to scarring. He agreed with continuing the antibiotics and the budesonide BID and recommended a F/U CT in 4-6 weeks to see if the infiltrates have resolved. while in the hospital she had PAF but, the rate was well controlled and the pt can not tell when she goes in and out of AF. She was afebrile for the duration of her hospital stay. She had a rare cough. The elevated white blood cell count at admission of 15.9 the following day dropped to 10.9 and I suspect the leukocytosis was due to a stress reaction from shortness of breath. INR was supratherapeutic on 04/27/2019 at 3.2 and the Coumadin was held. INR on 04/29/2019 was 2.2 and she was instructed to restart the Coumadin. She felt better and was ambulating on a 2 LPM NC and maintaining an appropriate oxygen saturation. Auscultation of her lungs on 04/29/2019 revealed them to be clear to auscultation with no wheezes, squeaks or rales. she was discharged home with a RX for Omnicef to complete 7 days of treatment for CAP. she will follow up in the pulmonary Clinic in 2 weeks. She was given a referral for OP PT because I feel the SOB is in part due to deconditioning. She was also given a prescription for nystatin swish and swallow for treatment of thrush. She will follow-up with Dr. Madera in 5 to 7 days. General: Alert, oriented ?3, cooperative, pleasant and appropriate Neck: Supple, trachea midline, no enlarged cervical nodes, no enlarged supraclavicular nodes Lungs: diminished, symmetric chest expansion, not tachypneic at rest, no conversational dyspnea, no accessory muscle use at rest, CTA today with better air exchange Heart: Regular rate and rhythm, normal S1, normal S2, no murmur, no gallop, no rub Abdomen: Soft, NT, ND, bowel sounds present Extremities: No clubbing, no peripheral edema, no cyanosis This note was generated with [employer] dictation software. It may contain incorrect words, spelling, and punctuation that were not noted in checking the note before signing. Patient Problems: Active and Suspected Problems (Last Reviewed 03/19/19 @ 13:02 by Elaina Trevino NP-C) Diabetes mellitus type 2 in obese (Acute) - Physical Exam Vital Signs Temp Pulse Resp BP Pulse Ox 97.4 F L 61 24 H 124/61 H 97 04/29/19 08:39 04/29/19 11:04 04/29/19 11:04 04/29/19 08:39 04/29/19 08:39 Oxygen Flow Rate (L/min) [ 2 AMBULATION with Oxygen] Oxygen Flow Rate (L/min) 3 Oxygen Delivery Method Nasal Cannula Weight: 218 lb 14.704 oz Body Mass Index (BMI) 36.5 Intake and Output for Last 24 Hours 04/27/19 04/28/19 04/29/19 23:59 23:59 23:59 Intake Total 1409 / 1409 515 / 515 1272 / 1272 Balance 1409 / 1409 515 / 515 1272 / 1272 Microbiology Past 72 Hours 04/26/19 08:47 Blood Culture - Preliminary Blood Culture (Wb) #2 - No Site/Description Given No growth in 48 hours. 04/26/19 08:35 Blood Culture - Preliminary Blood Culture (Wb) - Left Forearm No growth in 48 hours. 04/27/19 13:25 Streptococcus pneumoniae Antigen (M - Final Urine, Clean Catch 04/27/19 13:25 Legionella Antigen - Final Urine, Clean Catch 04/27/19 10:54 Respiratory Panel (PCR) - Final Mucosa - Nose Laboratory Tests Past 24 Hrs 04/29/19 04:44 PT 24.0 H INR 2.2 Discharge Activity: - - Avoid exposure to any strong smells such as bleach, cleaning products, strong colognes or perfumes, paint fumes and smoke of any kind. Avoid sudden exposure to cold air because this can cause bronchospasm. You may want to cover your mouth when you go outside in the winter. Avoid exposure to anyone who is sick with a cough or sore throat. Call your doctor if you observe: Fever of 101 or Higher, Shortness of breath, Dizziness, Fainting spells, Swelling in the ankles, Chest pain, - - Call your PCP if severe diarrhea ( > 5 stools a day), painful sores in the mouth, painful swallowing, rash or itching. Taking a probiotic such as Lactobacillus or Kefir can help with loose stools while taking antibiotics. Home Medications: Medications to take at Discharge Aspirin E.C. [Ecotrin] 81 mg PO DAILY@0800 11/21/15 albuterol sulfate HFA 90 mcg/actuation aerosol inhaler 2 puff INHALATION Q6H PRN 11/12/17 Cholecalciferol (VIT D3) [Vitamin D3] 1,000 unit PO DAILY 01/19/19 Furosemide [Lasix] 20 mg PO DAILY PRN 01/19/19 Ipratropium/Albuterol Sulfate [Iprat-Albut 0.5-3(2.5) mg/3 ml] 3 ml IH 4X/DAY 01/19/19 [place]-3S/Dha/Epa/Fish Oil [Fish Oil 1,200 mg Softgel] 1 cap PO DAILY 01/19/19 Warfarin Sodium [Coumadin] 5 mg PO SUMOTUWESA 01/19/19 Warfarin [Coumadin] 2.5 mg PO THFR 01/19/19 formoterol fumarate 20 mcg/2 mL solution for nebulization 2 ml INHALATION Q12H #120 ml 02/02/19 budesonide-formoterol HFA 160 mcg-4.5 mcg/actuation aerosol inhaler 2 puff INHALATION Q12H #10.2 g 02/06/19 diltiazem CD 120 mg capsule,extended release 24 hr 120 mg PO Q12H #180 cap 02/27/19 Lactobacillus Acidophilus [Florajen] 460 mg PO DAILY 04/26/19 Cefdinir [Omnicef [equiv]] 300 mg PO Q12H #6 cap 04/29/19 Nystatin 500,000 unit PO 4X/DAY #140 ml 04/29/19 Following Prescrptions Were Given to Patient: Nystatin 500,000 unit PO 4X/DAY #140 ml Transmission Status: Received by [facility] Cefdinir [Omnicef [equiv]] 300 mg PO Q12H #6 cap Transmission Status: Received by [facility] Primary Care Physician: Aurora Madera MD [Primary Care Provider] - Please follow up with your Primary Care Physician in: 5-7 days Please Follow Up With: Gregorio Chavis MD When: 2 weeks Disposition: Home Minutes spent on discharge:: 30 Patient Condition:: Good Medical Necessity - Tobacco Use Smoking Status: Never smoker Tobacco Use: Non-smoker Meaningful Use Info Meaningful Use Diagnoses (Choose all that apply): None applicable Code Visit Inpatient E&M: 75015 Disch Hosp
--- NOTE | 2019-05-01 14:39 | CASEMGMT ---
MACK MCKEON DC PHONE CALL DC DATE: 04/29/19 DC Disposition: Home with OP therapies Diagnosis on Discharge: Diabetes LACE/STRATA: 09/30 Intro role of CM to patient who states she is doing fine. Does not have questions re: f/u appts, prescriptions or instructions. No care improvement suggestions were given. Lakhwinder SERVINN RN ACM
== END 2019-04-29 15:40 | disposition home or self-care (01) | DRG 190 ==
LOC: ED 09:10 → MS3 10:18 → PCU 04-29 00:48
PROVIDERS: Admitting Provider Internal Medicine; Emergency Provider Emergency Medicine; Family Provider Internal Medicine; PCP Internal Medicine; Visit Provider Internal Medicine
DX: J44.1 Chronic obstructive pulmonary disease with (acute) exacerbation (principal); J18.9 Pneumonia, unspecified organism; J96.11 Chronic respiratory failure with hypoxia; B37.0 Candidal stomatitis; I48.0 Paroxysmal atrial fibrillation; J44.0 Chronic obstructive pulmonary disease with (acute) lower respiratory infection; Z66 Do not resuscitate; Z99.81 Dependence on supplemental oxygen; G47.33 Obstructive sleep apnea (adult) (pediatric); E78.5 Hyperlipidemia, unspecified; E66.01 Morbid (severe) obesity due to excess calories; Z79.01 Long term (current) use of anticoagulants; I11.0 Hypertensive heart disease with heart failure; I27.20 Pulmonary hypertension, unspecified; Z68.36 Body mass index [BMI] 36.0-36.9, adult; E11.9 Type 2 diabetes mellitus without complications; R79.1 Abnormal coagulation profile
CPT/HCPCS: 36415; 71046; 71250; 80048; 80076; 83036; 83605; 83735; 83880; 84100; 85025; 85610; 85652; 86140; 87040; 87449; 87633; 93005; 94640; 94660; 94667; 94668; 97161; 97166; 97530; 97802; 97803; 99285; J7030; J7040; A4216

== ENCOUNTER → 2019-08-13 14:51 | Outpatient (CLI) | payer MEDICARE, SELFPAY ==
[2019-04-26 11:30] VITALS: BMI 36.5
[2019-08-13 17:58] LABS: Absolute Lymphocyte Count 1.69 X10^3/uL (0.83-4.51); Absolute Neutrophil Count 6.5 X10^3/uL (2.0-7.7); Basophil# 0.04 X10^3/uL; Basophil% 0.4 % (0-1); Eosinophil# 0.16 X10^3/uL; Eosinophils% 1.8 % (0-5); Lymphocyte # 1.69 X10^3/ul (4.0); Lymphocyte % 18.6 % (19-41); Mean Corpuscular Hgb 27.1 pg (27.0-32.0); Mean Corpuscular Volume 90.5 fL (81-99); Mean Platelet Vol. 9.7 fl (6.2-12.0); Monocyte# 0.71 X10^3/uL; Monocyte% 7.8 % (0-10); NRBC Flagged by Analyzer 0 % (0-5); Neutrophil # 6.46 X10^3/uL (2.7-7.7); Neutrophil % 71.2 % (47-70); Platelet Count 279 K/mm3 (150-450); RBC Distribution Width CV 13.8 % (11.6-14.6); RBC Distribution Width SD 46.3 fl (35.1-43.9); Red Blood Count 4.42 M/mm3 (4.2-5.4); White Blood Count 9.1 K/mm3 (4.4-11.0)
[2019-08-13 18:37] LABS: CRP 6.06 mg/L (0.0-3.0)
[2019-08-13 18:43] LABS: Erythrocyte Sedimentation Rate 14 mm/hr (0-30)
== END ==
PROVIDERS: Family Provider Internal Medicine; PCP Internal Medicine; Referring Provider Specialist; Visit Provider Specialist
DX: Z96.651 Presence of right artificial knee joint (principal)
CPT/HCPCS: 36415; 85025; 85652; 86140

== ENCOUNTER → 2019-11-02 16:50 | Outpatient (CLI) | payer MEDICARE, SELFPAY ==
[2019-04-26 11:30] VITALS: BMI 36.5
[2019-11-02 17:53] LABS: International Normalized Ratio 2.9; Prothrombin Time (Protime)PT. 30.4 SECONDS (11.7-14.9)
== END ==
PROVIDERS: Family Provider Internal Medicine; PCP Internal Medicine; Referring Provider Internal Medicine; Visit Provider Internal Medicine
DX: I48.11 Longstanding persistent atrial fibrillation (principal)
CPT/HCPCS: 85610

== ENCOUNTER 2020-04-12 12:22 | Outpatient (RCR) | payer MEDICARE, SELFPAY ==
[2020-03-24 09:44] VITALS: BMI 35.3
[2020-04-12 13:44] LABS: International Normalized Ratio 2.7; Prothrombin Time (Protime)PT. 28.6 SECONDS (11.7-14.9)
== END 2020-04-12 18:00 | disposition home or self-care (01) ==
LOC: LAB 12:22
PROVIDERS: PCP Internal Medicine; Referring Provider Internal Medicine Cardiovascular Disease; Visit Provider Internal Medicine Cardiovascular Disease
DX: I48.20 Chronic atrial fibrillation, unspecified (principal); Z79.899 Other long term (current) drug therapy
CPT/HCPCS: 36415; 85610

== ENCOUNTER 2020-06-08 13:26 | Outpatient (RCR) | payer MEDICARE, SELFPAY ==
[2020-03-24 09:44] VITALS: BMI 35.3
[2020-06-08 12:49] VITALS: BMI 35.6
[2020-06-08 14:31] LABS: International Normalized Ratio 3.6; Prothrombin Time (Protime)PT. 35.4 SECONDS (11.7-14.9)
== END 2020-06-27 18:00 | disposition home or self-care (01) ==
LOC: LAB 13:26
PROVIDERS: PCP Internal Medicine; Referring Provider Internal Medicine Cardiovascular Disease; Visit Provider Internal Medicine Cardiovascular Disease
DX: I48.20 Chronic atrial fibrillation, unspecified (principal); Z79.899 Other long term (current) drug therapy
CPT/HCPCS: 36415; 85610

== ENCOUNTER 2020-08-10 05:28 | Inpatient (IN) | payer MEDICARE, SELFPAY ==
[2020-07-19 13:27] VITALS: BMI 35.3
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
[2020-08-01 13:25] LABS: Absolute Lymphocyte Count 1.62 X10^3/uL (0.83-4.51); Absolute Neutrophil Count 5.2 X10^3/uL (2.0-7.7); Basophil# 0.03 X10^3/uL; Basophil% 0.4 % (0-1); Eosinophil# 0.17 X10^3/uL; Eosinophils% 2.2 % (0-5); Hematocrit 38.5 % (37-47); Hemoglobin 12.8 g/dL (12.0-15.0); Lymphocyte # 1.62 X10^3/ul (4.0); Lymphocyte % 21.3 % (19-41); Mean Corp Hgb Conc 33.2 g/dL (32-36); Mean Corpuscular Hgb 31.8 pg (27.0-32.0); Mean Corpuscular Volume 95.8 fL (81-99); Mean Platelet Vol. 9.5 fl (6.2-12.0); Monocyte# 0.54 X10^3/uL; Monocyte% 7.1 % (0-10); NRBC Flagged by Analyzer 0 % (0-5); Neutrophil % 68.6 % (47-70); Platelet Count 199 K/mm3 (150-450); RBC Distribution Width SD 51.2 fl (35.1-43.9); Red Blood Count 4.02 M/mm3 (4.2-5.4); White Blood Count 7.6 K/mm3 (4.4-11.0)
[2020-08-01 13:55] LABS: Anion Gap 4 (5-15); BUN 13 mg/dL (7-18); BUN/Creat Ratio 18.4 RATIO (10-20); Calcium,Total 8.5 mg/dL (8.5-10.1); Chloride 108 mmol/L (98-107); Creatinine, Serum 0.71 mg/dL (0.55-1.02); EST Glomerular Filtration Rate 86 mL/min (>60); Est Glom Filt Rate - Afr Amer 104 mL/min (>60); Glucose 174 mg/dL (74-106); Partial Thromboplast Time 30.8 Seconds (24.1-36.2); Potassium 3.8 mmol/L (3.5-5.1); Sodium Level 143 mmol/L (136-145)
[2020-08-01 14:07] LABS: International Normalized Ratio 2.2; Prothrombin Time (Protime)PT. 23.9 SECONDS (11.7-14.9)
[2020-08-10] VITALS (12 sets, daily range): BP systolic 128–164; BP diastolic 59–91; PULSE 61–88; RESP 16–69; TEMP 36.2–36.6; O2SAT 85–100; BMI 37.5
[2020-08-10 06:21] LABS: Bedside Glucose 121 mg/dL (70-110); Prothrombin Time Fingerstick 16.8 SEC (11.9-14.4)
[2020-08-10] MEDS: Lactated Ringers 1,000 ML 999 ML IV ×2 (06:29→08:30)
[2020-08-10] MEDS: Acetaminophen 500 MG Tablet 1000 MG PO ×3 (06:56→23:09)
[2020-08-10] MEDS: Gabapentin 600 MG Tablet PO (06:57)
[2020-08-10] MEDS: Cefazolin 2 GM in 0.9% Normal Saline 100 ML IV (07:22)
[2020-08-10] MEDS: Lactated Ringers 1,000 ML 75 ML IV (07:30)
[2020-08-10] MEDS: Lactated Ringers 1,000 ML 125 ML IV (08:30)
--- NOTE | 2020-08-10 08:45 | PCM.OPRPT ---
Report of Operation Date of Procedure: 08/10/20 Pre-Operative Diagnosis: Left shoulder osteoarthritis glenohumeral Post-Operative Diagnosis: Left shoulder glenohumeral osteoarthritis Surgery/Procedure Performed:: Left reverse total shoulder replacement Description of Surgical Findings:: Deficient rotator cuff jelly filter tender: Marina Cardenas Type of Anesthesia:: General Anesthesiologist: Cisco Quinn Special Medications: 2 g Ancef, 2 g TXA 1 minute lavage and wound prior to closure, 10 mg Decadron, joint cocktail (5 mg Duramorph, 30 mL of 0.5% Ropivicaine, 1000 units of epinephrine, 30 mg of Toradol), 1 g Ancef at incision Specimen's removed: Bony cuts Estimated Blood Loss (mL): 150 Fluids Replaced: 1600 mL crystalloid Description of Procedure: Components used 1. [place] reunion glenoid baseplate 2. [place] reunion 32 mm, 2mm Glenosphere 3. [place] reunion 32mm, 4mm humeral liner 4. [place] reunion reverse TSA humeral adapter tray 4mm 5. [place] reunion humeral stem primary press-fit 12mm size Brief history/Operative indications: 75 yo F with history of L shoulder pain and cuff tear arthropathy. Patient failed conservative measures as mentioned in the H&P. After discussion of risk and benefits of reverse total shoulder replacement including but not limited to blood loss, DVTs, PEs, nerve vessel damage, infection, general risk of anesthesia including loss of life, instability and stiffness patient demonstrating understanding wish to proceed was able to sign informed consent. Medical clearance was obtained. Procedure: On the date of the procedure, patient's L upper extremity was marked in the preoperative area. Patient was taken back to the operating room where they were placed on the table in the supine position. Anesthesia assumed control of the C-spine and airway, then administered anesthetic. All bony prominences were identified well-padded, the head was secured and the patient was placed in the beachchair position at about 35? inclination. Anesthesia remained in control of the C-spine airway throughout the remainder of the procedure. Patient was then appropriately fastened to the table and the L upper extremity was prepped in a sterile fashion. The surgeons then scrubbed. Upon reentering the room, the L upper extremity was draped in a sterile fashion and the incision was marked out. Timeout was called, everyone agreed upon the side, the site, the procedure to be performed, patient identity and antibiotics given. Incision was taken down through skin and subcutaneous tissue, fat down to fascia. The stripe of the deltopectoral interval and cephalic vein were identified and blunt dissection was used to retract the deltoid. The cephalic vein was retracted laterally. Clavipectoral fascia was then incised and a cobra retractor was placed in the wound. The proximal one third of the pectoralis major insertion was released. Pectoralis tendon insertion was used to tenodesed the biceps tendon which was identified in the bicipital groove. Tenodesis was done with #1 Vicryl. Proximally we followed the biceps tendon after transecting it into the rotator interval. The rotator interval was split and the arm was externally rotated. The split was 1 cm medial to the bicipital groove. Subscapularis tendon was released. We released down the anterior portion of the humeral head and a alfaro elevator was used to release the inferior portion of the humeral head. The arm was externally rotated and the shoulder was dislocated. The humeral head was then cut at its natural retroversion. Once his humeral head cut was made humerus was retracted out of the way and the glenoid was exposed. After exposing the glenoid, the labrum and the remaining proximal biceps were debrided. At this time we are able to view the entire outer edge of the glenoid. A central pin was placed we sequentially reamed over this central pin to 32 mm. Once this was completed the central screw was measured and found to be. The glenoid baseplate was screwed into place. Wound was closely irrigated out with normal saline we then drilled sequentially for 2 screws. Screws were placed superiorly and inferiorly and tightened down the screws. Once the screws were appropriately tightened into place the glenoid baseplate was compressed against the exposed subchondral bone. A 32mm glenosphere was impacted into place engaging the Philippe taper. Attention was then turned towards the humerus. The humerus was again externally rotated exposing the proximal portion of the humerus. Central canal finder was then used to open up the canal. We reamed to a 12mm reamer. We then broached to a 12mm stem. We trialed the 4mm liner, with the 4mm humeral baseplate. We obtained an adequate reduction at this time with a nice stable shoulder. Good internal rotation to the gluteus, forward elevation to 140?, external rotation to 20?. Final components were then assembled on the back table, trials were removed and the wound was copiously irrigated with normal saline after dislocating the shoulder. Once the final components were assembled they were impacted into place. Shoulder was then reduced and found to be stable with good range of motion. Subscapularis tendon repaired using #2 FiberWire. The wound was with chlorhexidine solution then copiously irrigated out with a 1 L normal saline lavage. The deltopectoral fascia was then closed using #1 Vicryl skin was closed using 2-0 Vicryl interrupted sutures and final skin closure was done with 3-0 Monocryl. Steri-Strips are placed for final skin closure. Sterile dressing was placed patient was then placed in a sling and awakened by anesthesia. Patient was then transferred to the PACU for recovery. Postoperative plan: Patient will be admitted to the hospital overnight. They will get physical therapy starting in 2 weeks with normal postoperative regimen. Patient will be placed on her regular Coumadin dose starting tomorrow for DVT prophylaxis. The first postoperative appointment will be in 2 weeks for wound check and initiation of phase 1 physical therapy. - Complications No intraoperative complications - Admit VTE Documentation VTE Present on Admission: No VTE Mechan Device Prophylaxis: SCD's, Thigh High KRISTIE Hose VTE Pharm Prophylaxis ordered?: Yes
--- NOTE | 2020-08-10 09:50 | RAD_ITS ---
STUDY: X-RAY - LEFT SHOULDER REASON FOR EXAM: Female, 75 years old. POST OP TOTAL SHOULDER TECHNIQUE: 2 view(s) of the shoulder. COMPARISON: None. FINDINGS: The patient is status post reverse shoulder replacement. There is good alignment. RAD/Shoulder min 2 Views IMPRESSION: Status post reverse shoulder replacement. There is good alignment. Electronically Signed: Vivek Rivera, at 10:34 EDT , Service support ,
--- NOTE | 2020-08-10 13:05 | CT_ITS ---
STUDY: CT BRAIN WITHOUT CONTRAST REASON FOR EXAM: Female, 75 years old. Facial droop and numbness since yesterday, ? CVA, total shoulder surgery 08/09/20. Hx diabetes, Afib. RADIATION DOSAGE (If Supplied By Facility): CTDIvol = ( 44.99 ) mGy, DLP = ( 796.11 ) mGycm TECHNIQUE: Transaxial CT imaging of the brain was performed without administration of intravenous contrast material. Individualized dose optimization techniques were used for this CT. COMPARISON: No relevant priors. FINDINGS: Normal soft tissue structures. Normal calvarium. There is mild cerebral atrophy with widening of the extra-axial spaces and ventricular dilatation. Normal white matter tracts of the cerebral hemispheres. Normal basal ganglia and thalami. Normal brainstem. Normal cerebellum. There is no intracranial hemorrhage. There are no findings of an acute ischemic infarction. Normal visualized paranasal sinuses. CT/Brain/Head without Contrast IMPRESSION: Chronic involutional changes of the brain. Electronically Signed: Vivek Rivera, at 14:44 EDT , Service support ,
--- NOTE | 2020-08-10 13:07 | PN_ITS ---
Reason for Visit: Consult for postop medical management. Subjective: 75-year-old female with multiple comorbidities including chronic atrial fibrillation, off Eliquis for 5 days, NEVAEH on CPAP, COPD comes in for elective left reverse total shoulder arthroplasty. Patient has had chronic left shoulder pain after a fall. She had failed conservative treatment. She had an elective left total shoulder arthroplasty done today. Hospital medicine was consulted for postop medical management. Patient was seen at the bedside with her daughter. She complains of drooling, right-sided facial numbness, dysarthria, and poorly fitting dentures that started on the morning of the surgery. They did not tell anyone. Patient denied any weakness in her extremities. Denied any chest pain or dizziness or palpitations. Her vital signs have remained stable. Vitals/I&O's: Vital Signs Temp Pulse Resp BP Pulse Ox 97.8 F 61 16 149/72 H 96 08/10/20 11:38 08/10/20 11:38 08/10/20 11:38 08/10/20 11:38 08/10/20 11:38 Oxygen Flow Rate (L/min) 2 Oxygen Delivery Method Nasal Cannula Weight: 99.2 kg Body Mass Index (BMI) 37.5 Intake and Output for Last 24 Hours 08/08/20 08/09/20 08/10/20 23:59 23:59 23:59 Intake Total 4272.25 / 4272.25 Output Total 625 / 625 Balance 3647.25 / 3647.25 General: Alert, Oriented x3, Cooperative, No apparent distress HEENT: Atraumatic, PERRLA, EOMI, Normocephalic Oral: Moist Mucosa Neck: Supple Lungs: Clear to auscultation, Normal air movement Cardiovascular: Regular rate, Regular Rhythm, Normal S1, Normal S2, No murmurs Abdomen: Bowel Sounds Present, Soft, Non Tender, Non-Distended, No Hepato- splenomegaly Extremities: No edema Skin: No rashes Musculoskeletal: No Tenderness to Palpation of Joints or Extremities Lymphatic: No Cervical, Supraclavicular, or Inguinal Adenopathy Neurological: Cranial nerves II-XII grossly intact - except for left facial droop, bilateral forehead wrinkling,, Motor Exam 5/5 strength throughout - left shoulder in sling Psych/Mental Status: Normal Affect, Appropriate Laboratory Results 08/10/20 06:12: POC Glucose 121 H 08/10/20 06:12: POC PT 16.8 H, INR 1.40 Current Medications Acetaminophen (Acetaminophen 500 Mg Tablet) 1,000 mg PO Q8 [facility] Last Admin: 08/10/20 12:47 Dose: 1,000 mg Documented by: Albuterol Sulfate (Albuterol 2.5 Mg/3 Ml Vial.Neb.) 2.5 mg INHALATION Q4H PRN PRN Reason: Wheezing/SOB Albuterol/Ipratropium (Ipratropium/Albuterol Sulfate 3 Ml Ampul.Neb) 3 ml INHALATION 4X/DAY.RT [facility] Aspirin (Aspirin E.C. 81 Mg Tablet) 81 mg PO DAILY@0800 [facility] Budesonide (Budesonide Respules 0.5 Mg/2 Ml Ampul.Neb.) 0.5 mg INHALATION Q12H.RT [facility] Cholecalciferol (Cholecalciferol (Vit D3) 1,000 Unit (25mcg)) 1,000 unit PO DAILY [facility] Diltiazem HCl (Diltiazem Cd 120 Mg Capsule) 120 mg PO BID [facility] Enteral Nutritional Formula (Ensure Surgery 237 Ml Liquid) 237 ml PO TIDCM [facility] Last Admin: 08/10/20 11:37 Dose: Not Given Documented by: Famotidine (Famotidine 20 Mg Tablet) 20 mg PO DAILY [facility] Ferrous Sulfate (Ferrous Sulfate 325 Mg Tablet) 325 mg PO DAILYCM [facility] Lactated Ringer's () 1,000 mls @ 125 mls/hr IV .Q8H [facility] Stop: 08/10/20 16:29 Last Infusion: 08/10/20 11:45 Dose: 90 mls/hr Documented by: Lactated Ringer's () 1,000 mls @ 75 mls/hr IV .[id number] [facility] Stop: 08/10/20 20:49 Last Infusion: 08/10/20 10:02 Dose: Infused Documented by: Lactated Ringer's () 1,000 mls @ 90 mls/hr IV .Q11H7M [facility] Cefazolin Sodium () 1 gm in 50 mls @ 150 mls/hr IV Q8H [facility] Stop: 08/10/20 23:49 Insulin Human Lispro (Insulin Lispro 100 Unit/Ml Insuln.Pen) 1 - 6 unit SC Q4H PRN PRN; Protocol PRN Reason: BG>/= 180, SEE PROTOCOL Morphine Sulfate (Morphine 2 Mg/Ml Syringe) 2 - 4 mg IV Q2H PRN PRN PRN Reason: Pain Score 6-10 Morphine Sulfate (Morphine 4 Mg/Ml Syringe) 2 - 4 mg IV Q2H PRN PRN PRN Reason: Pain Score 6-10 Ondansetron HCl (Ondansetron 4 Mg/2 Ml Vial) 4 mg IV Q8H PRN PRN PRN Reason: NAUSEA Oxycodone HCl (Oxycodone 5 Mg Tablet) 5 - 10 mg PO Q4H PRN PRN PRN Reason: Pain Score 4-10 Promethazine HCl (Promethazine 25 Mg/Ml Syringe) 12.5 mg IM Q6H PRN PRN; Protocol PRN Reason: NAUSEA/VOMITING Senna/Docusate Sodium (Senna/Docusate Sodium 1 Tablet) 2 tablet PO BID [facility] Sodium Chloride (0.9% Saline Lock 10 Ml Syringe) 10 - 40 ml IV UD PRN PRN Reason: SALINE FLUSH Warfarin Sodium (Warfarin 2.5 Mg Tablet) 2.5 mg PO WeThFr@1700 [facility] Warfarin Sodium (Warfarin 5 Mg Tablet) 5 mg PO SuMoTuSa@1700 [facility] STROKE Vital Signs/Narrative: Vital Signs Temp Pulse Resp BP Pulse Ox 08/10/20 11:38 97.8 F 61 16 149/72 H 96 08/10/20 11:16 97.1 F L 64 16 128/60 H 85 08/10/20 10:06 97.2 F L 74 16 136/80 H 98 08/10/20 10:04 63 16 147/59 H 98 08/10/20 09:45 74 16 148/79 H 100 08/10/20 09:31 71 69 H 142/69 H 97 08/10/20 09:23 97.1 F L 67 16 149/91 H 98 Medical Necessity - Tobacco Use Smoking Status: Never smoker Tobacco Use: Non-smoker Assessment/Plan All Active Problems (Last Reviewed 07/19/20 @ 13:00 by Nissa Thomas) History of knee replacement (Resolved) H/O varicose vein stripping (Resolved) Left knee pain (Acute) Tibial plateau fracture (Acute) NEVAEH (obstructive sleep apnea) (Acute) RLS (restless legs syndrome) (Acute) Iron deficiency anemia (Acute) COPD exacerbation (Acute) Long-term use of high-risk medication (Acute) History of GI bleed (Resolved) Diabetes mellitus type 2 in obese (Acute) Candidiasis of mouth (Acute) Subtherapeutic international normalized ratio (INR) (Acute) Severe sepsis (Ruled-out) CAP (community acquired pneumonia) (Acute) COPD exacerbation (Acute) Acute on chronic diastolic (congestive) heart failure (Resolved) Supratherapeutic INR (Resolved) 1. Acute onset of facial droop, drooling, poorly fitting dentures. Patient was last known normal in the evening of Patient is outside the window for TPA and also has had recent surgery We will get CT of the head without contrast as well as MRI of the brain If the MRI of the brain is positive for stroke would initiate stroke work-up 2. Postop #0 status post left reverse shoulder arthroplasty Pain is fairly controlled, continue. Orthopedics recommendation 3. Hypertension, controlled, continue on oral Cardizem 4. Paroxysmal atrial fibrillation, rate controlled/pulmonary hypertension Continue on Cardizem, and has been resumed on her Coumadin, INR subtherapeutic Repeat INR in a.m. 5. COPD, not in acute exacerbation, continue on budesonide 6. Iron deficiency anemia, continue on iron 7. DVT prophylaxis -on warfarin; INR subtherapeutic Inpatient E&M: 49629 [facility] Hosp L2
[2020-08-10] MEDS: 0.9% Saline Lock 10 ML Syringe IV (14:06)
--- NOTE | 2020-08-10 14:21 | MRI_ITS ---
We are attempting to reach an attending provider to discuss findings. An addendum with communication details will be sent when the communication is complete. HISTORY: facial numbness, drooling s/p shoulder sx this am TECHNIQUE: Multiplanar and multisequence MR images of the brain were obtained without contrast. IV Contrast dosage and agent: None. COMPARISON: CT 08/10/2020 FINDINGS: Number of images including paperwork: [id number] PARANASAL SINUSES AND MASTOID AIR CELLS: Clear. CALVARIUM: Intact. INTRACRANIAL HEMORRHAGE: No evidence of acute intracranial hemorrhage. BRAIN PARENCHYMA: Small area of restricted diffusion noted in the posterior inferior right frontal lobe. Mild amount of increased FLAIR signal intensity in the cerebral white matter. Generalized atrophy. Normal sella turcica, pituitary gland, infundibular stalk, and optic chiasm. The internal auditory canals are patent. No mass effect or midline shift. CSF SPACES: Appropriate for age. No hydrocephalus. Patent basal cisterns. VASCULAR SYSTEM: Normal flow voids in the major intracranial circulation. ORBITS: Both globes, extraocular muscles, optic nerves and retrobulbar fat appear unremarkable. SOFT TISSUES: Unremarkable. MRI/Brain without Contrast IMPRESSION: Small acute infarct in the right frontal lobe. at 2209 Reported and signed by: Teresa Montana MD Electronically Signed: Teresa Montana MD at 22:09 EDT Tel , Service support ,
[2020-08-10] MEDS: Ipratropium/Albuterol Sulfate 3 ML AMPUL.NEB INHALATION ×2 (15:03→19:36)
[2020-08-10] MEDS: Cefazolin 1 GM/50 ML BAG IV ×2 (15:41→23:11)
[2020-08-10] MEDS: Ensure Surgery 237 ML LIQUID PO (16:30)
[2020-08-10] MEDS: Budesonide Respules 0.5 MG/2 ML AMPUL.NEB. INHALATION (19:36)
[2020-08-10] MEDS: Lactated Ringers 1,000 ML 90 ML IV (20:01)
[2020-08-10 21:19] LABS: Cholesterol 208 mg/dL (200); High Density Lipoprotein 79 mg/dL; Triglycerides 34 mg/dL; Very Low Density Lipoprotein 7 mg/dL (5-40)
--- NOTE | 2020-08-10 22:43 | PCM.HOSP.N ---
Hospitalist Note CVA noted on MRI. transfer to PCU for further CVA work up. Occurred yesterday while patient was at home. Outside of TPA window. Consult SOC teleneurology after work up completed.
--- NOTE | 2020-08-10 23:03 | NURSING ---
Received report from Selena GIRON on MS3. MACK Ross.
[2020-08-10] MEDS: Senna/Docusate Sodium 1 Tablet 2 TABLET PO (23:08)
[2020-08-10] MEDS: dilTIAZem CD 120 MG Capsule PO (23:10)
--- NOTE | 2020-08-10 23:38 | ECHOD_ITS ---
Reason For Study: TIA/CVA Procedure This was a 2D Doppler, Color Flow transthoracic echocardiogram. The study was technically difficult. Limited views were obtained. Exam performed portable in patient room. Left Ventricle Normal LV size. The estimated ejection fraction is 60 %. Unable to assess diastolic dysfunction. No regional wall motion abnormalities noted. Right Ventricle Normal RV size. Normal systolic function. Atria Normal left atrium. Normal right atrium. No doppler evidence for ASD. Mitral Valve There is no mitral valve stenosis. No mitral valve insufficiency. Tricuspid Valve There is no tricuspid stenosis. Unable to estimate RV systolic pressure due to insufficient tricuspid regurgitant envelope. Trivial tricuspid valve insufficiency. Aortic Valve Mild diffuse aortic valve thickening. There is no aortic stenosis. Trivial aortic valve insufficiency. Pulmonic Valve There is no pulmonic valvular stenosis. Trivial pulmonic valve insufficiency. Great Vessels Normal aortic root. Pericardium/Pleural No pericardial effusion. MMode/2D Measurements & Calculations Ao root diam: 3.8 cm LA dimension(2D): 4.2 cm Doppler Measurements & Calculations MV E max july: 95.5 cm/sec PA V2 max: 98.8 cm/sec TR max july: 242.3 cm/sec TR max P.5 mmHg Interpretation Summary The estimated ejection fraction is 60 %. Unable to assess diastolic dysfunction. Mild diffuse aortic valve thickening. Trivial aortic valve insufficiency. Ordering Physician: Pranay Reyes Referring Physician: Domingo Medina Performed By: Alexandra Johnson RDCS
[2020-08-11] VITALS (18 sets, daily range): BP systolic 130–161; BP diastolic 63–96; PULSE 49–87; RESP 16–20; TEMP 36.2–36.8; O2SAT 93–98; BMI 37.5
[2020-08-11] MEDS: 0.9% Saline Lock 10 ML Syringe IV ×3 (01:53→07:59)
[2020-08-11] MEDS: Morphine 2 MG/ML Syringe IV ×3 (01:54→07:58)
[2020-08-11 05:41] LABS: Hematocrit 41.1 % (37-47); Hemoglobin 12.7 g/dL (12.0-15.0); Mean Corp Hgb Conc 30.9 g/dL (32-36); Mean Corpuscular Hgb 29.8 pg (27.0-32.0); Mean Corpuscular Volume 96.5 fL (81-99); Mean Platelet Vol. 9.7 fl (6.2-12.0); Platelet Count 199 K/mm3 (150-450); RBC Distribution Width CV 13.5 % (11.6-14.6); Red Blood Count 4.26 M/mm3 (4.2-5.4); White Blood Count 10.3 K/mm3 (4.4-11.0)
[2020-08-11] MEDS: Budesonide Respules 0.5 MG/2 ML AMPUL.NEB. INHALATION ×2 (05:57→19:17)
[2020-08-11] MEDS: Ipratropium/Albuterol Sulfate 3 ML AMPUL.NEB INHALATION ×4 (05:57→19:18)
[2020-08-11 06:02] LABS: Anion Gap 1 (5-15); BUN 8 mg/dL (7-18); BUN/Creat Ratio 19.9 RATIO (10-20); Calcium,Total 8.2 mg/dL (8.5-10.1); Chloride 103 mmol/L (98-107); Cholesterol 181 mg/dL (200); EST Glomerular Filtration Rate 164 mL/min (>60); Est Glom Filt Rate - Afr Amer 198 mL/min (>60); Estimated Creatinine Clearance 41.97 ml/min; Glucose 134 mg/dL (74-106); High Density Lipoprotein 75 mg/dL; Potassium 4.2 mmol/L (3.5-5.1); Sodium Level 139 mmol/L (136-145); Triglycerides 46 mg/dL; Very Low Density Lipoprotein 9 mg/dL (5-40)
--- NOTE | 2020-08-11 07:24 | PN_ITS ---
Reason for Visit: Follow-up on postop left shoulder reverse arthroplasty/acute stroke Subjective: Patient was seen and examined. She was moved to PCU after her MRI was positive for acute stroke in the right frontal lobe. She underwent MRA of the head and neck that was unremarkable. She is on aspirin and on warfarin. INR is 1.1. 2D echo is pending. Fasting lipid profile shows triglycerides of 46, total cholesterol 181, LDL 97, HDL 75. Patient has been started on high-dose statins. She was seen by ST and started on a modified diet. Vitals/I&O's: Vital Signs Temp Pulse Resp BP Pulse Ox 98.1 F 85 19 H 161/63 H 97 08/11/20 06:20 08/11/20 06:20 08/11/20 06:20 08/11/20 06:20 08/11/20 06:20 Oxygen Flow Rate (L/min) 3 Oxygen Delivery Method Nasal Cannula Weight: 99.2 kg Body Mass Index (BMI) 37.5 Intake and Output for Last 24 Hours 08/09/20 08/10/20 08/11/20 23:59 23:59 23:59 Intake Total 5187.75 / 5202.75 Output Total 625 / 625 Balance 4562.75 / 4577.75 Laboratory Results 08/10/20 20:16: Triglycerides 34, Cholesterol 208 H, LDL Cholesterol 122, VLDL Cholesterol 7, HDL Cholesterol 79 08/10/20 20:16: Troponin I < 0.015 08/11/20 05:25: WBC 10.3, RBC 4.26, Hgb 12.7, Hct 41.1, MCV 96.5, MCH 29.8, MCHC 30.9 L, RDW Std Deviation 48.0 H, RDW Coeff of Eduin 13.5, Plt Count 199, MPV 9.7 08/11/20 05:25: Sodium 139, Potassium 4.2, Chloride 103, Carbon Dioxide 35.0 H, Anion Gap 1 L, BUN 8, Creatinine 0.40 L, Estim Creat Clear Calc 41.97, Est GFR (MDRD) Af Amer 198, Est GFR (MDRD) Non-Af 164, BUN/Creatinine Ratio 19.9, Glucose 134 H, Calcium 8.2 L, Triglycerides 46, Cholesterol 181, LDL Cholesterol 97, VLDL Cholesterol 9, HDL Cholesterol 75 Current Medications Acetaminophen (Acetaminophen 500 Mg Tablet) 1,000 mg PO Q8 [facility] Last Admin: 08/11/20 06:35 Dose: Not Given Documented by: Albuterol Sulfate (Albuterol 2.5 Mg/3 Ml Vial.Neb.) 2.5 mg INHALATION Q4H PRN PRN Reason: Wheezing/SOB Albuterol/Ipratropium (Ipratropium/Albuterol Sulfate 3 Ml Ampul.Neb) 3 ml INHALATION 4X/DAY.RT [facility] Last Admin: 08/11/20 05:57 Dose: 3 ml Documented by: Aspirin (Aspirin E.C. 81 Mg Tablet) 81 mg PO DAILY@0800 [facility] Budesonide (Budesonide Respules 0.5 Mg/2 Ml Ampul.Neb.) 0.5 mg INHALATION Q12H.RT [facility] Last Admin: 08/11/20 05:57 Dose: 0.5 mg Documented by: Cholecalciferol (Cholecalciferol (Vit D3) 1,000 Unit (25mcg)) 1,000 unit PO DAILY [facility] Diltiazem HCl (Diltiazem Cd 120 Mg Capsule) 120 mg PO BID [facility] Last Admin: 08/10/20 23:10 Dose: 120 mg Documented by: Enteral Nutritional Formula (Ensure Surgery 237 Ml Liquid) 237 ml PO TIDCM [facility] Last Admin: 08/10/20 16:30 Dose: 237 ml Documented by: Famotidine (Famotidine 20 Mg Tablet) 20 mg PO DAILY [facility] Ferrous Sulfate (Ferrous Sulfate 325 Mg Tablet) 325 mg PO DAILYCM [facility] Hydralazine HCl (Hydralazine 20 Mg/Ml Vial) 5 mg IV Q30M PRN PRN Reason: to maintain BP goals Lactated Ringer's () 1,000 mls @ 90 mls/hr IV .Q11H7M [facility] Last Admin: 08/10/20 20:01 Dose: 90 mls/hr Documented by: Insulin Human Lispro (Insulin Lispro 100 Unit/Ml Insuln.Pen) 1 - 6 unit SC Q4H PRN PRN; Protocol PRN Reason: BG>/= 180, SEE PROTOCOL Labetalol HCl (Labetalol (Prefilled) 20 Mg/4 Ml) 10 - 20 mg IV Q10M PRN PRN PRN Reason: to Maintain BP Goals Morphine Sulfate (Morphine 2 Mg/Ml Syringe) 2 - 4 mg IV Q2H PRN PRN PRN Reason: Pain Score 6-10 Last Admin: 08/11/20 06:36 Dose: 2 mg Documented by: Morphine Sulfate (Morphine 4 Mg/Ml Syringe) 2 - 4 mg IV Q2H PRN PRN PRN Reason: Pain Score 6-10 Ondansetron HCl (Ondansetron 4 Mg/2 Ml Vial) 4 mg IV Q8H PRN PRN PRN Reason: NAUSEA Oxycodone HCl (Oxycodone 5 Mg Tablet) 5 - 10 mg PO Q4H PRN PRN PRN Reason: Pain Score 4-10 Promethazine HCl (Promethazine 25 Mg/Ml Syringe) 12.5 mg IM Q6H PRN PRN; Protocol PRN Reason: NAUSEA/VOMITING Senna/Docusate Sodium (Senna/Docusate Sodium 1 Tablet) 2 tablet PO BID [facility] Last Admin: 08/10/20 23:08 Dose: 2 tablet Documented by: Sodium Chloride (0.9% Saline Lock 10 Ml Syringe) 10 - 40 ml IV UD PRN PRN Reason: SALINE FLUSH Last Admin: 08/11/20 06:36 Dose: 20 ml Documented by: Warfarin Sodium (Warfarin 2.5 Mg Tablet) 2.5 mg PO WeThFr@1700 [facility] Warfarin Sodium (Warfarin 5 Mg Tablet) 5 mg PO SuMoTuSa@1700 [facility] STROKE Vital Signs/Narrative: Vital Signs Temp Pulse Resp BP Pulse Ox 08/11/20 06:20 98.1 F 85 19 H 161/63 H 97 08/11/20 05:58 79 18 93 Medical Necessity - Tobacco Use Smoking Status: Never smoker Tobacco Use: Non-smoker Assessment/Plan All Active Problems (Last Reviewed 07/19/20 @ 13:00 by Nissa Thomas) History of knee replacement (Resolved) H/O varicose vein stripping (Resolved) Left knee pain (Acute) Tibial plateau fracture (Acute) NEVAEH (obstructive sleep apnea) (Acute) RLS (restless legs syndrome) (Acute) Iron deficiency anemia (Acute) COPD exacerbation (Acute) Long-term use of high-risk medication (Acute) History of GI bleed (Resolved) Diabetes mellitus type 2 in obese (Acute) Candidiasis of mouth (Acute) Subtherapeutic international normalized ratio (INR) (Acute) Severe sepsis (Ruled-out) CAP (community acquired pneumonia) (Acute) COPD exacerbation (Acute) Acute on chronic diastolic (congestive) heart failure (Resolved) Supratherapeutic INR (Resolved) 1. Acute right frontal/parietal CVA, patient was last known normal in the evening of 08/09/20 Patient is outside the window for TPA and also has had recent surgery MRA of the head and neck was negative for large vessel occlusion. 2D echo is pending, HgbA1c is pending On aspirin, statin. Tele-neurology consulted. Patient resumed on her Coumadin, INR is 1.1 Discussed with orthopedics, patient will be bridged with Lovenox, repeat INR in a.m. 2. POD#1 status post left reverse shoulder arthroplasty Pain is fairly controlled, continue with Orthopedics recommendation 3. Hypertension, controlled, continue on oral Cardizem 4. Paroxysmal atrial fibrillation, rate controlled/pulmonary hypertension Continue on Cardizem, INR subtherapeutic, continue on Coumadin and Lovenox bridging Repeat INR in a.m. 5. COPD, not in acute exacerbation, continue on budesonide 6. Iron deficiency anemia, continue on iron 7. DVT prophylaxis -on warfarin; INR subtherapeutic Inpatient E&M: 33404 Subs Hosp L2
--- NOTE | 2020-08-11 08:00 | MRI_ITS ---
STUDY: MRA OF THE HEAD WITHOUT CONTRAST REASON FOR EXAM: Female, 75 years old. cva -- post shoulder replacement , slurred speech TECHNIQUE: 3-D [id number] (TOF) imaging was performed with MIPs. The study was performed unenhanced. COMPARISON: None. FINDINGS: Normal bilateral petrous carotid arteries. Normal right cavernous carotid artery with a normal supraclinoid bifurcation. Normal left cavernous carotid artery with a normal supraclinoid bifurcation. Normal right A1 segments of the anterior cerebral artery. Normal left A1 segments of the anterior cerebral artery. Normal intact anterior communicating artery (ACOM). Normal bilateral A2 segments of the anterior cerebral arteries. Normal right M1 and M2 segments of the middle cerebral arteries, with a normal M1 bifurcation. Normal left M1 and M2 segments of the middle cerebral arteries, with a normal M1 bifurcation. Normal right posterior communicating artery (PCOM). Normal left posterior communicating artery (PCOM). Hypoplastic left vertebral artery terminates at the left posterior inferior cerebral artery. The basilar artery supplied exclusively by the right vertebral artery. Oormal basilar artery with a normal basilar bifurcation. The visualized bilateral superior cerebellar (SCA) arteries are normal. Normal bilateral P1, P2 and visualized P3 segments of the posterior cerebral arteries. There is no demonstrated aneurysm of the [place]. There is no major vessel occlusion or hemodynamically significant stenosis. There is no demonstrated abnormality of the visualized brain. MRI/MRA Head ONLY without Contrast IMPRESSION: Normal MRA of the head Electronically Signed: Zuhair Pardo MD at 10:50 EDT Tel , Service support ,
--- NOTE | 2020-08-11 08:00 | MRI_ITS ---
STUDY: MRA NECK WITH AND WITHOUT CONTRAST REASON FOR EXAM: Female, 75 years old. cva -- post shoulder replacement , slurred speech TECHNIQUE: 3-D [id number]-[id number] (TOF) imaging was performed in an 1.5 T MRI scanner. dotarem 20ml iv was administered for the contrast enhanced images. COMPARISON: None. FINDINGS: RIGHT CAROTID ARTERIES: Normal right common carotid artery (CCA). Normal right common carotid bulb. Normal origin of the right internal carotid (ICA) artery without a hemodynamically significant stenosis. Normal visualized cervical portion of the right internal carotid artery. Normal origin of the right external carotid artery (ECA). LEFT CAROTID ARTERIES: Normal left common carotid artery (CCA). Normal left common carotid bulb. Normal origin of the left internal carotid (ICA) artery without a hemodynamically significant stenosis. Normal visualized cervical portion of the left internal carotid artery. Normal origin of the left external carotid artery (ECA). VERTEBRAL ARTERIES: There is antegrade flow within the bilateral vertebral arteries with a small left vertebral artery, and a dominant right vertebral artery. MRI/MRA Neck WITH and W/O Contrast IMPRESSION: Normal bilateral cervical carotid and vertebral arteries. Electronically Signed: Zuhair Pardo MD at 10:51 EDT Tel , Service support ,
--- NOTE | 2020-08-11 08:55 | NURSING ---
THIS RN PRESENT TO MONITOR PT IN MRI DUE TO DIFFICULT PT POSITIONING AND SOB WITH PREVIOUS MRI YESTERDAY. PT STS BREATHING IMPROVED SINCE YESTERDAY. TOLERATING SUPINE POSITION WELL.
--- NOTE | 2020-08-11 10:45 | PN.ORTHO_ITS ---
Subjective: The patient was sitting in bed upon examination. Patient denies any chest pain, shortness of breath, dizziness, lightheadedness, nausea or vomiting, or calf pain. Pain is controlled on medications. No adverse overnight events. Patient states she does have pain in the left shoulder as she has been through multiple testing today due to her recent CVA. Patient underwent a left reverse total shoulder arthroplasty on August 10, 2020. Patient and her daughter report that she had drooling with right-sided facial numbness and poorly fitting dentures that started the morning of surgery. They never disclose this information to anyone at the hospital. Patient went through with the surgery and this was found out postoperatively. After discussing with the patient in the room today she states she was not feeling well the night before surgery. She never disclosed this to anyone at the hospital prior to the surgery. Patient does have history of severe COPD, pulmonary hypertension, paroxysmal atrial fibrillation, atrial flutter. She also uses 2 L of oxygen daily. She has followed by Dr. Chavis and Dr. Mccurdy outpatient. Objective: Vital signs stable, afebrile Dressing is clean, dry, intact Ultra-sling fitting appropriately Sensation intact to axillary, radial, median, and ulnar distribution. Patient denies any numbness and tingling in bilateral upper extremities and bilateral lower extremities. Motor intact with patient able to make okay sign, cross fingers, and thumbs up. - Physical Exam Vitals/I&O's: Vital Signs Temp Pulse Resp BP Pulse Ox 98.1 F 79 19 H 161/63 H 94 08/11/20 06:20 08/11/20 09:14 08/11/20 06:20 08/11/20 06:20 08/11/20 09:14 Oxygen Flow Rate (L/min) 3 Oxygen Delivery Method Nasal Cannula Weight: 99.2 kg Body Mass Index (BMI) 37.5 Intake and Output for Last 24 Hours 08/09/20 08/10/20 08/11/20 23:59 23:59 23:59 Intake Total 5187.75 / 5202.75 Output Total 625 / 625 Balance 4562.75 / 4577.75 General: Alert, Oriented x3, Cooperative, No apparent distress Laboratory Results 08/10/20 20:16: Triglycerides 34, Cholesterol 208 H, LDL Cholesterol 122, VLDL Cholesterol 7, HDL Cholesterol 79 08/10/20 20:16: Troponin I < 0.015 08/11/20 05:25: WBC 10.3, RBC 4.26, Hgb 12.7, Hct 41.1, MCV 96.5, MCH 29.8, MCHC 30.9 L, RDW Std Deviation 48.0 H, RDW Coeff of Eduin 13.5, Plt Count 199, MPV 9.7 08/11/20 05:25: Sodium 139, Potassium 4.2, Chloride 103, Carbon Dioxide 35.0 H, Anion Gap 1 L, BUN 8, Creatinine 0.40 L, Estim Creat Clear Calc 41.97, Est GFR (MDRD) Af Amer 198, Est GFR (MDRD) Non-Af 164, BUN/Creatinine Ratio 19.9, Glucose 134 H, Calcium 8.2 L, Triglycerides 46, Cholesterol 181, LDL Cholesterol 97, VLDL Cholesterol 9, HDL Cholesterol 75 Current Medications Acetaminophen (Acetaminophen 500 Mg Tablet) 1,000 mg PO Q8 [facility] Last Admin: 08/11/20 06:35 Dose: Not Given Documented by: Albuterol Sulfate (Albuterol 2.5 Mg/3 Ml Vial.Neb.) 2.5 mg INHALATION Q4H PRN PRN Reason: Wheezing/SOB Albuterol/Ipratropium (Ipratropium/Albuterol Sulfate 3 Ml Ampul.Neb) 3 ml INHALATION 4X/DAY.RT [facility] Last Admin: 08/11/20 05:57 Dose: 3 ml Documented by: Aspirin (Aspirin E.C. 81 Mg Tablet) 81 mg PO DAILY@0800 [facility] Atorvastatin Calcium (Atorvastatin Calcium 80 Mg Tablet) 80 mg PO QHS [facility] Budesonide (Budesonide Respules 0.5 Mg/2 Ml Ampul.Neb.) 0.5 mg INHALATION Q12H.RT [facility] Last Admin: 08/11/20 05:57 Dose: 0.5 mg Documented by: Cholecalciferol (Cholecalciferol (Vit D3) 1,000 Unit (25mcg)) 1,000 unit PO DAILY [facility] Diltiazem HCl (Diltiazem Cd 120 Mg Capsule) 120 mg PO BID [facility] Last Admin: 08/10/20 23:10 Dose: 120 mg Documented by: Enteral Nutritional Formula (Ensure Surgery 237 Ml Liquid) 237 ml PO TIDCM [facility] Last Admin: 08/10/20 16:30 Dose: 237 ml Documented by: Famotidine (Famotidine 20 Mg Tablet) 20 mg PO DAILY [facility] Ferrous Sulfate (Ferrous Sulfate 325 Mg Tablet) 325 mg PO DAILYCM [facility] Hydralazine HCl (Hydralazine 20 Mg/Ml Vial) 5 mg IV Q30M PRN PRN Reason: to maintain BP goals Lactated Ringer's () 1,000 mls @ 90 mls/hr IV .Q11H7M [facility] Last Admin: 08/10/20 20:01 Dose: 90 mls/hr Documented by: Insulin Human Lispro (Insulin Lispro 100 Unit/Ml Insuln.Pen) 1 - 6 unit SC Q4H PRN PRN; Protocol PRN Reason: BG>/= 180, SEE PROTOCOL Labetalol HCl (Labetalol (Prefilled) 20 Mg/4 Ml) 10 - 20 mg IV Q10M PRN PRN PRN Reason: to Maintain BP Goals Morphine Sulfate (Morphine 2 Mg/Ml Syringe) 2 - 4 mg IV Q2H PRN PRN PRN Reason: Pain Score 6-10 Last Admin: 08/11/20 07:58 Dose: 2 mg Documented by: Morphine Sulfate (Morphine 4 Mg/Ml Syringe) 2 - 4 mg IV Q2H PRN PRN PRN Reason: Pain Score 6-10 Ondansetron HCl (Ondansetron 4 Mg/2 Ml Vial) 4 mg IV Q8H PRN PRN PRN Reason: NAUSEA Oxycodone HCl (Oxycodone 5 Mg Tablet) 5 - 10 mg PO Q4H PRN PRN PRN Reason: Pain Score 4-10 Promethazine HCl (Promethazine 25 Mg/Ml Syringe) 12.5 mg IM Q6H PRN PRN; Protocol PRN Reason: NAUSEA/VOMITING Senna/Docusate Sodium (Senna/Docusate Sodium 1 Tablet) 2 tablet PO BID [facility] Last Admin: 08/10/20 23:08 Dose: 2 tablet Documented by: Sodium Chloride (0.9% Saline Lock 10 Ml Syringe) 10 - 40 ml IV UD PRN PRN Reason: SALINE FLUSH Last Admin: 08/11/20 07:59 Dose: 10 ml Documented by: Warfarin Sodium (Warfarin 2.5 Mg Tablet) 2.5 mg PO WeThFr@1700 [facility] Warfarin Sodium (Warfarin 5 Mg Tablet) 5 mg PO SuMoTuSa@1700 [facility] Medical Necessity - Tobacco Use Smoking Status: Never smoker Tobacco Use: Non-smoker Assessment/Plan All Active Problems (Last Reviewed 07/19/20 @ 13:00 by Nissa Thomas) History of knee replacement (Resolved) H/O varicose vein stripping (Resolved) Left knee pain (Acute) Tibial plateau fracture (Acute) NEVAEH (obstructive sleep apnea) (Acute) RLS (restless legs syndrome) (Acute) Iron deficiency anemia (Acute) COPD exacerbation (Acute) Long-term use of high-risk medication (Acute) History of GI bleed (Resolved) Diabetes mellitus type 2 in obese (Acute) Candidiasis of mouth (Acute) Subtherapeutic international normalized ratio (INR) (Acute) Severe sepsis (Ruled-out) CAP (community acquired pneumonia) (Acute) COPD exacerbation (Acute) Acute on chronic diastolic (congestive) heart failure (Resolved) Supratherapeutic INR (Resolved) 1. S/P left reverse total shoulder arthroplasty POD #1 2. Continue Pain Medications: Tylenol and OxyIR as needed for pain control. 3. DVT Prophylaxis: On hold at this time due to recent CVA. Patient is on chronic warfarin due to previous atrial fibrillation. 4. PT/OT: No range of motion of the left shoulder. Continue with the UltraSling. I would like physical therapy to work on elbow, wrist, hand range of motion as well as pendulum exercises for the left shoulder only. She will begin outpatient formal physical therapy after her 2-week follow-up. 5. H & H: 12.7/41.1, asymptomatic 6. Encouraged Incentive Spirometry 7. Continue postoperative medical management per medicine: Patient did sustain a CVA prior to the surgery but her and the daughter did not disclose any of this information prior to proceeding with the surgery. Patient has had a CT scan MRI, and MRA of the head neck. MRI was consistent with a CVA with infarct in the right frontal lobe. I did discuss case with the hospitalist. Neurology will be consulted. There is possibility of discharge tomorrow 7. Disposition: Patient will require additional stay in the hospital due to her recent CVA. Possible discharge tomorrow. Patient will most likely need some additional help at home with home health care. Case management is involved.
[2020-08-11] MEDS: Aspirin E.C. 81 MG Tablet PO (11:13)
[2020-08-11] MEDS: Senna/Docusate Sodium 1 Tablet 2 TABLET PO ×2 (11:13→22:33)
[2020-08-11] MEDS: Famotidine 20 MG Tablet PO (11:13)
[2020-08-11] MEDS: dilTIAZem CD 120 MG Capsule PO ×2 (11:14→22:34)
[2020-08-11] MEDS: Atorvastatin Calcium 80 MG Tablet PO (11:16)
--- NOTE | 2020-08-11 11:33 | NURSING ---
NIH & VS late d/t pt being at MRI and then ECHO in room.
--- NOTE | 2020-08-11 11:39 | TELEMED_ITS ---
[facility] Telemed has confirmed receipt of a request for visit. This document confirms receipt of the order initiating the consult. To find the results of the consultation, please view the patient's reports for the scanned Telemed Consult.
[2020-08-11 11:51] LABS: International Normalized Ratio 1.1; Prothrombin Time (Protime)PT. 13.7 SECONDS (11.7-14.9)
--- NOTE | 2020-08-11 12:21 | CASEMGMT ---
SW completed a PHQ 9 with patient as she had a Stroke. She scored a 4 which indicates minimal depression. She denied any needs for counseling. Leslie HERRERA MSW
--- NOTE | 2020-08-11 12:34 | CASEMGMT ---
Assessment- SW completed assessment with patient. She was sitting up in her recliner and was agreeable to answering questions. Living situation- Patient lives in a senior independent living apartment. She has an elevator. PCP: Dr Madera Specialists: Dr Mccurdy-Cardiology, Dr Chavis-Pulmonology, and Dr Medina-Orthopedic Pharmacy: She normally uses [facility], but this visit she would like her medications to go to [facility] DME: walker, cane, raised toilet seat, grab bars, medical alert button, O2-2L continuous from [facility], and a cpap from [facility] ADL's/IADL's: Patient is normally independent. She sometimes will use her walker, but only to carry her O2 or other items. She manages her own bills, cleans and cooks. She drives. Past SNF/rehab: She has been to [facility] in the past. Past HH: Yes. She was not sure of the name of agency LW: Patient has, but not on file at [facility] POA: Patient has, but not on file at [facility]. Her daughter Unique is her HCPOA Plan: At this time patient is not sure about what she will need at d/c. She is aware that AMANUEL and RN CM will follow to assist with d/c plan. Leslie HERRERA BOMBSIGHT SPECIALIST
[2020-08-11] MEDS: Acetaminophen 500 MG Tablet 1000 MG PO ×2 (13:46→22:33)
[2020-08-11 16:03] LABS: Hemoglobin A1c 6.1 % (3.8-5.6)
[2020-08-11] MEDS: Enoxaparin 100 MG/ML Syringe 90 MG SC (18:15)
[2020-08-11] MEDS: BENZOCAINE/MENTHOL 1 LOZENGE MUCOUS MEM (18:49)
[2020-08-11] MEDS: oxyCODONE 5 MG Tablet PO (22:35)
[2020-08-12] VITALS (14 sets, daily range): BP systolic 129–152; BP diastolic 75–90; PULSE 57–92; RESP 14–18; TEMP 36.6–37.1; O2SAT 95–98
[2020-08-12] MEDS: Albuterol 2.5 MG/3 ML VIAL.NEB. INHALATION (03:00)
[2020-08-12] MEDS: Acetaminophen 500 MG Tablet 1000 MG PO ×3 (05:24→22:00)
[2020-08-12] MEDS: Enoxaparin 100 MG/ML Syringe 90 MG SC ×2 (05:24→17:40)
[2020-08-12 06:33] LABS: International Normalized Ratio 1.2; Prothrombin Time (Protime)PT. 14.4 SECONDS (11.7-14.9)
[2020-08-12] MEDS: Ipratropium/Albuterol Sulfate 3 ML AMPUL.NEB INHALATION ×4 (07:15→19:45)
[2020-08-12] MEDS: Budesonide Respules 0.5 MG/2 ML AMPUL.NEB. INHALATION (07:15)
--- NOTE | 2020-08-12 07:32 | PCM.PN.ORT ---
Subjective: The patient was sitting in bed upon examination. Patient denies any chest pain, shortness of breath, dizziness, lightheadedness, nausea or vomiting, or calf pain. Pain is controlled on medications. No adverse overnight events. Patient sustained an acute stroke involving the right frontal lobe. Patient denies any numbness and tingling down her arms. The pain is been well controlled in her left shoulder as long as she does not move it. Patient is currently on aspirin and warfarin. Her INR yesterday was 1.1 and today is 1.2. Hospitalist is bridging her with Lovenox until she is therapeutic. Tele-neurology has been consulted. Patient did have an echocardiogram yesterday. Upon discharge we are uncertain at this time whether patient will need [facility] facility or home with home health. Case management is on board. Patient is followed by faculty administrator Dr. Chavis and neurology specialist Dr. Mccurdy. She requires 2 L of oxygen at home daily Objective: Vital signs stable, afebrile Dressing is clean, dry, intact Ultra-sling fitting appropriately Sensation intact to axillary, radial, median, and ulnar distribution Motor intact with patient able to make okay sign, cross fingers, and thumbs up. Patient denies any numbness and tingling down bilateral arms - Physical Exam Vitals/I&O's: Vital Signs Temp Pulse Resp BP Pulse Ox 98.3 F 57 L 18 152/90 H 97 08/12/20 06:40 08/12/20 06:51 08/12/20 06:40 08/12/20 06:40 08/12/20 06:40 Oxygen Flow Rate (L/min) 2 Oxygen Delivery Method Nasal Cannula Weight: 99.2 kg Body Mass Index (BMI) 37.5 Intake and Output for Last 24 Hours 08/10/20 08/11/20 08/12/20 23:59 23:59 23:59 Intake Total 5187.75 / 5202.75 2495 / 2615 240 / 240 Output Total 625 / 625 0 / 0 Balance 4562.75 / 4577.75 2495 / 2615 240 / 240 General: Alert, Oriented x3, Cooperative, No apparent distress Laboratory Results 08/11/20 05:25: PT 13.7, INR 1.1 08/11/20 05:25: Hemoglobin A1c 6.1 H 08/12/20 06:10: PT 14.4, INR 1.2 Current Medications Acetaminophen (Acetaminophen 500 Mg Tablet) 1,000 mg PO Q8 [facility] Last Admin: 08/12/20 05:24 Dose: 1,000 mg Documented by: Albuterol Sulfate (Albuterol 2.5 Mg/3 Ml Vial.Neb.) 2.5 mg INHALATION Q4H PRN PRN Reason: Wheezing/SOB Last Admin: 08/12/20 03:00 Dose: 2.5 mg Documented by: Albuterol/Ipratropium (Ipratropium/Albuterol Sulfate 3 Ml Ampul.Neb) 3 ml INHALATION 4X/DAY.RT [facility] Last Admin: 08/12/20 07:15 Dose: 3 ml Documented by: Aspirin (Aspirin E.C. 81 Mg Tablet) 81 mg PO DAILY@0800 [facility] Last Admin: 08/11/20 11:13 Dose: 81 mg Documented by: Atorvastatin Calcium (Atorvastatin Calcium 80 Mg Tablet) 80 mg PO QHS [facility] Last Admin: 08/11/20 11:16 Dose: 80 mg Documented by: Budesonide (Budesonide Respules 0.5 Mg/2 Ml Ampul.Neb.) 0.5 mg INHALATION Q12H.RT [facility] Last Admin: 08/12/20 07:15 Dose: 0.5 mg Documented by: Cholecalciferol (Cholecalciferol (Vit D3) 1,000 Unit (25mcg)) 1,000 unit PO DAILY [facility] Last Admin: 08/11/20 11:15 Dose: Not Given Documented by: Diltiazem HCl (Diltiazem Cd 120 Mg Capsule) 120 mg PO BID [facility] Last Admin: 08/11/20 22:34 Dose: 120 mg Documented by: Enoxaparin Sodium (Enoxaparin 100 Mg/Ml Syringe) 90 mg SC Q12@0600,1800 [facility] Last Admin: 08/12/20 05:24 Dose: 90 mg Documented by: Famotidine (Famotidine 20 Mg Tablet) 20 mg PO DAILY [facility] Last Admin: 08/11/20 11:13 Dose: 20 mg Documented by: Ferrous Sulfate (Ferrous Sulfate 325 Mg Tablet) 325 mg PO DAILYCM [facility] Last Admin: 08/11/20 11:14 Dose: Not Given Documented by: Hydralazine HCl (Hydralazine 20 Mg/Ml Vial) 5 mg IV Q30M PRN PRN Reason: to maintain BP goals Insulin Human Lispro (Insulin Lispro 100 Unit/Ml Insuln.Pen) 1 - 6 unit SC Q4H PRN PRN; Protocol PRN Reason: BG>/= 180, SEE PROTOCOL Labetalol HCl (Labetalol (Prefilled) 20 Mg/4 Ml) 10 - 20 mg IV Q10M PRN PRN PRN Reason: to Maintain BP Goals Morphine Sulfate (Morphine 2 Mg/Ml Syringe) 2 - 4 mg IV Q2H PRN PRN PRN Reason: Pain Score 6-10 Last Admin: 08/11/20 07:58 Dose: 2 mg Documented by: Morphine Sulfate (Morphine 4 Mg/Ml Syringe) 2 - 4 mg IV Q2H PRN PRN PRN Reason: Pain Score 6-10 Nutritional Formula (Lactose Free) (Ensure Enlive 120 Ml Liquid) 120 ml PO 4X/DAY [facility] Last Admin: 08/11/20 22:33 Dose: 120 ml Documented by: Ondansetron HCl (Ondansetron 4 Mg/2 Ml Vial) 4 mg IV Q8H PRN PRN PRN Reason: NAUSEA Oxycodone HCl (Oxycodone 5 Mg Tablet) 5 - 10 mg PO Q4H PRN PRN PRN Reason: Pain Score 4-10 Last Admin: 08/11/20 22:35 Dose: 10 mg Documented by: Promethazine HCl (Promethazine 25 Mg/Ml Syringe) 12.5 mg IM Q6H PRN PRN; Protocol PRN Reason: NAUSEA/VOMITING Senna/Docusate Sodium (Senna/Docusate Sodium 1 Tablet) 2 tablet PO BID [facility] Last Admin: 08/11/20 22:33 Dose: 2 tablet Documented by: Sodium Chloride (0.9% Saline Lock 10 Ml Syringe) 10 - 40 ml IV UD PRN PRN Reason: SALINE FLUSH Last Admin: 08/11/20 07:59 Dose: 10 ml Documented by: Throat Lozenges (Benzocaine/Menthol 1 Lozenge) 1 lozenge MUCOUS MEM Q2H PRN PRN PRN Reason: SORE THROAT Last Admin: 08/11/20 18:49 Dose: 1 lozenge Documented by: Warfarin Sodium (Warfarin 2.5 Mg Tablet) 2.5 mg PO WeThFr@1700 [facility] Last Admin: 08/11/20 17:48 Dose: 2.5 mg Documented by: Warfarin Sodium (Warfarin 5 Mg Tablet) 5 mg PO SuMoTuSa@1700 [facility] Medical Necessity - Tobacco Use Smoking Status: Never smoker Tobacco Use: Non-smoker Assessment/Plan All Active Problems (Last Reviewed 07/19/20 @ 13:00 by Nissa Thomas) History of knee replacement (Resolved) H/O varicose vein stripping (Resolved) Left knee pain (Acute) Tibial plateau fracture (Acute) NEVAEH (obstructive sleep apnea) (Acute) RLS (restless legs syndrome) (Acute) Iron deficiency anemia (Acute) COPD exacerbation (Acute) Long-term use of high-risk medication (Acute) History of GI bleed (Resolved) Diabetes mellitus type 2 in obese (Acute) Candidiasis of mouth (Acute) Subtherapeutic international normalized ratio (INR) (Acute) Severe sepsis (Ruled-out) CAP (community acquired pneumonia) (Acute) COPD exacerbation (Acute) Acute on chronic diastolic (congestive) heart failure (Resolved) Supratherapeutic INR (Resolved) 1. S/P left reverse total shoulder arthroplasty POD #2 2. Continue Pain Medications: Tylenol and OxyIR as needed for pain control. 3. DVT Prophylaxis: Coumadin has been resumed per hospitalist. Patient is being bridged with Lovenox until she is therapeutic. INR today was 1.2 4. PT/OT: Continue with therapy while in the hospital. No range of motion of the left shoulder. Continue with the UltraSling. I would like physical therapy to work on elbow, wrist, hand range of motion as well as pendulum exercises for the left shoulder only. She will begin outpatient formal physical therapy after her 2-week follow-up. 5. H & H: 12.7/41.1, asymptomatic 6. Encouraged Incentive Spirometry 7. Continue postoperative medical management per medicine: Patient did sustain a CVA prior to the surgery but her and the daughter did not disclose any of this information prior to proceeding with the surgery. Patient has had a CT scan MRI, and MRA of the head neck. MRI was consistent with a CVA with infarct in the right frontal lobe. Tele-Neurology has been consulted. 7. Disposition: Patient will require additional stay in the hospital due to her recent CVA. Patient will most likely need some additional help at home with home health care or possible placement into [facility] facility. Case management is involved. At this time still unsure of what patient will need at discharge. This is dependent upon neurology consult.
[2020-08-12 08:36] LABS: ALB/GLOB Ratio 0.9 RATIO (0.9-2.4); AST(SGOT) 11 U/L (15-37); Alanine Aminotransfer ALT/SGPT 19 U/L (13-56); Alkaline Phosphatase 59 U/L (45-117); Anion Gap -1 (5-15); BUN 10 mg/dL (7-18); BUN/Creat Ratio 21.2 RATIO (10-20); Calcium,Total 8.4 mg/dL (8.5-10.1); Chloride 103 mmol/L (98-107); Creatinine, Serum 0.47 mg/dL (0.55-1.02); EST Glomerular Filtration Rate 137 mL/min (>60); Est Glom Filt Rate - Afr Amer 165 mL/min (>60); Estimated Creatinine Clearance 41.97 ml/min; Globulin 3.2 g/dL (2.2-4.2); Glucose 127 mg/dL (74-106); Potassium 3.9 mmol/L (3.5-5.1); Protein, Total 6.2 g/dL (6.4-8.2); Sodium Level 139 mmol/L (136-145)
[2020-08-12] MEDS: Aspirin E.C. 81 MG Tablet PO (08:37)
[2020-08-12] MEDS: dilTIAZem CD 120 MG Capsule PO ×2 (08:37→21:59)
[2020-08-12] MEDS: Ferrous Sulfate 325 MG Tablet PO (08:38)
[2020-08-12] MEDS: Famotidine 20 MG Tablet PO (08:38)
[2020-08-12] MEDS: oxyCODONE 5 MG Tablet PO ×2 (08:38→23:13)
[2020-08-12] MEDS: Senna/Docusate Sodium 1 Tablet 2 TABLET PO ×2 (08:38→21:59)
--- NOTE | 2020-08-12 11:08 | CASEMGMT ---
This RN CM to room to discuss discharge planning with pt at this time and pt immediately states concerns with going home at time of discharge and asks about going to [facility] at discharge. Pt states does not feel safe with going home at discharge d/t shoulder surgery and CVA. Maliha VITAL aware, voices understanding. SStaten MACK CM
--- NOTE | 2020-08-12 13:42 | CASEMGMT ---
Patient has decided she cannot go home and would like to go to [facility]. SW called [facility] and they do not have any beds until Saturday. Patient requires insurance authorization before she can go. AMANUEL faxed referral to [facility]. Await response. Plan: [facility] pending their acceptance and insurance approval. Leslie ADLER
--- NOTE | 2020-08-12 14:23 | PN_ITS ---
Reason for Visit: Follow-up on intractable abdominal pain Subjective: Patient was seen and examined. She denied any worsening chest pain, SOB. 2D-ECHO showed EF of 60%. HbA1c 6.1. Vitals/I&O's: Vital Signs Temp Pulse Resp BP Pulse Ox 98.7 F 72 14 129/78 H 95 08/12/20 10:40 08/12/20 11:21 08/12/20 11:21 08/12/20 10:40 08/12/20 10:40 Oxygen Flow Rate (L/min) 2 Oxygen Delivery Method Nasal Cannula Weight: 99.2 kg Body Mass Index (BMI) 37.5 Intake and Output for Last 24 Hours 08/10/20 08/11/20 08/12/20 23:59 23:59 23:59 Intake Total 5187.75 / 5202.75 2495 / 2615 240 / 240 Output Total 625 / 625 0 / 0 Balance 4562.75 / 4577.75 2495 / 2615 240 / 240 General: Alert, Oriented x3, Cooperative, No apparent distress HEENT: Atraumatic, PERRLA, EOMI, Normocephalic Oral: Moist Mucosa Neck: Supple Lungs: Wheezes Cardiovascular: Regular rate, Regular Rhythm, Normal S1, Normal S2, No murmurs Abdomen: Bowel Sounds Present, Soft, Non Tender, Non-Distended, No Hepato- splenomegaly Extremities: No edema Skin: No rashes, No breakdown Musculoskeletal: Tenderness - Left shoulder in a sling Lymphatic: No Cervical, Supraclavicular, or Inguinal Adenopathy Neurological: Cranial nerves II-XII grossly intact Psych/Mental Status: Normal Affect, Appropriate Laboratory Results 08/11/20 05:25: Hemoglobin A1c 6.1 H 08/12/20 06:10: PT 14.4, INR 1.2 08/12/20 06:10: Sodium 139, Potassium 3.9, Chloride 103, Carbon Dioxide 37.0 H, Anion Gap -1 L, BUN 10, Creatinine 0.47 L, Estim Creat Clear Calc 41.97, Est GFR (MDRD) Af Amer 165, Est GFR (MDRD) Non-Af 137, BUN/Creatinine Ratio 21.2 H, Glucose 127 H, Calcium 8.4 L, Total Bilirubin 0.50, AST 11 L, ALT 19, Alkaline Phosphatase 59, Total Protein 6.2 L, Albumin 3.0 L, Globulin 3.2, Albumin/Globulin Ratio 0.9 Current Medications Acetaminophen (Acetaminophen 500 Mg Tablet) 1,000 mg PO Q8 [facility] Last Admin: 08/12/20 05:24 Dose: 1,000 mg Documented by: Albuterol Sulfate (Albuterol 2.5 Mg/3 Ml Vial.Neb.) 2.5 mg INHALATION Q4H PRN PRN Reason: Wheezing/SOB Last Admin: 08/12/20 03:00 Dose: 2.5 mg Documented by: Albuterol/Ipratropium (Ipratropium/Albuterol Sulfate 3 Ml Ampul.Neb) 3 ml INHALATION 4X/DAY.RT [facility] Last Admin: 08/12/20 11:20 Dose: 3 ml Documented by: Aspirin (Aspirin E.C. 81 Mg Tablet) 81 mg PO DAILY@0800 [facility] Last Admin: 08/12/20 08:37 Dose: 81 mg Documented by: Atorvastatin Calcium (Atorvastatin Calcium 80 Mg Tablet) 80 mg PO QHS [facility] Last Admin: 08/11/20 11:16 Dose: 80 mg Documented by: Cholecalciferol (Cholecalciferol (Vit D3) 1,000 Unit (25mcg)) 1,000 unit PO DAILY [facility] Last Admin: 08/12/20 08:38 Dose: 1,000 unit Documented by: Diltiazem HCl (Diltiazem Cd 120 Mg Capsule) 120 mg PO BID [facility] Last Admin: 08/12/20 08:37 Dose: 120 mg Documented by: Enoxaparin Sodium (Enoxaparin 100 Mg/Ml Syringe) 90 mg SC Q12@0600,1800 [facility] Last Admin: 08/12/20 05:24 Dose: 90 mg Documented by: Famotidine (Famotidine 20 Mg Tablet) 20 mg PO DAILY [facility] Last Admin: 08/12/20 08:38 Dose: 20 mg Documented by: Ferrous Sulfate (Ferrous Sulfate 325 Mg Tablet) 325 mg PO DAILYCM [facility] Last Admin: 08/12/20 08:38 Dose: 325 mg Documented by: Hydralazine HCl (Hydralazine 20 Mg/Ml Vial) 5 mg IV Q30M PRN PRN Reason: to maintain BP goals Insulin Human Lispro (Insulin Lispro 100 Unit/Ml Insuln.Pen) 1 - 6 unit SC Q4H PRN PRN; Protocol PRN Reason: BG>/= 180, SEE PROTOCOL Labetalol HCl (Labetalol (Prefilled) 20 Mg/4 Ml) 10 - 20 mg IV Q10M PRN PRN PRN Reason: to Maintain BP Goals Morphine Sulfate (Morphine 2 Mg/Ml Syringe) 2 - 4 mg IV Q2H PRN PRN PRN Reason: Pain Score 6-10 Last Admin: 08/11/20 07:58 Dose: 2 mg Documented by: Morphine Sulfate (Morphine 4 Mg/Ml Syringe) 2 - 4 mg IV Q2H PRN PRN PRN Reason: Pain Score 6-10 Nutritional Formula (Lactose Free) (Ensure Enlive 120 Ml Liquid) 120 ml PO 4X/DAY [facility] Last Admin: 08/12/20 08:38 Dose: 120 ml Documented by: Ondansetron HCl (Ondansetron 4 Mg/2 Ml Vial) 4 mg IV Q8H PRN PRN PRN Reason: NAUSEA Oxycodone HCl (Oxycodone 5 Mg Tablet) 5 - 10 mg PO Q4H PRN PRN PRN Reason: Pain Score 4-10 Last Admin: 08/12/20 08:38 Dose: 10 mg Documented by: Prednisone (Prednisone 20 Mg Tablet) 40 mg PO DAILY@0800 [facility] Promethazine HCl (Promethazine 25 Mg/Ml Syringe) 12.5 mg IM Q6H PRN PRN; Protocol PRN Reason: NAUSEA/VOMITING Senna/Docusate Sodium (Senna/Docusate Sodium 1 Tablet) 2 tablet PO BID [facility] Last Admin: 08/12/20 08:38 Dose: 2 tablet Documented by: Sodium Chloride (0.9% Saline Lock 10 Ml Syringe) 10 - 40 ml IV UD PRN PRN Reason: SALINE FLUSH Last Admin: 08/11/20 07:59 Dose: 10 ml Documented by: Throat Lozenges (Benzocaine/Menthol 1 Lozenge) 1 lozenge MUCOUS MEM Q2H PRN PRN PRN Reason: SORE THROAT Last Admin: 08/11/20 18:49 Dose: 1 lozenge Documented by: Warfarin Sodium (Warfarin 2.5 Mg Tablet) 2.5 mg PO WeThFr@1700 [facility] Last Admin: 08/11/20 17:48 Dose: 2.5 mg Documented by: Warfarin Sodium (Warfarin 5 Mg Tablet) 5 mg PO SuMoTuSa@1700 [facility] Vital Signs/Narrative: Vital Signs Temp Pulse Resp BP Pulse Ox 08/12/20 11:21 72 14 08/12/20 10:40 98.7 F 92 18 129/78 H 95 Medical Necessity - Tobacco Use Smoking Status: Never smoker Tobacco Use: Non-smoker Assessment/Plan All Active Problems (Last Reviewed 07/19/20 @ 13:00 by Nissa Thomas) History of knee replacement (Resolved) H/O varicose vein stripping (Resolved) Left knee pain (Acute) Tibial plateau fracture (Acute) NEVAEH (obstructive sleep apnea) (Acute) RLS (restless legs syndrome) (Acute) Iron deficiency anemia (Acute) COPD exacerbation (Acute) Long-term use of high-risk medication (Acute) History of GI bleed (Resolved) Diabetes mellitus type 2 in obese (Acute) Candidiasis of mouth (Acute) Subtherapeutic international normalized ratio (INR) (Acute) Severe sepsis (Ruled-out) CAP (community acquired pneumonia) (Acute) COPD exacerbation (Acute) Acute on chronic diastolic (congestive) heart failure (Resolved) Supratherapeutic INR (Resolved) 1. Acute right frontal/parietal CVA, MRA of the head and neck was negative for large vessel occlusion. 2D echo shows EF of 60%, HgbA1c is 6.1 On aspirin, statin. Tele-neurology consulted. INR remains subtherapeutic at 1.2 Continue bridging with Lovenox and Coumadin, repeat INR in a.m. 2. Acute COPD exacerbation, mild Patient had wheezing on exam today, continue on breathing treatment. Add prednisone 3. POD#2 status post left reverse shoulder arthroplasty Pain is fairly controlled, continue with Orthopedics recommendation 4. Hypertension, controlled, continue on oral Cardizem 5. Paroxysmal atrial fibrillation, rate controlled/pulmonary hypertension Continue on Cardizem, INR subtherapeutic, continue on Coumadin and Lovenox bridging Repeat INR in a.m. 6. Iron deficiency anemia, continue on iron 7. DVT prophylaxis -on warfarin and therapeutic Lovenox was INR is subtherapeutic Inpatient E&M: 76050 Subs Hosp L2
[2020-08-12] MEDS: predniSONE 20 MG Tablet 40 MG PO (14:24)
--- NOTE | 2020-08-12 15:42 | CASEMGMT ---
AMANUEL spoke with Keturah from [facility] and they can accept patient. She said they will start pre-cert, but Saturday she will need updated therapy notes. AMANUEL will follow up Saturday. Plan: [facility] [facility] pending pre-cert. Leslie ADLER
[2020-08-12] MEDS: Atorvastatin Calcium 80 MG Tablet PO (21:59)
[2020-08-13] VITALS (12 sets, daily range): BP systolic 124–138; BP diastolic 57–80; PULSE 67–91; RESP 17–18; TEMP 36.5–37.1; O2SAT 96–100
[2020-08-13] MEDS: Enoxaparin 100 MG/ML Syringe 90 MG SC ×2 (06:20→18:00)
[2020-08-13] MEDS: Acetaminophen 500 MG Tablet 1000 MG PO ×3 (06:20→21:32)
[2020-08-13 06:24] LABS: International Normalized Ratio 1.2; Prothrombin Time (Protime)PT. 14.8 SECONDS (11.7-14.9)
[2020-08-13] MEDS: Ipratropium/Albuterol Sulfate 3 ML AMPUL.NEB INHALATION ×4 (07:35→19:27)
--- NOTE | 2020-08-13 08:48 | PN.ORTHO_ITS ---
Subjective: The patient was sitting in bedside chair upon examination. Patient denies any chest pain, shortness of breath, dizziness, lightheadedness, nausea or vomiting, or calf pain. Pain is controlled on medications. No adverse overnight events. Patient states her left shoulder is doing well today. Her pain is controlled. We are waiting on pre-CERT for patient to go to [facility] upon discharge. Case management is on board. Patient is continuing to bridge with Lovenox until she is therapeutic. Objective: Vital signs stable, afebrile Dressing is clean, dry, intact Ultra-sling fitting appropriately Sensation intact to axillary, radial, median, and ulnar distribution Motor intact with patient able to make okay sign, cross fingers, and thumbs up - Physical Exam Vitals/I&O's: Vital Signs Temp Pulse Resp BP Pulse Ox 97.7 F L 67 18 133/74 H 96 08/13/20 03:45 08/13/20 07:36 08/13/20 07:36 08/13/20 03:45 08/13/20 07:36 Oxygen Flow Rate (L/min) 2 Oxygen Delivery Method Nasal Cannula Weight: 99.2 kg Body Mass Index (BMI) 37.5 Intake and Output for Last 24 Hours 08/11/20 08/12/20 08/13/20 23:59 23:59 23:59 Intake Total 2495 / 2615 910 / 910 0 / 0 Output Total 0 / 0 Balance 2495 / 2615 910 / 910 0 / 0 General: Alert, Oriented x3, Cooperative, No apparent distress Laboratory Results 08/13/20 05:47: PT 14.8, INR 1.2 Current Medications Acetaminophen (Acetaminophen 500 Mg Tablet) 1,000 mg PO Q8 [facility] Last Admin: 08/13/20 06:20 Dose: 1,000 mg Documented by: Albuterol Sulfate (Albuterol 2.5 Mg/3 Ml Vial.Neb.) 2.5 mg INHALATION Q4H PRN PRN Reason: Wheezing/SOB Last Admin: 08/12/20 03:00 Dose: 2.5 mg Documented by: Albuterol/Ipratropium (Ipratropium/Albuterol Sulfate 3 Ml Ampul.Neb) 3 ml INHALATION 4X/DAY.RT [facility] Last Admin: 08/13/20 07:35 Dose: 3 ml Documented by: Aspirin (Aspirin E.C. 81 Mg Tablet) 81 mg PO DAILY@0800 [facility] Last Admin: 08/12/20 08:37 Dose: 81 mg Documented by: Atorvastatin Calcium (Atorvastatin Calcium 80 Mg Tablet) 80 mg PO QHS [facility] Last Admin: 08/12/20 21:59 Dose: 80 mg Documented by: Cholecalciferol (Cholecalciferol (Vit D3) 1,000 Unit (25mcg)) 1,000 unit PO DAILY [facility] Last Admin: 08/12/20 08:38 Dose: 1,000 unit Documented by: Diltiazem HCl (Diltiazem Cd 120 Mg Capsule) 120 mg PO BID [facility] Last Admin: 08/12/20 21:59 Dose: 120 mg Documented by: Enoxaparin Sodium (Enoxaparin 100 Mg/Ml Syringe) 90 mg SC Q12@0600,1800 [facility] Last Admin: 08/13/20 06:20 Dose: 90 mg Documented by: Famotidine (Famotidine 20 Mg Tablet) 20 mg PO DAILY [facility] Last Admin: 08/12/20 08:38 Dose: 20 mg Documented by: Ferrous Sulfate (Ferrous Sulfate 325 Mg Tablet) 325 mg PO DAILYCM [facility] Last Admin: 08/12/20 08:38 Dose: 325 mg Documented by: Hydralazine HCl (Hydralazine 20 Mg/Ml Vial) 5 mg IV Q30M PRN PRN Reason: to maintain BP goals Insulin Human Lispro (Insulin Lispro 100 Unit/Ml Insuln.Pen) 1 - 6 unit SC Q4H PRN PRN; Protocol PRN Reason: BG>/= 180, SEE PROTOCOL Labetalol HCl (Labetalol (Prefilled) 20 Mg/4 Ml) 10 - 20 mg IV Q10M PRN PRN PRN Reason: to Maintain BP Goals Morphine Sulfate (Morphine 2 Mg/Ml Syringe) 2 - 4 mg IV Q2H PRN PRN PRN Reason: Pain Score 6-10 Last Admin: 08/11/20 07:58 Dose: 2 mg Documented by: Morphine Sulfate (Morphine 4 Mg/Ml Syringe) 2 - 4 mg IV Q2H PRN PRN PRN Reason: Pain Score 6-10 Nutritional Formula (Lactose Free) (Ensure Enlive 120 Ml Liquid) 120 ml PO 4X/DAY [facility] Last Admin: 08/12/20 21:58 Dose: Not Given Documented by: Ondansetron HCl (Ondansetron 4 Mg/2 Ml Vial) 4 mg IV Q8H PRN PRN PRN Reason: NAUSEA Oxycodone HCl (Oxycodone 5 Mg Tablet) 5 - 10 mg PO Q4H PRN PRN PRN Reason: Pain Score 4-10 Last Admin: 08/12/20 23:13 Dose: 10 mg Documented by: Prednisone (Prednisone 20 Mg Tablet) 40 mg PO DAILY@0800 [facility] Promethazine HCl (Promethazine 25 Mg/Ml Syringe) 12.5 mg IM Q6H PRN PRN; Protocol PRN Reason: NAUSEA/VOMITING Senna/Docusate Sodium (Senna/Docusate Sodium 1 Tablet) 2 tablet PO BID [facility] Last Admin: 08/12/20 21:59 Dose: 2 tablet Documented by: Sodium Chloride (0.9% Saline Lock 10 Ml Syringe) 10 - 40 ml IV UD PRN PRN Reason: SALINE FLUSH Last Admin: 08/11/20 07:59 Dose: 10 ml Documented by: Throat Lozenges (Benzocaine/Menthol 1 Lozenge) 1 lozenge MUCOUS MEM Q2H PRN PRN PRN Reason: SORE THROAT Last Admin: 08/11/20 18:49 Dose: 1 lozenge Documented by: Warfarin Sodium (Warfarin 2.5 Mg Tablet) 2.5 mg PO WeThFr@1700 [facility] Last Admin: 08/12/20 17:39 Dose: 2.5 mg Documented by: Warfarin Sodium (Warfarin 5 Mg Tablet) 5 mg PO SuMoTuSa@1700 [facility] Medical Necessity - Tobacco Use Smoking Status: Never smoker Tobacco Use: Non-smoker Assessment/Plan All Active Problems (Last Reviewed 07/19/20 @ 13:00 by Nissa Thomas) History of knee replacement (Resolved) H/O varicose vein stripping (Resolved) Left knee pain (Acute) Tibial plateau fracture (Acute) NEVAEH (obstructive sleep apnea) (Acute) RLS (restless legs syndrome) (Acute) Iron deficiency anemia (Acute) COPD exacerbation (Acute) Long-term use of high-risk medication (Acute) History of GI bleed (Resolved) Diabetes mellitus type 2 in obese (Acute) Candidiasis of mouth (Acute) Subtherapeutic international normalized ratio (INR) (Acute) Severe sepsis (Ruled-out) CAP (community acquired pneumonia) (Acute) COPD exacerbation (Acute) Acute on chronic diastolic (congestive) heart failure (Resolved) Supratherapeutic INR (Resolved) 1. S/P left reverse total shoulder arthroplasty POD #3 2. Continue Pain Medications: Tylenol and OxyIR as needed for pain control. 3. DVT Prophylaxis: Coumadin has been resumed per hospitalist. Patient is being bridged with Lovenox until she is therapeutic. 4. PT/OT: Continue with therapy while in the hospital. No range of motion of the left shoulder. Continue with the UltraSling. I would like physical therapy to work on elbow, wrist, hand range of motion as well as pendulum exercises for the left shoulder only. She will begin outpatient formal physical therapy after her 2-week follow-up. 5. INR 1.2 today: Currently bridging with Lovenox and on Coumadin 6. Encouraged Incentive Spirometry 7. Continue postoperative medical management per medicine: Patient did sustain a CVA prior to the surgery but her and the daughter did not disclose any of this information prior to proceeding with the surgery. Patient has had a CT scan MRI, and MRA of the head neck. MRI was consistent with a CVA with infarct in the right frontal lobe. Tele-Neurology has been consulted. 7. Disposition: Patient will require additional stay in the hospital due to her recent CVA. Patient will most likely need some additional help at home with home health care or possible placement into senior care facility. Case management is involved. Plan is for patient to go to [place] upon discharge and waiting on pre-CERT. Also will need to make sure patient is medically stable from the stroke as well as having all appropriate follow-ups scheduled for this recent stroke.
[2020-08-13] MEDS: dilTIAZem CD 120 MG Capsule PO ×2 (09:57→21:32)
[2020-08-13] MEDS: Aspirin E.C. 81 MG Tablet PO (09:57)
[2020-08-13] MEDS: predniSONE 20 MG Tablet 40 MG PO (09:57)
[2020-08-13] MEDS: Ferrous Sulfate 325 MG Tablet PO (09:57)
[2020-08-13] MEDS: Senna/Docusate Sodium 1 Tablet 2 TABLET PO ×2 (09:57→21:32)
[2020-08-13] MEDS: Famotidine 20 MG Tablet PO (09:57)
--- NOTE | 2020-08-13 14:28 | PN_ITS ---
Reason for Visit: Follow-up on postop management/acute stroke/sub-therapeutic INR Subjective: Patient was seen and examined. Denied any new condition. She still has not had any CPAP at night. She is on continuous pulse ox. Her pain is fairly controlled. Presets is pending for discharge to [facility] facility Objective: Physical exam: General: Alert, Oriented x3, Cooperative, No apparent distress, on 2 L of oxygen HEENT: Atraumatic, PERRLA, EOMI, Normocephalic Oral: Moist Mucosa Neck: Supple Lungs: Wheezes Cardiovascular: Regular rate, Regular Rhythm, Normal S1, Normal S2, No murmurs Abdomen: Bowel Sounds Present, Soft, Non Tender, Non-Distended, No Hepato- splenomegaly Extremities: No edema Skin: No rashes, No breakdown Musculoskeletal: Tenderness - Left shoulder in a sling Lymphatic: No Cervical, Supraclavicular, or Inguinal Adenopathy Neurological: Cranial nerves II-XII grossly intact Psych/Mental Status: Normal Affect, Appropriate Vitals/I&O's: Vital Signs Temp Pulse Resp BP Pulse Ox 98.0 F 72 18 122/59 H 99 08/13/20 09:45 08/13/20 10:36 08/13/20 10:36 08/13/20 09:45 08/13/20 10:08 Oxygen Flow Rate (L/min) 2 Oxygen Delivery Method Nasal Cannula Weight: 99.2 kg Body Mass Index (BMI) 37.5 Intake and Output for Last 24 Hours 08/11/20 08/12/20 08/13/20 23:59 23:59 23:59 Intake Total 2495 / 2615 910 / 910 720 / 720 Output Total 0 / 0 Balance 2495 / 2615 910 / 910 720 / 720 Laboratory Results 08/13/20 05:47: PT 14.8, INR 1.2 Current Medications Acetaminophen (Acetaminophen 500 Mg Tablet) 1,000 mg PO Q8 [facility] Last Admin: 08/13/20 14:14 Dose: 1,000 mg Documented by: Albuterol Sulfate (Albuterol 2.5 Mg/3 Ml Vial.Neb.) 2.5 mg INHALATION Q4H PRN PRN Reason: Wheezing/SOB Last Admin: 08/12/20 03:00 Dose: 2.5 mg Documented by: Albuterol/Ipratropium (Ipratropium/Albuterol Sulfate 3 Ml Ampul.Neb) 3 ml INHALATION 4X/DAY.RT [facility] Last Admin: 08/13/20 10:36 Dose: 3 ml Documented by: Aspirin (Aspirin E.C. 81 Mg Tablet) 81 mg PO DAILY@0800 [facility] Last Admin: 08/13/20 09:57 Dose: 81 mg Documented by: Atorvastatin Calcium (Atorvastatin Calcium 80 Mg Tablet) 80 mg PO QHS [facility] Last Admin: 08/12/20 21:59 Dose: 80 mg Documented by: Cholecalciferol (Cholecalciferol (Vit D3) 1,000 Unit (25mcg)) 1,000 unit PO DAILY [facility] Last Admin: 08/13/20 09:57 Dose: 1,000 unit Documented by: Diltiazem HCl (Diltiazem Cd 120 Mg Capsule) 120 mg PO BID [facility] Last Admin: 08/13/20 09:57 Dose: 120 mg Documented by: Enoxaparin Sodium (Enoxaparin 100 Mg/Ml Syringe) 90 mg SC Q12@0600,1800 [facility] Last Admin: 08/13/20 06:20 Dose: 90 mg Documented by: Famotidine (Famotidine 20 Mg Tablet) 20 mg PO DAILY [facility] Last Admin: 08/13/20 09:57 Dose: 20 mg Documented by: Ferrous Sulfate (Ferrous Sulfate 325 Mg Tablet) 325 mg PO DAILYCM [facility] Last Admin: 08/13/20 09:57 Dose: 325 mg Documented by: Hydralazine HCl (Hydralazine 20 Mg/Ml Vial) 5 mg IV Q30M PRN PRN Reason: to maintain BP goals Insulin Human Lispro (Insulin Lispro 100 Unit/Ml Insuln.Pen) 1 - 6 unit SC Q4H PRN PRN; Protocol PRN Reason: BG>/= 180, SEE PROTOCOL Labetalol HCl (Labetalol (Prefilled) 20 Mg/4 Ml) 10 - 20 mg IV Q10M PRN PRN PRN Reason: to Maintain BP Goals Nutritional Formula (Lactose Free) (Ensure Enlive 120 Ml Liquid) 120 ml PO 4X/DAY [facility] Last Admin: 08/13/20 14:14 Dose: 120 ml Documented by: Ondansetron HCl (Ondansetron 4 Mg/2 Ml Vial) 4 mg IV Q8H PRN PRN PRN Reason: NAUSEA Oxycodone HCl (Oxycodone 5 Mg Tablet) 5 - 10 mg PO Q4H PRN PRN PRN Reason: Pain Score 4-10 Last Admin: 08/12/20 23:13 Dose: 10 mg Documented by: Prednisone (Prednisone 20 Mg Tablet) 40 mg PO DAILY@0800 [facility] Last Admin: 08/13/20 09:57 Dose: 40 mg Documented by: Promethazine HCl (Promethazine 25 Mg/Ml Syringe) 12.5 mg IM Q6H PRN PRN; Protocol PRN Reason: NAUSEA/VOMITING Senna/Docusate Sodium (Senna/Docusate Sodium 1 Tablet) 2 tablet PO BID [facility] Last Admin: 08/13/20 09:57 Dose: 2 tablet Documented by: Sodium Chloride (0.9% Saline Lock 10 Ml Syringe) 10 - 40 ml IV UD PRN PRN Reason: SALINE FLUSH Last Admin: 08/11/20 07:59 Dose: 10 ml Documented by: Throat Lozenges (Benzocaine/Menthol 1 Lozenge) 1 lozenge MUCOUS MEM Q2H PRN PRN PRN Reason: SORE THROAT Last Admin: 08/11/20 18:49 Dose: 1 lozenge Documented by: Warfarin Sodium (Warfarin 2.5 Mg Tablet) 2.5 mg PO WeThFr@1700 [facility] Last Admin: 08/12/20 17:39 Dose: 2.5 mg Documented by: Warfarin Sodium (Warfarin 5 Mg Tablet) 5 mg PO SuMoTuSa@1700 [facility] Vital Signs/Narrative: Vital Signs Pulse Resp 08/13/20 10:36 72 18 Medical Necessity - Tobacco Use Smoking Status: Never smoker Tobacco Use: Non-smoker Assessment/Plan All Active Problems (Last Reviewed 07/19/20 @ 13:00 by Nissa Thomas) History of knee replacement (Resolved) H/O varicose vein stripping (Resolved) Left knee pain (Acute) Tibial plateau fracture (Acute) NEVAEH (obstructive sleep apnea) (Acute) RLS (restless legs syndrome) (Acute) Iron deficiency anemia (Acute) COPD exacerbation (Acute) Long-term use of high-risk medication (Acute) History of GI bleed (Resolved) Diabetes mellitus type 2 in obese (Acute) Candidiasis of mouth (Acute) Subtherapeutic international normalized ratio (INR) (Acute) Severe sepsis (Ruled-out) CAP (community acquired pneumonia) (Acute) COPD exacerbation (Acute) Acute on chronic diastolic (congestive) heart failure (Resolved) Supratherapeutic INR (Resolved) 1. Acute right frontal/parietal CVA, MRA of the head and neck was negative for large vessel occlusion. 2D echo shows EF of 60%, HgbA1c is 6.1. On aspirin, statin. Tele-neurology consulted. INR remains subtherapeutic at 1.2 Continue bridging with Lovenox and Coumadin, repeat INR in a.m. 2. Acute COPD exacerbation, proved, continue breathing treatments and prednisone 3. POD#3 status post left reverse shoulder arthroplasty Pain is fairly controlled, continue with Orthopedics recommendation 4. Hypertension, controlled, continue on oral Cardizem 5. Paroxysmal atrial fibrillation, rate controlled/pulmonary hypertension Continue on Cardizem, INR subtherapeutic, continue on Coumadin and Lovenox bridging Repeat INR in a.m. 6. Iron deficiency anemia, continue on iron 7. DVT prophylaxis -on warfarin and therapeutic Lovenox was INR is subtherapeutic Inpatient E&M: 44275 Subs Hosp L2
[2020-08-13] MEDS: Atorvastatin Calcium 80 MG Tablet PO (21:32)
[2020-08-14] VITALS (14 sets, daily range): BP systolic 121–158; BP diastolic 58–94; PULSE 55–86; RESP 16–22; TEMP 36.6–36.8; O2SAT 98–100
[2020-08-14] MEDS: Albuterol 2.5 MG/3 ML VIAL.NEB. INHALATION (04:22)
[2020-08-14 05:36] LABS: Absolute Neutrophil Count 6.1 X10^3/uL (2.0-7.7); Basophil# 0.01 X10^3/uL; Basophil% 0.1 % (0-1); Eosinophil# 0.03 X10^3/uL; Eosinophils% 0.3 % (0-5); Hematocrit 41.4 % (37-47); Hemoglobin 12.6 g/dL (12.0-15.0); Lymphocyte % 20.4 % (19-41); Mean Corp Hgb Conc 30.4 g/dL (32-36); Mean Corpuscular Hgb 29.4 pg (27.0-32.0); Mean Corpuscular Volume 96.5 fL (81-99); Mean Platelet Vol. 10.1 fl (6.2-12.0); Monocyte# 0.89 X10^3/uL; Monocyte% 10.1 % (0-10); NRBC Flagged by Analyzer 0 % (0-5); Neutrophil # 6.07 X10^3/uL (2.7-7.7); Neutrophil % 68.6 % (47-70); Platelet Count 197 K/mm3 (150-450); RBC Distribution Width CV 13.2 % (11.6-14.6); RBC Distribution Width SD 46.5 fl (35.1-43.9); Red Blood Count 4.29 M/mm3 (4.2-5.4); White Blood Count 8.8 K/mm3 (4.4-11.0)
[2020-08-14 05:44] LABS: International Normalized Ratio 1.3; Prothrombin Time (Protime)PT. 15.2 SECONDS (11.7-14.9)
[2020-08-14 05:56] LABS: ALB/GLOB Ratio 0.8 RATIO (0.9-2.4); AST(SGOT) 8 U/L (15-37); Alanine Aminotransfer ALT/SGPT 17 U/L (13-56); Albumin, Serum 2.8 g/dL (3.2-5.0); Alkaline Phosphatase 57 U/L (45-117); Anion Gap 1 (5-15); BUN 14 mg/dL (7-18); BUN/Creat Ratio 33.1 RATIO (10-20); Calcium,Total 8.6 mg/dL (8.5-10.1); Chloride 100 mmol/L (98-107); Creatinine, Serum 0.42 mg/dL (0.55-1.02); EST Glomerular Filtration Rate 155 mL/min (>60); Est Glom Filt Rate - Afr Amer 188 mL/min (>60); Estimated Creatinine Clearance 41.97 ml/min; Globulin 3.6 g/dL (2.2-4.2); Glucose 107 mg/dL (74-106); Potassium 3.6 mmol/L (3.5-5.1); Protein, Total 6.4 g/dL (6.4-8.2); Sodium Level 140 mmol/L (136-145)
[2020-08-14] MEDS: Enoxaparin 100 MG/ML Syringe 90 MG SC ×2 (06:05→17:01)
[2020-08-14] MEDS: Acetaminophen 500 MG Tablet 1000 MG PO (06:06)
[2020-08-14] MEDS: Ipratropium/Albuterol Sulfate 3 ML AMPUL.NEB INHALATION ×4 (07:08→19:30)
[2020-08-14] MEDS: 0.9% Saline Lock 10 ML Syringe IV (08:12)
[2020-08-14] MEDS: predniSONE 20 MG Tablet 40 MG PO (08:12)
[2020-08-14] MEDS: Aspirin E.C. 81 MG Tablet PO (08:12)
[2020-08-14] MEDS: Ferrous Sulfate 325 MG Tablet PO (08:12)
[2020-08-14] MEDS: oxyCODONE 5 MG Tablet PO (08:13)
[2020-08-14] MEDS: Famotidine 20 MG Tablet PO (09:10)
[2020-08-14] MEDS: Senna/Docusate Sodium 1 Tablet 2 TABLET PO ×2 (09:10→22:00)
[2020-08-14] MEDS: dilTIAZem CD 120 MG Capsule PO ×2 (09:10→22:00)
--- NOTE | 2020-08-14 11:33 | PN_ITS ---
<Percy Wright PA - Last Filed: 08/14/20 11:33> Reason for Visit: stroke, SOB Subjective: SOB improved. no fever/chills. facial droop improved. ongoing significant left shoulder pain. Pt states she cannot sleep when taking tylenol and wants this discontinued. she feels the prednisone has helped her breathing significantly. Vitals/I&O's: Vital Signs Temp Pulse Resp BP Pulse Ox 98.0 F 81 18 158/90 H 100 08/14/20 09:10 08/14/20 09:10 08/14/20 09:10 08/14/20 09:10 08/14/20 09:10 Oxygen Flow Rate (L/min) 2 Oxygen Delivery Method Nasal Cannula Weight: 218 lb 11.177 oz Body Mass Index (BMI) 37.5 Intake and Output for Last 24 Hours 08/12/20 08/13/20 08/14/20 23:59 23:59 23:59 Intake Total 910 / 910 1320 / 1320 50 / 50 Output Total 0 / 0 Balance 910 / 910 1320 / 1320 50 / 50 General: Alert, Oriented x3, Cooperative HEENT: Atraumatic, PERRLA, EOMI, Normocephalic Neck: Supple, No JVD, Negative Carotid Bruits Lungs: Clear to auscultation, Diminished Cardiovascular: Regular rate, No murmurs Abdomen: Bowel Sounds Present, Soft, Non Tender Extremities: No edema, Capillary Refill Less than 3 Seconds Skin: No rashes, No breakdown Musculoskeletal: No Tenderness to Palpation of Joints or Extremities Neurological: Cranial nerves II-XII grossly intact Psych/Mental Status: Normal Affect, Appropriate, Alert and oriented to time, place, person, mood and affect Laboratory Results 08/14/20 05:14: WBC 8.8, RBC 4.29, Hgb 12.6, Hct 41.4, MCV 96.5, MCH 29.4, MCHC 30.4 L, RDW Std Deviation 46.5 H, RDW Coeff of Eduin 13.2, Plt Count 197, MPV 10.1, Immature Gran % (Auto) 0.500, Neut % (Auto) 68.6, Lymph % (Auto) 20.4, [place] % (Auto) 10.1 H, Eos % (Auto) 0.3, Baso % (Auto) 0.1, Absolute Neuts (auto) 6.1, Absolute Lymphs (auto) 1.80, Nucleated RBC % 0 08/14/20 05:14: PT 15.2 H, INR 1.3 08/14/20 05:14: Sodium 140, Potassium 3.6, Chloride 100, Carbon Dioxide 39.0 H, Anion Gap 1 L, BUN 14, Creatinine 0.42 L, Estim Creat Clear Calc 41.97, Est GFR (MDRD) Af Amer 188, Est GFR (MDRD) Non-Af 155, BUN/Creatinine Ratio 33.1 H, Glucose 107 H, Calcium 8.6, Total Bilirubin 0.50, AST 8 L, ALT 17, Alkaline Phosphatase 57, Total Protein 6.4, Albumin 2.8 L, Globulin 3.6, Albumin/Globulin Ratio 0.8 L Current Medications Acetaminophen (Acetaminophen 500 Mg Tablet) 1,000 mg PO Q8 [facility] Last Admin: 08/14/20 06:06 Dose: 1,000 mg Documented by: Albuterol Sulfate (Albuterol 2.5 Mg/3 Ml Vial.Neb.) 2.5 mg INHALATION Q4H PRN PRN Reason: Wheezing/SOB Last Admin: 08/14/20 04:22 Dose: 2.5 mg Documented by: Albuterol/Ipratropium (Ipratropium/Albuterol Sulfate 3 Ml Ampul.Neb) 3 ml INHALATION 4X/DAY.RT [facility] Last Admin: 08/14/20 11:24 Dose: 3 ml Documented by: Aspirin (Aspirin E.C. 81 Mg Tablet) 81 mg PO DAILY@0800 [facility] Last Admin: 08/14/20 08:12 Dose: 81 mg Documented by: Atorvastatin Calcium (Atorvastatin Calcium 80 Mg Tablet) 80 mg PO QHS [facility] Last Admin: 08/13/20 21:32 Dose: 80 mg Documented by: Cholecalciferol (Cholecalciferol (Vit D3) 1,000 Unit (25mcg)) 1,000 unit PO DAILY [facility] Last Admin: 08/14/20 09:10 Dose: 1,000 unit Documented by: Diltiazem HCl (Diltiazem Cd 120 Mg Capsule) 120 mg PO BID [facility] Last Admin: 08/14/20 09:10 Dose: 120 mg Documented by: Enoxaparin Sodium (Enoxaparin 100 Mg/Ml Syringe) 90 mg SC Q12@0600,1800 [facility] Last Admin: 08/14/20 06:05 Dose: 90 mg Documented by: Famotidine (Famotidine 20 Mg Tablet) 20 mg PO DAILY [facility] Last Admin: 08/14/20 09:10 Dose: 20 mg Documented by: Ferrous Sulfate (Ferrous Sulfate 325 Mg Tablet) 325 mg PO DAILYCM [facility] Last Admin: 08/14/20 08:12 Dose: 325 mg Documented by: Hydralazine HCl (Hydralazine 20 Mg/Ml Vial) 5 mg IV Q30M PRN PRN Reason: to maintain BP goals Insulin Human Lispro (Insulin Lispro 100 Unit/Ml Insuln.Pen) 1 - 6 unit SC Q4H PRN PRN; Protocol PRN Reason: BG>/= 180, SEE PROTOCOL Labetalol HCl (Labetalol (Prefilled) 20 Mg/4 Ml) 10 - 20 mg IV Q10M PRN PRN PRN Reason: to Maintain BP Goals Nutritional Formula (Lactose Free) (Ensure Enlive 120 Ml Liquid) 120 ml PO 4X/DAY [facility] Last Admin: 08/14/20 09:12 Dose: Not Given Documented by: Ondansetron HCl (Ondansetron 4 Mg/2 Ml Vial) 4 mg IV Q8H PRN PRN PRN Reason: NAUSEA Oxycodone HCl (Oxycodone 5 Mg Tablet) 5 - 10 mg PO Q4H PRN PRN PRN Reason: Pain Score 4-10 Last Admin: 08/14/20 08:13 Dose: 10 mg Documented by: Prednisone (Prednisone 20 Mg Tablet) 40 mg PO DAILY@0800 [facility] Last Admin: 08/14/20 08:12 Dose: 40 mg Documented by: Promethazine HCl (Promethazine 25 Mg/Ml Syringe) 12.5 mg IM Q6H PRN PRN; Protocol PRN Reason: NAUSEA/VOMITING Senna/Docusate Sodium (Senna/Docusate Sodium 1 Tablet) 2 tablet PO BID [facility] Last Admin: 08/14/20 09:10 Dose: 2 tablet Documented by: Sodium Chloride (0.9% Saline Lock 10 Ml Syringe) 10 - 40 ml IV UD PRN PRN Reason: SALINE FLUSH Last Admin: 08/14/20 08:12 Dose: 10 ml Documented by: Throat Lozenges (Benzocaine/Menthol 1 Lozenge) 1 lozenge MUCOUS MEM Q2H PRN PRN PRN Reason: SORE THROAT Last Admin: 08/11/20 18:49 Dose: 1 lozenge Documented by: Warfarin Sodium (Warfarin 5 Mg Tablet) 5 mg PO DAILY@1700 [facility] Last Admin: 08/13/20 18:00 Dose: 5 mg Documented by: STROKE Vital Signs/Narrative: Vital Signs Temp Pulse Resp BP Pulse Ox 08/14/20 09:10 98.0 F 81 18 158/90 H 100 Medical Necessity - Tobacco Use Smoking Status: Never smoker Tobacco Use: Non-smoker Assessment/Plan All Active Problems (Last Reviewed 07/19/20 @ 13:00 by Nissa Thomas) History of knee replacement (Resolved) H/O varicose vein stripping (Resolved) Left knee pain (Acute) Tibial plateau fracture (Acute) NEVAEH (obstructive sleep apnea) (Acute) RLS (restless legs syndrome) (Acute) Iron deficiency anemia (Acute) COPD exacerbation (Acute) Long-term use of high-risk medication (Acute) History of GI bleed (Resolved) Diabetes mellitus type 2 in obese (Acute) Candidiasis of mouth (Acute) Subtherapeutic international normalized ratio (INR) (Acute) Severe sepsis (Ruled-out) CAP (community acquired pneumonia) (Acute) COPD exacerbation (Acute) Acute on chronic diastolic (congestive) heart failure (Resolved) Supratherapeutic INR (Resolved) 1. Acute right frontal/parietal CVA - continue asa/statin. likely due to afib and being off coumadin. Facial droop is improved. Patient does not want to take the Tylenol as it is causing her to have difficulty sleeping. Discontinued at this time. 2. pAfib - rate controlled. continue lovenox to coumadin bridge. INR is rising but not therapeutic yet. 3. Acute COPD exacerbation, chronic hypoxic respiratory failure. - mild - plan to complete prednisone taper. baseline o2 use is 2lpm. 4. NEVAEH - CPAP qhs. pt to have home unit brought in as she is not well tolerating our unit. 5. Iron def anemia - po iron DVT ppx: lovenox --> coumadin Thank you for the opportunity to participate in the care of this patient. This patient was seen by Percy Wright PA-C under the supervision of Doctor Best. <[place] - Last Filed: 08/14/20 14:27> Vitals/I&O's: Vital Signs Temp Pulse Resp BP Pulse Ox 98.0 F 70 18 158/90 H 100 08/14/20 09:10 08/14/20 11:24 08/14/20 11:24 08/14/20 09:10 08/14/20 09:10 Oxygen Flow Rate (L/min) 2 Oxygen Delivery Method Nasal Cannula Weight: 99.2 kg Body Mass Index (BMI) 37.5 Intake and Output for Last 24 Hours 08/12/20 08/13/20 08/14/20 23:59 23:59 23:59 Intake Total 910 / 910 1320 / 1320 470 / 470 Output Total 0 / 0 Balance 910 / 910 1320 / 1320 470 / 470 Laboratory Results 08/14/20 05:14: WBC 8.8, RBC 4.29, Hgb 12.6, Hct 41.4, MCV 96.5, MCH 29.4, MCHC 30.4 L, RDW Std Deviation 46.5 H, RDW Coeff of Eduin 13.2, Plt Count 197, MPV 10.1, Immature Gran % (Auto) 0.500, Neut % (Auto) 68.6, Lymph % (Auto) 20.4, [place] % (Auto) 10.1 H, Eos % (Auto) 0.3, Baso % (Auto) 0.1, Absolute Neuts (auto) 6.1, Absolute Lymphs (auto) 1.80, Nucleated RBC % 0 08/14/20 05:14: PT 15.2 H, INR 1.3 08/14/20 05:14: Sodium 140, Potassium 3.6, Chloride 100, Carbon Dioxide 39.0 H, Anion Gap 1 L, BUN 14, Creatinine 0.42 L, Estim Creat Clear Calc 41.97, Est GFR (MDRD) Af Amer 188, Est GFR (MDRD) Non-Af 155, BUN/Creatinine Ratio 33.1 H, Glucose 107 H, Calcium 8.6, Total Bilirubin 0.50, AST 8 L, ALT 17, Alkaline Phosphatase 57, Total Protein 6.4, Albumin 2.8 L, Globulin 3.6, Albumin/Globulin Ratio 0.8 L Current Medications Albuterol Sulfate (Albuterol 2.5 Mg/3 Ml Vial.Neb.) 2.5 mg INHALATION Q4H PRN PRN Reason: Wheezing/SOB Last Admin: 08/14/20 04:22 Dose: 2.5 mg Documented by: Albuterol/Ipratropium (Ipratropium/Albuterol Sulfate 3 Ml Ampul.Neb) 3 ml INHALATION 4X/DAY.RT [facility] Last Admin: 08/14/20 11:24 Dose: 3 ml Documented by: Aspirin (Aspirin E.C. 81 Mg Tablet) 81 mg PO DAILY@0800 [facility] Last Admin: 08/14/20 08:12 Dose: 81 mg Documented by: Atorvastatin Calcium (Atorvastatin Calcium 80 Mg Tablet) 80 mg PO QHS [facility] Last Admin: 08/13/20 21:32 Dose: 80 mg Documented by: Cholecalciferol (Cholecalciferol (Vit D3) 1,000 Unit (25mcg)) 1,000 unit PO DAILY [facility] Last Admin: 08/14/20 09:10 Dose: 1,000 unit Documented by: Diltiazem HCl (Diltiazem Cd 120 Mg Capsule) 120 mg PO BID [facility] Last Admin: 08/14/20 09:10 Dose: 120 mg Documented by: Enoxaparin Sodium (Enoxaparin 100 Mg/Ml Syringe) 90 mg SC Q12@0600,1800 [facility] Last Admin: 08/14/20 06:05 Dose: 90 mg Documented by: Famotidine (Famotidine 20 Mg Tablet) 20 mg PO DAILY [facility] Last Admin: 08/14/20 09:10 Dose: 20 mg Documented by: Ferrous Sulfate (Ferrous Sulfate 325 Mg Tablet) 325 mg PO DAILYCM [facility] Last Admin: 08/14/20 08:12 Dose: 325 mg Documented by: Hydralazine HCl (Hydralazine 20 Mg/Ml Vial) 5 mg IV Q30M PRN PRN Reason: to maintain BP goals Insulin Human Lispro (Insulin Lispro 100 Unit/Ml Insuln.Pen) 1 - 6 unit SC Q4H PRN PRN; Protocol PRN Reason: BG>/= 180, SEE PROTOCOL Labetalol HCl (Labetalol (Prefilled) 20 Mg/4 Ml) 10 - 20 mg IV Q10M PRN PRN PRN Reason: to Maintain BP Goals Ondansetron HCl (Ondansetron 4 Mg/2 Ml Vial) 4 mg IV Q8H PRN PRN PRN Reason: NAUSEA Oxycodone HCl (Oxycodone 5 Mg Tablet) 5 - 10 mg PO Q4H PRN PRN PRN Reason: Pain Score 4-10 Last Admin: 08/14/20 08:13 Dose: 10 mg Documented by: Prednisone (Prednisone 20 Mg Tablet) 40 mg PO DAILY@0800 [facility] Last Admin: 08/14/20 08:12 Dose: 40 mg Documented by: Promethazine HCl (Promethazine 25 Mg/Ml Syringe) 12.5 mg IM Q6H PRN PRN; Protocol PRN Reason: NAUSEA/VOMITING Senna/Docusate Sodium (Senna/Docusate Sodium 1 Tablet) 2 tablet PO BID [facility] Last Admin: 08/14/20 09:10 Dose: 2 tablet Documented by: Sodium Chloride (0.9% Saline Lock 10 Ml Syringe) 10 - 40 ml IV UD PRN PRN Reason: SALINE FLUSH Last Admin: 08/14/20 08:12 Dose: 10 ml Documented by: Throat Lozenges (Benzocaine/Menthol 1 Lozenge) 1 lozenge MUCOUS MEM Q2H PRN PRN PRN Reason: SORE THROAT Last Admin: 08/11/20 18:49 Dose: 1 lozenge Documented by: Warfarin Sodium (Warfarin 5 Mg Tablet) 5 mg PO DAILY@1700 [facility] Last Admin: 08/13/20 18:00 Dose: 5 mg Documented by: STROKE Vital Signs/Narrative: Vital Signs Pulse Resp 08/14/20 11:24 70 18 Assessment/Plan This patient was seen in conjunction with CALIN Bone. I have independently interviewed and examined the patient and reviewed pertinent historical, laboratory, and other data. Please refer to CALIN Bone note for his patient's presentation, findings, and recommendations. I have reviewed and his note and concur with his documentation Patient was seen and examined. She complains of feeling restless with Tylenol. Tylenol has been discontinued. Her facial droop appears resolved. INR still subtherapeutic. Discharge planning to snf facility still pending. Physical Exam: Gen: Comfortable, not pale, not jaundiced, on 2 L of oxygen CVS:HS I +II, regular, no murmurs RESP: Diminished at lung bases, no wheezes GI: BS present and normal, soft, nontender, no palpable organs EXT:No edema, left shoulder in sling ASSESSMENT: 1. Acute right frontal/parietal CVA 2. Chronic atrial fibrillation, rate controlled, continue Coumadin and Lovenox 3. Acute COPD exacerbation, mild 4. NEVAEH on CPAP 5. Iron deficiency anemia, on iron Plan: Continue on current medication, repeat INR in a.m. We will stop Lovenox when INR is therapeutic Continue per orthopedic recommendations Patient will need neurology follow-up in the outpatient Inpatient E&M: [id number] [facility] L2
--- NOTE | 2020-08-14 13:07 | PN.ORTHO_ITS ---
Subjective: Patient is doing well. Shortness of breath improving. Tylenol discontinued due to restlessness in the evenings. Overall pain is controlled. She is comfortable on examination today. No acute events overnight. Continuing Lovenox bridge. Some of her stroke symptoms seem to be resolving. - Physical Exam Vitals/I&O's: Vital Signs Temp Pulse Resp BP Pulse Ox 98.0 F 70 18 158/90 H 100 08/14/20 09:10 08/14/20 11:24 08/14/20 11:24 08/14/20 09:10 08/14/20 09:10 Oxygen Flow Rate (L/min) 2 Oxygen Delivery Method Nasal Cannula Weight: 218 lb 11.177 oz Body Mass Index (BMI) 37.5 Intake and Output for Last 24 Hours 08/12/20 08/13/20 08/14/20 23:59 23:59 23:59 Intake Total 910 / 910 1320 / 1320 470 / 470 Output Total 0 / 0 Balance 910 / 910 1320 / 1320 470 / 470 General: Alert, Oriented x3, Cooperative HEENT: - - Facial droop improved. Smile more symmetric today. Extremities: - - Left upper extremity: Dressing is clean dry and intact. Sensations intact light touch axillary/R/M/U. Motor is intact thumbs up, okay sign and cross his fingers. Mild swelling. Laboratory Results 08/14/20 05:14: WBC 8.8, RBC 4.29, Hgb 12.6, Hct 41.4, MCV 96.5, MCH 29.4, MCHC 30.4 L, RDW Std Deviation 46.5 H, RDW Coeff of Eduin 13.2, Plt Count 197, MPV 10.1, Immature Gran % (Auto) 0.500, Neut % (Auto) 68.6, Lymph % (Auto) 20.4, [place] % (Auto) 10.1 H, Eos % (Auto) 0.3, Baso % (Auto) 0.1, Absolute Neuts (auto) 6.1, Absolute Lymphs (auto) 1.80, Nucleated RBC % 0 08/14/20 05:14: PT 15.2 H, INR 1.3 08/14/20 05:14: Sodium 140, Potassium 3.6, Chloride 100, Carbon Dioxide 39.0 H, Anion Gap 1 L, BUN 14, Creatinine 0.42 L, Estim Creat Clear Calc 41.97, Est GFR (MDRD) Af Amer 188, Est GFR (MDRD) Non-Af 155, BUN/Creatinine Ratio 33.1 H, Glucose 107 H, Calcium 8.6, Total Bilirubin 0.50, AST 8 L, ALT 17, Alkaline Phosphatase 57, Total Protein 6.4, Albumin 2.8 L, Globulin 3.6, Albumin/Globulin Ratio 0.8 L Current Medications Albuterol Sulfate (Albuterol 2.5 Mg/3 Ml Vial.Neb.) 2.5 mg INHALATION Q4H PRN PRN Reason: Wheezing/SOB Last Admin: 08/14/20 04:22 Dose: 2.5 mg Documented by: Albuterol/Ipratropium (Ipratropium/Albuterol Sulfate 3 Ml Ampul.Neb) 3 ml INHALATION 4X/DAY.RT [facility] Last Admin: 08/14/20 11:24 Dose: 3 ml Documented by: Aspirin (Aspirin E.C. 81 Mg Tablet) 81 mg PO DAILY@0800 [facility] Last Admin: 08/14/20 08:12 Dose: 81 mg Documented by: Atorvastatin Calcium (Atorvastatin Calcium 80 Mg Tablet) 80 mg PO QHS [facility] Last Admin: 08/13/20 21:32 Dose: 80 mg Documented by: Cholecalciferol (Cholecalciferol (Vit D3) 1,000 Unit (25mcg)) 1,000 unit PO DAILY [facility] Last Admin: 08/14/20 09:10 Dose: 1,000 unit Documented by: Diltiazem HCl (Diltiazem Cd 120 Mg Capsule) 120 mg PO BID [facility] Last Admin: 08/14/20 09:10 Dose: 120 mg Documented by: Enoxaparin Sodium (Enoxaparin 100 Mg/Ml Syringe) 90 mg SC Q12@0600,1800 [facility] Last Admin: 08/14/20 06:05 Dose: 90 mg Documented by: Famotidine (Famotidine 20 Mg Tablet) 20 mg PO DAILY [facility] Last Admin: 08/14/20 09:10 Dose: 20 mg Documented by: Ferrous Sulfate (Ferrous Sulfate 325 Mg Tablet) 325 mg PO DAILYCM [facility] Last Admin: 08/14/20 08:12 Dose: 325 mg Documented by: Hydralazine HCl (Hydralazine 20 Mg/Ml Vial) 5 mg IV Q30M PRN PRN Reason: to maintain BP goals Insulin Human Lispro (Insulin Lispro 100 Unit/Ml Insuln.Pen) 1 - 6 unit SC Q4H PRN PRN; Protocol PRN Reason: BG>/= 180, SEE PROTOCOL Labetalol HCl (Labetalol (Prefilled) 20 Mg/4 Ml) 10 - 20 mg IV Q10M PRN PRN PRN Reason: to Maintain BP Goals Ondansetron HCl (Ondansetron 4 Mg/2 Ml Vial) 4 mg IV Q8H PRN PRN PRN Reason: NAUSEA Oxycodone HCl (Oxycodone 5 Mg Tablet) 5 - 10 mg PO Q4H PRN PRN PRN Reason: Pain Score 4-10 Last Admin: 08/14/20 08:13 Dose: 10 mg Documented by: Prednisone (Prednisone 20 Mg Tablet) 40 mg PO DAILY@0800 [facility] Last Admin: 08/14/20 08:12 Dose: 40 mg Documented by: Promethazine HCl (Promethazine 25 Mg/Ml Syringe) 12.5 mg IM Q6H PRN PRN; Protocol PRN Reason: NAUSEA/VOMITING Senna/Docusate Sodium (Senna/Docusate Sodium 1 Tablet) 2 tablet PO BID [facility] Last Admin: 08/14/20 09:10 Dose: 2 tablet Documented by: Sodium Chloride (0.9% Saline Lock 10 Ml Syringe) 10 - 40 ml IV UD PRN PRN Reason: SALINE FLUSH Last Admin: 08/14/20 08:12 Dose: 10 ml Documented by: Throat Lozenges (Benzocaine/Menthol 1 Lozenge) 1 lozenge MUCOUS MEM Q2H PRN PRN PRN Reason: SORE THROAT Last Admin: 08/11/20 18:49 Dose: 1 lozenge Documented by: Warfarin Sodium (Warfarin 5 Mg Tablet) 5 mg PO DAILY@1700 [facility] Last Admin: 08/13/20 18:00 Dose: 5 mg Documented by: Medical Necessity - Tobacco Use Smoking Status: Never smoker Tobacco Use: Non-smoker Assessment/Plan All Active Problems (Last Reviewed 07/19/20 @ 13:00 by Nissa Thomas) History of knee replacement (Resolved) H/O varicose vein stripping (Resolved) Left knee pain (Acute) Tibial plateau fracture (Acute) NEVAEH (obstructive sleep apnea) (Acute) RLS (restless legs syndrome) (Acute) Iron deficiency anemia (Acute) COPD exacerbation (Acute) Long-term use of high-risk medication (Acute) History of GI bleed (Resolved) Diabetes mellitus type 2 in obese (Acute) Candidiasis of mouth (Acute) Subtherapeutic international normalized ratio (INR) (Acute) Severe sepsis (Ruled-out) CAP (community acquired pneumonia) (Acute) COPD exacerbation (Acute) Acute on chronic diastolic (congestive) heart failure (Resolved) Supratherapeutic INR (Resolved) 1. 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 Continue Pain Medications: OxyIR as needed for pain control. 3. DVT Prophylaxis: Coumadin has been resumed per hospitalist. Patient is being bridged with Lovenox until she is therapeutic. 4. PT/OT: Continue with therapy while in the hospital. No range of motion of the left shoulder. Continue with the UltraSling. I would like physical therapy to work on elbow, wrist, hand range of motion as well as pendulum exercises for the left shoulder only. She will begin outpatient formal physical therapy after her 2-week follow-up. 5. INR 1.3 today: Currently bridging with Lovenox and on Coumadin. Will likely need Lovenox bridge with follow-up with PCP or in-house physician at nursing facility upon discharge. 6. Encouraged Incentive Spirometry 7. Continue postoperative medical management per medicine: Patient did sustain a CVA prior to the surgery but her and the daughter did not disclose any of this information prior to proceeding with the surgery. Patient has had a CT scan MRI, and MRA of the head neck. MRI was consistent with a CVA with infarct in the right frontal lobe. Tele-Neurology has been consulted, hospitalist service is managing. 7. Disposition: Patient will require additional stay in the hospital due to her recent CVA. Patient will most likely need some additional help at home with home health care or possible placement into assisted facility. Case management is involved. Plan is for patient to go to [place] upon discharge and waiting on pre-CERT. Also will need to make sure patient is medically stable from the stroke as well as having all appropriate follow-ups scheduled for this recent stroke. She has been medically stable. Hopefully we can obtain insurance approval early this week. [facility] Office:
[2020-08-14] MEDS: Atorvastatin Calcium 80 MG Tablet PO (22:00)
[2020-08-15] VITALS (10 sets, daily range): BP systolic 133–143; BP diastolic 58–74; PULSE 43–76; RESP 16–18; TEMP 36.7–36.8; O2SAT 96–100; BMI 37.5
[2020-08-15] MEDS: oxyCODONE 5 MG Tablet PO ×4 (00:23→20:48)
--- NOTE | 2020-08-15 01:42 | CPS ---
pt wearing own cpap from home tonite. with 2 lpm bled in
[2020-08-15] MEDS: Enoxaparin 100 MG/ML Syringe 90 MG SC ×2 (05:19→17:26)
[2020-08-15 05:41] LABS: International Normalized Ratio 1.5; Prothrombin Time (Protime)PT. 17.8 SECONDS (11.7-14.9)
[2020-08-15 05:49] LABS: Anion Gap 2 (5-15); BUN 16 mg/dL (7-18); BUN/Creat Ratio 39.1 RATIO (10-20); Calcium,Total 8.5 mg/dL (8.5-10.1); Chloride 101 mmol/L (98-107); Creatinine, Serum 0.41 mg/dL (0.55-1.02); EST Glomerular Filtration Rate 161 mL/min (>60); Est Glom Filt Rate - Afr Amer 195 mL/min (>60); Estimated Creatinine Clearance 41.97 ml/min; Glucose 93 mg/dL (74-106); Potassium 3.8 mmol/L (3.5-5.1); Sodium Level 141 mmol/L (136-145)
--- NOTE | 2020-08-15 06:59 | PN.ORTHO_ITS ---
Subjective: The patient was sitting in bed upon examination. Patient denies any chest pain, shortness of breath, dizziness, lightheadedness, nausea or vomiting, or calf pain. Pain is controlled on medications. No adverse overnight events. Patient had to stop the Tylenol as this does causes her not to sleep. She has been using oxycodone. She states her left shoulder pain is well controlled. She denies any numbness and tingling. We are maintaining the Lovenox per medicine until she is therapeutic with her Coumadin. We are waiting on pre-CERT from the insurance for her to go to long term facility anticipating possibly today. Objective: Vital signs stable, afebrile Dressing is clean, dry, intact Ultra-sling fitting appropriately Sensation intact to axillary, radial, median, and ulnar distribution Motor intact to AIN, PIN, and ulnar nerve - Physical Exam Vitals/I&O's: Vital Signs Temp Pulse Resp BP Pulse Ox 98.0 F 70 18 143/70 H 98 08/15/20 03:55 08/15/20 03:55 08/15/20 03:55 08/15/20 03:55 08/15/20 03:55 Oxygen Flow Rate (L/min) 2 Oxygen Delivery Method Nasal Cannula Weight: 99.2 kg Body Mass Index (BMI) 37.5 Intake and Output for Last 24 Hours 08/13/20 08/14/20 08/15/20 23:59 23:59 23:59 Intake Total 1320 / 1320 710 / 710 Balance 1320 / 1320 710 / 710 General: Alert, Oriented x3, Cooperative, No apparent distress Laboratory Results 08/15/20 05:10: PT 17.8 H, INR 1.5 08/15/20 05:10: Sodium 141, Potassium 3.8, Chloride 101, Carbon Dioxide 38.0 H, Anion Gap 2 L, BUN 16, Creatinine 0.41 L, Estim Creat Clear Calc 41.97, Est GFR (MDRD) Af Amer 195, Est GFR (MDRD) Non-Af 161, BUN/Creatinine Ratio 39.1 H, Glucose 93, Calcium 8.5 Current Medications Albuterol Sulfate (Albuterol 2.5 Mg/3 Ml Vial.Neb.) 2.5 mg INHALATION Q4H PRN PRN Reason: Wheezing/SOB Last Admin: 08/14/20 04:22 Dose: 2.5 mg Documented by: Albuterol/Ipratropium (Ipratropium/Albuterol Sulfate 3 Ml Ampul.Neb) 3 ml INHALATION 4X/DAY.RT [facility] Last Admin: 08/14/20 19:30 Dose: 3 ml Documented by: Aspirin (Aspirin E.C. 81 Mg Tablet) 81 mg PO DAILY@0800 [facility] Last Admin: 08/14/20 08:12 Dose: 81 mg Documented by: Atorvastatin Calcium (Atorvastatin Calcium 80 Mg Tablet) 80 mg PO QHS [facility] Last Admin: 08/14/20 22:00 Dose: 80 mg Documented by: Cholecalciferol (Cholecalciferol (Vit D3) 1,000 Unit (25mcg)) 1,000 unit PO DAILY [facility] Last Admin: 08/14/20 09:10 Dose: 1,000 unit Documented by: Diltiazem HCl (Diltiazem Cd 120 Mg Capsule) 120 mg PO BID [facility] Last Admin: 08/14/20 22:00 Dose: 120 mg Documented by: Enoxaparin Sodium (Enoxaparin 100 Mg/Ml Syringe) 90 mg SC Q12@0600,1800 [facility] Last Admin: 08/15/20 05:19 Dose: 90 mg Documented by: Famotidine (Famotidine 20 Mg Tablet) 20 mg PO DAILY [facility] Last Admin: 08/14/20 09:10 Dose: 20 mg Documented by: Ferrous Sulfate (Ferrous Sulfate 325 Mg Tablet) 325 mg PO DAILYCM [facility] Last Admin: 08/14/20 08:12 Dose: 325 mg Documented by: Hydralazine HCl (Hydralazine 20 Mg/Ml Vial) 5 mg IV Q30M PRN PRN Reason: to maintain BP goals Insulin Human Lispro (Insulin Lispro 100 Unit/Ml Insuln.Pen) 1 - 6 unit SC Q4H PRN PRN; Protocol PRN Reason: BG>/= 180, SEE PROTOCOL Labetalol HCl (Labetalol (Prefilled) 20 Mg/4 Ml) 10 - 20 mg IV Q10M PRN PRN PRN Reason: to Maintain BP Goals Ondansetron HCl (Ondansetron 4 Mg/2 Ml Vial) 4 mg IV Q8H PRN PRN PRN Reason: NAUSEA Oxycodone HCl (Oxycodone 5 Mg Tablet) 5 - 10 mg PO Q4H PRN PRN PRN Reason: Pain Score 4-10 Last Admin: 08/15/20 00:23 Dose: 10 mg Documented by: Prednisone (Prednisone 20 Mg Tablet) 40 mg PO DAILY@0800 [facility] Last Admin: 08/14/20 08:12 Dose: 40 mg Documented by: Promethazine HCl (Promethazine 25 Mg/Ml Syringe) 12.5 mg IM Q6H PRN PRN; Protocol PRN Reason: NAUSEA/VOMITING Senna/Docusate Sodium (Senna/Docusate Sodium 1 Tablet) 2 tablet PO BID [facility] Last Admin: 08/14/20 22:00 Dose: 2 tablet Documented by: Sodium Chloride (0.9% Saline Lock 10 Ml Syringe) 10 - 40 ml IV UD PRN PRN Reason: SALINE FLUSH Last Admin: 08/14/20 08:12 Dose: 10 ml Documented by: Throat Lozenges (Benzocaine/Menthol 1 Lozenge) 1 lozenge MUCOUS MEM Q2H PRN PRN PRN Reason: SORE THROAT Last Admin: 08/11/20 18:49 Dose: 1 lozenge Documented by: Warfarin Sodium (Warfarin 5 Mg Tablet) 5 mg PO DAILY@1700 [facility] Last Admin: 08/14/20 17:01 Dose: 5 mg Documented by: Medical Necessity - Tobacco Use Smoking Status: Never smoker Tobacco Use: Non-smoker Assessment/Plan All Active Problems (Last Reviewed 07/19/20 @ 13:00 by Nissa Thomas) History of knee replacement (Resolved) H/O varicose vein stripping (Resolved) Left knee pain (Acute) Tibial plateau fracture (Acute) NEVAEH (obstructive sleep apnea) (Acute) RLS (restless legs syndrome) (Acute) Iron deficiency anemia (Acute) COPD exacerbation (Acute) Long-term use of high-risk medication (Acute) History of GI bleed (Resolved) Diabetes mellitus type 2 in obese (Acute) Candidiasis of mouth (Acute) Subtherapeutic international normalized ratio (INR) (Acute) Severe sepsis (Ruled-out) CAP (community acquired pneumonia) (Acute) COPD exacerbation (Acute) Acute on chronic diastolic (congestive) heart failure (Resolved) Supratherapeutic INR (Resolved) 1. S/P left reverse total shoulder arthroplasty POD #5 2. Continue Pain Medications: Tylenol and OxyIR as needed for pain control. 3. DVT Prophylaxis: Coumadin has been resumed per hospitalist. Patient is being bridged with Lovenox until she is therapeutic. 4. PT/OT: Continue with therapy while in the hospital. No range of motion of the left shoulder. Continue with the UltraSling. I would like physical therapy to work on elbow, wrist, hand range of motion as well as pendulum exercises for the left shoulder only. She will begin outpatient formal physical therapy after her 2-week follow-up. Continue physical therapy for stroke. 5. INR 1.5 today: Currently bridging with Lovenox and on Coumadin 6. Encouraged Incentive Spirometry 7. Continue postoperative medical management per medicine: Patient did sustain a CVA prior to the surgery but her and the daughter did not disclose any of this information prior to proceeding with the surgery. Patient has had a CT scan MRI, and MRA of the head neck. MRI was consistent with a CVA with infarct in the right frontal lobe. Tele-Neurology has been consulted. 7. Disposition: Patient will require additional stay in the hospital due to her recent CVA. Patient will most likely need some additional help at home with home health care or possible placement into long term facility. Case management is involved. Plan is for patient to go to [place] upon discharge and waiting on pre-CERT. Also will need to make sure patient is medically stable from the stroke as well as having all appropriate follow-ups scheduled for this recent stroke. Patient will require outpatient neurology follow-up. Patient will continue with the UltraSling at all times except for elbow and pendulum exercises with physical therapy. Continue with Mepilex dressing until August 17, 2020. Anticipate possible discharge today if pre-CERT has been obtained. Outpatient follow-up with [facility] has already been established and will keep this appointment for x-rays and incision check. We will not begin any outpatient physical therapy for the shoulder until 2 weeks postoperatively. Narcotic prescription is attached to chart.
[2020-08-15] MEDS: Ipratropium/Albuterol Sulfate 3 ML AMPUL.NEB INHALATION ×4 (07:04→18:47)
--- NOTE | 2020-08-15 07:13 | PCM.DC.ORTHO ---
Discharge Diet: No Restrictions Discharge Activity: May Not Drive May shower in (days): 1 - Okay to shower with Mepilex dressing as long as it is intact to the skin. Ice area for (Minutes): 20 - Every 1-2 hours while awake Weight Bearing Status: No weight bearing - Left upper extremity Keep extremity elevated above heart level: Operative Extremity Call your doctor if your incision/area has: Continuous Slow Oozing, Sudden Increased Bleeding, Increased Pain/ Swelling, Increased Redness, Foul Smelling Discharge Call your doctor if you observe: Fever of 101 or Higher, Coldness, Increased Pain, Numbness or Tingling, Change in Color Remove Dressing in (days):: 1 - Remove dressing on August 17, 2020. Additional Instructions: Continue with physical therapy for patient's recent stroke. With regards to patient's left postoperative reverse total shoulder arthroplasty, only work on elbow, wrist, hand, and pendulum exercises only. We will not begin formal physical therapy for the left shoulder until after her 2-week postoperative visit at [facility] [place]. Allergies/Adverse Reactions: Allergies meloxicam [From Mobic] Adverse Reaction (Verified 08/10/20 06:31) BP WENT UP, STOMACH PAINS tetracycline [Tetracycline] Adverse Reaction (Verified 08/10/20 06:31) GETS BLADDER INFECTION Medications to take at Discharge Aspirin E.C. [Ecotrin] 81 mg PO DAILY@0800 11/21/15 albuterol sulfate 90 mcg/actuation aerosol inhaler 2 puff INHALATION Q6H PRN 11/12/17 Cholecalciferol (VIT D3) [Vitamin D3] 1,000 unit PO DAILY 01/19/19 [place]-3S/Dha/Epa/Fish Oil [Fish Oil 1,200 mg Softgel] 1 cap PO DAILY 01/19/19 ipratropium 0.5 mg-albuterol 3 mg (2.5 mg base)/3 mL nebulization soln 3 ml CONTINUOUS NEBULIZATION 4X/DAY #90 ml 08/26/19 Budesonide/Formoterol Fumarate [Budesonide-Formoterol 160-4.5] 2 puff INHALATION Q12H 07/27/20 Diltiazem HCl [Cardizem Cd] 120 mg PO BID 07/27/20 Ferrous Sulfate [Slow Fe] 65 mg PO DAILY 07/27/20 Formoterol Fumarate [Perforomist] 2 ml INHALATION Q12H 07/27/20 Warfarin Sodium [Coumadin] 2.5 mg PO WETHFR 07/27/20 Warfarin Sodium [Coumadin] 5 mg PO SUMOTUSA 07/27/20 Enoxaparin [Lovenox] 90 mg SC Q12@0600,1800 syringe 08/15/20 Oxycodone [Oxyir] 5 - 10 mg PO Q4H PRN PRN 4 Days #30 tab 08/15/20 Senna/Docusate Sodium [Senokot-S] 2 tab PO BID tab 08/15/20 predniSONE tablet 30 mg PO DAILY@0800 tab 08/16/20 The following prescriptions were given: Oxycodone [Oxyir] 5 - 10 mg PO Q4H PRN PRN 4 Days #30 tab PRN Reason: Pain Score 4-10 Prescription Printed Primary Care Physician: Aurora Madera MD [Primary Care Provider] - Test Results: Test results from this visit will be discussed in further detail at your follow-up appointment, if applicable. Please Follow Up With: Neurology When: out-patient neurology follow up needs scheduled Please Follow Up With: Kashif Varela PA-C When: 08/24/20 @ 11:00 am
[2020-08-15] MEDS: Aspirin E.C. 81 MG Tablet PO (08:19)
[2020-08-15] MEDS: Famotidine 20 MG Tablet PO (08:19)
[2020-08-15] MEDS: predniSONE 20 MG Tablet 40 MG PO (08:19)
[2020-08-15] MEDS: Senna/Docusate Sodium 1 Tablet 2 TABLET PO ×2 (08:20→20:46)
[2020-08-15] MEDS: Ferrous Sulfate 325 MG Tablet PO (08:20)
[2020-08-15] MEDS: dilTIAZem CD 120 MG Capsule PO ×2 (08:20→20:46)
--- NOTE | 2020-08-15 10:40 | PN_ITS ---
<Percy Wright - Last Filed: 08/15/20 10:40> Reason for Visit: stroke copd Subjective: breathing at baseline. no wheezing. no fever/chills. No slurred speech or facial droop. No focal weakness. no parasthesias in face or extremities. left shoulder pain somewhat worse this AM. Vitals/I&O's: Vital Signs Temp Pulse Resp BP Pulse Ox 98.3 F 76 18 141/58 H 96 08/15/20 08:16 08/15/20 08:16 08/15/20 08:16 08/15/20 08:16 08/15/20 08:16 Oxygen Flow Rate (L/min) 2 Oxygen Delivery Method Nasal Cannula Weight: 218 lb 11.177 oz Body Mass Index (BMI) 37.5 Intake and Output for Last 24 Hours 08/13/20 08/14/20 08/15/20 23:59 23:59 23:59 Intake Total 1320 / 1320 710 / 710 Balance 1320 / 1320 710 / 710 General: Alert, Oriented x3, Cooperative HEENT: Atraumatic, PERRLA, EOMI, Normocephalic Neck: Supple, No JVD, Negative Carotid Bruits Lungs: Clear to auscultation, Diminished Cardiovascular: Regular rate, No murmurs Abdomen: Bowel Sounds Present, Soft, Non Tender Extremities: No edema, Capillary Refill Less than 3 Seconds Skin: No rashes, No breakdown Musculoskeletal: No Tenderness to Palpation of Joints or Extremities, - - distal PMS intact left UE Neurological: Cranial nerves II-XII grossly intact Psych/Mental Status: Normal Affect, Appropriate, Alert and oriented to time, place, person, mood and affect Laboratory Results 08/15/20 05:10: PT 17.8 H, INR 1.5 08/15/20 05:10: Sodium 141, Potassium 3.8, Chloride 101, Carbon Dioxide 38.0 H, Anion Gap 2 L, BUN 16, Creatinine 0.41 L, Estim Creat Clear Calc 41.97, Est GFR (MDRD) Af Amer 195, Est GFR (MDRD) Non-Af 161, BUN/Creatinine Ratio 39.1 H, Glucose 93, Calcium 8.5 Current Medications Albuterol Sulfate (Albuterol 2.5 Mg/3 Ml Vial.Neb.) 2.5 mg INHALATION Q4H PRN PRN Reason: Wheezing/SOB Last Admin: 08/14/20 04:22 Dose: 2.5 mg Documented by: Albuterol/Ipratropium (Ipratropium/Albuterol Sulfate 3 Ml Ampul.Neb) 3 ml INHALATION 4X/DAY.RT [facility] Last Admin: 08/15/20 10:39 Dose: 3 ml Documented by: Aspirin (Aspirin E.C. 81 Mg Tablet) 81 mg PO DAILY@0800 [facility] Last Admin: 08/15/20 08:19 Dose: 81 mg Documented by: Atorvastatin Calcium (Atorvastatin Calcium 80 Mg Tablet) 80 mg PO QHS [facility] Last Admin: 08/14/20 22:00 Dose: 80 mg Documented by: Cholecalciferol (Cholecalciferol (Vit D3) 1,000 Unit (25mcg)) 1,000 unit PO DAILY [facility] Last Admin: 08/15/20 08:20 Dose: 1,000 unit Documented by: Diltiazem HCl (Diltiazem Cd 120 Mg Capsule) 120 mg PO BID [facility] Last Admin: 08/15/20 08:20 Dose: 120 mg Documented by: Enoxaparin Sodium (Enoxaparin 100 Mg/Ml Syringe) 90 mg SC Q12@0600,1800 [facility] Last Admin: 08/15/20 05:19 Dose: 90 mg Documented by: Famotidine (Famotidine 20 Mg Tablet) 20 mg PO DAILY [facility] Last Admin: 08/15/20 08:19 Dose: 20 mg Documented by: Ferrous Sulfate (Ferrous Sulfate 325 Mg Tablet) 325 mg PO DAILYCM [facility] Last Admin: 08/15/20 08:20 Dose: 325 mg Documented by: Hydralazine HCl (Hydralazine 20 Mg/Ml Vial) 5 mg IV Q30M PRN PRN Reason: to maintain BP goals Insulin Human Lispro (Insulin Lispro 100 Unit/Ml Insuln.Pen) 1 - 6 unit SC Q4H PRN PRN; Protocol PRN Reason: BG>/= 180, SEE PROTOCOL Labetalol HCl (Labetalol (Prefilled) 20 Mg/4 Ml) 10 - 20 mg IV Q10M PRN PRN PRN Reason: to Maintain BP Goals Ondansetron HCl (Ondansetron 4 Mg/2 Ml Vial) 4 mg IV Q8H PRN PRN PRN Reason: NAUSEA Oxycodone HCl (Oxycodone 5 Mg Tablet) 5 - 10 mg PO Q4H PRN PRN PRN Reason: Pain Score 4-10 Last Admin: 08/15/20 08:20 Dose: 10 mg Documented by: Prednisone (Prednisone 20 Mg Tablet) 40 mg PO DAILY@0800 [facility] Last Admin: 08/15/20 08:19 Dose: 40 mg Documented by: Promethazine HCl (Promethazine 25 Mg/Ml Syringe) 12.5 mg IM Q6H PRN PRN; Protocol PRN Reason: NAUSEA/VOMITING Senna/Docusate Sodium (Senna/Docusate Sodium 1 Tablet) 2 tablet PO BID [facility] Last Admin: 08/15/20 08:20 Dose: 2 tablet Documented by: Sodium Chloride (0.9% Saline Lock 10 Ml Syringe) 10 - 40 ml IV UD PRN PRN Reason: SALINE FLUSH Last Admin: 08/14/20 08:12 Dose: 10 ml Documented by: Throat Lozenges (Benzocaine/Menthol 1 Lozenge) 1 lozenge MUCOUS MEM Q2H PRN PRN PRN Reason: SORE THROAT Last Admin: 08/11/20 18:49 Dose: 1 lozenge Documented by: Warfarin Sodium (Warfarin 5 Mg Tablet) 5 mg PO DAILY@1700 [facility] Last Admin: 08/14/20 17:01 Dose: 5 mg Documented by: STROKE Vital Signs/Narrative: Vital Signs Temp Pulse Resp BP Pulse Ox 08/15/20 08:16 98.3 F 76 18 141/58 H 96 08/15/20 07:03 51 L 16 100 08/15/20 07:00 71 Medical Necessity - Tobacco Use Smoking Status: Never smoker Tobacco Use: Non-smoker Assessment/Plan All Active Problems (Last Reviewed 07/19/20 @ 13:00 by Nissa Thomas) History of knee replacement (Resolved) H/O varicose vein stripping (Resolved) Left knee pain (Acute) Tibial plateau fracture (Acute) NEVAEH (obstructive sleep apnea) (Acute) RLS (restless legs syndrome) (Acute) Iron deficiency anemia (Acute) COPD exacerbation (Acute) Long-term use of high-risk medication (Acute) History of GI bleed (Resolved) Diabetes mellitus type 2 in obese (Acute) Candidiasis of mouth (Acute) Subtherapeutic international normalized ratio (INR) (Acute) Severe sepsis (Ruled-out) CAP (community acquired pneumonia) (Acute) COPD exacerbation (Acute) Acute on chronic diastolic (congestive) heart failure (Resolved) Supratherapeutic INR (Resolved) 1. Acute right frontal/parietal CVA - continue asa/statin. likely due to afib and being off coumadin. Continue to bridge patient with lovenox until therapeutic. 2. pAfib - rate controlled. continue lovenox to coumadin bridge. INR is rising but not therapeutic yet. 3. Acute COPD exacerbation, chronic hypoxic respiratory failure. Complete prednisone taper 30 mg x 3 days, 20 mg x 3 days, 10 mg x 3 days. baseline o2 use is 2lpm. Continue duonebs and Incentive spirometer at [facility]. 4. NEVAEH - CPAP qhs. pt now has her home unit and is tolerating it well. 5. Iron def anemia - po iron DVT ppx: lovenox --> coumadin Thank you for the opportunity to participate in the care of this patient. Patient is medically stable for discharge. This patient was seen by Percy Wright PA-C under the supervision of Doctor Charlotte <Yeny Porter - Last Filed: 08/15/20 14:48> Vitals/I&O's: Vital Signs Temp Pulse Resp BP Pulse Ox 98.3 F 66 16 141/58 H 96 08/15/20 08:16 08/15/20 10:39 08/15/20 10:39 08/15/20 08:16 08/15/20 08:16 Oxygen Flow Rate (L/min) 2 Oxygen Delivery Method Nasal Cannula Weight: 218 lb 11.177 oz Body Mass Index (BMI) 37.5 Intake and Output for Last 24 Hours 08/13/20 08/14/20 08/15/20 23:59 23:59 23:59 Intake Total 1320 / 1320 710 / 710 360 / 360 Balance 1320 / 1320 710 / 710 360 / 360 Laboratory Results 08/15/20 05:10: PT 17.8 H, INR 1.5 08/15/20 05:10: Sodium 141, Potassium 3.8, Chloride 101, Carbon Dioxide 38.0 H, Anion Gap 2 L, BUN 16, Creatinine 0.41 L, Estim Creat Clear Calc 41.97, Est GFR (MDRD) Af Amer 195, Est GFR (MDRD) Non-Af 161, BUN/Creatinine Ratio 39.1 H, Glucose 93, Calcium 8.5 Current Medications Albuterol Sulfate (Albuterol 2.5 Mg/3 Ml Vial.Neb.) 2.5 mg INHALATION Q4H PRN PRN Reason: Wheezing/SOB Last Admin: 08/14/20 04:22 Dose: 2.5 mg Documented by: Albuterol/Ipratropium (Ipratropium/Albuterol Sulfate 3 Ml Ampul.Neb) 3 ml INHALATION 4X/DAY.RT [facility] Last Admin: 08/15/20 14:24 Dose: 3 ml Documented by: Aspirin (Aspirin E.C. 81 Mg Tablet) 81 mg PO DAILY@0800 [facility] Last Admin: 08/15/20 08:19 Dose: 81 mg Documented by: Atorvastatin Calcium (Atorvastatin Calcium 80 Mg Tablet) 80 mg PO QHS [facility] Last Admin: 08/14/20 22:00 Dose: 80 mg Documented by: Cholecalciferol (Cholecalciferol (Vit D3) 1,000 Unit (25mcg)) 1,000 unit PO DAILY [facility] Last Admin: 08/15/20 08:20 Dose: 1,000 unit Documented by: Diltiazem HCl (Diltiazem Cd 120 Mg Capsule) 120 mg PO BID [facility] Last Admin: 08/15/20 08:20 Dose: 120 mg Documented by: Enoxaparin Sodium (Enoxaparin 100 Mg/Ml Syringe) 90 mg SC Q12@0600,1800 [facility] Last Admin: 08/15/20 05:19 Dose: 90 mg Documented by: Famotidine (Famotidine 20 Mg Tablet) 20 mg PO DAILY [facility] Last Admin: 08/15/20 08:19 Dose: 20 mg Documented by: Ferrous Sulfate (Ferrous Sulfate 325 Mg Tablet) 325 mg PO DAILYCM [facility] Last Admin: 08/15/20 08:20 Dose: 325 mg Documented by: Hydralazine HCl (Hydralazine 20 Mg/Ml Vial) 5 mg IV Q30M PRN PRN Reason: to maintain BP goals Insulin Human Lispro (Insulin Lispro 100 Unit/Ml Insuln.Pen) 1 - 6 unit SC Q4H PRN PRN; Protocol PRN Reason: BG>/= 180, SEE PROTOCOL Labetalol HCl (Labetalol (Prefilled) 20 Mg/4 Ml) 10 - 20 mg IV Q10M PRN PRN PRN Reason: to Maintain BP Goals Ondansetron HCl (Ondansetron 4 Mg/2 Ml Vial) 4 mg IV Q8H PRN PRN PRN Reason: NAUSEA Oxycodone HCl (Oxycodone 5 Mg Tablet) 5 - 10 mg PO Q4H PRN PRN PRN Reason: Pain Score 4-10 Last Admin: 08/15/20 08:20 Dose: 10 mg Documented by: Prednisone (Prednisone 20 Mg Tablet) 30 mg PO DAILY@0800 [facility] Promethazine HCl (Promethazine 25 Mg/Ml Syringe) 12.5 mg IM Q6H PRN PRN; Protocol PRN Reason: NAUSEA/VOMITING Senna/Docusate Sodium (Senna/Docusate Sodium 1 Tablet) 2 tablet PO BID [facility] Last Admin: 08/15/20 08:20 Dose: 2 tablet Documented by: Sodium Chloride (0.9% Saline Lock 10 Ml Syringe) 10 - 40 ml IV UD PRN PRN Reason: SALINE FLUSH Last Admin: 08/14/20 08:12 Dose: 10 ml Documented by: Throat Lozenges (Benzocaine/Menthol 1 Lozenge) 1 lozenge MUCOUS MEM Q2H PRN PRN PRN Reason: SORE THROAT Last Admin: 08/11/20 18:49 Dose: 1 lozenge Documented by: Warfarin Sodium (Warfarin 5 Mg Tablet) 5 mg PO DAILY@1700 [facility] Last Admin: 08/14/20 17:01 Dose: 5 mg Documented by: Assessment/Plan Patient seen by Percy Wright PA-C under my supervision Patient seen and examined. She complained of left upper extremity pain today which was relieved by her pain medication. Review of symptoms otherwise nega tive. She has remained hemodynamically stable. O/E: Vital Signs Temp Pulse Resp BP Pulse Ox 98.3 F 66 16 141/58 H 96 08/15/20 08:16 08/15/20 10:39 08/15/20 10:39 08/15/20 08:16 08/15/20 08:16 General: Alert, Oriented x3, Cooperative HEENT: Atraumatic, PERRLA, EOMI, Normocephalic Neck: Supple, No JVD, Negative Carotid Bruits Lungs: Clear to auscultation,no wheezes or crackles. Cardiovascular: Regular rate, No murmurs Abdomen: Bowel Sounds Present, Soft, Non Tender Extremities: No edema, Capillary Refill Less than 3 Seconds Skin: No rashes, No breakdown Musculoskeletal: No Tenderness to Palpation of Joints or Extremities, LUE in sling and in surgical dressing Neurological: Cranial nerves II-XII grossly intact Psych/Mental Status: Normal Affect, Appropriate, Alert and oriented to time, place, person, mood and affect Patient is ok for dc today from hospitalist standpoint. Continue aspirin and statin. Being bridged with Lovenox also on Coumadin for A. fib until she is therapeutic. Goal INR is 2-3, she is follow-up with her primary care doctor on outpatient basis for monitoring of her INR. INR today is 1.5. Continue with prednisone taper for COPD exacerbation. To continue her 2 L of oxygen which is her baseline. To follow-up with orthopedic surgery as per their recommendation. Continue Cardizem for A. fib. Rest as per Percy Wright PA-C's notes which I reviewed and endorsed. Inpatient E&M: 28516 Subs Hosp L2
--- NOTE | 2020-08-15 10:51 | CASEMGMT ---
Social Work Note AMANUEL faxed updated clinicals to [facility]. AMANUEL placed a call to [facility] and spoke with Teresa in admissions and updated her that updated clinicals will be faxed. Teresa states she will submit for pre-cert. Plan: [facility] pending pre-cert Nicolasa Servin [employer]UD[employer] PROFESSOR, WAREHOUSE SHIFT SUPERVISOR
--- NOTE | 2020-08-15 14:17 | CASEMGMT ---
Social Work Note AAMNUEL received call from Melissa at [facility] stating pre-cert has been obtained but pt is not able to discharge until tomorrow as no beds are available until tomorrow. Melissa states she will also need an updated COVID test. Melissa states pre-cert is good for tomorrow so pt will be able to admit tomorrow. AMANUEL updated RN CM who will update physician. Plan: [facility] tomorrow. Pt will need new COVID test. Nicolasa Servin SLASH TRIMMER, FREIGHT RATE CLERK
--- NOTE | 2020-08-15 15:06 | CASEMGMT ---
Devin JIMENEZ updated on precert obtained, d/c tomorrow, and new COVID needed(order placed at this time). Plan is for d/c to [place] on 08/16/2020. Jj GIRON CM
[2020-08-15] MEDS: Atorvastatin Calcium 80 MG Tablet PO (20:46)
[2020-08-16 03:00] VITALS: PULSE 64
[2020-08-16 03:13] VITALS: PULSE 39
[2020-08-16 03:54] VITALS: BP 139/64; PULSE 66; RESP 18; TEMP 37; O2SAT 99
[2020-08-16] MEDS: Enoxaparin 100 MG/ML Syringe 90 MG SC (05:35)
--- NOTE | 2020-08-16 06:33 | PCM.PN.ORT ---
Subjective: The patient was sitting in bed upon examination. Patient denies any chest pain, shortness of breath, dizziness, lightheadedness, nausea or vomiting, or calf pain. Pain is controlled on medications. No adverse overnight events. Overall patient is doing very well with regards to her left shoulder. Patient has obtained clearance and pre-CERT for her to go to [facility]. She will schedule follow-up with neurology due to the acute stroke prior to surgery. Objective: Vital signs stable, afebrile Dressing is clean, dry, intact Ultra-sling fitting appropriately Sensation intact to axillary, radial, median, and ulnar distribution Motor intact with patient able to make okay sign, cross fingers, and thumbs up - Physical Exam Vitals/I&O's: Vital Signs Temp Pulse Resp BP Pulse Ox 98.6 F 66 18 139/64 H 99 08/16/20 03:54 08/16/20 03:54 08/16/20 03:54 08/16/20 03:54 08/16/20 03:54 Oxygen Flow Rate (L/min) 2 Oxygen Delivery Method Nasal Cannula Weight: 99.2 kg Body Mass Index (BMI) 37.5 Intake and Output for Last 24 Hours 08/14/20 08/15/20 08/16/20 23:59 23:59 23:59 Intake Total 710 / 710 980 / 980 300 / 300 Balance 710 / 710 980 / 980 300 / 300 General: Alert, Oriented x3, Cooperative, No apparent distress Laboratory Results 08/15/20 15:40: COVID-19 (JENNIFER) Not Detected Current Medications Albuterol Sulfate (Albuterol 2.5 Mg/3 Ml Vial.Neb.) 2.5 mg INHALATION Q4H PRN PRN Reason: Wheezing/SOB Last Admin: 08/14/20 04:22 Dose: 2.5 mg Documented by: Albuterol/Ipratropium (Ipratropium/Albuterol Sulfate 3 Ml Ampul.Neb) 3 ml INHALATION 4X/DAY.RT [facility] Last Admin: 08/15/20 18:47 Dose: 3 ml Documented by: Aspirin (Aspirin E.C. 81 Mg Tablet) 81 mg PO DAILY@0800 [facility] Last Admin: 08/15/20 08:19 Dose: 81 mg Documented by: Atorvastatin Calcium (Atorvastatin Calcium 80 Mg Tablet) 80 mg PO QHS [facility] Last Admin: 08/15/20 20:46 Dose: 80 mg Documented by: Cholecalciferol (Cholecalciferol (Vit D3) 1,000 Unit (25mcg)) 1,000 unit PO DAILY [facility] Last Admin: 08/15/20 08:20 Dose: 1,000 unit Documented by: Diltiazem HCl (Diltiazem Cd 120 Mg Capsule) 120 mg PO BID [facility] Last Admin: 08/15/20 20:46 Dose: 120 mg Documented by: Enoxaparin Sodium (Enoxaparin 100 Mg/Ml Syringe) 90 mg SC Q12@0600,1800 [facility] Last Admin: 08/16/20 05:35 Dose: 90 mg Documented by: Famotidine (Famotidine 20 Mg Tablet) 20 mg PO DAILY [facility] Last Admin: 08/15/20 08:19 Dose: 20 mg Documented by: Ferrous Sulfate (Ferrous Sulfate 325 Mg Tablet) 325 mg PO DAILYCM [facility] Last Admin: 08/15/20 08:20 Dose: 325 mg Documented by: Hydralazine HCl (Hydralazine 20 Mg/Ml Vial) 5 mg IV Q30M PRN PRN Reason: to maintain BP goals Insulin Human Lispro (Insulin Lispro 100 Unit/Ml Insuln.Pen) 1 - 6 unit SC Q4H PRN PRN; Protocol PRN Reason: BG>/= 180, SEE PROTOCOL Labetalol HCl (Labetalol (Prefilled) 20 Mg/4 Ml) 10 - 20 mg IV Q10M PRN PRN PRN Reason: to Maintain BP Goals Ondansetron HCl (Ondansetron 4 Mg/2 Ml Vial) 4 mg IV Q8H PRN PRN PRN Reason: NAUSEA Oxycodone HCl (Oxycodone 5 Mg Tablet) 5 - 10 mg PO Q4H PRN PRN PRN Reason: Pain Score 4-10 Last Admin: 08/15/20 20:48 Dose: 10 mg Documented by: Prednisone (Prednisone 20 Mg Tablet) 30 mg PO DAILY@0800 [facility] Promethazine HCl (Promethazine 25 Mg/Ml Syringe) 12.5 mg IM Q6H PRN PRN; Protocol PRN Reason: NAUSEA/VOMITING Senna/Docusate Sodium (Senna/Docusate Sodium 1 Tablet) 2 tablet PO BID [facility] Last Admin: 08/15/20 20:46 Dose: 2 tablet Documented by: Sodium Chloride (0.9% Saline Lock 10 Ml Syringe) 10 - 40 ml IV UD PRN PRN Reason: SALINE FLUSH Last Admin: 08/14/20 08:12 Dose: 10 ml Documented by: Throat Lozenges (Benzocaine/Menthol 1 Lozenge) 1 lozenge MUCOUS MEM Q2H PRN PRN PRN Reason: SORE THROAT Last Admin: 08/11/20 18:49 Dose: 1 lozenge Documented by: Warfarin Sodium (Warfarin 5 Mg Tablet) 5 mg PO DAILY@1700 [facility] Last Admin: 08/15/20 17:26 Dose: 5 mg Documented by: Medical Necessity - Tobacco Use Smoking Status: Never smoker Tobacco Use: Non-smoker Assessment/Plan All Active Problems (Last Reviewed 07/19/20 @ 13:00 by Nissa Thomas) History of knee replacement (Resolved) H/O varicose vein stripping (Resolved) Left knee pain (Acute) Tibial plateau fracture (Acute) NEVAEH (obstructive sleep apnea) (Acute) RLS (restless legs syndrome) (Acute) Iron deficiency anemia (Acute) COPD exacerbation (Acute) Long-term use of high-risk medication (Acute) History of GI bleed (Resolved) Diabetes mellitus type 2 in obese (Acute) Candidiasis of mouth (Acute) Subtherapeutic international normalized ratio (INR) (Acute) Severe sepsis (Ruled-out) CAP (community acquired pneumonia) (Acute) COPD exacerbation (Acute) Acute on chronic diastolic (congestive) heart failure (Resolved) Supratherapeutic INR (Resolved) 1. S/P left reverse total shoulder arthroplasty POD #6 2. Continue Pain Medications: Tylenol and OxyIR as needed for pain control. 3. DVT Prophylaxis: Coumadin has been resumed per hospitalist. Patient is being bridged with Lovenox until she is therapeutic. 4. PT/OT: Continue with therapy while in the hospital. No range of motion of the left shoulder. Continue with the UltraSling. I would like physical therapy to work on elbow, wrist, hand range of motion as well as pendulum exercises for the left shoulder only. She will begin outpatient formal physical therapy after her 2-week follow-up. Continue physical therapy for stroke. 5. INR will be obtained today. Goal is for patient to continue with Lovenox until she has therapeutic INR greater than 2.0 6. Encouraged Incentive Spirometry 7. Continue postoperative medical management per medicine: Patient did sustain a CVA prior to the surgery but her and the daughter did not disclose any of this information prior to proceeding with the surgery. Patient has had a CT scan MRI, and MRA of the head neck. MRI was consistent with a CVA with infarct in the right frontal lobe. 7. Disposition: Patient will require additional stay in the hospital due to her recent CVA. Patient will most likely need some additional help at home with home health care or possible placement into correction facility. Case management is involved. Pre-CERT has been obtained for patient to go to [facility]. Patient will require outpatient neurology follow-up. Patient will continue with the UltraSling at all times except for elbow and pendulum exercises with physical therapy. Continue with Mepilex dressing until August 17, 2020. Anticipate possible discharge today if pre-CERT has been obtained. Outpatient follow-up with [facility] has already been established and will keep this appointment for x-rays and incision check. We will not begin any outpatient physical therapy for the shoulder until 2 weeks postoperatively. Narcotic prescription is attached to chart.
--- NOTE | 2020-08-16 06:38 | PCM.DC.SUM ---
Discharge Date and Diagnosis Date of Admission: 08/10/20 Date of Discharge: 08/16/20 - Primary Discharge Diagnosis Acute Problems: Left reverse total shoulder arthroplasty Acute right frontal cerebrovascular accident - Secondary Discharge Diagnosis Chronic Problems: Chronic Problems (Last Reviewed 07/19/20 @ 13:00 by Nissa Thomas) Bronchiectasis (Chronic) Chronic anticoagulation (Chronic) Grade II diastolic dysfunction (Chronic) Chronic atrial fibrillation (Chronic) Acute on chronic respiratory failure with hypoxia and hypercapnia (Chronic) Essential hypertension (Chronic) NEVAEH (obstructive sleep apnea) (Chronic) CPAP 9 - nasal interface Noncompliance with CPAP treatment (Chronic) Morbid obesity (Chronic) Iron deficiency anemia (Chronic) Insomnia (Chronic) Patent foramen ovale (Chronic) Left ventricular hypertrophy (Chronic) Stage 3 severe COPD by GOLD classification (Chronic) Pulmonary hypertension (Chronic) Hyperlipidemia (Chronic) Atrial septal defect (Chronic) Chest pain, atypical (Chronic) Hospital Course and Treatment Operations: None Summary of Care Provided: Patient is a 75-year-old female who had history of left shoulder pain with rotator cuff tear arthropathy. After failing conservative measures, the patient opted to proceed with a left reverse total shoulder arthroplasty. The patient underwent the above-stated procedure on August 10, 2020. Patient did receive perioperative antibiotics. Intraoperatively was uneventful. For details please see dictated operative note. However prior to patient's surgery, patient had symptoms of a stroke that began the night before surgery extending into the surgical morning. Patient and her daughter report she had drooling with right-sided facial numbness with poorly fitting dentures. This was never disclosed to the hospital staff or physicians. Symptoms were found after the surgery. Neurology was consulted. Patient had CT scan, MRI, MRA of the head and neck. MRI was consistent with infarct in the right frontal lobe consistent with a cerebrovascular accident. The patient was placed in thigh-high teds, bilateral SCDs, remained stable in recovery. Patient was admitted to the PCU floor at [facility]. The patient's pain was managed with the use of IV and p.o. pain medications. Medicine and neurology were consulted during the stay at [facility]. She was followed closely by medicine due to her medical comorbidities and acute stroke. Patient has continued on her oxygen for her COPD in which she normally uses 2 L nasal O2 at home. Patient participated in physical therapy with the left shoulder which only consisted of elbow, hand, wrist range of motion and pendulum exercises.. Patient was discharged on postoperative day #6 to [facility]. Patient was given medications stated below. Patient has a history of paroxysmal atrial fibrillation in which she uses Coumadin. She has been bridged with Lovenox until she is therapeutic with her INR greater than 2.0. Patient will also have follow-up for outpatient neurology due to the recent stroke. Patient will follow up with [facility] per postop instructions for reassessment. Patient will not begin any outpatient physical therapy until after her 2-week follow-up at [facility] [place]. She will continue with the UltraSling at all times except for the above range of motion's. - Physical Exam Vitals/I&O's: Vital Signs Temp Pulse Resp BP Pulse Ox 98.6 F 66 18 139/64 H 99 08/16/20 03:54 08/16/20 03:54 08/16/20 03:54 08/16/20 03:54 08/16/20 03:54 Oxygen Flow Rate (L/min) 2 Oxygen Delivery Method Nasal Cannula Weight: 99.2 kg Body Mass Index (BMI) 37.5 Intake and Output for Last 24 Hours 08/14/20 08/15/20 08/16/20 23:59 23:59 23:59 Intake Total 710 / 710 980 / 980 300 / 300 Balance 710 / 710 980 / 980 300 / 300 Laboratory Results 08/15/20 15:40: COVID-19 (JENNIFER) Not Detected Current Medications Albuterol Sulfate (Albuterol 2.5 Mg/3 Ml Vial.Neb.) 2.5 mg INHALATION Q4H PRN PRN Reason: Wheezing/SOB Last Admin: 08/14/20 04:22 Dose: 2.5 mg Documented by: Albuterol/Ipratropium (Ipratropium/Albuterol Sulfate 3 Ml Ampul.Neb) 3 ml INHALATION 4X/DAY.RT [facility] Last Admin: 08/15/20 18:47 Dose: 3 ml Documented by: Aspirin (Aspirin E.C. 81 Mg Tablet) 81 mg PO DAILY@0800 [facility] Last Admin: 08/15/20 08:19 Dose: 81 mg Documented by: Atorvastatin Calcium (Atorvastatin Calcium 80 Mg Tablet) 80 mg PO QHS [facility] Last Admin: 08/15/20 20:46 Dose: 80 mg Documented by: Cholecalciferol (Cholecalciferol (Vit D3) 1,000 Unit (25mcg)) 1,000 unit PO DAILY [facility] Last Admin: 08/15/20 08:20 Dose: 1,000 unit Documented by: Diltiazem HCl (Diltiazem Cd 120 Mg Capsule) 120 mg PO BID [facility] Last Admin: 08/15/20 20:46 Dose: 120 mg Documented by: Enoxaparin Sodium (Enoxaparin 100 Mg/Ml Syringe) 90 mg SC Q12@0600,1800 [facility] Last Admin: 08/16/20 05:35 Dose: 90 mg Documented by: Famotidine (Famotidine 20 Mg Tablet) 20 mg PO DAILY [facility] Last Admin: 08/15/20 08:19 Dose: 20 mg Documented by: Ferrous Sulfate (Ferrous Sulfate 325 Mg Tablet) 325 mg PO DAILYCM [facility] Last Admin: 08/15/20 08:20 Dose: 325 mg Documented by: Hydralazine HCl (Hydralazine 20 Mg/Ml Vial) 5 mg IV Q30M PRN PRN Reason: to maintain BP goals Insulin Human Lispro (Insulin Lispro 100 Unit/Ml Insuln.Pen) 1 - 6 unit SC Q4H PRN PRN; Protocol PRN Reason: BG>/= 180, SEE PROTOCOL Labetalol HCl (Labetalol (Prefilled) 20 Mg/4 Ml) 10 - 20 mg IV Q10M PRN PRN PRN Reason: to Maintain BP Goals Ondansetron HCl (Ondansetron 4 Mg/2 Ml Vial) 4 mg IV Q8H PRN PRN PRN Reason: NAUSEA Oxycodone HCl (Oxycodone 5 Mg Tablet) 5 - 10 mg PO Q4H PRN PRN PRN Reason: Pain Score 4-10 Last Admin: 08/15/20 20:48 Dose: 10 mg Documented by: Prednisone (Prednisone 20 Mg Tablet) 30 mg PO DAILY@0800 [facility] Promethazine HCl (Promethazine 25 Mg/Ml Syringe) 12.5 mg IM Q6H PRN PRN; Protocol PRN Reason: NAUSEA/VOMITING Senna/Docusate Sodium (Senna/Docusate Sodium 1 Tablet) 2 tablet PO BID [facility] Last Admin: 08/15/20 20:46 Dose: 2 tablet Documented by: Sodium Chloride (0.9% Saline Lock 10 Ml Syringe) 10 - 40 ml IV UD PRN PRN Reason: SALINE FLUSH Last Admin: 08/14/20 08:12 Dose: 10 ml Documented by: Throat Lozenges (Benzocaine/Menthol 1 Lozenge) 1 lozenge MUCOUS MEM Q2H PRN PRN PRN Reason: SORE THROAT Last Admin: 08/11/20 18:49 Dose: 1 lozenge Documented by: Warfarin Sodium (Warfarin 5 Mg Tablet) 5 mg PO DAILY@1700 [facility] Last Admin: 08/15/20 17:26 Dose: 5 mg Documented by: Discharge Diet: No Restrictions Discharge Activity: May Not Drive May shower in (days): 1 - Okay to shower with Mepilex dressing as long as it is intact to the skin. Ice area for (Minutes): 20 - Every 1-2 hours while awake Weight Bearing Status: No weight bearing - Left upper extremity Keep extremity elevated above heart level: Operative Extremity Call your doctor if your incision/area has: Continuous Slow Oozing, Sudden Increased Bleeding, Increased Pain/ Swelling, Increased Redness, Foul Smelling Discharge Call your doctor if you observe: Fever of 101 or Higher, Coldness, Increased Pain, Numbness or Tingling, Change in Color Remove Dressing in (days):: 1 - Remove dressing on August 17, 2020. Home Medications: Medications to take at Discharge Aspirin E.C. [Ecotrin] 81 mg PO DAILY@0800 11/21/15 albuterol sulfate 90 mcg/actuation aerosol inhaler 2 puff INHALATION Q6H PRN 11/12/17 Cholecalciferol (VIT D3) [Vitamin D3] 1,000 unit PO DAILY 01/19/19 [place]-3S/Dha/Epa/Fish Oil [Fish Oil 1,200 mg Softgel] 1 cap PO DAILY 01/19/19 ipratropium 0.5 mg-albuterol 3 mg (2.5 mg base)/3 mL nebulization soln 3 ml CONTINUOUS NEBULIZATION 4X/DAY #90 ml 08/26/19 Budesonide/Formoterol Fumarate [Budesonide-Formoterol 160-4.5] 2 puff INHALATION Q12H 07/27/20 Diltiazem HCl [Cardizem Cd] 120 mg PO BID 07/27/20 Ferrous Sulfate [Slow Fe] 65 mg PO DAILY 07/27/20 Formoterol Fumarate [Perforomist] 2 ml INHALATION Q12H 07/27/20 Warfarin Sodium [Coumadin] 2.5 mg PO WETHFR 07/27/20 Warfarin Sodium [Coumadin] 5 mg PO SUMOTUSA 07/27/20 Enoxaparin [Lovenox] 90 mg SC Q12@0600,1800 syringe 08/15/20 Oxycodone [Oxyir] 5 - 10 mg PO Q4H PRN PRN 4 Days #30 tab 08/15/20 Senna/Docusate Sodium [Senokot-S] 2 tab PO BID tab 08/15/20 predniSONE tablet 30 mg PO DAILY@0800 tab 08/16/20 Following Prescriptions Were Given to Patient: Oxycodone [Oxyir] 5 - 10 mg PO Q4H PRN PRN 4 Days #30 tab PRN Reason: Pain Score 4-10 Prescription Printed Primary Care Physician: Aurora Madera MD [Primary Care Provider] - Please Follow Up With: Neurology When: out-patient neurology follow up needs scheduled Please Follow Up With: Kashif Varela PA-C When: 08/24/20 @ 11:00 am Additional Instructions: Continue with physical therapy for patient's recent stroke. With regards to patient's left postoperative reverse total shoulder arthroplasty, only work on elbow, wrist, hand, and pendulum exercises only. We will not begin formal physical therapy for the left shoulder until after her 2-week postoperative visit at [facility] [place]. Medical Necessity - Tobacco Use Smoking Status: Never smoker Tobacco Use: Non-smoker Meaningful Use Info Meaningful Use Diagnoses (Choose all that apply): Ischemic CVA - CVA Therapy Assessed for PT,OT and/or ST?: Yes - Ischemic Stroke Antithrombotic order at d/c?: No Reason antithrombotic not ordered: Procedure not Indicated - Patient was outside the window for TPA and also had recent surgery Dx of Atrial fib/flutter?: Yes Anticoagulant at discharge?: Yes Statins at discharge?: Yes Primary Dx Acute Ischemic CVA?: Yes IV tPA ordered during stay?: No Reason IV t-PA not ordered: Procedure not Indicated
[2020-08-16 07:08] VITALS: PULSE 68; RESP 16; O2SAT 99
[2020-08-16] MEDS: Ipratropium/Albuterol Sulfate 3 ML AMPUL.NEB INHALATION (07:08)
[2020-08-16 08:16] VITALS: BP 135/70; PULSE 75; RESP 16; TEMP 36.5; O2SAT 97
[2020-08-16] MEDS: Ferrous Sulfate 325 MG Tablet PO (08:23)
[2020-08-16] MEDS: Aspirin E.C. 81 MG Tablet PO (08:23)
[2020-08-16] MEDS: predniSONE 20 MG Tablet 30 MG PO (08:23)
[2020-08-16] MEDS: Famotidine 20 MG Tablet PO (10:31)
[2020-08-16] MEDS: dilTIAZem CD 120 MG Capsule PO (10:31)
[2020-08-16] MEDS: oxyCODONE 5 MG Tablet PO (10:31)
--- NOTE | 2020-08-16 10:48 | CASEMGMT ---
Patient is ready for discharge. AMANUEL faxed orders to [facility]. Completed convalescent on [facility]. AMANUEL called Teresa at [facility] and asked if family can transport and she said no. AMANUEL called [facility] and arranged for patient to get picked up at 1130 via wc van. SW notified patient, also letting her know that she will get billed for the transportation. She asked if her daughter could transport and SW told her [facility] is not allowing family to transport due to COVID. AMANUEL told her SW will notify her daughter. AMANUEL called patient's daughter and left her a voice mail letting her know about d/c, pick up truck driver time, and that [facility] is not allowing family to transport. AMANUEL also notified RN, bilingual secretary, and rn hemodialysis charge. Plan: d/c to [facility] under skilled level of care on a convalescent stay. [facility] transported via wheelchair van. Patient was notified of charge and a message was left for her daughter regarding charge for wc van. Leslie HERRERA NURSE SEXUAL [employer]ULT
--- NOTE | 2020-08-16 11:00 | PN_ITS ---
<Percy Wright - Last Filed: 08/16/20 14:31> Reason for Visit: dyspnea. Subjective: pt seen and examined prior to dc to SNF. No acute issues. up in chair at bedside NAD. Shoulder pain is improved. No SOB or wheezing today. No Chest pain. No fever/chills. No nausea or vomiting. Vitals/I&O's: Vital Signs Temp Pulse Resp BP Pulse Ox 96.8 F L 68 18 108/56 L 95 08/16/20 11:30 08/16/20 11:30 08/16/20 11:30 08/16/20 11:30 08/16/20 11:30 Oxygen Flow Rate (L/min) 2.5 Oxygen Delivery Method Nasal Cannula Weight: 218 lb 11.177 oz Body Mass Index (BMI) 37.5 Intake and Output for Last 24 Hours 08/14/20 08/15/20 08/16/20 23:59 23:59 23:59 Intake Total 710 / 710 980 / 980 300 / 300 Balance 710 / 710 980 / 980 300 / 300 General: Alert, Oriented x3, Cooperative HEENT: Atraumatic, PERRLA, EOMI, Normocephalic Neck: Supple, No JVD, Negative Carotid Bruits Lungs: Clear to auscultation, Normal air movement Cardiovascular: Regular rate, No murmurs Abdomen: Bowel Sounds Present, Soft, Non Tender Extremities: No edema, Capillary Refill Less than 3 Seconds Skin: No rashes, No breakdown Musculoskeletal: No Tenderness to Palpation of Joints or Extremities Neurological: Cranial nerves II-XII grossly intact Psych/Mental Status: Normal Affect, Appropriate, Alert and oriented to time, place, person, mood and affect Laboratory Results 08/15/20 15:40: COVID-19 (JENNIFER) Not Detected STROKE Vital Signs/Narrative: Vital Signs Temp Pulse Resp BP Pulse Ox 08/16/20 11:30 96.8 F L 68 18 108/56 L 95 Medical Necessity - Tobacco Use Smoking Status: Never smoker Tobacco Use: Non-smoker Assessment/Plan All Active Problems (Last Reviewed 07/19/20 @ 13:00 by Nissa Thomas) History of knee replacement (Resolved) H/O varicose vein stripping (Resolved) Left knee pain (Acute) Tibial plateau fracture (Acute) NEVAEH (obstructive sleep apnea) (Acute) RLS (restless legs syndrome) (Acute) Iron deficiency anemia (Acute) COPD exacerbation (Acute) Long-term use of high-risk medication (Acute) History of GI bleed (Resolved) Diabetes mellitus type 2 in obese (Acute) Candidiasis of mouth (Acute) Subtherapeutic international normalized ratio (INR) (Acute) Severe sepsis (Ruled-out) CAP (community acquired pneumonia) (Acute) COPD exacerbation (Acute) Acute on chronic diastolic (congestive) heart failure (Resolved) Supratherapeutic INR (Resolved) 1. Acute right frontal/parietal CVA - continue asa/statin. likely due to afib and being off coumadin. Continue to bridge patient with lovenox until therapeutic.(goal 2-3) 2. pAfib - rate controlled. continue lovenox to coumadin bridge. INR is rising but not therapeutic yet. 3. Acute COPD exacerbation, chronic hypoxic respiratory failure. acute phase is resolved at this point. Complete prednisone taper 30 mg x 3 days, 20 mg x 3 days, 10 mg x 3 days. baseline o2 use is 2lpm. Continue duonebs and Incentive spirometer at [facility]. 4. NEVAEH - CPAP qhs. pt now has her home unit and is tolerating it well. 5. Iron def anemia - po iron DVT ppx: lovenox --> coumadin Thank you for the opportunity to participate in the care of this patient. Patient is medically stable for discharge. This patient was seen by Percy Wright PA-C under the supervision of Doctor Charlotte <Yeny Porter - Last Filed: 08/16/20 16:09> Vitals/I&O's: Vital Signs Temp Pulse Resp BP Pulse Ox 96.8 F L 68 18 108/56 L 95 08/16/20 11:30 08/16/20 11:30 08/16/20 11:30 08/16/20 11:30 08/16/20 11:30 Oxygen Flow Rate (L/min) 2.5 Oxygen Delivery Method Nasal Cannula Weight: 218 lb 11.177 oz Body Mass Index (BMI) 37.5 Intake and Output for Last 24 Hours 08/14/20 08/15/20 08/16/20 23:59 23:59 23:59 Intake Total 710 / 710 980 / 980 300 / 300 Balance 710 / 710 980 / 980 300 / 300 Laboratory Results 08/15/20 15:40: COVID-19 (JENNIFER) Not Detected Assessment/Plan Patient seen by Percy Wright PA-C under my supervision Patient seen and examined. Pain is well controlled. Review of symptoms otherwise negative. She has remained hemodynamically stable. O/E: Vital Signs Temp Pulse Resp BP Pulse Ox 96.8 F L 68 18 108/56 L 95 08/16/20 11:30 08/16/20 11:30 08/16/20 11:30 08/16/20 11:30 08/16/20 11:30 General: Alert, Oriented x3, Cooperative HEENT: Atraumatic, PERRLA, EOMI, Normocephalic Neck: Supple, No JVD, Negative Carotid Bruits Lungs: Clear to auscultation,no wheezes or crackles. Cardiovascular: Regular rate, No murmurs Abdomen: Bowel Sounds Present, Soft, Non Tender Extremities: No edema, Capillary Refill Less than 3 Seconds Skin: No rashes, No breakdown Musculoskeletal: No Tenderness to Palpation of Joints or Extremities, LUE in sling and in surgical dressing Neurological: Cranial nerves II-XII grossly intact Psych/Mental Status: Normal Affect, Appropriate, Alert and oriented to time, place, person, mood and affect Patient is ok for dc today from hospitalist standpoint. Continue aspirin and statin. Being bridged with Lovenox also on Coumadin for A. fib until she is therapeutic. Goal INR is 2-3, she is follow-up with her primary care doctor on outpatient basis for monitoring of her INR. Continue with prednisone taper for COPD exacerbation. To continue her 2 L of oxygen which is her baseline. To follow-up with orthopedic surgery as per their recommendation. Continue Cardizem for A. fib. Rest as per Percy Wright PA-C's notes which I reviewed and endorsed. Inpatient E&M: 67243 Subs Hosp L2
[2020-08-16 11:30] VITALS: BP 108/56; PULSE 68; RESP 18; TEMP 36; O2SAT 95
--- NOTE | 2020-08-16 11:42 | NURSING ---
REPORT CALLED TO NURSE AT [facility]. PATIENT TRANSPORTED VIA WHEELCHAIR.
== END 2020-08-16 11:37 | disposition skilled nursing facility (03) | DRG 483 ==
LOC: ACINP 05:29 → MS3 10:28 → PCU 22:53
PROVIDERS: Anesthesiology; Internal Medicine; Internal Medicine Cardiovascular Disease; Physician Assistant; Admitting Provider Specialist; PCP Internal Medicine; Referring Provider Specialist; Visit Provider Student in an Organized Health Care Education/Training Program
PROC: (CPT 23472; principal; 2020-08-10 07:00)
DX: M19.012 Primary osteoarthritis, left shoulder (principal); I63.9 Cerebral infarction, unspecified; I48.92 Unspecified atrial flutter; J44.1 Chronic obstructive pulmonary disease with (acute) exacerbation; J96.11 Chronic respiratory failure with hypoxia; I27.20 Pulmonary hypertension, unspecified; E78.5 Hyperlipidemia, unspecified; I48.0 Paroxysmal atrial fibrillation; Z66 Do not resuscitate; I10 Essential (primary) hypertension; Z79.01 Long term (current) use of anticoagulants; Z79.51 Long term (current) use of inhaled steroids; D50.9 Iron deficiency anemia, unspecified; R29.810 Facial weakness; Z99.81 Dependence on supplemental oxygen; G47.33 Obstructive sleep apnea (adult) (pediatric)
CPT/HCPCS: 36415; 36416; 70450; 70544; 70549; 70551; 73030; 80048; 80053; 80061; 82962; 83036; 83735; 84484; 85025; 85027; 85610; 85730; 87081; 87635; 92523; 92526; 92610; 93306; 94640; 94762; 97110; 97116; 97162; 97166; 97530; 97535; 97802; 97803; 99251; A9575; C1713; C1776; C9803; J7040; J7120; A4216; G0463; J2405; U0003

== ENCOUNTER 2020-10-03 14:50 | Outpatient (RCR) | payer MEDICARE, SELFPAY ==
[2020-08-15 15:35] VITALS: BMI 37.5
[2020-10-03 16:30] LABS: International Normalized Ratio 2.9; Prothrombin Time (Protime)PT. 29.6 SECONDS (11.7-14.9)
== END 2020-10-03 18:00 | disposition home or self-care (01) ==
LOC: LAB 14:50
PROVIDERS: PCP Internal Medicine; Referring Provider Internal Medicine Cardiovascular Disease; Visit Provider Internal Medicine Cardiovascular Disease
DX: I48.20 Chronic atrial fibrillation, unspecified (principal); Z79.899 Other long term (current) drug therapy
CPT/HCPCS: 36415; 85610

== ENCOUNTER → 2020-10-10 15:25 | Outpatient (CLI) | payer MEDICARE, SELFPAY ==
[2020-08-15 15:35] VITALS: BMI 37.5
--- NOTE | 2020-10-10 15:26 | US_ITS ---
RECURRING UTI'S RECURRING UTI'S EXAMINATION: US Kidney(s) complete (eg, kidneys and bladder) TECHNIQUE: Caballero scale and color doppler images were obtained of the kidneys. COMPARISON: None FINDINGS: RIGHT KIDNEY: 10.2 x 6.2 x 4.7 cm. The cortex measures 1 cm. There is no hydronephrosis. No shadowing calculus, focal lesion or perinephric collection is demonstrated. LEFT KIDNEY: 11.1 x 4.6 x 5.3 cm. The cortex measures 1.1 cm. Simple appearing cyst superior pole measuring 9 mm widest diameter.. There is no hydronephrosis. No shadowing calculus, focal lesion or perinephric collection is demonstrated. URINARY BLADDER: Is poorly distended. Volume is 22.89 mm. The wall is 5.4 mm thick which is probably secondary to poor distention. Ureteral jets were not visualized US/Kidney and Bladder IMPRESSION: No hydronephrosis or nephrolithiasis. Ureteral jets not visualized Poorly distended bladder with wall thickening probably secondary to poor distention Subcentimeter left renal cyst at 0344 Reported and signed by: Mariaa Washburn DO Electronically Signed: Mariaa Washburn DO at 3:43 EST Tel , Service support ,
== END ==
PROVIDERS: PCP Internal Medicine; Referring Provider Urology; Visit Provider Urology
DX: N39.0 Urinary tract infection, site not specified (principal)
CPT/HCPCS: 76770

== ENCOUNTER 2021-06-13 11:28 | Outpatient (RCR) | payer MEDICARE, SELFPAY ==
[2021-06-13 10:59] VITALS: BMI 31.1
[2021-06-13 13:35] LABS: International Normalized Ratio 1.7; Prothrombin Time (Protime)PT. 19.1 SECONDS (11.7-14.9)
== END 2021-06-13 23:59 | disposition home or self-care (01) ==
LOC: LAB 11:28
PROVIDERS: PCP Internal Medicine; Referring Provider Internal Medicine Cardiovascular Disease; Visit Provider Internal Medicine Cardiovascular Disease
DX: I48.11 Longstanding persistent atrial fibrillation (principal); Z79.01 Long term (current) use of anticoagulants
CPT/HCPCS: 36415; 85610

== ENCOUNTER 2023-02-12 03:39 | Inpatient (IN) | payer MEDICARE, SELFPAY ==
[2023-02-12] VITALS (16 sets, daily range): BP systolic 147–181; BP diastolic 65–103; PULSE 64–86; RESP 16–26; TEMP 36.2–36.8; O2SAT 92–99; BMI 30.4; BMI 30.5
--- NOTE | 2023-02-12 04:09 | RAD_ITS ---
INDICATION: sob EXAMINATION/TECHNIQUE: X-RAY - XR Chest 2 Views COMPARISON: 04/26/2019. FINDINGS: LINES/DEVICES: None. LUNGS: No consolidation or evidence of an effusion. No evidence of edema or a pneumothorax. MEDIASTINUM AND CARDIOVASCULAR STRUCTURES: Stable cardiomegaly. Mediastinum is unremarkable. BONES AND SOFT TISSUES: No acute abnormality. RAD/Chest PA and Lateral IMPRESSION: Stable cardiomegaly with no evidence of acute pulmonary disease. Electronically Signed: Jaiden Johnson DO at 4:39 EDT ,
[2023-02-12 04:21] LABS: Absolute Lymphocyte Count 1.67 X10^3/uL (0.83-4.51); Absolute Neutrophil Count 15.5 X10^3/uL (2.0-7.7); Basophil# 0.05 X10^3/uL; Basophil% 0.3 % (0-1); Differential Indicated SCAN CRITERIA MET; Hematocrit 45.8 % (37-47); Hemoglobin 15.2 g/dL (12.0-15.0); Lymphocyte # 1.67 X10^3/ul (0.83-4.51); Lymphocyte % 8.8 % (19-41); Mean Corp Hgb Conc 33.2 g/dL (32-36); Mean Corpuscular Hgb 30.7 pg (27.0-32.0); Mean Corpuscular Volume 92.5 fL (81-99); Mean Platelet Vol. 9.8 fl (6.2-12.0); Monocyte# 1.63 X10^3/uL; Monocyte% 8.6 % (0-10); NRBC Flagged by Analyzer 0 % (0-5); Neutrophil # 15.52 X10^3/uL (2.7-7.7); Neutrophil % 81.6 % (47-70); POSITIVE DIFFERENTIAL YES; Platelet Count 254 K/mm3 (150-450); RBC Distribution Width CV 13.2 % (11.6-14.6); RBC Distribution Width SD 44.4 fl (35.1-43.9); Red Blood Count 4.95 M/mm3 (4.2-5.4)
[2023-02-12] MEDS: Ipratropium/Albuterol Sulfate 3 ML AMPUL.NEB INHALATION ×3 (04:30→20:33)
[2023-02-12 04:32] LABS: International Normalized Ratio 1.9; Prothrombin Time (Protime)PT. 21.3 SECONDS (11.7-14.9)
[2023-02-12 04:37] LABS: Anion Gap 8 (5-15); BUN 26 mg/dL (7-18); BUN/Creat Ratio 17.2 RATIO (10-20); Calcium,Total 9.1 mg/dL (8.5-10.1); Chloride 98 mmol/L (98-107); Creatinine, Serum 1.51 mg/dL (0.55-1.02); EST Glomerular Filtration Rate 35 mL/min (>60); Est Glom Filt Rate - Afr Amer 43 mL/min (>60); Estimated Creatinine Clearance 25.81 ml/min; Glucose 152 mg/dL (74-106); Sodium Level 134 mmol/L (136-145)
--- NOTE | 2023-02-12 04:45 | CT_ITS ---
INDICATION: chest pain with subtherapeutic INR EXAMINATION: CT CHEST WITH CONTRAST - CTA Chest WO/W Contrast Injection TECHNIQUE: Helically acquired images were obtained of the chest following IV contrast timed in the pulmonary arterial phase with sagittal and coronal reconstructed images. Post-processing of the angiographic images was performed with multiplanar reformation and 3D reconstruction. Individualized dose optimization techniques were used for this CT. IV contrast dosage and agent: 100 mL of Isovue-370. COMPARISON: 04/26/2019 CT. FINDINGS: LUNGS, PLEURA AND LARGE AIRWAYS: No consolidation or edema. No pulmonary nodule. No pleural effusion. No pneumothorax. Apical pleural thickening and scarring. Upper lobe and right middle lobe scarring. THYROID: Unremarkable. HEART AND PERICARDIUM: Coronary artery calcifications are present. Cardiomegaly. No pericardial effusion. MEDIASTINUM AND DAVID: No mediastinal or hilar adenopathy. Esophagus is unremarkable. No hiatal hernia. VESSELS: No pulmonary embolism. Enlarged pulmonary arteries which may represent pulmonary arterial hypertension. No thoracic aortic aneurysm. UPPER ABDOMEN: The visualized upper abdomen is unremarkable. BONES: No acute abnormality. Stable compression fractures of T12 and L1. CT/CTA Chest W/WO Contrast IMPRESSION: 1. No pulmonary embolism. 2. No evidence of acute cardiopulmonary disease. 3. Chronic findings as described above. Electronically Signed: Jaiden Johnson DO at 6:00 EDT ,
--- NOTE | 2023-02-12 04:49 | EX.ED.DYSGE1 ---
HPI History of Present Illness Chief Complaint: Shortness of Breath Narrative Narrative: Patient is a 77-year-old female with past medical history of COPD as well as chronic A-fib currently on Coumadin hypertension and type 2 diabetes. She states on Saturday she noticed some onset of shortness of breath and then developed some back pain. She states she has remote history of pneumonia and this feels similar nature. She states she has not had a strong cough or production of sputum or development of fever but over the last few days has had persistent shortness of breath and back pain and with concern for infection comes in for evaluation [facility] Medical History Afib Atrial septal defect Bronchiectasis Bronchiectasis Chest pain, atypical Community acquired pneumonia COPD exacerbation History of GI bleed Hyperlipidemia Insomnia Iron deficiency anemia Iron deficiency anemia Iron deficiency anemia Left knee pain Left knee pain Left ventricular hypertrophy Long-term use of high-risk medication Longstanding persistent atrial fibrillation Morbid obesity NEVAEH (obstructive sleep apnea) NEVAEH (obstructive sleep apnea) Patent foramen ovale Pulmonary hypertension Restless legs syndrome Rhinovirus Rhinovirus infection RLS (restless legs syndrome) Stage 3 severe COPD by GOLD classification Supratherapeutic INR Tibial plateau fracture Tibial plateau fracture Home Medications aspirin 81 mg tablet,delayed release 81 mg PO DAILY@0800 [facility] 11/21/15 [History Last Taken 08/04/20] cholecalciferol (vitamin D3) 25 mcg (1,000 unit) tablet 1,000 unit PO DAILY SUPPLEMENT 01/19/19 [History Last Taken 01/18/19] -tjx-jyc-other xraih0r-qqfk oil 360 mg-1,200 mg capsule 1 cap PO DAILY SUPPLEMENT 01/19/19 [History Last Taken 01/19/19] formoterol fumarate 20 mcg/2 mL solution for nebulization 2 ml inhalation Q12H COPD 07/27/20 [History Last Taken 08/10/20] albuterol sulfate 2.5 mg/3 mL (0.083 %) solution for nebulization 2.5 mg (3 mL) inhalation Q4H PRN Sob &/Or Wheezing #180 mL 01/10/22 [Rx Last Taken Unknown] diltiazem HCl 120 mg capsule,extended release 24 hr 120 mg PO BID HEART #180 caps 02/21/22 [Rx Last Taken Unknown] warfarin 5 mg tablet 5 mg PO .COMPLEX blood thinner #90 tabs 05/25/22 [Rx Last Taken Unknown] tiotropium bromide 2.5 mcg/actuation mist for inhalation (Spiriva Respimat) 2 puff inhalation QAM #4 grams 11/06/22 [Rx Last Taken Unknown] warfarin 2.5 mg tablet 2.5 mg PO .COMPLEX blood thinner #90 tabs 12/19/22 [Rx Last Taken Unknown] multivitamin 1 tab PO DAILY 02/12/23 [History Last Taken Unknown] Allergy/AdvReac Type Severity Reaction Status Date / Time meloxicam [From Mobic] AdvReac BP WENT Verified 02/12/23 03:46 UP, STOMACH PAINS tetracycline [Tetracycline] AdvReac GETS Verified 02/12/23 03:46 BLADDER INFECTION Family History Brother CAD (coronary artery disease) Diabetes Sister CAD (coronary artery disease) Diabetes Colon cancer Brother CAD (coronary artery disease) Sister CAD (coronary artery disease) Hx of CABG Surgical History H/O varicose vein stripping H/O varicose vein stripping History of knee replacement History of knee replacement Social History Smoking Status: Never smoker alcohol intake: never substance use type: does not use caffeine: No what type of physical activity do you participate in: none seatbelt use: always do you feel safe at home: Yes ROS ROS ED Constitutional Constitutional ED: Denies chills or fever(s) ENT ENT ED: Denies rhinorrhea or sore throat Cardiovascular Cardiovascular: Reports palpitations; Denies chest pain or racing heartbeat Respiratory/Chest Respiratory/Chest: Reports cough and dyspnea Gastrointestinal Gastrointestinal: Denies abdominal pain, diarrhea, nausea or vomiting Genitourinary Genitourinary ED: Denies dysuria Musculoskeletal Musculoskeletal: Reports back pain and myalgias Integumentary Denies rash Neurologic Neurologic: Denies headache(s) Hematologic/Lymphatic Hematologic/Lymphatic: Reports easy bleeding and easy bruising EXAM Physical Exam Const Vital Signs: 02/12/23 03:40 02/12/23 03:43 02/12/23 04:18 Temperature 97.3 F L 97.6 F L Temperature Source Temporal Oral Pulse Rate 76 69 Respiratory Rate 23 H 18 Respiratory Effort Short of Breath Respiratory Depth Normal Respiratory Pattern Normal Blood Pressure 153/103 H 153/103 H Blood Pressure Mean 119 119 Pulse Ox 94 94 Oxygen Delivery Method Room Air Room Air Room Air 02/12/23 04:30 02/12/23 05:00 02/12/23 05:39 Temperature 97.1 F L Temperature Source Temporal Pulse Rate 73 73 70 Respiratory Rate 22 H 26 H 19 H Respiratory Effort Respiratory Depth Respiratory Pattern Tachypnea Blood Pressure 150/91 H 168/88 H Blood Pressure Mean 110 114 Pulse Ox 92 93 Oxygen Delivery Method Room Air Room Air Positive well nourished and well developed General Appearance ED: well developed HEENT Reports dry mucous membranes HEENT Narrative: No tongue or lip swelling no oral lesions no airway edema or compromise Mouth ED: Yes dry mucous membranes Mouth: dry mucous membranes Eyes PERRL and EOMs intact bilaterally Neck supple and no JVD Chest Wall palpation of chest normal Chest Narrative: No bony deformity or crepitance Resp normal respiratory effort Resp Narrative: Breath sounds are diminished throughout with faint expiratory wheezes diffusely consistent with COPD there are rhonchi noted in the bilateral bases greatest on the right Cardio regular rate Rate: other Other Details: Irregularly irregular rhythm with regular rate consistent with history of atrial fibrillation GI normal to inspection, nondistended, normoactive bowel sounds, non-tender, non-distended and no masses GI Narrative: No voluntary guarding or rigidity no pulsatile mass or fluid wave Auscultation: normoactive bowel sounds Palpation: soft Back/Spine Back/Spine Narrative: No bony deformity or step-off of the thoracic or lumbar spine no midline pain on palpation Extremity normal to inspection Extremity Narrative: No asymmetric edema no pitting edema negative Homans' sign bilaterally Neuro oriented x3 and CN's II-XII intact bilaterally Sensorium / Orientation: alert Psych mental status grossly normal Skin no rashes or lesions noted MDM MDM MDM Narrative Medical decision making narrative: Patient presented to the ER afebrile and is hypertensive but does have a past medical history of this. She has COPD and her pulse ox on room air is 92 to 94% and she does wear oxygen as needed. She reported generalized back discomfort without trauma as well as shortness of breath sensation and states it feels similar nature to her previous pneumonia. With this report and complaint of shortness of breath I did elect to perform basic labs and a chest x-ray initially. Differential diagnosis is for pneumonia versus pneumothorax versus congestive heart failure versus PE or atypical UTI presentation. The patient's white count is elevated at 19 her lactic is up at 3.0. Secondary to this she was started on Rocephin and Zithromax to cover for possible lung pathology as she has not been in the hospital for multiple years. The patient's x-ray did not reveal any acute infectious process and so with concern that there was a missed pneumonia a CTA was obtained to check for this as well as the fact that her INR is slightly subtherapeutic and she does have a history of chronic A-fib. This CTA revealed no PE or infectious process or pleural effusion or signs of vascular congestion despite her elevated proBNP. Therefore urine sample was obtained and does show changes consistent with infection. Based on the UTI and lab abnormalities patient will be kept in the hospital for further observation. The case was discussed with the hospitalist who agrees to accept the patient. History & Record Review Discussion w/independent historian: EMS personnel and Patient Lab Data Attestation: I reviewed the patient's lab results. Labs: Laboratory Results - last 24 hr 02/12/23 02/12/23 02/12/23 03:49 03:49 03:49 WBC 19.0 H RBC 4.95 Hgb 15.2 H Hct 45.8 MCV 92.5 MCH 30.7 MCHC 33.2 RDW Std Deviation 44.4 H RDW Coeff of Eduin 13.2 Plt Count 254 MPV 9.8 Immature Gran % (Auto) 0.700 Neut % (Auto) 81.6 H Lymph % (Auto) 8.8 L [place] % (Auto) 8.6 Eos % (Auto) 0.0 Baso % (Auto) 0.3 Absolute Neuts (auto) 15.5 H Absolute Lymphs (auto) 1.67 Nucleated RBC % 0 Diff Path Review February foll PT 21.3 H INR 1.9 Sodium 134 L Potassium 4.0 Chloride 98 Carbon Dioxide 28.0 Anion Gap 8 BUN 26 H Creatinine 1.51 H Estim Creat Clear Calc 25.81 Est GFR (MDRD) Af Amer 43 L Est GFR (MDRD) Non-Af 35 L BUN/Creatinine Ratio 17.2 Glucose 152 H Lactic Acid Calcium 9.1 B-Natriuretic Peptide Procalcitonin Urine Color Urine Clarity Urine pH Ur Specific Bohannon Urine Protein Urine Glucose (UA) Urine Ketones Urine Occult Blood Urine Nitrite Urine Bilirubin Urine Urobilinogen Ur Leukocyte Esterase Urine RBC Urine WBC Ur Squamous Epith Cells Urine Bacteria Urine Mucus 02/12/23 02/12/23 02/12/23 03:49 04:30 04:30 WBC RBC Hgb Hct MCV MCH MCHC RDW Std Deviation RDW Coeff of Eduin Plt Count MPV Immature Gran % (Auto) Neut % (Auto) Lymph % (Auto) [place] % (Auto) Eos % (Auto) Baso % (Auto) Absolute Neuts (auto) Absolute Lymphs (auto) Nucleated RBC % Diff Path Review PT INR Sodium Potassium Chloride Carbon Dioxide Anion Gap BUN Creatinine Estim Creat Clear Calc Est GFR (MDRD) Af Amer Est GFR (MDRD) Non-Af BUN/Creatinine Ratio Glucose Lactic Acid 3.0 H* Calcium B-Natriuretic Peptide 1434.0 H Procalcitonin 0.04 Urine Color Urine Clarity Urine pH Ur Specific Boh[place] Urine Protein Urine Glucose (UA) Urine Ketones Urine Occult Blood Urine Nitrite Urine Bilirubin Urine Urobilinogen Ur Leukocyte Esterase Urine RBC Urine WBC Ur Squamous Epith Cells Urine Bacteria Urine Mucus 02/12/23 06:45 WBC RBC Hgb Hct MCV MCH MCHC RDW Std Deviation RDW Coeff of Eduin Plt Count MPV Immature Gran % (Auto) Neut % (Auto) Lymph % (Auto) [place] % (Auto) Eos % (Auto) Baso % (Auto) Absolute Neuts (auto) Absolute Lymphs (auto) Nucleated RBC % Diff Path Review PT INR Sodium Potassium Chloride Carbon Dioxide Anion Gap BUN Creatinine Estim Creat Clear Calc Est GFR (MDRD) Af Amer Est GFR (MDRD) Non-Af BUN/Creatinine Ratio Glucose Lactic Acid Calcium B-Natriuretic Peptide Procalcitonin Urine Color Yellow Urine Clarity Sl. Cloudy Urine pH 6.0 Ur Specific Bohannon 1.015 Urine Protein 100 H Urine Glucose (UA) Normal Urine Ketones Negative Urine Occult Blood 150 H Urine Nitrite Positive H Urine Bilirubin Negative Urine Urobilinogen Normal Ur Leukocyte Esterase 500 H Urine RBC 0-5 SEEN Urine WBC >100 SEEN Ur Squamous Epith Cells 0-5 SEEN Urine Bacteria 3+ Urine Mucus 0 SEEN Radiography Diagnostic Testing: Clinical Impression(s) from Imaging Studies Chest X-Ray 02/12/23 04:09 IMPRESSION: Stable cardiomegaly with no evidence of acute pulmonary disease. Electronically Signed: Jaiden oJhnson DO at 4:39 EDT , Chest CTA 02/12/23 04:45 IMPRESSION: 1. No pulmonary embolism. 2. No evidence of acute cardiopulmonary disease. 3. Chronic findings as described above. Electronically Signed: Jaiden Johnson DO at 6:00 EDT , 2 view chest x-ray as interpreted by the emergency medicine physician reveals chronic changes without acute infiltrate pneumothorax or pleural effusion Management Discussion w/another healthcare provider: Hospitalist Discharge Plan Triage Chief Complaint: Shortness of Breath ED Provider: Amari Alvarez Dx/Rx/DC Orders Clinical Impression: UTI (urinary tract infection), Current use of terminal carman anticoagulation, Leukocytosis, Acidosis, lactic, Acute renal insufficiency, Dehydration, Atrial fibrillation, chronic Prescriptions: No Action albuterol sulfate 2.5 mg /3 mL (0.083 %) solution for nebulization 2.5 mg inhalation Q4H PRN (Reason: Sob &/Or Wheezing) Qty: 180 3RF Spiriva Respimat 2.5 mcg/actuation mist 2 puff inhalation QAM Qty: 4 11RF aspirin 81 MG tablet 81 mg PO DAILY@0800 Label Comments: [employer] cholecalciferol (vitamin D3) 1,000 UNIT tablet 1,000 unit PO DAILY [id number] oil 1 EACH capsule 1 cap PO DAILY formoterol fumarate 20 MCG/2 ML solution for nebulization 2 ml INHALATION Q12H multivitamin Tablet 1 tab PO DAILY diltiazem HCl 120 mg capsule,extended release 24hr 120 mg PO BID Qty: 180 3RF warfarin 5 mg tablet 5 mg PO .COMPLEX Qty: 90 4RF Protocol: Dose Management Condition: Saturday Dose/Route: 5 mg Instruction: 1 x 5 mg tablet Condition: Saturday Dose/Route: 2.5 mg Instruction: 1 x 2.5 mg tablet Condition: Saturday Dose/Route: 2.5 mg Instruction: 1 x 2.5 mg tablet Condition: Saturday Dose/Route: 2.5 mg Instruction: 1 x 2.5 mg tablet Condition: Dose/Route: 2.5 mg Instruction: 1 x 2.5 mg tablet Condition: Saturday Dose/Route: 2.5 mg Instruction: 1 x 2.5 mg tablet Condition: Saturday Dose/Route: 5 mg Instruction: 1 x 5 mg tablet Protocol Text: Adjustment Start Date: Saturday01/01/23 INR Value: 2.8 INR Date: 01/01/23 Recheck Date: 01/15/23 Rx Instructions: 5 mg orally take one tab by mouth on ,, and then take one half tab (2.5mg) the other days of the week; or as directed warfarin 2.5 mg tablet 2.5 mg PO .COMPLEX Qty: 90 3RF Protocol: Dose Management Condition: Saturday Dose/Route: 5 mg Instruction: 1 x 5 mg tablet Condition: Saturday Dose/Route: 2.5 mg Instruction: 1 x 2.5 mg tablet Condition: Saturday Dose/Route: 2.5 mg Instruction: 1 x 2.5 mg tablet Condition: Saturday Dose/Route: 2.5 mg Instruction: 1 x 2.5 mg tablet Condition: Dose/Route: 2.5 mg Instruction: 1 x 2.5 mg tablet Condition: Saturday Dose/Route: 2.5 mg Instruction: 1 x 2.5 mg tablet Condition: Saturday Dose/Route: 5 mg Instruction: 1 x 5 mg tablet Protocol Text: Adjustment Start Date: Saturday01/01/23 INR Value: 2.8 INR Date: 01/01/23 Recheck Date: 01/15/23 Rx Instructions: S, T, TH, SA Primary Care Provider: Aurora Madera Referrals: Aurora Madera MD [Primary Care Provider] - Disposition Disposition: Acute [facility]
[2023-02-12] MEDS: Ceftriaxone 1 GM/50 ML BAG IV (04:57)
[2023-02-12 05:08] LABS: Procalcitonin 0.04 ng/mL (0.00-0.09)
--- NOTE | 2023-02-12 05:48 | ED.RN ---
Pt requested to be placed on her home O2 of 2L NC. Wear CPAP @ night or O2 to sleep.
[2023-02-12 06:55] LABS: Mucous, Urine 0 SEEN /hpf (<or=2+)
[2023-02-12 07:07] LABS: Color, Urine Yellow (Yellow); Glucose, Dipstick Normal (Normal); Ketone-Dipstick Negative (Negative); Leukocyte Esterase-Dipstick 500 /ul (Negative); Nitrite-Dipstick Positive (Negative); Occult Blood-Urine 150 /ul (Negative); Protein-Dipstick 100 mg/dl (Negative); Specific Gravity, Urine 1.015 (1.002-1.030); Urine Bilirubin Dipstick Negative (Negative); Urine Clarity Sl. Cloudy (Clear); Urine Urobilinogen Normal (Normal)
[2023-02-12 07:13] LABS: Bacteria 3+ /hpf (None Seen); Red Blood Cells-Urine 0-5 SEEN /hpf (0-5); Squamous Epithelial Cells - UA 0-5 SEEN /hpf (5-10); White Blood Cells >100 SEEN /hpf (0-5)
--- NOTE | 2023-02-12 07:25 | HP.PCM.HOS_ITS ---
HPI - General General Date of Admission: 02/12/23 Date of Service: 02/12/23 Chief Complaint: shortness of breath HPI Narrative MAKAYLA FRAGA, is a 77 F with a PMH as outlined who presents via the ED on 02/12/2023 with a complaint of shortness of breath. Her symptoms had been going on for ~ 2-3 days prior to admission. She had associated back pain. She denied any cough, chest pain, palpitations, dizziness, nausea or vomiting. She also denied any urinary symptoms. REview of systems was otherwise negative. Vitals were BP of 168/88, OH of 70, RR of 19 and oxygen sats of 93% on room air. CBC showed wbc of 19, hb of 15.2 nad platelets of 254. INR is 1.9. Chemistry showed sodium of 134, potassium of 4 and Cr of 1.51. Lactic acid is 3 and BNP was 1434. Urinalysis showed evidence of UTI with >100 wbc/HPF and 3+ bacteria. CXR shwoed no acute cardiopulmonary process, and CTA chest was negative for any evidence of PE and showed no evidence of acute cardiopulmonary disease. She is being admitted to be managed for UTI as well as probable heart failure with unknown EF. [facility] Medical History Afib Atrial septal defect Bronchiectasis Bronchiectasis Chest pain, atypical Community acquired pneumonia COPD exacerbation History of GI bleed Hyperlipidemia Insomnia Iron deficiency anemia Iron deficiency anemia Iron deficiency anemia Left knee pain Left knee pain Left ventricular hypertrophy Long-term use of high-risk medication Longstanding persistent atrial fibrillation Morbid obesity NEVAEH (obstructive sleep apnea) NEVAEH (obstructive sleep apnea) Patent foramen ovale Pulmonary hypertension Restless legs syndrome Rhinovirus Rhinovirus infection RLS (restless legs syndrome) Stage 3 severe COPD by GOLD classification Supratherapeutic INR Tibial plateau fracture Tibial plateau fracture Home Medications aspirin 81 mg tablet,delayed release 81 mg PO DAILY@0800 [facility] 11/21/15 [History Last Taken 08/04/20] cholecalciferol (vitamin D3) 25 mcg (1,000 unit) tablet 1,000 unit PO DAILY SUPPLEMENT 01/19/19 [History Last Taken 01/18/19] -zft-zxm-other [id number] oil 360 mg-1,200 mg capsule 1 cap PO DAILY SUPPLEMENT 01/19/19 [History Last Taken 01/19/19] formoterol fumarate 20 mcg/2 mL solution for nebulization 2 ml inhalation Q12H COPD 07/27/20 [History Last Taken 08/10/20] albuterol sulfate 2.5 mg/3 mL (0.083 %) solution for nebulization 2.5 mg (3 mL) inhalation Q4H PRN Sob &/Or Wheezing #180 mL 01/10/22 [Rx Last Taken Unknown] diltiazem HCl 120 mg capsule,extended release 24 hr 120 mg PO BID HEART #180 caps 02/21/22 [Rx Last Taken Unknown] warfarin 5 mg tablet 5 mg PO .COMPLEX blood thinner #90 tabs 05/25/22 [Rx Last Taken Unknown] tiotropium bromide 2.5 mcg/actuation mist for inhalation (Spiriva Respimat) 2 puff inhalation QAM #4 grams 11/06/22 [Rx Last Taken Unknown] warfarin 2.5 mg tablet 2.5 mg PO .COMPLEX blood thinner #90 tabs 12/19/22 [Rx Last Taken Unknown] multivitamin 1 tab PO DAILY 02/12/23 [History Last Taken Unknown] Allergy/AdvReac Type Severity Reaction Status Date / Time meloxicam [From Mobic] AdvReac BP WENT Verified 02/12/23 03:46 UP, STOMACH PAINS tetracycline [Tetracycline] AdvReac GETS Verified 02/12/23 03:46 BLADDER INFECTION Family History Brother CAD (coronary artery disease) Diabetes Sister CAD (coronary artery disease) Diabetes Colon cancer Brother CAD (coronary artery disease) Sister CAD (coronary artery disease) Hx of CABG Surgical History H/O varicose vein stripping H/O varicose vein stripping History of knee replacement History of knee replacement Social History Smoking Status: Never smoker alcohol intake: never substance use type: does not use caffeine: No what type of physical activity do you participate in: none seatbelt use: always do you feel safe at home: Yes ROS Constitutional Constitutional: Reports fatigue, malaise and weakness; Denies anorexia, chills or fever(s) Eyes Eyes: Denies change in vision Cardiovascular Cardiovascular: Reports dyspnea on exertion and orthopnea; Denies chest pain, edema, lightheadedness, paroxysmal nocturnal dyspnea, rapid heart rate or syncope Respiratory/Chest Respiratory/Chest: Reports dyspnea, shortness of breath at rest and shortness of breath with exertion; Denies cough, productive cough or wheezing Gastrointestinal Gastrointestinal: Denies abdominal pain, constipation, diarrhea, nausea or v omiting Genitourinary Genitourinary: Denies dysuria Musculoskeletal Musculoskeletal: Denies arthralgias Neurologic Neurologic: Denies confusion, dizziness or headache(s) Psychiatric Psychiatric: Denies anxiety Hematologic/Lymphatic Hematologic/Lymphatic: Denies anemia Vital Signs Vital Signs Vital Signs: 02/12/23 03:40 02/12/23 03:43 02/12/23 04:18 Temperature 97.3 F L 97.6 F L Temperature Source Temporal Oral Pulse Rate 76 69 Respiratory Rate 23 H 18 Respiratory Effort Short of Breath Respiratory Depth Normal Respiratory Pattern Normal Blood Pressure 153/103 H 153/103 H Blood Pressure Mean 119 119 Pulse Ox 94 94 Oxygen Delivery Method Room Air Room Air Room Air 02/12/23 04:30 02/12/23 05:00 02/12/23 05:39 Temperature 97.1 F L Temperature Source Temporal Pulse Rate 73 73 70 Respiratory Rate 22 H 26 H 19 H Respiratory Effort Respiratory Depth Respiratory Pattern Tachypnea Blood Pressure 150/91 H 168/88 H Blood Pressure Mean 110 114 Pulse Ox 92 93 Oxygen Delivery Method Room Air Room Air Weight Weight: 172 lb 2.896 oz Body Mass Index (BMI) 30.4 Physical Exam Const alert, oriented x3 and no apparent distress General Appearance: cooperative HEENT normocephalic, head/scalp atraumatic, hearing grossly normal bilaterally, moist oral mucous membranes and oropharynx normal Mouth: oral and palatal mucosa normal Eyes PERRL, EOMs intact bilaterally and conjunctivae normal Resp Resp Narrative: mildly diminished breath sounds bibasally, no wheezes or crackles, n 2L of oxygen by nasal canula Cardio regular rate, regular rhythm, S1 normal heart sound, S2 normal heart sound and no murmurs GI normal to inspection, nondistended, normoactive bowel sounds, soft to palpation, non-tender and non-distended Extremity normal to inspection, full ROM and no clubbing, cyanosis or edema Neuro oriented x3, CN's II-XII intact bilaterally, moves all extremities and no focal motor deficits Sensorium / Orientation: awake and alert Motor Exam: strength 5/5 throughout Psych affect normal Results Lab / Micro Data Result Diagrams: 02/13/23 05:09 02/13/23 05:09 Labs: Laboratory Results - last 24 hr 02/12/23 03:49: WBC 19.0 H, RBC 4.95, Hgb 15.2 H, Hct 45.8, MCV 92.5, MCH 30.7, MCHC 33.2, RDW Std Deviation 44.4 H, RDW Coeff of Eduin 13.2, Plt Count 254, MPV 9.8, Immature Gran % (Auto) 0.700, Neut % (Auto) 81.6 H, Lymph % (Auto) 8.8 L, Bel[place] % (Auto) 8.6, Eos % (Auto) 0.0, Baso % (Auto) 0.3, Absolute Neuts (auto) 15.5 H, Absolute Lymphs (auto) 1.67, Nucleated RBC % 0, Diff Path Review February02/12/23 03:49: PT 21.3 H, INR 1.9 02/12/23 03:49: Sodium 134 L, Potassium 4.0, Chloride 98, Carbon Dioxide 28.0, Anion Gap 8, BUN 26 H, Creatinine 1.51 H, Estim Creat Clear Calc 25.81, Est GFR (MDRD) Af Amer 43 L, Est GFR (MDRD) Non-Af 35 L, BUN/Creatinine Ratio 17.2, Glucose 152 H, Calcium 9.1 02/12/23 03:49: B-Natriuretic Peptide 1434.0 H 02/12/23 04:30: Lactic Acid 3.0 H* 02/12/23 04:30: Procalcitonin 0.04 02/12/23 06:45: Urine Color Yellow, Urine Clarity Sl. Cloudy, Urine pH 6.0, Ur Specific Byron 1.015, Urine Protein 100 H, Urine Glucose (UA) Normal, Urine Ketones Negative, Urine Occult Blood 150 H, Urine Nitrite Positive H, Urine Bilirubin Negative, Urine Urobilinogen Normal, Ur Leukocyte Esterase 500 H, Urine RBC 0-5 SEEN, Urine WBC >100 SEEN, Ur Squamous Epith Cells 0-5 SEEN, Urine Bacteria 3+, Urine Mucus 0 SEEN Radiology Impression Chest X-Ray 02/12/23 04:09 IMPRESSION: Stable cardiomegaly with no evidence of acute pulmonary disease. Electronically Signed: Jaiden Johnson DO at 4:39 EDT , Chest CTA 02/12/23 04:45 IMPRESSION: 1. No pulmonary embolism. 2. No evidence of acute cardiopulmonary disease. 3. Chronic findings as described above. Electronically Signed: Jaiden Johnson DO at 6:00 EDT , Assessment & Plan Assessment/Plan (1) UTI (urinary tract infection): (2) Heart failure: PLAN: Plan #Hypoxia due to acute heart failure of unclear etiology * admit to PCU * on 2L of oxygen during the night; now requiring it during the day * She has a orthopnea and PND but denies any lower extremity edema. I suspect she has heart failure preserved ejection fraction. * Diuresed with IV Lasix 40 mg twice daily. Monitor intake and output. Fluid restriction 1500 cc daily. * Chest x-ray showed no acute cardiopulmonary process. CT of the chest showed no PE but did show dilated pulmonary arteries. * 2D echo ordered. * #UTI: Urinalysis showed evidence of UTI. She complains of back pain which is generalized and costophrenic angle has no tenderness with palpation. On IV ceftriaxone. Urine cultures ordered. #Chronic hypoxic respiratory failure: Due to COPD. Wears 2 L of oxygen at night. Breathing treatments bronchodilators. #A-fib: On Cardizem. On Coumadin. INR is 1.9 DVT prophylaxis: on coumadin Monitor INR CODE STATUS: Full code * Patient counseled extensively about different types of CODE STATUS including full code, DNR CCA and DNR CCA. Patient elects to be full code. * Total [id number] time 17 minutes. Total time spent on evaluation and management of patient, reviewing chart and specialist notes, discussing plan with patient and his , discussion with nursing and ancillary staff as well as documentation: 78 mins Charges/Coding Visit Charges Inpatient E&M: 53249 Init Hosp L3 Procedures Hospitalists Procedures: 71331 Advncd Care Plan 30 Min
--- NOTE | 2023-02-12 07:37 | NURSING ---
120 KORAM UTI WITH LEUKOCYTOSIS AND LACTIC ACIDOSIS
--- NOTE | 2023-02-12 07:38 | ECHOD_ITS ---
Reason For Study: DYSPNEA Procedure This was a 2D Doppler, Color Flow transthoracic echocardiogram. Exam performed portable in patient room. Left Ventricle Moderately dilated left ventricle. The estimated ejection fraction is 35-40 %. Right Ventricle Normal right ventricle. Normal systolic function. Atria The left atrium is moderately enlarged. Normal right atrium. Mitral Valve There is moderate to severe mitral annular calcification. Mild (1+) mitral valve insufficiency. Tricuspid Valve Normal tricuspid valve. Mild tricuspid valve insufficiency. Aortic Valve Mild diffuse aortic valve calcification. Mild-Moderate (1-2+) aortic valve insufficiency. Pulmonic Valve The pulmonic valve is not well visualized. Great Vessels Normal aortic root. Pericardium/Pleural No pericardial effusion. MMode/2D Measurements & Calculations LVIDd: 4.6 cm IVSd: 1.6 cm Ao root diam: 3.4 cm LVIDs: 4.0 cm LVPWd: 1.5 cm FS: 11.8 % LAV(MOD-bp): 73.9 ml LVAd ap4: 28.1 cm2 SV(MOD-sp4): 40.6 ml LAV(MOD-bp) Indexed: 40.7 ml/m2 LVLd ap4: 7.1 cm LAV(MOD-sp2): 79.8 ml EDV(MOD-sp4): 93.7 ml LAV(MOD-sp4): 56.3 ml EDV(sp4-el): 94.7 ml LVAs ap4: 20.7 cm2 LVLs ap4: 6.6 cm ESV(MOD-sp4): 53.1 ml ESV(sp4-el): 55.2 ml EF(MOD-sp4): 43.3 % EF(sp4-el): 41.7 % SV(sp4-el): 39.5 ml LA A4 area: 19.5 cm2 LA dimension(2D): 3.9 cm RA A4 area: 26.8 cm2 Doppler Measurements & Calculations MV E max july: 103.0 cm/sec Ao V2 max: 130.6 cm/sec AI max july: 435.6 cm/sec Ao max P.8 mmHg AI max P.9 mmHg Ao V2 mean: 96.0 cm/sec Ao mean P.0 mmHg AI dec slope: 180.7 cm/sec2 Ao V2 VTI: 27.5 cm AI P1/2t: 705.9 msec AV (velocity ratio): 0.69 LV V1 max: 104.4 cm/sec MR max july: 532.6 cm/sec PA V2 max: 89.4 cm/sec LV V1 max P.4 mmHg MR max P.5 mmHg PA V2 mean: 63.5 cm/sec LV V1 mean P.3 mmHg LV V1 mean: 71.0 cm/sec LV V1 VTI: 18.9 cm TR max july: 358.2 cm/sec TR max P.3 mmHg ECHO/Echo Complete Interpretation Summary The estimated ejection fraction is 35-40 %. Moderate LV systolic dysfunction Anteroapical and distal septal hypokinesia Mild MR Mild to moderate AI Mild TR In comparison to previous echo in August 11, 2020 reduced LV systolic function as described. Ordering Physician: Yeny Porter Referring Physician: Aurora Madera M.D. Performed By: Jina Giordano RCS
[2023-02-12 08:35] LABS: Reflex Lactate? Y
[2023-02-12] MEDS: oxyCODONE 5 MG Tablet PO ×2 (09:12→20:00)
[2023-02-12 09:18] LABS: Troponin-I HS 61 pg/mL (3.0-54.0)
[2023-02-12 09:20] LABS: Lactic Acid 1.5 mmol/L (0.4-1.9)
--- NOTE | 2023-02-12 10:50 | CASEMGMT ---
RN LINDA Face to Face with patient for initial transition planning/care coordination assessment. RN CM introduced self and role at [facility]. Patient lying in bed, alert and oriented. Patient willing to participate in assessment and is able to answer all questions appropriately. Care providers, pharmacy, and demographics verified. Patient wishes to discharge home, denies need for home health at this time. Patient states she has no further needs or concerns at this time. CM to follow for discharge planning needs that may arise. PCP: Santy Specialists: Partha forest botany instructor; Natty sheriff officer Preferred Pharmacy: [facility] Insurance: [employer] Prescription Benefit: yes Living Will/HPOA: yes, daughter Unique Retana LNOK: daughter Living Arrangements: Patient lives alone in a 2nd floor apartment with elevator to enter. Patient states she is independent at home. Transportation: self, daughter DME/HHC: Patient has raised toilet, cane, walker, grab bars, cpap, nebulizer, pulse ox, and home oxygen with POC through [employer] [facility]. No previous HHC. Patient has been to [facility] in the past. Disposition Plan: Patient to discharge home with family support and follow up plans in place. Nicolasa SCOTT, RN, CM
[2023-02-12 11:23] LABS: Troponin-I HS 60 pg/mL (3.0-54.0)
[2023-02-12] MEDS: Furosemide 40 MG/4 ML Vial IV ×2 (11:32→18:40)
[2023-02-12] MEDS: Multivitamins,Therapeutic Tablet 1 TABLET PO (11:32)
[2023-02-12] MEDS: Aspirin E.C. 81 MG Tablet PO (11:32)
[2023-02-12] MEDS: dilTIAZem CD 120 MG Capsule PO ×2 (11:32→21:30)
[2023-02-12] MEDS: Cholecalciferol (VIT D3) 25 MCG TABLET (1,000 UNITS) PO (11:32)
[2023-02-12 15:49] LABS: Troponin-I HS 60 pg/mL (3.0-54.0)
[2023-02-12] MEDS: 0.9% Saline Lock 10 ML Syringe IV (18:40)
[2023-02-13] VITALS (9 sets, daily range): BP systolic 124–175; BP diastolic 80–106; PULSE 68–87; RESP 16–18; TEMP 36.3–36.9; O2SAT 93–99
[2023-02-13] MEDS: hydrALAZINE 20 MG/ML Vial 10 MG IV (00:09)
[2023-02-13] MEDS: 0.9% Saline Lock 10 ML Syringe IV ×5 (00:10→20:53)
[2023-02-13 05:51] LABS: Absolute Lymphocyte Count 1.54 X10^3/uL (0.83-4.51); Absolute Neutrophil Count 12.4 X10^3/uL (2.0-7.7); Basophil# 0.03 X10^3/uL; Basophil% 0.2 % (0-1); Eosinophil# 0.01 X10^3/uL; Eosinophils% 0.1 % (0-5); Hematocrit 44.3 % (37-47); Hemoglobin 14.7 g/dL (12.0-15.0); Lymphocyte # 1.54 X10^3/ul (0.83-4.51); Lymphocyte % 10.1 % (19-41); Mean Corp Hgb Conc 33.2 g/dL (32-36); Mean Corpuscular Hgb 30.4 pg (27.0-32.0); Mean Corpuscular Volume 91.7 fL (81-99); Mean Platelet Vol. 9.6 fl (6.2-12.0); Monocyte# 1.27 X10^3/uL; Monocyte% 8.3 % (0-10); NRBC Flagged by Analyzer 0 % (0-5); Neutrophil # 12.38 X10^3/uL (2.7-7.7); Neutrophil % 80.7 % (47-70); Platelet Count 243 K/mm3 (150-450); RBC Distribution Width CV 13.1 % (11.6-14.6); RBC Distribution Width SD 44.2 fl (35.1-43.9); Red Blood Count 4.83 M/mm3 (4.2-5.4); White Blood Count 15.3 K/mm3 (4.4-11.0)
[2023-02-13 06:22] LABS: Anion Gap 2 (5-15); BUN 31 mg/dL (7-18); BUN/Creat Ratio 22.5 RATIO (10-20); Calcium,Total 9.1 mg/dL (8.5-10.1); Chloride 102 mmol/L (98-107); Creatinine, Serum 1.38 mg/dL (0.55-1.02); EST Glomerular Filtration Rate 39 mL/min (>60); Est Glom Filt Rate - Afr Amer 48 mL/min (>60); Estimated Creatinine Clearance 28.24 ml/min; Glucose 134 mg/dL (74-106); Potassium 3.8 mmol/L (3.5-5.1); Sodium Level 136 mmol/L (136-145)
[2023-02-13] MEDS: Ipratropium/Albuterol Sulfate 3 ML AMPUL.NEB INHALATION ×3 (07:09→19:15)
[2023-02-13] MEDS: dilTIAZem CD 120 MG Capsule PO ×2 (08:09→20:53)
[2023-02-13] MEDS: Acetaminophen 325 MG Tablet 650 MG PO ×2 (08:09→20:53)
[2023-02-13] MEDS: Cholecalciferol (VIT D3) 25 MCG TABLET (1,000 UNITS) PO (08:10)
[2023-02-13] MEDS: Aspirin E.C. 81 MG Tablet PO (08:10)
[2023-02-13] MEDS: Multivitamins,Therapeutic Tablet 1 TABLET PO (08:11)
[2023-02-13] MEDS: oxyCODONE 5 MG Tablet PO ×2 (08:11→20:53)
[2023-02-13] MEDS: Ceftriaxone 1 GM/50 ML BAG IV (10:35)
[2023-02-13] MEDS: Furosemide 40 MG/4 ML Vial IV ×2 (10:36→17:43)
--- NOTE | 2023-02-13 11:20 | PN_ITS ---
Subjective Subjective Patient seen and examined. She says she felt down today because she was in the hospital. She denied any acute pain and denied any fever or chills, shortness of breath, palpitations, dizziness, nausea or vomiting. Review of systems otherwise negative. She is on room air. Objective Data Objective Data Vital Signs: Vital Signs Temp Pulse Resp BP Pulse Ox O2 Del Method O2 Flow Rate 97.4 F L 87 16 135/106 H 94 Room Air 2 02/13/23 08:04 02/13/23 08:25 02/13/23 08:04 02/13/23 08:04 02/13/23 08:04 02/13/23 08:25 02/13/23 07:09 Oxygen Flow Rate (L/min) 2 Oxygen Delivery Method Room Air Weight: 172 lb 6.424 oz Body Mass Index (BMI) 30.5 Intake & Output: Intake and Output for Last 24 Hours 02/11/23 02/12/23 02/13/23 23:59 23:59 23:59 Intake Total 805 / 925 120 / 120 Output Total 1400 / 1400 Balance 805 / -75 -1280 / -1280 Lab / Micro Data Result Diagrams: 02/13/23 05:09 02/13/23 05:09 Labs: Laboratory Results - last 24 hr 02/12/23 10:45: Troponin I High Sens 60 H 02/12/23 14:36: Troponin I High Sens 60 H 02/13/23 05:09: WBC 15.3 H, RBC 4.83, Hgb 14.7, Hct 44.3, MCV 91.7, MCH 30.4, MCHC 33.2, RDW Std Deviation 44.2 H, RDW Coeff of Eduin 13.1, Plt Count 243, MPV 9.6, Immature Gran % (Auto) 0.600, Neut % (Auto) 80.7 H, Lymph % (Auto) 10.1 L, [place] % (Auto) 8.3, Eos % (Auto) 0.1, Baso % (Auto) 0.2, Absolute Neuts (auto) 12.4 H, Absolute Lymphs (auto) 1.54, Nucleated RBC % 0 02/13/23 05:09: Sodium 136, Potassium 3.8, Chloride 102, Carbon Dioxide 32.0, Anion Gap 2 L, BUN 31 H, Creatinine 1.38 H, Estim Creat Clear Calc 28.24, Est GFR (MDRD) Af Amer 48 L, Est GFR (MDRD) Non-Af 39 L, BUN/Creatinine Ratio 22.5 H , Glucose 134 H, Calcium 9.1 Radiography Diagnostic Testing: Radiology Impression Echocardiogram 02/12/23 07:38 Interpretation Summary The estimated ejection fraction is 35-40 %. Moderate LV systolic dysfunction Anteroapical and distal septal hypokinesia Mild MR Mild to moderate AI Mild TR In comparison to previous echo in August 11, 2020 reduced LV systolic function as described. Ordering Physician: Yeny Porter Referring Physician: Aurora Madera M.D. Performed By: Jina Giordano RCS Physical Exam Const alert, oriented x3 and no apparent distress General Appearance: cooperative HEENT normocephalic, head/scalp atraumatic, hearing grossly normal bilaterally, moist oral mucous membranes and oropharynx normal Eyes PERRL, EOMs intact bilaterally and conjunctivae normal Neck General: trachea midline Resp Resp Narrative: mildly diminished breath sounds bibasally, no wheezes or crackles, on room air Cardio regular rate, regular rhythm, S1 normal heart sound, S2 normal heart sound and no murmurs GI normal to inspection, nondistended, normoactive bowel sounds, soft to palpation, non-tender and non-distended Extremity normal to inspection, full ROM and no clubbing, cyanosis or edema General Extremity: no tenderness to palpation of joints or extremities Skin General Skin Exam: no breakdown Neuro oriented x3, CN's II-XII intact bilaterally, moves all extremities and no focal motor deficits Sensorium / Orientation: awake and alert Motor Exam: strength 5/5 throughout Psych affect normal Assessment & Plan Assessment/Plan (1) UTI (urinary tract infection): (2) Heart failure: PLAN: Plan #Hypoxia due to acute heart failure with reduced EF * 2D echo showed EF of 35 to 40% with moderately dilated left ventricle and moderate to severe mitral annular calcification as well as anterior apical and distal septal hypokinesia * Now on room air. On IV Lasix 40 mg twice daily * Monitor intake and output. Consult cardiology in light of 2D echo findings. * * 2D echo ordered. * #UTI: Urinalysis showed evidence of UTI. She complains of back pain which is generalized and costophrenic angle has no tenderness with palpation. On IV ceftriaxone. Urine cultures ordered. #Chronic hypoxic respiratory failure: Due to COPD. Wears 2 L of oxygen at night. Breathing treatments bronchodilators. #A-fib: On Cardizem. On Coumadin. monitor INR DVT prophylaxis: on coumadin Monitor INR CODE STATUS: Full code * Patient counseled extensively about different types of CODE STATUS including full code, DNR CCA and DNR CCA. Patient elects to be full code. * Total time spent on evaluation and management of patient, reviewing chart and specialist notes, discussion of plan with patient, discussion with nursing and ancillary staff as well as documentation: 45 mins Charges/Coding Visit Charges Inpatient E&M: 37227 Subs Hosp L2
[2023-02-13 12:36] LABS: International Normalized Ratio 2.3; Prothrombin Time (Protime)PT. 25.2 SECONDS (11.7-14.9)
[2023-02-14 02:17] VITALS: BP 138/84; PULSE 75; RESP 16; TEMP 36.6; O2SAT 99
[2023-02-14 06:14] LABS: Absolute Lymphocyte Count 1.78 X10^3/uL (0.83-4.51); Absolute Neutrophil Count 11.2 X10^3/uL (2.0-7.7); Basophil# 0.06 X10^3/uL; Basophil% 0.4 % (0-1); Eosinophil# 0.05 X10^3/uL; Eosinophils% 0.3 % (0-5); Hemoglobin 14.9 g/dL (12.0-15.0); Lymphocyte # 1.78 X10^3/ul (0.83-4.51); Lymphocyte % 12.4 % (19-41); Mean Corp Hgb Conc 32.4 g/dL (32-36); Mean Corpuscular Volume 92.7 fL (81-99); Mean Platelet Vol. 9.8 fl (6.2-12.0); Monocyte# 1.19 X10^3/uL; Monocyte% 8.3 % (0-10); NRBC Flagged by Analyzer 0 % (0-5); Neutrophil # 11.18 X10^3/uL (2.7-7.7); Neutrophil % 77.7 % (47-70); Platelet Count 269 K/mm3 (150-450); RBC Distribution Width CV 13.2 % (11.6-14.6); RBC Distribution Width SD 45.1 fl (35.1-43.9); Red Blood Count 4.96 M/mm3 (4.2-5.4); White Blood Count 14.4 K/mm3 (4.4-11.0)
[2023-02-14 06:54] LABS: Anion Gap 5 (5-15); BUN 43 mg/dL (7-18); BUN/Creat Ratio 29.9 RATIO (10-20); Calcium,Total 9.4 mg/dL (8.5-10.1); Chloride 95 mmol/L (98-107); Creatinine, Serum 1.44 mg/dL (0.55-1.02); EST Glomerular Filtration Rate 37 mL/min (>60); Est Glom Filt Rate - Afr Amer 45 mL/min (>60); Estimated Creatinine Clearance 27.06 ml/min; Glucose 131 mg/dL (74-106); Potassium 3.7 mmol/L (3.5-5.1); Sodium Level 131 mmol/L (136-145)
[2023-02-14 06:58] VITALS: PULSE 60; RESP 13
[2023-02-14] MEDS: Ipratropium/Albuterol Sulfate 3 ML AMPUL.NEB INHALATION ×2 (06:59→13:05)
[2023-02-14 08:51] VITALS: BP 142/88; PULSE 67; RESP 16; TEMP 36.3; O2SAT 99
[2023-02-14] MEDS: Acetaminophen 325 MG Tablet 650 MG PO (09:01)
[2023-02-14] MEDS: Cholecalciferol (VIT D3) 25 MCG TABLET (1,000 UNITS) PO (09:01)
[2023-02-14] MEDS: Aspirin E.C. 81 MG Tablet PO (09:01)
[2023-02-14] MEDS: Multivitamins,Therapeutic Tablet 1 TABLET PO (09:01)
[2023-02-14] MEDS: oxyCODONE 5 MG Tablet PO (09:01)
[2023-02-14] MEDS: dilTIAZem CD 120 MG Capsule PO (09:01)
[2023-02-14] MEDS: Furosemide 40 MG Tablet PO (09:01)
--- NOTE | 2023-02-14 09:46 | PCM.CONS.C ---
Documented by User: CALIN Yang 02/14/23 10:04 Assessment & Plan Assessment/Plan (1) Cardiomyopathy: (2) Acute on chronic systolic and diastolic heart failure, NYHA class 2: (3) Atrial fibrillation, chronic: (4) Essential hypertension: PLAN: Plan Patient does have a newly noted decreased in her ejection fraction. Did discuss with her about obtaining a stress test or heart catheterization. Patient at this time as she was not symptomatic wishes to proceed with this on an outpatient basis. Agreeable with this. We will optimize her medications by adding lisinopril at 2.5 mg daily and spironolactone at 25 mg daily. Agree with sending her home on diuretics. She is currently on diltiazem for rate control. She is not on a beta-tammy due to her lung function. We will obtain a BMP prior to her visit with us on an outpatient basis. She did have a mildly elevated troponin that was just outside of normal limits of 60 and 61. Feel that this is likely a demand related ischemia due to her need for oxygen. We will follow-up with this on an outpatient basis. In regards to patient's atrial fibrillation. Her heart rate is controlled on her diltiazem. She is on Coumadin on an outpatient basis. HPI Consult Data Date of Consult: 02/14/23 HPI Narrative HPI Narrative: MAKAYLA FRAGA, is a 77 F who presented to [facility] on 02/12/2023 for increased shortness of breath. BNP was elevated at 1434, troponins have remained stable at 60. They are slightly elevated. She was admitted for management of her heart failure in addition to her UTI. She did undergo an echocardiogram which demonstrated a newly diagnosed decrease in her ejection fraction to 35 to 40%. Last echocardiogram in 2019 demonstrated an EF of 60%. Patient states that she is feeling better. She has not had any chest pain. She came in because of shortness of breath. She feels her breathing is much better. She had not had any swelling. She does note that she is also dealing with the recent of her son. She is unsure if this is contributing to her symptoms. [facility] Medical History (Updated 02/14/23 @ 09:56 by Rupinder LAYTON PA) Acute on chronic systolic and diastolic heart failure, NYHA class 2 Afib Atrial septal defect Bronchiectasis Bronchiectasis Cardiomyopathy Chest pain, atypical Community acquired pneumonia COPD exacerbation History of GI bleed Hyperlipidemia Insomnia Iron deficiency anemia Iron deficiency anemia Iron deficiency anemia Left knee pain Left knee pain Left ventricular hypertrophy Long-term use of high-risk medication Longstanding persistent atrial fibrillation Morbid obesity NEVAEH (obstructive sleep apnea) NEVAEH (obstructive sleep apnea) Patent foramen ovale Pulmonary hypertension Restless legs syndrome Rhinovirus Rhinovirus infection RLS (restless legs syndrome) Stage 3 severe COPD by GOLD classification Supratherapeutic INR Tibial plateau fracture Tibial plateau fracture Home Medications aspirin 81 mg tablet,delayed release 81 mg PO DAILY@0800 [facility] 11/21/15 [History Last Taken 08/04/20] cholecalciferol (vitamin D3) 25 mcg (1,000 unit) tablet 1,000 unit PO DAILY SUPPLEMENT 01/19/19 [History Last Taken 01/18/19] ciyrl2-jso-blf-other kimvw4s-dkds oil 360 mg-1,200 mg capsule 1 cap PO DAILY SUPPLEMENT 01/19/19 [History Last Taken 01/19/19] formoterol fumarate 20 mcg/2 mL solution for nebulization 2 ml inhalation Q12H COPD 07/27/20 [History Last Taken 08/10/20] albuterol sulfate 2.5 mg/3 mL (0.083 %) solution for nebulization 2.5 mg (3 mL) inhalation Q4H PRN Sob &/Or Wheezing #180 mL 01/10/22 [Rx Last Taken Unknown] diltiazem HCl 120 mg capsule,extended release 24 hr 120 mg PO BID HEART #180 caps 02/21/22 [Rx Last Taken Unknown] warfarin 5 mg tablet 5 mg PO .COMPLEX blood thinner #90 tabs 05/25/22 [Rx Last Taken Unknown] tiotropium bromide 2.5 mcg/actuation mist for inhalation (Spiriva Respimat) 2 puff inhalation QAM #4 grams 11/06/22 [Rx Last Taken Unknown] warfarin 2.5 mg tablet 2.5 mg PO .COMPLEX blood thinner #90 tabs 12/19/22 [Rx Last Taken Unknown] multivitamin 1 tab PO DAILY 02/12/23 [History Last Taken Unknown] cefdinir 300 mg capsule 300 mg PO BID #10 caps 02/14/23 [Rx Last Taken Unknown] furosemide 40 mg tablet 40 mg PO DAILY #30 tabs 02/14/23 [Rx Last Taken Unknown] lisinopril 2.5 mg tablet 2.5 mg PO DAILY #30 tabs 02/14/23 [Rx Last Taken Unknown] spironolactone 25 mg tablet 25 mg PO DAILY #30 tabs 02/14/23 [Rx Last Taken Unknown] Allergy/AdvReac Type Severity Reaction Status Date / Time meloxicam [From Mobic] AdvReac BP WENT Verified 02/12/23 03:46 UP, STOMACH PAINS tetracycline [Tetracycline] AdvReac GETS Verified 02/12/23 03:46 BLADDER INFECTION Family History Brother CAD (coronary artery disease) Diabetes Sister CAD (coronary artery disease) Diabetes Colon cancer Brother CAD (coronary artery disease) Sister CAD (coronary artery disease) Hx of CABG Surgical History H/O varicose vein stripping H/O varicose vein stripping History of knee replacement History of knee replacement Social History Smoking Status: Never smoker alcohol intake: never substance use type: does not use caffeine: No what type of physical activity do you participate in: none seatbelt use: always do you feel safe at home: Yes ROS Constitutional Constitutional: Reports fatigue; Denies change in weight, chills, frequent falls, headache(s) or lethargy Eyes Eyes: Denies acute decrease in peripheral vision, blurry vision or change in vision ENT HEENT: Denies dizziness, dry mouth, epistaxis, headache(s), tinnitus or vertigo Cardiovascular Cardiovascular: Denies chest pain at rest, chest pain with activity, claudication, dyspnea at rest, dyspnea on exertion, edema, irregular heart rhythm, lightheadedness, orthopnea, orthostatic symptoms, palpitations or pedal edema Respiratory/Chest Respiratory/Chest: Reports dyspnea on exertion; Denies cough, dyspnea, tachypnea or wheezing Gastrointestinal Gastrointestinal: Denies abdominal pain, bloating, coffee ground emesis, diarrhea, heartburn, hematemesis, hematochezia, melena or nausea Genitourinary Genitourinary: Denies hematuria Musculoskeletal Musculoskeletal: Denies myalgias, numbness or tingling Neurologic Neurologic: Denies abnormal gait, abnormal speech, memory loss, paresthesias or weakness Physical Exam Const alert, oriented x3, no apparent distress and healthy appearing HEENT normocephalic, head/scalp atraumatic, hearing grossly normal bilaterally, external ears normal, external nose normal and moist oral mucous membranes Eyes PERRL, EOMs intact bilaterally, conjunctivae normal and no scleral icterus Neck no lymphadenopathy, supple and no JVD Resp Auscultation: diminished lung sounds Cardio regular rate, regular rhythm, S1 normal heart sound, S2 normal heart sound, no murmurs, no rub, no gallops, no clicks, no JVD and peripheral pulses 2+ throughout GI normal to inspection, nondistended, normoactive bowel sounds, soft to palpation, non-tender and non-distended Extremity normal to inspection, normal capillary refill, no clubbing, cyanosis or edema and no pedal edema Neuro oriented x3, CN's II-XII intact bilaterally, moves all extremities and no focal motor deficits Psych cooperative and affect normal Risk Stratification Risk Stratification Applicable: Yes Age >/= 65: Yes >/= 3 CAD Risk Factors (HTN, HLD, DM, family hx of CAD, or current smoker): Yes Aspirin Use in the Past 7 Days: Yes Severe Angina (>/= episodes in 24 hours): No EKG ST Changes >/= 0.5mm: No Positive Cardiac Marker: Yes ADAN Risk Stratification Score: 4 ADAN % Risk: 20% Risk Charges/Coding Visit Charges Office Visits / Consults: 43688 IP Consult L3 Objective Data Vital Signs: Vital Signs Temp Pulse Resp BP Pulse Ox O2 Del Method O2 Flow Rate 97.4 F L 67 16 142/88 H 99 Nasal Cannula 2 02/14/23 08:51 02/14/23 08:51 02/14/23 08:51 02/14/23 08:51 02/14/23 08:51 02/14/23 09:10 02/14/23 09:10 Oxygen Flow Rate (L/min) 2 Oxygen Delivery Method Nasal Cannula Weight: 172 lb 6.424 oz Body Mass Index (BMI) 30.5 Intake & Output: Intake and Output for Last 24 Hours 02/12/23 02/13/23 02/14/23 23:59 23:59 23:59 Intake Total 805 / 925 1065 / 1425 360 / 360 Output Total 2074 Balance 805 / -75 -1010 / -650 360 / 360 Lab / Micro Data Result Diagrams: 02/14/23 05:40 02/14/23 05:40 Labs: Laboratory Results - last 24 hr 02/13/23 12:18: PT 25.2 H, INR 2.3 02/14/23 05:40: WBC 14.4 H, RBC 4.96, Hgb 14.9, Hct 46.0, MCV 92.7, MCH 30.0, MCHC 32.4, RDW Std Deviation 45.1 H, RDW Coeff of Eduin 13.2, Plt Count 269, MPV 9.8, Immature Gran % (Auto) 0.900, Neut % (Auto) 77.7 H, Lymph % (Auto) 12.4 L, [place] % (Auto) 8.3, Eos % (Auto) 0.3, Baso % (Auto) 0.4, Absolute Neuts (auto) 11.2 H, Absolute Lymphs (auto) 1.78, Nucleated RBC % 0 02/14/23 05:40: Sodium 131 L, Potassium 3.7, Chloride 95 L, Carbon Dioxide 31.0, Anion Gap 5, BUN 43 H, Creatinine 1.44 H, Estim Creat Clear Calc 27.06, Est GFR (MDRD) Af Amer 45 L, Est GFR (MDRD) Non-Af 37 L, BUN/Creatinine Ratio 29.9 H, Glucose 131 H, Calcium 9.4 Micro: Microbiology 02/12/23 07:35 Blood Culture (Wb) - Right Hand Blood Culture - Preliminary No growth in 48 hours. 02/12/23 07:34 Blood Culture (Wb) - Anticubital Left Blood Culture - Preliminary No growth in 48 hours. 02/12/23 06:45 Urine, Clean Catch Urine Culture - Final Mixed Gram Pos & Gram Neg Org Cardiology Labs/Tests 02/13/23 12:18: PT 25.2 H, INR 2.3 02/14/23 05:40: WBC 14.4 H, RBC 4.96, Hgb 14.9, Hct 46.0, MCV 92.7, MCH 30.0, MCHC 32.4, Plt Count 269, MPV 9.8, Immature Gran % (Auto) 0.900, Neut % (Auto) 77.7 H, Lymph % (Auto) 12.4 L, [place] % (Auto) 8.3, Eos % (Auto) 0.3, Baso % (Auto) 0.4, Absolute Neuts (auto) 11.2 H, Nucleated RBC % 0 02/14/23 05:40: Sodium 131 L, Potassium 3.7, Chloride 95 L, Carbon Dioxide 31.0, Anion Gap 5, BUN 43 H, Creatinine 1.44 H, Est GFR (MDRD) Af Amer 45 L, Est GFR (MDRD) Non-Af 37 L, BUN/Creatinine Ratio 29.9 H, Glucose 131 H, Calcium 9.4 Rhythm: A-fib EKG: ECHO: 02/12/2023: The estimated ejection fraction is 35-40 %. Moderate LV systolic dysfunction Anteroapical and distal septal hypokinesia Mild MR Mild to moderate AI Mild TR In comparison to previous echo in August 11, 2020 reduced LV systolic function as described. Documented by User: Dr. August Dave MD 02/14/23 18:33 Assessment & Plan Assessment/Plan (1) Cardiomyopathy: (2) Acute on chronic systolic and diastolic heart failure, NYHA class 2: (3) Atrial fibrillation, chronic: (4) Essential hypertension: PLAN: Plan Patient does have a newly noted decreased in her ejection fraction. Did discuss with her about obtaining a stress test or heart catheterization. Patient at this time as she was not symptomatic wishes to proceed with this on an outpatient basis. Agreeable with this. We will optimize her medications by adding lisinopril at 2.5 mg daily and spironolactone at 25 mg daily. Agree with sending her home on diuretics. She is currently on diltiazem for rate control. She is not on a beta-tammy due to her lung function. We will obtain a BMP prior to her visit with us on an outpatient basis. She did have a mildly elevated troponin that was just outside of normal limits of 60 and 61. Feel that this is likely a demand related ischemia due to her need for oxygen. We will follow-up with this on an outpatient basis. In regards to patient's atrial fibrillation. Her heart rate is controlled on her diltiazem. She is on Coumadin on an outpatient basis. Patient to follow-up with [facility] cardiology team on discharge HPI Consult Data Date of Consult: 02/14/23 [facility] Medical History (Updated 02/14/23 @ 09:56 by Rupinder LAYTON, PA) Acute on chronic systolic and diastolic heart failure, NYHA class 2 Afib Atrial septal defect Bronchiectasis Bronchiectasis Cardiomyopathy Chest pain, atypical Community acquired pneumonia COPD exacerbation History of GI bleed Hyperlipidemia Insomnia Iron deficiency anemia Iron deficiency anemia Iron deficiency anemia Left knee pain Left knee pain Left ventricular hypertrophy Long-term use of high-risk medication Longstanding persistent atrial fibrillation Morbid obesity NEVAEH (obstructive sleep apnea) NEVAEH (obstructive sleep apnea) Patent foramen ovale Pulmonary hypertension Restless legs syndrome Rhinovirus Rhinovirus infection RLS (restless legs syndrome) Stage 3 severe COPD by GOLD classification Supratherapeutic INR Tibial plateau fracture Tibial plateau fracture Home Medications aspirin 81 mg tablet,delayed release 81 mg PO DAILY@0800 [facility] 11/21/15 [History Last Taken 08/04/20] cholecalciferol (vitamin D3) 25 mcg (1,000 unit) tablet 1,000 unit PO DAILY SUPPLEMENT 01/19/19 [History Last Taken 01/18/19] eaurm2-zmi-yvx-other cqynu7a-poqj oil 360 mg-1,200 mg capsule 1 cap PO DAILY SUPPLEMENT 01/19/19 [History Last Taken 01/19/19] formoterol fumarate 20 mcg/2 mL solution for nebulization 2 ml inhalation Q12H COPD 07/27/20 [History Last Taken 08/10/20] albuterol sulfate 2.5 mg/3 mL (0.083 %) solution for nebulization 2.5 mg (3 mL) inhalation Q4H PRN Sob &/Or Wheezing #180 mL 01/10/22 [Rx Last Taken Unknown] diltiazem HCl 120 mg capsule,extended release 24 hr 120 mg PO BID HEART #180 caps 02/21/22 [Rx Last Taken Unknown] warfarin 5 mg tablet 5 mg PO .COMPLEX blood thinner #90 tabs 05/25/22 [Rx Last Taken Unknown] tiotropium bromide 2.5 mcg/actuation mist for inhalation (Spiriva Respimat) 2 puff inhalation QAM #4 grams 11/06/22 [Rx Last Taken Unknown] warfarin 2.5 mg tablet 2.5 mg PO .COMPLEX blood thinner #90 tabs 12/19/22 [Rx Last Taken Unknown] multivitamin 1 tab PO DAILY 02/12/23 [History Last Taken Unknown] cefdinir 300 mg capsule 300 mg PO BID #10 caps 02/14/23 [Rx Last Taken Unknown] furosemide 40 mg tablet 40 mg PO DAILY #30 tabs 02/14/23 [Rx Last Taken Unknown] lisinopril 2.5 mg tablet 2.5 mg PO DAILY #30 tabs 02/14/23 [Rx Last Taken Unknown] spironolactone 25 mg tablet 25 mg PO DAILY #30 tabs 02/14/23 [Rx Last Taken Unknown] Allergy/AdvReac Type Severity Reaction Status Date / Time meloxicam [From Mobic] AdvReac BP WENT Verified 02/12/23 03:46 UP, STOMACH PAINS tetracycline [Tetracycline] AdvReac GETS Verified 02/12/23 03:46 BLADDER INFECTION Family History Brother CAD (coronary artery disease) Diabetes Sister CAD (coronary artery disease) Diabetes Colon cancer Brother CAD (coronary artery disease) Sister CAD (coronary artery disease) Hx of CABG Surgical History H/O varicose vein stripping H/O varicose vein stripping History of knee replacement History of knee replacement Social History Smoking Status: Never smoker alcohol intake: never substance use type: does not use caffeine: No what type of physical activity do you participate in: none seatbelt use: always do you feel safe at home: Yes Risk Stratification Age >/= 65: Yes ADAN Risk Stratification Score: 4 ADAN % Risk: 20% Risk Lab / Micro Data Result Diagrams: 02/14/23 05:40 02/14/23 05:40
[2023-02-14 09:53] LABS: Pathologist Review Reviewed
[2023-02-14] MEDS: Ceftriaxone 1 GM/50 ML BAG IV (10:38)
[2023-02-14] MEDS: Spironolactone 25 MG Tablet PO (10:42)
[2023-02-14] MEDS: Lisinopril 2.5 MG Tablet PO (10:42)
[2023-02-14 13:01] VITALS: BP 149/73; PULSE 78; RESP 16; TEMP 36.3; O2SAT 96; O2SAT 98
[2023-02-14 13:05] VITALS: PULSE 62; RESP 16
--- NOTE | 2023-02-14 13:33 | DS.PCM_ITS ---
Providers Date of Admission: 02/12/23 Date of Discharge: 02/14/23 Primary Care Physician: Dr. Aurora Madera MD Consultations 02/13/23 11:28 Consult: Cardiology Routine Consulting Provider: August Dave Reason for Consult: acute heart failure, reduced EF and hypokinesia of LV per echo EMERGENT Consult: No MD Notified: Yes Date Notified: 02/13/23 Time Notified: 11:29 Method of Notification: Text Reason For Visit: UTI / HEART FAILURE Diagnosis Discharge Diagnosis (1) Cardiomyopathy: Status: Acute Code(s): I42.9 - Cardiomyopathy, unspecified (2) Acute on chronic systolic and diastolic heart failure, NYHA class 2: Status: Acute Code(s): I50.43 - Acute on chronic combined systolic (congestive) and diastolic (congestive) heart failure (3) Atrial fibrillation, chronic: Status: Chronic Code(s): I48.20 - Chronic atrial fibrillation, unspecified (4) Essential hypertension: Status: Chronic Code(s): I10 - Essential (primary) hypertension Plan #Hypoxia due to acute heart failure of unclear etiology * admit to PCU * on 2L of oxygen during the night; now requiring it during the day * She has a orthopnea and PND but denies any lower extremity edema. I suspect she has heart failure preserved ejection fraction. * Diuresed with IV Lasix 40 mg twice daily. Monitor intake and output. Fluid restriction 1500 cc daily. * Chest x-ray showed no acute cardiopulmonary process. CT of the chest showed no PE but did show dilated pulmonary arteries. * 2D echo ordered. * #UTI: Urinalysis showed evidence of UTI. She complains of back pain which is generalized and costophrenic angle has no tenderness with palpation. On IV ceftriaxone. Urine cultures ordered. #Chronic hypoxic respiratory failure: Due to COPD. Wears 2 L of oxygen at night. Breathing treatments bronchodilators. #A-fib: On Cardizem. On Coumadin. INR is 1.9 DVT prophylaxis: on coumadin Monitor INR CODE STATUS: Full code * Patient counseled extensively about different types of CODE STATUS including full code, DNR CCA and DNR CCA. Patient elects to be full code. * Total cywj-qs-yril time 17 minutes. Total time spent on evaluation and management of patient, reviewing chart and specialist notes, discussing plan with patient and his , discussion with nursing and ancillary staff as well as documentation: 78 mins Medications at Discharge Home Medications aspirin 81 mg tablet,delayed release 81 mg PO DAILY@0800 Heart Health 11/21/15 cholecalciferol (vitamin D3) 25 mcg (1,000 unit) tablet 1,000 unit PO DAILY SUPPLEMENT 01/19/19 [id number]-yqh-gqf-other olcog5w-jptu oil 360 mg-1,200 mg capsule 1 cap PO DAILY SUPPLEMENT 01/19/19 formoterol fumarate 20 mcg/2 mL solution for nebulization 2 ml inhalation Q12H COPD 07/27/20 albuterol sulfate 2.5 mg/3 mL (0.083 %) solution for nebulization 2.5 mg (3 mL) inhalation Q4H PRN Sob &/Or Wheezing #180 mL 01/10/22 diltiazem HCl 120 mg capsule,extended release 24 hr 120 mg PO BID HEART #180 caps 02/21/22 warfarin 5 mg tablet 5 mg PO .COMPLEX blood thinner #90 tabs 05/25/22 tiotropium bromide 2.5 mcg/actuation mist for inhalation (Spiriva Respimat) 2 puff inhalation QAM #4 grams 11/06/22 warfarin 2.5 mg tablet 2.5 mg PO .COMPLEX blood thinner #90 tabs 12/19/22 multivitamin 1 tab PO DAILY 02/12/23 cefdinir 300 mg capsule 300 mg PO BID #10 caps 02/14/23 furosemide 40 mg tablet 40 mg PO DAILY #30 tabs 02/14/23 lisinopril 2.5 mg tablet 2.5 mg PO DAILY #30 tabs 02/14/23 spironolactone 25 mg tablet 25 mg PO DAILY #30 tabs 02/14/23 Hospital Course Operations None Procedures 2-D Echocardiogram Summary of Care Provided Minutes Spent on Discharge: 45 Hospital Course: MAKAYLA FRAGA, is a 77 F with a PMH as outlined who presents via the ED on 02/12/2023 with a complaint of shortness of breath. Her symptoms had been going on for ~ 2-3 days prior to admission. She had associated back pain. She denied any cough, chest pain, palpitations, dizziness, nausea or vomiting. She also denied any urinary symptoms. Review of systems was otherwise negative. Vitals were BP of 168/88, OK of 70, RR of 19 and oxygen sats of 93% on room air. CBC showed wbc of 19, hb of 15.2 nad platelets of 254. INR is 1.9. Chemistry showed sodium of 134, potassium of 4 and Cr of 1.51. Lactic acid is 3 and BNP was 1434. Urinalysis showed evidence of UTI with >100 wbc/HPF and 3+ bacteria.? CXR shwoed no acute cardiopulmonary process, and CTA chest was negative for any evidence of PE and showed no evidence of acute cardiopulmonary disease. She was admitted to be managed for UTI as well as probable heart failure with unknown EF. She was diuresed with IV Lasix. 2D echo was done which showed EF of 35 to 40% with moderately dilated left ventricle and moderate to severe mitral annular calcification as well as anterior apical and distal septal hypokinesia. She was placed on IV ceftriaxone. Patient subsequently felt better and his shortness of breath improved with diuresis. She was switched to p.o. Lasix. Cardiology was consulted in light of the echo findings and cardiology recommended outpatient follow-up as she was not having any chest pain and shortness of breath had resolved. Per cardiology recommendation she was started on p.o. lisinopril as well as spironolactone. His symptoms improved and she felt much better. She was discharged on 02/14/2023 and is follow-up with her primary care doctor and with cardiology. #Patient seen and examined prior to discharge. She felt well and had no complaints. She had an uneventful night and review of systems otherwise negative. Labs and vitals reviewed. Home medication reviewed and reconciled. Physical Exam Const alert, oriented x3 and no apparent distress General Appearance: cooperative, comfortable and well kempt HEENT normocephalic, head/scalp atraumatic, hearing grossly normal bilaterally, moist oral mucous membranes and oropharynx normal Mouth: oral and palatal mucosa normal Eyes PERRL, EOMs intact bilaterally and conjunctivae normal Neck no lymphadenopathy and supple General: trachea midline Resp Resp Narrative: mildly diminished breath sounds bibasally, no wheezes or crackles, on room air Cardio regular rate, regular rhythm, S1 normal heart sound, S2 normal heart sound and no murmurs GI normal to inspection, nondistended, normoactive bowel sounds, soft to palpation, non-tender and non-distended Extremity normal to inspection, full ROM and no clubbing, cyanosis or edema General Extremity: no tenderness to palpation of joints or extremities Skin no rashes or lesions noted General Skin Exam: no breakdown Neuro oriented x3, CN's II-XII intact bilaterally, moves all extremities and no focal motor deficits Sensorium / Orientation: awake and alert Motor Exam: strength 5/5 throughout Psych affect normal Weight / BMI Weight Weight: 172 lb 6.424 oz Body Mass Index (BMI) 30.5 ABG / Lab / Microbiology Data Result Diagrams: 02/14/23 05:40 02/14/23 05:40 Laboratory: Laboratory Results - last 24 hr 02/12/23 03:49: Diff Path Review Reviewed 02/14/23 05:40: WBC 14.4 H, RBC 4.96, Hgb 14.9, Hct 46.0, MCV 92.7, MCH 30.0, MCHC 32.4, RDW Std Deviation 45.1 H, RDW Coeff of Eduin 13.2, Plt Count 269, MPV 9.8, Immature Gran % (Auto) 0.900, Neut % (Auto) 77.7 H, Lymph % (Auto) 12.4 L, Victoria % (Auto) 8.3, Eos % (Auto) 0.3, Baso % (Auto) 0.4, Absolute Neuts (auto) 11.2 H, Absolute Lymphs (auto) 1.78, Nucleated RBC % 0 02/14/23 05:40: Sodium 131 L, Potassium 3.7, Chloride 95 L, Carbon Dioxide 31.0, Anion Gap 5, BUN 43 H, Creatinine 1.44 H, Estim Creat Clear Calc 27.06, Est GFR (MDRD) Af Amer 45 L, Est GFR (MDRD) Non-Af 37 L, BUN/Creatinine Ratio 29.9 H, Glucose 131 H, Calcium 9.4 Microbiology: Microbiology 02/12/23 07:35 Blood Culture (Wb) - Right Hand Blood Culture - Preliminary No growth in 48 hours. 02/12/23 07:34 Blood Culture (Wb) - Anticubital Left Blood Culture - Preliminary No growth in 48 hours. 02/12/23 06:45 Urine, Clean Catch Urine Culture - Final Mixed Gram Pos & Gram Neg Org D/C Instructions Discharge Diet: Low fat / Low cholesterol Discharge Activity: Return to Normal Activity Weight Bearing Status: Weight bearing as tolerated Call your doctor if you observe: Fever of 101 or Higher, Shortness of breath, Dizziness, Swelling in the ankles and Chest pain Meaningful Use Info Meaningful Use Diagnoses (Choose all that apply): CHF CHF MARYANN/ARB ordered at discharge?: Yes Documented LVEF (%): 40 Discharge Plan Admission Admit Date/Time: 02/12/23 07:32 Primary Reason for Your Visit: heart failure, UTI Attending Provider: Yeny Porter Primary Care Provider: Aurora Madera Consulting Providers: August Dave Instructions Patient Instructions: ED Heart Failure, Congestive (CHF), ED Heart Disease Risk Factors, ED Cystitis Female Adult Discharge Orders/Prescriptions Prescriptions: New furosemide 40 mg Tablet 40 mg PO DAILY Qty: 30 2RF spironolactone 25 mg Tablet 25 mg PO DAILY Qty: 30 2RF lisinopril 2.5 mg Tablet 2.5 mg PO DAILY Qty: 30 2RF cefdinir 300 mg capsule 300 mg PO BID Qty: 10 0RF Continued albuterol sulfate 2.5 mg /3 mL (0.083 %) solution for nebulization 2.5 mg inhalation Q4H PRN (Reason: Sob &/Or Wheezing) Qty: 180 3RF Spiriva Respimat 2.5 mcg/actuation mist 2 puff inhalation QAM Qty: 4 11RF aspirin 81 MG tablet 81 mg PO DAILY@0800 Label Comments: [employer] cholecalciferol (vitamin D3) 1,000 UNIT tablet 1,000 unit PO DAILY jecmp-7r-kft-epa-fish oil 1 EACH capsule 1 cap PO DAILY formoterol fumarate 20 MCG/2 ML solution for nebulization 2 ml INHALATION Q12H multivitamin Tablet 1 tab PO DAILY diltiazem HCl 120 mg capsule,extended release 24hr 120 mg PO BID Qty: 180 3RF warfarin 5 mg tablet 5 mg PO .COMPLEX Qty: 90 4RF Protocol: Dose Management Condition: Saturday Dose/Route: 5 mg Instruction: 1 x 5 mg tablet Condition: Saturday Dose/Route: 2.5 mg Instruction: 1 x 2.5 mg tablet Condition: Saturday Dose/Route: 2.5 mg Instruction: 1 x 2.5 mg tablet Condition: Saturday Dose/Route: 2.5 mg Instruction: 1 x 2.5 mg tablet Condition: Dose/Route: 2.5 mg Instruction: 1 x 2.5 mg tablet Condition: Saturday Dose/Route: 2.5 mg Instruction: 1 x 2.5 mg tablet Condition: Saturday Dose/Route: 5 mg Instruction: 1 x 5 mg tablet Protocol Text: Adjustment Start Date: Saturday01/01/23 INR Value: 2.8 INR Date: 01/01/23 Recheck Date: 01/15/23 Rx Instructions: 5 mg orally take one tab by mouth on ,, and then take one half tab (2.5mg) the other days of the week; or as directed warfarin 2.5 mg tablet 2.5 mg PO .COMPLEX Qty: 90 3RF Protocol: Dose Management Condition: Saturday Dose/Route: 5 mg Instruction: 1 x 5 mg tablet Condition: Saturday Dose/Route: 2.5 mg Instruction: 1 x 2.5 mg tablet Condition: Saturday Dose/Route: 2.5 mg Instruction: 1 x 2.5 mg tablet Condition: Saturday Dose/Route: 2.5 mg Instruction: 1 x 2.5 mg tablet Condition: Dose/Route: 2.5 mg Instruction: 1 x 2.5 mg tablet Condition: Saturday Dose/Route: 2.5 mg Instruction: 1 x 2.5 mg tablet Condition: Saturday Dose/Route: 5 mg Instruction: 1 x 5 mg tablet Protocol Text: Adjustment Start Date: Saturday01/01/23 INR Value: 2.8 INR Date: 01/01/23 Recheck Date: 01/15/23 Rx Instructions: S, T, TH, SA Referrals / Follow Up: Aurora Madera MD [Primary Care Provider] - 02/26/23 2:20 pm Rupinder Cruz PA [Med Staff - [facility] Practice [facility]] - 03/14/23 9:30 am Disposition Disposition (needs filled in before D/C Order can be placed): Home, Self Care Charges/Coding Visit Charges Inpatient E&M: 14990 Disch Hosp >30min
--- NOTE | 2023-02-14 14:26 | PHA.DC.MR ---
Pharmacy Service has performed discharge medication reconciliation for this patient. Prepared counselling materials; however patient left prior to counselling. Home Medications aspirin 81 mg tablet,delayed release 81 mg PO DAILY@0800 Heart Health 11/21/15 cholecalciferol (vitamin D3) 25 mcg (1,000 unit) tablet 1,000 unit PO DAILY SUPPLEMENT 01/19/19 cpbsi8-lov-bxc-other duosr0p-xqay oil 360 mg-1,200 mg capsule 1 cap PO DAILY SUPPLEMENT 01/19/19 formoterol fumarate 20 mcg/2 mL solution for nebulization 2 ml inhalation Q12H COPD 07/27/20 albuterol sulfate 2.5 mg/3 mL (0.083 %) solution for nebulization 2.5 mg (3 mL) inhalation Q4H PRN Sob &/Or Wheezing #180 mL 01/10/22 diltiazem HCl 120 mg capsule,extended release 24 hr 120 mg PO BID HEART #180 caps 02/21/22 warfarin 5 mg tablet 5 mg PO .COMPLEX blood thinner #90 tabs 05/25/22 tiotropium bromide 2.5 mcg/actuation mist for inhalation (Spiriva Respimat) 2 puff inhalation QAM #4 grams 11/06/22 warfarin 2.5 mg tablet 2.5 mg PO .COMPLEX blood thinner #90 tabs 12/19/22 multivitamin 1 tab PO DAILY 02/12/23 cefdinir 300 mg capsule 300 mg PO BID #10 caps 02/14/23 furosemide 40 mg tablet 40 mg PO DAILY #30 tabs 02/14/23 lisinopril 2.5 mg tablet 2.5 mg PO DAILY #30 tabs 02/14/23 spironolactone 25 mg tablet 25 mg PO DAILY #30 tabs 02/14/23 The patient's discharge medication list was reviewed for discrepancies and discrepancies were resolved.
--- NOTE | 2023-02-15 11:34 | NURSING ---
MACK CM Discharge follow-up phone call LACE:10 Strata:3 Date of call:02/15/23 Time of Call:1134 Admitting diagnosis: UTI, Heart Failure Summary of call: Spoke with patient regarding recent hospitalization. Pt denies questions or concerns regarding recent care. Pt instructed to contact PCP with any questions or concerns should they arise.
== END 2023-02-14 14:21 | disposition home or self-care (01) | DRG 291 ==
LOC: ED 07:33 → PCU 07:41
PROVIDERS: Admitting Provider Student in an Organized Health Care Education/Training Program; Emergency Provider Emergency Medicine; PCP Internal Medicine; Visit Provider Student in an Organized Health Care Education/Training Program
DX: I11.0 Hypertensive heart disease with heart failure (principal); I50.43 Acute on chronic combined systolic (congestive) and diastolic (congestive) heart failure; J96.11 Chronic respiratory failure with hypoxia; I24.8 Other forms of acute ischemic heart disease; I48.20 Chronic atrial fibrillation, unspecified; N39.0 Urinary tract infection, site not specified; E86.0 Dehydration; I42.9 Cardiomyopathy, unspecified; E11.9 Type 2 diabetes mellitus without complications; E78.5 Hyperlipidemia, unspecified; J44.9 Chronic obstructive pulmonary disease, unspecified; N28.9 Disorder of kidney and ureter, unspecified; I34.81 Nonrheumatic mitral (valve) annulus calcification; Z79.01 Long term (current) use of anticoagulants; Z79.82 Long term (current) use of aspirin; Z79.899 Other long term (current) drug therapy
CPT/HCPCS: 36415; 71046; 71275; 80048; 81001; 83605; 83880; 84145; 84484; 85025; 85610; 87040; 87086; 87088; 93306; 94640; 97161; 97802; 99284; J7030; Q9967; A4216; J1940

== ENCOUNTER → 2023-02-21 | Outpatient (CLI) | payer MEDICARE, SELFPAY ==
[2023-02-21 16:17] LABS: Bacteria 0 SEEN /hpf (None Seen); Mucous, Urine 0 SEEN /hpf (<or=2+); Red Blood Cells-Urine 0 SEEN /hpf (0-5); Squamous Epithelial Cells - UA 0 SEEN /hpf (5-10)
[2023-02-21 17:05] LABS: Mean Corpuscular Hgb 30.1 pg (27.0-32.0); Mean Corpuscular Volume 94.2 fL (81-99); Mean Platelet Vol. 9.2 fl (6.2-12.0); Platelet Count 321 K/mm3 (150-450); RBC Distribution Width SD 45.4 fl (35.1-43.9); Red Blood Count 5.31 M/mm3 (4.2-5.4); White Blood Count 16.7 K/mm3 (4.4-11.0)
[2023-02-21 17:05] LABS: Color, Urine Yellow (Yellow); Glucose, Dipstick Normal (Normal); Ketone-Dipstick Negative (Negative); Leukocyte Esterase-Dipstick 25 /ul (Negative); Nitrite-Dipstick Negative (Negative); Occult Blood-Urine 250 /ul (Negative); Protein-Dipstick 15 mg/dl (Negative); Specific Gravity, Urine 1.005 (1.002-1.030); Urine Bilirubin Dipstick Negative (Negative); Urine Clarity Clear (Clear); Urine Urobilinogen Normal (Normal)
[2023-02-21 17:14] LABS: Prothrombin Time (Protime)PT. 51.2 SECONDS (11.7-14.9)
[2023-02-21 18:12] LABS: White Blood Cells 5-10 SEEN /hpf (0-5)
[2023-02-21 18:17] LABS: Anion Gap 2 (5-15); BUN 39 mg/dL (7-18); BUN/Creat Ratio 28.9 RATIO (10-20); Calcium,Total 9.4 mg/dL (8.5-10.1); Chloride 98 mmol/L (98-107); Creatinine, Serum 1.35 mg/dL (0.55-1.02); EST Glomerular Filtration Rate 40 mL/min (>60); Est Glom Filt Rate - Afr Amer 49 mL/min (>60); Glucose 115 mg/dL (74-106); Potassium 5.2 mmol/L (3.5-5.1); Sodium Level 131 mmol/L (136-145)
[2023-02-21 18:19] LABS: International Normalized Ratio 5.7
== END | disposition home or self-care (01) ==
LOC: LAB 16:07
PROVIDERS: PCP Internal Medicine; Referring Provider Nurse Practitioner Family; Visit Provider Nurse Practitioner Family
DX: R53.1 Weakness (principal); I48.20 Chronic atrial fibrillation, unspecified; R53.83 Other fatigue; N39.0 Urinary tract infection, site not specified; E87.1 Hypo-osmolality and hyponatremia; N28.9 Disorder of kidney and ureter, unspecified; Z79.01 Long term (current) use of anticoagulants
CPT/HCPCS: 36415; 80048; 81001; 85027; 85610; 87086

== ENCOUNTER → 2023-02-26 | Outpatient (CLI) | payer MEDICARE, SELFPAY ==
[2023-02-26 17:12] LABS: Prothrombin Time (Protime)PT. 43.9 SECONDS (11.7-14.9)
[2023-02-26 18:54] LABS: International Normalized Ratio 4.5
== END | disposition home or self-care (01) ==
PROVIDERS: PCP Internal Medicine; Visit Provider Internal Medicine
DX: I48.0 Paroxysmal atrial fibrillation (principal); Z79.01 Long term (current) use of anticoagulants
CPT/HCPCS: 85610

== ENCOUNTER → 2023-03-15 | Outpatient (CLI) | payer MEDICARE, SELFPAY ==
[2023-03-15 15:38] LABS: International Normalized Ratio 2.9; Prothrombin Time (Protime)PT. 30.4 SECONDS (11.7-14.9)
[2023-03-15 16:00] LABS: Anion Gap 3 (5-15); BUN 20 mg/dL (7-18); BUN/Creat Ratio 18.5 RATIO (10-20); Calcium,Total 8.7 mg/dL (8.5-10.1); Chloride 106 mmol/L (98-107); Creatinine, Serum 1.08 mg/dL (0.55-1.02); EST Glomerular Filtration Rate 52 mL/min (>60); Est Glom Filt Rate - Afr Amer 63 mL/min (>60); Glucose 107 mg/dL (74-106); Potassium 4.2 mmol/L (3.5-5.1); Sodium Level 142 mmol/L (136-145)
== END | disposition home or self-care (01) ==
LOC: LAB 14:32
PROVIDERS: PCP Internal Medicine; Referring Provider Physician Assistant Medical; Visit Provider Physician Assistant Medical
DX: I48.11 Longstanding persistent atrial fibrillation (principal); D50.9 Iron deficiency anemia, unspecified
CPT/HCPCS: 36415; 80048; 85610

== ENCOUNTER → 2023-04-26 | Outpatient (CLI) | payer MEDICARE, SELFPAY ==
--- NOTE | 2023-04-26 17:25 | STRESSREP_ITS ---
Stress Test Report Pharmacologic myocardial perfusion stress test. 77-year-old lady with a history of cardiomyopathy Resting EKG demonstrates sinus bradycardia with a rate of 49 bpm. Right bundle branch block is noted. Resting blood pressure is 132/80 mmHg. 0.4 mg of regadenoson was infused per usual protocol followed by rapid intravenous saline flush injection. Continuous EKG monitoring was performed. The maximum heart rate was 85 bpm which was 59% of max impacted heart rate the maximum workload was 1 metabolic equivalent. At rest there were no ST or T wave changes noted to suggest ischemia and at peak infusion nonspecific ST changes were noted which did not meet the criteria for ischemia. No clinical angina is noted. The final blood pressure was 124/68 mmHg. Myocardial perfusion protocol. 10.9 mCi of technetium 99m sestamibi was injected at rest. 0.4 mg of regadenoson was infused per usual protocol. At peak infusion 32.8 mCi of tech netium 99m sestamibi was injected stress images were obtained stress and rest images were reconstructed and compared in the short axis vertical long and horizontal long axis. Gated images were also obtained. Perfusion SPECT analysis: Review of the stress images demonstrate normal uptake of tracer noted in all areas of the myocardium. There is a fair amount of GI attenuation artifact present. The resting images similar demonstrated normal uptake of tracer noted in all areas of the myocardium. GI attenuation artifact and inferior wall obscuration is present. No areas of reversibility are noted to suggest ischemia and no previous infarct is noted. Gated SPECT analysis: The gated ejection fraction is 58%. Conclusion: Normal pharmacologic myocardial perfusion stress test. Preserved ejection fraction. Significant GI attenuation artifact present.
== END | disposition home or self-care (01) ==
PROVIDERS: PCP Internal Medicine; Referring Provider Physician Assistant Medical; Visit Provider Physician Assistant Medical
DX: R77.8 Other specified abnormalities of plasma proteins (principal); I42.9 Cardiomyopathy, unspecified; R94.31 Abnormal electrocardiogram [ECG] [EKG]
CPT/HCPCS: 78452; 93017; A9500; A4216; J2785